=== PATIENT | female | born 1950 | race Caucasian/White ===

== ENCOUNTER 2022-08-12 08:39 | Outpatient (CLI) | payer MEDICARE, OTHER, SELFPAY ==
--- OUTSIDE RECORDS SUMMARY | 2022-08-12 08:49 | XMS_ITS | Encounter Summary ---
:1950 Author Organization [facility] Address [address] [place] [address] Care Team Providers Name Role Phone No Contact, Pcp Primary Care Provider Unavailable Reason for Visit Physical Therapy (Routine) - Canceled Specialty Diagnoses / Procedures Referred By Contact Refer red To Contact Diagnoses Follow Up Surgery Exam Edi Benito M.D. [facility] Procedures PT Ongoing treatment 701 [facility] [place] [phone] Referral ID Status Reason Start Date Expiration Date Visits V isits Requested Authorized [id number] Canceled 09/16/2020 09/16/2021 1 1 Encounter Details Date Type Department Care Team Description 10/20/2020 Clinical Support Department of Edi Benito M.D. 701 [facility] [place] [phone] Follow Up Surgery Rehabilitation Services Dave Servin, P.T. [address] [place] [phone] Exam in [address] [phone] Social History Tobacco Use Types Packs/Day Years Used Date Smoking Tobacco: Never Smokeless Tobacco: Never Alcohol Use Standard Drinks/Week Comments Not Currently 0 (1 standard drink = 0.6 oz pure alcoho l) Sex Assigned at Date Recorded Not on file documented as of this encounter Progress Notes Dave Servin, P.T. - 10/20/2020 6:00 AM CST Physical Therapy Outpatient Treatment Note SUBJECTIVE Patient's Name: Heidi Huerta Referring Provider: Edi Benito M.D. Visit Diagnosis: 1. 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 She feels the prednisonehas been helpful. She has been doing her exercises at home aggressively. OBJECTIVE Pain: Pain Assessment Pain Score: 3 With aggressive therapy today, we are able to obtain knee flexion to approximately 112-113 degrees. This is with considerable over pressure by the therapist. She was able to actively bring her knee to 105??. This is in supine. Overall strength for knee extension is 4+/5. There is a minimal extension lag of no more than 2-3 degrees. TREATMENT Treatment today consisted of: Patient continued with the sci fit today warming up her knee for mobility. We brought her over the treatment table in we worked on passive range of motion for knee flexion/extension. We also had her work on some short arc quads. After this, she worked on the leg press machine allowing her to come downinto flexion as tolerated. She also worked on leg press exercises. Home Exercise Program/Education: Contact monitoring: Appropriate PPE was utilized including face mask/protective eyewear. Assessment Clinical Impression: Patient has gained mobility over the past week. Her pain is much more manageable overall. She is nowable to ascending/descend stairs alternating each leg as she goes. She has not been able to do this for over a year. She has made some good progress. Functional Goals and Timeframes: PT Goal #1: To increase knee flexion to 120?? PT Goal #1 Date: 10/28/20 PT Goal #2: To increase knee extension strength to 4+/5 PT Goal #2 Date: 10/28/20 PT Goal #3: Patient is independent with home exercise program which will address strengthening and mobility. Some of this was addressed today. PT Goal #3 Date: 09/16/20 PT Goal #4: Patient is able to ambulate with a standard cane within 4 weeks PT Goal #4 Date: 10/14/20 Plan I we will continue. She will follow up with Orthopedics tomorrow as well. Plan for next session: Time Spent with Patient Manual Therapy (min): 15 min Therapeutic Exercise (min): 15 min Time Calculation Total Timed Units (min): 30 min Total Treatment Time (min): 30 min Dave Servin P.T. Department of Rehabilitation Services in [address] [address] Dept: [phone] ICAL INSTRUMENT TECHNICIAN documented in this encounter Plan of Treatment Not on filedocumented as of this encounter Visit Diagnoses Diagnosis Follow Up Surgery Exam documented in this encounter Care Teams Will Call Clerk Relationship Specialty Start Date End Date No Contact, Pcp PCP - General Family Medicine 09/05/20 documented as of this encounter
--- OUTSIDE RECORDS SUMMARY | 2022-08-12 08:49 | XMS_ITS | Encounter Summary ---
:1950 Author Organization [facility] Address [address] [place] [address] Care Team Providers Name Role Phone No Contact, Pcp Primary Care Provider Unavailable Reason for Visit Physical Therapy (Routine) - Canceled Specialty Diagnoses / Procedures Referred By Contact Refer red To Contact Diagnoses Follow Up Surgery Exam Edi Benito M.D. [facility] Procedures PT Ongoing treatment 701 [facility] [place] [phone] Referral ID Status Reason Start Date Expiration Date Visits V isits Requested Authorized [id number] Canceled 09/16/2020 09/16/2021 1 1 Encounter Details Date Type Department Care Team Description 10/30/2020 Clinical Support Department of Edi Benito M.D. 701 [facility] [place] [phone] Follow Up Surgery Rehabilitation Services Dave Servin, P.T. [address] [place] [phone] Exam in [address] [phone] Social History Tobacco Use Types Packs/Day Years Used Date Smoking Tobacco: Never Smokeless Tobacco: Never Alcohol Use Standard Drinks/Week Comments Not Currently 0 (1 standard drink = 0.6 oz pure alcoho l) Sex Assigned at Date Recorded Not on file documented as of this encounter Progress Notes Dave Servin, P.T. - 10/30/2020 6:00 AM CST Physical Therapy Outpatient Treatment Note SUBJECTIVE Patient's Name: Heidi Huerta Referring Provider: Edi Benito M.D. Visit Diagnosis: 1. Follow Up Surgery Exam Reason for Referral: Patient is 1 week status post right Total Knee Arthroplasty Onset Date: 09/08/20 Payor: MEDICARE / Plan: MEDICARE A AND B / Product Type: Medicare / No data recorded Epic Visit Count: 17 Patient comments: Sandee comes in today with no significant changes. She has been doing her exercises at home. She hasbeen working on extension as well. OBJECTIVE Pain: Pain Assessment Pain Score: 2 After with aggressive stretching, we are able to obtain knee flexion to approximately 114-115 degrees. TREATMENT Treatment today consisted of: She continued with the sci fit for approximately 5 minutes. She was on the leg press machine for multiple repetitions working on knee flexion as well as strength. She is on the stationary bike very momentarily. This was difficult for her to manage. Brought her over the treatment table in we worked aggressively on knee flexion and extension. We worked on muscle stripping of the hamstrings. Contact monitoring: Appropriate PPE was utilized including face mask/protective eye wear. Assessment Clinical Impression: Patient tolerated well overall. Her overall strength is doing well this being 4+/5. She is been at approximately 114?? of knee flexion over the past week now. Functional Goals and Timeframes: PT Goal #1: [...] weeks PT Goal #4 Date: 10/14/20 Plan We will follow up with her once again next week. She follows up with her living specialist in approximately 10 days. Plan for next session: Time Spent with Patient Dave Servin P.T. Department of Rehabilitation Services in [address] [address] Dept: [phone] OR GRADUATE ADVISOR documented in this encounter Plan of Treatment Not on filedocumented as of this encounter Visit Diagnoses Diagnosis Follow Up Surgery Exam documented in this encounter Care Teams Physical Testing Supervisor Relationship Specialty Start Date End Date No Contact, Pcp PCP - General Family Medicine 09/05/20 documented as of this encounter
--- OUTSIDE RECORDS SUMMARY | 2022-08-12 08:49 | XMS_ITS | Encounter Summary ---
:1950 Author Organization [facility] Address [address] [place] [address] Care Team Providers Name Role Phone No Contact, Pcp Primary Care Provider Unavailable Reason for Visit Physical Therapy (Routine) - Canceled Specialty Diagnoses / Procedures Referred By Contact Refer red To Contact Diagnoses Follow Up Surgery Exam Edi Benito M.D. [facility] Procedures PT Ongoing treatment 701 [facility] [place] [phone] Referral ID Status Reason Start Date Expiration Date Visits V isits Requested Authorized [id number] Canceled 09/16/2020 09/16/2021 1 1 Encounter Details Date Type Department Care Team Description 10/28/2020 Clinical Support Department of Edi Benito M.D. 701 [facility] [place] [phone] Follow Up Surgery Rehabilitation Services Dave Servin, P.T. [address] [place] [phone] Exam in [address] [phone] Social History Tobacco Use Types Packs/Day Years Used Date Smoking Tobacco: Never Smokeless Tobacco: Never Alcohol Use Standard Drinks/Week Comments Not Currently 0 (1 standard drink = 0.6 oz pure alcoho l) Sex Assigned at Date Recorded Not on file documented as of this encounter Progress Notes Dave Servin, P.T. - 10/28/2020 6:00 AM CST Physical Therapy Outpatient Treatment Note SUBJECTIVE Patient's Name: eHidi Huerta Referring Provider: Edi Benito M.D. Visit Diagnosis: 1. Follow Up Surgery Exam Reason for Referral: Patient is 1 week status post right Total Knee Arthroplasty Onset Date: 09/08/20 Payor: MEDICARE / Plan: MEDICARE A AND B / Product Type: Medicare / No data recorded Epic Visit Count: 15 Patient comments: Sandee comes in today stating that she continues to feel that there is improvement in her knee. OBJECTIVE Pain: 2-01/07 TREATMENT Treatment today consisted of: I we continued with patient starting out on the sci fit for mobility. She worked on leg press exercises on machine. We then brought her over the table we worked aggressively on knee flexion/extension. Home Exercise Program/Education: She is to continue with her home exercises as well. Contact monitoring: Appropriate PPE was utilized including face mask/protective eyewear. Assessment Clinical Impression: Patient appears to be doing well overall. She is slowly gaining mobility with her knee flexion. She is now to 115?? with aggressive stretching. She has a slight extension lag of no more than 2-3 degrees. Functional Goals and Timeframes: PT Goal #1: [...] Date: 10/14/20 Plan I we will continue. Plan for next session: Time Spent with Patient Dave Servin P.T. Department of Rehabilitation Services in [address] [address] Dept: [phone] TH AND WELLNESS INSTRUCTOR documented in this encounter Plan of Treatment Not on filedocumented as of this encounter Visit Diagnoses Diagnosis Follow Up Surgery Exam documented in this encounter Care Teams Product Safety Technician Relationship Specialty Start Date End Date No Contact, Pcp PCP - General Family Medicine 09/05/20 documented as of this encounter
--- OUTSIDE RECORDS SUMMARY | 2022-08-12 08:49 | XMS_ITS | Encounter Summary ---
:1950 Author Organization [facility] Address [address] [place] [address] Care Team Providers Name Role Phone No Contact, Pcp Primary Care Provider Unavailable Reason for Visit Physical Therapy (Routine) - Canceled Specialty Diagnoses / Procedures Referred By Contact Refer red To Contact Diagnoses Follow Up Surgery Exam Edi Benito M.D. [facility] Procedures PT Ongoing treatment [address] [place] [phone] Referral ID Status Reason Start Date Expiration Date Visits V isits Requested Authorized [id number] Canceled 09/16/2020 09/16/2021 1 1 Encounter Details Date Type Department Care Team Description 11/12/2020 Clinical Support Department of Edi Benito M.D. 701 [place] [phone] Follow Up Surgery Rehabilitation Services Dave Servin, P.T. [address] [place] [phone] Exam in [address] [phone] Social History Tobacco Use Types Packs/Day Years Used Date Smoking Tobacco: Never Smokeless Tobacco: Never Alcohol Use Standard Drinks/Week Comments Not Currently 0 (1 standard drink = 0.6 oz pure alcoho l) Sex Assigned at Date Recorded Not on file documented as of this encounter Progress Notes Dave Servin, P.T. - 11/12/2020 6:00 AM CST Physical Therapy Outpatient Treatment Note SUBJECTIVE Patient's Name: Heidi Huerta Referring Provider: Edi Benito M.D. Visit Diagnosis: 1. Follow Up Surgery Exam Reason for Referral: Patient is 1 week status post right Total Knee Arthroplasty Onset Date: 09/08/20 Payor: MEDICARE / Plan: MEDICARE A AND B / Product Type: Medicare / No data recorded Epic Visit Count: 22 Patient comments: Sandee comes into therapy today after having been to Orthopedics yesterday. They feel that she should continue physical therapy to hopefully increase her knee flexion to 120??. However, overall, they feel she is doing quite well. Contact monitoring: Appropriate PPE was utilized including face mask/protective eyewear. OBJECTIVE Pain: Pain Assessment Pain Score: 1 After therapy today, we are able to obtain knee flexion to nearly 118?? passively. This was with very aggressive stretching. TREATMENT Treatment today consisted of: We continued today with patient warming up on the sci fit times 10 minutes followed by leg press exercises allowing her to come down into flexion as tolerated. She also worked this for strengthening. We then worked on passive range of motion on the treatment table. This was for both knee flexion/extens ion. We had her work on hamstring curls. We then worked on some deep friction massage to the knee. Assessment Clinical Impression: Patient continues to show improvement with her overall mobility. Strength is doing well. Functional Goals and Timeframes: Plan I we will continue with therapy. Overall goals have been nearly met. We hope to see 120?? within thenext week. Plan for next session: Time Spent with Patient Manual Therapy (min): 15 min Therapeutic Exercise (min): 15 min Time Calculation Total Timed Units (min): 30 min Total Treatment Time (min): 30 min Dave Servin P.T. Department of Rehabilitation Services in [address] [phone] Dept: [phone] Y DRIVER documented in this encounter Plan of Treatment Not on filedocumented as of this encounter Visit Diagnoses Diagnosis Follow Up Surgery Exam documented in this encounter Care Teams Nanotechnician Relationship Specialty Start Date End Date No Contact, Pcp PCP - General Family Medicine 09/05/20 documented as of this encounter
--- OUTSIDE RECORDS SUMMARY | 2022-08-12 08:49 | XMS_ITS | Encounter Summary ---
:1950 Author Organization [facility] Address [address] [place] [address] Care Team Providers Name Role Phone No Contact, Pcp Primary Care Provider Unavailable Reason for Visit Physical Therapy (Routine) - Canceled Specialty Diagnoses / Procedures Referred By Contact Refer red To Contact Diagnoses Follow Up Surgery Exam Edi Benito M.D. [facility] Procedures PT Ongoing treatment 701 [facility] [place] [phone] Referral ID Status Reason Start Date Expiration Date Visits V isits Requested Authorized [id number] Canceled 09/16/2020 09/16/2021 1 1 Encounter Details Date Type Department Care Team Description 10/29/2020 Clinical Support Department of Edi Benito M.D. 701 [facility] [place] [phone] Follow Up Surgery Rehabilitation Services Dave Servin, P.T. [address] [place] [phone] Exam in [address] [phone] Social History Tobacco Use Types Packs/Day Years Used Date Smoking Tobacco: Never Smokeless Tobacco: Never Alcohol Use Standard Drinks/Week Comments Not Currently 0 (1 standard drink = 0.6 oz pure alcoho l) Sex Assigned at Date Recorded Not on file documented as of this encounter Progress Notes Dave Servin, P.T. - 10/29/2020 6:00 AM CST Physical Therapy Outpatient Treatment Note SUBJECTIVE Patient's Name: Heidi Huerta Referring Provider: Edi Benito M.D. Visit Diagnosis: 1. Follow Up Surgery Exam Reason for Referral: Patient is 1 week status post right Total Knee Arthroplasty Onset Date: 09/08/20 Payor: MEDICARE / Plan: MEDICARE A AND B / Product Type: Medicare / No data recorded Epic Visit Count: 16 Patient comments: Sandee comes into therapy today with no new complaints. OBJECTIVE Pain: Pain Assessment Pain Score: 2 After therapy today, with aggressive stretching, we are able to obtain knee flexion to -112 degrees. She was able to bring this to 110?? by herself while lying supine. TREATMENT Treatment today consisted of: We had patient warm up on the sci fit once again. This was for approximately 10 minutes. She then worked on the leg press exercise machine allowing her to come down into flexion as tolerated. We then brought her over the treatment table in we worked aggressively on knee flexion/extension. We did review her extension exercises for at home. We recommend that she work on this more aggressively. Home Exercise Program/Education: Contact monitoring: Appropriate PPE was utilized including face mask/protective eyewear. Assessment Clinical Impression: Patient tolerated well overall. Mobility for flexion is about the same today as it was on Tuesday. Functional Goals and Timeframes: PT Goal #1: [...] Servin P.T. Department of Rehabilitation Services in [address] [address] Dept: [phone] GORY ANALYST documented in this encounter Plan of Treatment Not on filedocumented as of this encounter Visit Diagnoses Diagnosis Follow Up Surgery Exam documented in this encounter Care Teams Phlebotomy Program Coordinator Relationship Specialty Start Date End Date No Contact, Pcp PCP - General Family Medicine 09/05/20 documented as of this encounter
--- OUTSIDE RECORDS SUMMARY | 2022-08-12 08:49 | XMS_ITS | Encounter Summary ---
:1950 Author Organization [facility] Address [address] [place] [address] Care Team Providers Name Role Phone No Contact, Pcp Primary Care Provider Unavailable Reason for Visit Physical Therapy (Routine) - Canceled Specialty Diagnoses / Procedures Referred By Contact Refer red To Contact Diagnoses Follow Up Surgery Exam Edi Benito M.D. [facility] Procedures PT Ongoing treatment 701 [facility] [place] [phone] Referral ID Status Reason Start Date Expiration Date Visits V isits Requested Authorized [id number] Canceled 09/16/2020 09/16/2021 1 1 Encounter Details Date Type Department Care Team Description 10/10/2020 Clinical Support Department of Edi Benito M.D. 701 [facility] [place] [phone] Follow Up Surgery Rehabilitation Services Dave Servin, P.T. [address] [place] [phone] Exam in [address] [phone] Social History Tobacco Use Types Packs/Day Years Used Date Smoking Tobacco: Never Smokeless Tobacco: Never Alcohol Use Standard Drinks/Week Comments Not Currently 0 (1 standard drink = 0.6 oz pure alcoho l) Sex Assigned at Date Recorded Not on file documented as of this encounter Progress Notes Dave Servin, P.T. - 10/10/2020 6:00 AM CST Physical Therapy Outpatient Treatment Note SUBJECTIVE Patient's Name: Heidi Huerta Referring Provider: Edi Benito M.D. Visit Diagnosis: 1. Follow Up Surgery Exam Reason for Referral: Patient is 1 week status post right Total Knee Arthroplasty Onset Date: 09/08/20 Payor: MEDICARE / Plan: MEDICARE A AND B / Product Type: Medicare / No data recorded Epic Visit Count: 9 Patient comments: Sandee comes into therapy today stating that she feels better overall. Her pain is much more manageable. However, she is still struggling to increase her mobility. OBJECTIVE Pain: Pain Assessment Pain Score: 3 After therapy today, we are able to obtain knee flexion to approximately 100??. Knee extension lag of approximately 2-3 degrees. TREATMENT Treatment today consisted of: Patient was on the sci fit for approximately 15 minutes allowing her to bring her knee into flexion as tolerated. We then worked on passive range of motion on the treatment table. We address both passive flexion/extension. We had her work on some short arc quads. Home Exercise Program/Education: Contact monitoring: Appropriate PPE was utilized including face mask/protective eyewear. Assessment Clinical Impression: Patient has been diligent in coming into therapy. She is actually coming into therapy on her off days as well getting on the sci fit. However, we have been unable to gain flexion beyond 100??. This is been for approximately the last 1-2 weeks without seeing a lot of progress for flexion. Functional Goals and Timeframes: PT Goal #1: [...] Goal #4 Date: 10/14/20 Plan We will continue next week. She will be following up with her business account specialist on Tuesday. Plan for next session: Time Spent with Patient Manual Therapy (min): 15 min Therapeutic Exercise (min): 15 min Time Calculation Total Timed Units (min): 30 min Total Treatment Time (min): 30 min Dave Servin P.T. Department of Rehabilitation Services in [address] [address] Dept: [phone] HER PLANT OPERATOR documented in this encounter Plan of Treatment Not on filedocumented as of this encounter Visit Diagnoses Diagnosis Follow Up Surgery Exam documented in this encounter Care Teams Stock Order Lister Relationship Specialty Start Date End Date No Contact, Pcp PCP - General Family Medicine 09/05/20 documented as of this encounter
--- OUTSIDE RECORDS SUMMARY | 2022-08-12 08:49 | XMS_ITS | Encounter Summary ---
:1950 Author Organization [facility] Address [address] [place] [address] Care Team Providers Name Role Phone No Contact, Pcp Primary Care Provider Unavailable Reason for Visit Physical Therapy (Routine) - Canceled Specialty Diagnoses / Procedures Referred By Contact Refer red To Contact Diagnoses Follow Up Surgery Exam Edi Benito M.D. [facility] Procedures PT Ongoing treatment [address] [place] [phone] Referral ID Status Reason Start Date Expiration Date Visits V isits Requested Authorized [id number] Canceled 09/16/2020 09/16/2021 1 1 Encounter Details Date Type Department Care Team Description 11/18/2020 Clinical Support Department of Edi Benito M.D. 701 [facility] [place] [phone] Follow Up Surgery Rehabilitation Services Dave Servin, P.T. [address] [place] [phone] Exam in [address] [phone] Social History Tobacco Use Types Packs/Day Years Used Date Smoking Tobacco: Never Smokeless Tobacco: Never Alcohol Use Standard Drinks/Week Comments Not Currently 0 (1 standard drink = 0.6 oz pure alcoho l) Sex Assigned at Date Recorded Not on file documented as of this encounter Progress Notes Dave Servin, P.T. - 11/18/2020 6:00 AM CST Physical Therapy Outpatient Treatment Note SUBJECTIVE Patient's Name: Heidi Huerta Referring Provider: Edi Benito M.D. Visit Diagnosis: 1. Follow Up Surgery Exam Reason for Referral: Patient is 1 week status post right Total Knee Arthroplasty Onset Date: 09/08/20 Payor: MEDICARE / Plan: MEDICARE A AND B / Product Type: Medicare / No data recorded Epic Visit Count: 24 Patient comments: Sandee comes into therapy today with no new complaints. Contact monitoring: Appropriate PPE was utilized including face mask/protective eyewear. OBJECTIVE Pain: Pain Assessment Pain Score: 2 After therapy today, we are able to obtain 119?? of knee flexion. This was with aggressive stretching. TREATMENT Treatment today consisted of: She continued with sci fit today for 15 minutes followed by leg press exercises allowing her to comedown into flexion. We then worked on aggressive stretching for flexion and also muscle stripping forhamstring stretch. We had her work on hamstring curls with manual resistance. Home Exercise Program/Education: She is to continue with her home exercises. Assessment: Patient is doing well overall. She is nearly to 120?? now. Functional Goals and Timeframes: PT Goal [...] #4 Date: 10/14/20 Plan We will continue through this week. Plan for next session: Time Spent with Patient Manual Therapy (min): 15 min Therapeutic Exercise (min): 15 min Time Calculation Total Timed Units (min): 30 min Total Treatment Time (min): 30 min Dave Servin P.T. Department of Rehabilitation Services in [address] [address] Dept: [phone] ZER OPERATOR documented in this encounter Plan of Treatment Not on filedocumented as of this encounter Visit Diagnoses Diagnosis Follow Up Surgery Exam documented in this encounter Care Teams Fill Plant Operator Relationship Specialty Start Date End Date No Contact, Pcp PCP - General Family Medicine 09/05/20 documented as of this encounter
--- OUTSIDE RECORDS SUMMARY | 2022-08-12 08:49 | XMS_ITS | Encounter Summary ---
:1950 Author Organization [facility] Address [address] [place] [address] Care Team Providers Name Role Phone No Contact, Pcp Primary Care Provider Unavailable Reason for Visit Physical Therapy (Routine) - Canceled Specialty Diagnoses / Procedures Referred By Contact Refer red To Contact Diagnoses Follow Up Surgery Exam Edi Benito M.D. [facility] Procedures PT Ongoing treatment [address] [place] [phone] Referral ID Status Reason Start Date Expiration Date Visits V isits Requested Authorized [id number] Canceled 09/16/2020 09/16/2021 1 1 Encounter Details Date Type Department Care Team Description 11/05/2020 Clinical Support Department of Edi Benito M.D. [address] [facility] [place] [phone] Follow Up Surgery Rehabilitation Services Dave Servin, P.T. [address] [place] [phone] Exam in [address] [phone] Social History Tobacco Use Types Packs/Day Years Used Date Smoking Tobacco: Never Smokeless Tobacco: Never Alcohol Use Standard Drinks/Week Comments Not Currently 0 (1 standard drink = 0.6 oz pure alcoho l) Sex Assigned at Date Recorded Not on file documented as of this encounter Progress Notes Dave Servin, P.T. - 11/05/2020 6:00 AM CST Physical Therapy Outpatient Treatment Note SUBJECTIVE Patient's Name: Heidi Huerta Referring Provider: Edi Benito M.D. Visit Diagnosis: 1. 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 She continues to do her exercises athome. OBJECTIVE Pain: Pain Assessment Pain Score: 2 Patient was able to lie supine today and then her knee to approximately 115??. This was with aggressive stretching. This is also would we were able to obtain passively by the therapist. TREATMENT Treatment today consisted of: We worked on the siphon for warmup. She worked on the leg press machine along her to come down into flexion as tolerated and also worked on strengthening for the quads. We then brought her to the treatment table and worked aggressively with passive range of motion for knee flexion/extension. We had her work on hamstring curls. Contact monitoring: Appropriate PPE was utilized including face mask/protective eyewear. Assessment Clinical Impression: The patient is doing relatively well overall. Pain is very manageable. She continues to show some improvement with mobility. She is to approximately 115??. She ambulates with a slight deviation in her gait. However, she is able to ascending/descending stairs reciprocating with each leg. Strength is progressing well. Functional Goals and Timeframes: PT Goal #1: [...] Goal #4 Date: 10/14/20 Plan We will continue. She will be seeing Orthopedics on Tuesday. She is hoping that a manipulation will not be necessary. Plan for next session: Time Spent with Patient Manual Therapy (min): 15 min Therapeutic Exercise (min): 15 min Time Calculation Total Timed Units (min): 30 min Total Treatment Time (min): 30 min Dave Servin P.T. Department of Rehabilitation Services in [address] [address] Dept: [phone] L BUILDING ASSEMBLER documented in this encounter Plan of Treatment Not on filedocumented as of this encounter Visit Diagnoses Diagnosis Follow Up Surgery Exam documented in this encounter Care Teams Gravel Inspector Relationship Specialty Start Date End Date No Contact, Pcp PCP - General Family Medicine 09/05/20 documented as of this encounter
--- OUTSIDE RECORDS SUMMARY | 2022-08-12 08:49 | XMS_ITS | Encounter Summary ---
:1950 Author Organization [facility] Address [address] [place] [address] Care Team Providers Name Role Phone No Contact, Pcp Primary Care Provider Unavailable Encounter Details Date Type Department Care Team Description 06/02/2022 Clinical Communication Department of Edi Benito , Orthopedic Surgery in [place], [place] 701 [facility] [address] [place] [phone] Social History Tobacco Use Types Packs/Day Years Used Date Smoking Tobacco: Never Smokeless Tobacco: Never Alcohol Use Standard Drinks/Week Comments Not Currently 0 (1 standard drink = 0.6 oz pure alcoho l) Sex Assigned at Date Recorded Not on file documented as of this encounter Plan of Treatment Not on filedocumented as of this encounter Visit Diagnoses Not on filedocumented in this encounter Care Teams Field Professional Relationship Specialty Start Date End Date No Contact, Pcp PCP - General Family Medicine 09/05/20 documented as of this encounter
--- OUTSIDE RECORDS SUMMARY | 2022-08-12 08:49 | XMS_ITS | Encounter Summary ---
:1950 Author Organization [facility] Address [address] [place] [address] Care Team Providers Name Role Phone No Contact, Pcp Primary Care Provider Unavailable Reason for Visit Physical Therapy (Routine) - Canceled Specialty Diagnoses / Procedures Referred By Contact Refer red To Contact Diagnoses Follow Up Surgery Exam Edi Benito M.D. [facility] Procedures PT Ongoing treatment [address] [place] [phone] Referral ID Status Reason Start Date Expiration Date Visits V isits Requested Authorized [id number] Canceled 09/16/2020 09/16/2021 1 1 Encounter Details Date Type Department Care Team Description 11/03/2020 Clinical Support Department of Edi Benito M.D. 701 [facility] [place] [phone] Follow Up Surgery Rehabilitation Services Dave Servin, P.T. [address] [place] [phone] Exam in [address] [phone] Social History Tobacco Use Types Packs/Day Years Used Date Smoking Tobacco: Never Smokeless Tobacco: Never Alcohol Use Standard Drinks/Week Comments Not Currently 0 (1 standard drink = 0.6 oz pure alcoho l) Sex Assigned at Date Recorded Not on file documented as of this encounter Progress Notes Dave Servin, P.T. - 11/03/2020 6:00 AM CST Physical Therapy Outpatient Treatment Note SUBJECTIVE Patient's Name: Heidi Huerta Referring Provider: Edi Benito M.D. Visit Diagnosis: 1. Follow Up Surgery Exam Reason for Referral: Patient is 1 week status post right Total Knee Arthroplasty Onset Date: 09/08/20 Payor: MEDICARE / Plan: MEDICARE A AND B / Product Type: Medicare / No data recorded Epic Visit Count: 18 Patient comments: Sandee states she worked her knee aggressively on Tuesday. It was more sore Tuesday. Today, she feels it is just more stiff overall. OBJECTIVE Pain: Pain Assessment Pain Score: 4 Starting out today before exercises, knee flexion was at approximately 108?? with aggressive over pressure. After therapy today, we are able to obtain approximately 117?? of flexion passively. This wasa very aggressive stretch. She still has an extension lag of approximately 2-3 degrees. TREATMENT Treatment today consisted of: I we had patient continue on the sci fit for approximately 10 minutes. We had her work on the leg press machine working on both strength and mobility. After this we worked aggressively on knee flexion/extension. She worked on knee extension exercises in short sitting with manual resistance. She workedon hamstring curls with manual resistance. Home Exercise Program/Education: Contact monitoring: Appropriate PPE was utilized including face mask/protective eyewear. Assessment Clinical Impression: Patient tolerated well overall. She did increase her flexion by approximately 2- 3 degrees since lastweek. However, this was with a very aggressive stretching. Functional Goals and Timeframes: PT Goal #1: [...] Plan We will continue through this week. She will follow up with Orthopedics next week. Plan for next session: Time Spent with Patient Manual Therapy (min): 15 min Therapeutic Exercise (min): 15 min Time Calculation Total Timed Units (min): 30 min Total Treatment Time (min): 30 min Dave Servin P.T. Department of Rehabilitation Services in [address] [address] Dept: [phone] TAKER GROUNDS documented in this encounter Plan of Treatment Not on filedocumented as of this encounter Visit Diagnoses Diagnosis Follow Up Surgery Exam documented in this encounter Care Teams Nitro Worker Relationship Specialty Start Date End Date No Contact, Pcp PCP - General Family Medicine 09/05/20 documented as of this encounter
--- OUTSIDE RECORDS SUMMARY | 2022-08-12 08:49 | XMS_ITS | Encounter Summary ---
:1950 Author Organization [facility] Address [address] [place] [address] Care Team Providers Name Role Phone No Contact, Pcp Primary Care Provider Unavailable Encounter Details Date Type Department Care Team Description 12/31/2020 Orders Only [facility] PCP TH Sa karissa Thomas M.D. [address] [place], [place] [phone] (Wo rk) Social History Tobacco Use Types Packs/Day Years [...] on filedocumented in this encounter Care Teams Masticator Relationship Specialty Start Date End Date No Contact, Pcp PCP - General Family Medicine 09/05/20 documented as of this encounter
--- OUTSIDE RECORDS SUMMARY | 2022-08-12 08:49 | XMS_ITS | Encounter Summary ---
:1950 Author Organization [facility] Address [address] [place] [address] Care Team Providers Name Role Phone No Contact, Pcp Primary Care Provider Unavailable Reason for Visit Physical Therapy (Routine) - Canceled Specialty Diagnoses / Procedures Referred By Contact Refer red To Contact Diagnoses Follow Up Surgery Exam Edi Benito M.D. [facility] Procedures PT Ongoing treatment 701 [facility] [place] [phone] Referral ID Status Reason Start Date Expiration Date Visits V isits Requested Authorized [id number] Canceled 09/16/2020 09/16/2021 1 1 Encounter Details Date Type Department Care Team Description 10/22/2020 Clinical Support Department of Edi Benito M.D. 701 [facility] [place] [phone] Follow Up Surgery Rehabilitation Services Dave Servin, P.T. [address] [place] [phone] Exam in [address] [phone] Social History Tobacco Use Types Packs/Day Years Used Date Smoking Tobacco: Never Smokeless Tobacco: Never Alcohol Use Standard Drinks/Week Comments Not Currently 0 (1 standard drink = 0.6 oz pure alcoho l) Sex Assigned at Date Recorded Not on file documented as of this encounter Progress Notes Dave Servin, P.T. - 10/22/2020 6:00 PM CST Physical Therapy Outpatient Treatment Note SUBJECTIVE Patient's Name: Heidi Huerta Referring Provider: Edi Benito M.D. Visit Diagnosis: 1. Follow Up Surgery Exam Reason for Referral: Patient is 1 week status post right Total Knee Arthroplasty Onset Date: 09/08/20 Payor: MEDICARE / Plan: MEDICARE A AND B / Product Type: Medicare / No data recorded Epic Visit Count: 13 Patient comments: Sandee comes into therapy today stating that her knee feels a little more stiff. She continues to beon the prednisone but this is her last day. She did see Orthopedics yesterday and they feel that they want to give this another 2-3 weeks to see if she gains any further mobility. OBJECTIVE Pain: Pain Assessment Pain Score: 2 After aggressive therapy today, we are able to obtain knee flexion passively to approximately 112??.She has a significant amount of discomfort at end range while doing this. TREATMENT Treatment today consisted of: Patient started out on the sci fit for mobility. We then brought her to the treatment table in worked aggressively on knee flexion. She worked on leg press exercises on machine. This allowed her to come down into flexion as tolerated. We then had her on the stationary bike trying to make full revolutions. She has a significant amount of pain when coming around with the pedal. However, she is able to make a full revolution. Home Exercise Program/Education: Patient is to work very aggressively with her home exercises. Contact monitoring: Appropriate PPE was utilized including face mask/protective eyewear. Assessment Clinical Impression: Patient tolerated well overall. Functional Goals and Timeframes: PT Goal #1: [...] #4 Date: 10/14/20 Plan I we will continue to work on her mobility over the next couple of weeks. She is going to be following up with her clarity specialists at that time. They will decide whether not she will require a manipulation at that point. Plan for next session: Time Spent with Patient Manual Therapy (min): 15 min Therapeutic Exercise (min): 15 min Time Calculation Total Timed Units (min): 30 min Total Treatment Time (min): 30 min Dave Servin P.T. Department of Rehabilitation Services in [address] [phone] Dept: [phone] OLOGICAL TECHNICIAN documented in this encounter Plan of Treatment Not on filedocumented as of this encounter Visit Diagnoses Diagnosis Follow Up Surgery Exam documented in this encounter Care Teams Scene Painter Relationship Specialty Start Date End Date No Contact, Pcp PCP - General Family Medicine 09/05/20 documented as of this encounter
--- OUTSIDE RECORDS SUMMARY | 2022-08-12 08:49 | XMS_ITS | Encounter Summary ---
:1950 Author Organization [facility] Address [address] [place] [address] Care Team Providers Name Role Phone No Contact, Pcp Primary Care Provider Unavailable Reason for Visit Physical Therapy (Routine) - Canceled Specialty Diagnoses / Procedures Referred By Contact Refer red To Contact Diagnoses Follow Up Surgery Exam Edi Benito M.D. [facility] Procedures PT Ongoing treatment 701 [facility] [place] [phone] Referral ID Status Reason Start Date Expiration Date Visits V isits Requested Authorized [id number] Canceled 09/16/2020 09/16/2021 1 1 Encounter Details Date Type Department Care Team Description 09/26/2020 Clinical Support Department of Edi Benito M.D. 701 [facility] [place] [phone] Follow Up Surgery Rehabilitation Services Dave Servin, P.T. [address] [place] [phone] Exam in [address] [phone] Social History Tobacco Use Types Packs/Day Years Used Date Smoking Tobacco: Never Smokeless Tobacco: Never Alcohol Use Standard Drinks/Week Comments Not Currently 0 (1 standard drink = 0.6 oz pure alcoho l) Sex Assigned at Date Recorded Not on file documented as of this encounter Progress Notes Dave Servin, P.T. - 09/26/2020 6:00 AM CST Physical Therapy Outpatient Treatment Note SUBJECTIVE Patient's Name: Heidi Huerta Referring Provider: Edi Benito M.D. Visit Diagnosis: 1. Follow Up Surgery Exam Reason for Referral: Patient is 1 week status post right Total Knee Arthroplasty Onset Date: 09/08/20 Payor: MEDICARE / Plan: MEDICARE A AND B / Product Type: Medicare / No data recorded Epic Visit Count: 5 Patient comments: Sandee comes into therapy today stating that her knee is stiff and with little more soreness today. She is up on her feet much of the day yesterday with Thanksgiving. OBJECTIVE Pain: Pain Assessment Pain Score: 5 - Moderate pain Initially today, patient's mobility was at approximately 50?? of flexion. However, after prolonged therapy and motion, we are able to obtain knee flexion to nearly 95?? visually. TREATMENT Treatment today consisted of: Patient was on the sci fit for approximately 15 minutes. We also provided passive range of motion for knee flexion/extension. We had her work on some short arc quads. Total time today was 15 minutes oftherapeutic exercise and 15 minutes of manual therapy. Home Exercise Program/Education: Contact monitoring: Appropriate PPE was utilized including face mask/protective eyewear. Assessment Clinical Impression: Patient had some increased swelling today. She is up on her feet much of the day. We encouraged her to moderate her activities little bit more. She should elevate her knee a little more. We recommendedthat she lay down 2-3 times a day just to elevate her leg. She should avoid a lot of prolonged shortsitting. She is to continue icing. Functional Goals and Timeframes: PT Goal #1: [...] weeks PT Goal #4 Date: 10/14/20 Plan we will continue. Plan for next session: Time Spent with Patient Manual Therapy (min): 15 min Therapeutic Exercise (min): 15 min Time Calculation Total Timed Units (min): 30 min Total Treatment Time (min): 30 min Dave Servin P.T. Department of Rehabilitation Services in [address] [phone] Dept: [phone] LE MAKER ORIGINAL documented in this encounter Plan of Treatment Not on filedocumented as of this encounter Visit Diagnoses Diagnosis Follow Up Surgery Exam documented in this encounter Care Teams Laboratory Clerk Relationship Specialty Start Date End Date No Contact, Pcp PCP - General Family Medicine 09/05/20 documented as of this encounter
--- OUTSIDE RECORDS SUMMARY | 2022-08-12 08:49 | XMS_ITS | Encounter Summary ---
:1950 Author Organization [facility] Address [address] [place] [address] Care Team Providers Name Role Phone No Contact, Pcp Primary Care Provider Unavailable Reason for Visit Physical Therapy (Routine) - Canceled Specialty Diagnoses / Procedures Referred By Contact Refer red To Contact Diagnoses Follow Up Surgery Exam Edi Benito M.D. [facility] Procedures PT Ongoing treatment [address] [place] [phone] Referral ID Status Reason Start Date Expiration Date Visits V isits Requested Authorized [id number] Canceled 09/16/2020 09/16/2021 1 1 Encounter Details Date Type Department Care Team Description 11/10/2020 Clinical Support Department of Edi Benito M.D. [address] [facility] [phone] Follow Up Surgery Rehabilitation Services Dave Servin, P.T. [address] [place] [phone] Exam in [address] [phone] Social History Tobacco Use Types Packs/Day Years Used Date Smoking Tobacco: Never Smokeless Tobacco: Never Alcohol Use Standard Drinks/Week Comments Not Currently 0 (1 standard drink = 0.6 oz pure alcoho l) Sex Assigned at Date Recorded Not on file documented as of this encounter Progress Notes Dave Servin, P.T. - 11/10/2020 6:00 AM CST Physical Therapy Outpatient Treatment Note SUBJECTIVE Patient's Name: Heidi Huerta Referring Provider: Edi Benito M.D. Visit Diagnosis: 1. Follow Up Surgery Exam Reason for Referral: Patient is 1 week status post right Total Knee Arthroplasty Onset Date: 09/08/20 Payor: MEDICARE / Plan: MEDICARE A AND B / Product Type: Medicare / No data recorded Epic Visit Count: 21 Patient comments: Sandee comes into therapy with similar issues overall. She will be seeing Orthopedics tomorrow. OBJECTIVE Pain: Pain Assessment Pain Score: 2 After therapy today, patient was able to flex her knee to 115??/116??. This was on her own. This waswith aggressive stretching on her part while she was supine. 115-116 degrees was about all this therapist could obtain as well. TREATMENT Treatment today consisted of: She continued with the sci fit as well as the leg press machine to work on flexion and strengthening. I we worked on hamstring curls with her in the prone position. We worked on passive range of motionfor knee flexion and extension. Home Exercise Program/Education: Contact monitoring: Appropriate PPE was utilized including face mask/protective eyewear. Assessment Clinical Impression: Patient tolerated well overall. Mobility has been somewhat limited over the past week. However, she is to 115/116 degrees. This is very functional at this time. Functional Goals and Timeframes: PT Goal #1: [...] weeks PT Goal #4 Date: 10/14/20 Plan She will be following up with Orthopedics tomorrow. We will continue as needed. Plan for next session: Time Spent with Patient Manual Therapy (min): 15 min Therapeutic Exercise (min): 15 min Time Calculation Total Timed Units (min): 30 min Total Treatment Time (min): 30 min Dave Servin P.T. Department of Rehabilitation Services in [address] [address] Dept: [phone] SAMPLE MAKER documented in this encounter Plan of Treatment Not on filedocumented as of this encounter Visit Diagnoses Diagnosis Follow Up Surgery Exam documented in this encounter Care Teams Archeologist Relationship Specialty Start Date End Date No Contact, Pcp PCP - General Family Medicine 09/05/20 documented as of this encounter
--- OUTSIDE RECORDS SUMMARY | 2022-08-12 08:49 | XMS_ITS | Encounter Summary ---
:1950 Author Organization [facility] Address [address] [place] [address] Care Team Providers Name Role Phone No Contact, Pcp Primary Care Provider Unavailable Reason for Visit Reason Comments Post-op Outpatient (Routine) - Closed Specialty Diagnoses / Procedures Referred By Contact Refer red To Contact Orthopedic Surgery Bridgette Francisco, ISABELLA, [facility] C.N.P., D.N.P. [address] [place] [address] Referral ID Status Reason Start Date Expiration Date Visits Requ ested Visits Authorized [id number] Closed 08/21/2020 08/21/2021 1 1 Encounter Details Date Type Department Care Team Description 09/22/2020 Office Visit Department of Bridgette Francisco, Follow Up S urgery Exam Orthopedic Surgery in REVIT DRAFTER, C.N.P., (Prim manuel Dx) [place], [place] D.N.P. [address] [facility] [address] [place] [phone] Social History Tobacco Use Types Packs/Day Years Used Date Smoking Tobacco: Never Smokeless Tobacco: Never Alcohol Use Standard Drinks/Week Comments Not Currently 0 (1 standard drink = 0.6 oz pure alcoho l) Sex Assigned at Date Recorded Not on file documented as of this encounter Progress Notes Bridgette Francisco, ISABELLA, C.N.P., D.N.P. - 09/22/2020 2:30 PM CST Heidi is a pleasant 69-year-old female who is status post right total knee arthroplasty on 09/08/2020. She has very low tolerance for narcotics but having significant pain postoperatively. She currently on is on a Duragesic patch of 12.5 mg and tolerating that well. Pain has been inhibiting her motion. She continues to ice and work with PT and her exercises. She states it was more pain and she imagined. She denies any signs or symptoms of infection. Physical exam-right knee with moderate effusion noted. Surgical incision is well approximated. Thereis no signs of infection. Knee is stable to valgus and varus. She lacks full extension by 4-5 degrees and flexes to 80??. She has negative calf pain or excessive swelling and negative Homans sign. She has excellent sensation and motion with her foot. Diagnostic [id number] of her right knee shows total knee arthroplasty hardware without failure. Impression and plan- Heidi is a very pleasant 69-year-old who is 2 weeks status post right totalknee arthroplasty and struggling with pain control. She states she has taken a few tramadol which does make her nauseous but uses it for therapy. She has been tolerating the duragesic patch and today we will increase the patch to 25 mcg. She may still use the tramadol as needed if she can tolerate. Lisethid discuss continuing with stool softeners and watching in treating constipation. She will continuewith aspirin 81 mg twice daily. We reviewed incisional care and will plan to see her back in 3 weeksfor follow-up. She will continue to work with physical therapy. Her questions were answered. Visitedalso with her on speaker phone to help clarify medications. ET HAND WEAVER documented in this encounter Plan of Treatment Not on filedocumented as of this encounter Results DX Knee Right 3 Views (09/22/2020 3:04 PM BASKET HAND WEAVER) Anatomical Region Laterality Modality Lower Extremity, Knee, Musculoskeletal RST LOS, Right Digital Radiography Musculoskeletal ARZ LOS, Muskuloskeletal FLA LOS Specimen (Source) Anatomical Collection Method Collection Time Re ceived Time Location / / Volume Laterality 09/22/2020 3:19 PM BASKET HAND WEAVER Impressions 09/22/2020 3:20 PM BASKET HAND WEAVER Interval right TKA with patellar resurfacing. Components appear well seated without evidence of loosening. Ne w soft tissue swelling about the right knee relative to the left. Tricompartmen shravan degenerative change left knee. Comparison with 08/21/2020. Narrative 09/22/2020 3:20 PM BASKET HAND WEAVER EXAM: DX KNEE RIGHT 3 VIEWS Procedure Note Corie Polk M.D. - 09/22/2020Form atting of this note might be different from the original. EXAM: DX KNEE RIGHT 3 VIEWS IMPRESSION: Interval right TKA with patellar resurfa cing. Components appear well seated without evidence of loosening. Ne w soft tissue swelling about the right knee relative to the left. Tricompartmen shravan degenerative change left knee. Comparison with 08/21/2020. Bridgette Francisco APRN, C.N.P., D.N.P. IMG DIAGNOSTIC IMAG ING PROCEDURES documented in this encounter Visit Diagnoses Diagnosis Follow Up Surgery Exam - Primary Follow Up Surgery Exam documented in this encounter Care Teams Raw Stock Dyeing Machine Tender Relationship Specialty Start Date End Date No Contact, Pcp PCP - General Family Medicine 09/05/20 documented as of this encounter
--- OUTSIDE RECORDS SUMMARY | 2022-08-12 08:49 | XMS_ITS | Encounter Summary ---
:1950 Author Organization [facility] Address [address] [place] [address] Care Team Providers Name Role Phone No Contact, Pcp Primary Care Provider Unavailable Reason for Visit Physical Therapy (Routine) - Canceled Specialty Diagnoses / Procedures Referred By Contact Refer red To Contact Diagnoses Follow Up Surgery Exam Edi Benito M.D. [facility] Procedures PT Ongoing treatment [address] [place] [phone] Referral ID Status Reason Start Date Expiration Date Visits V isits Requested Authorized [id number] Canceled 09/16/2020 09/16/2021 1 1 Encounter Details Date Type Department Care Team Description 09/18/2020 Clinical Support Department of Edi Benito M.D. 701 [facility] [place] [phone] Follow Up Surgery Rehabilitation Services Dave Servin, P.T. [address] [place] [phone] Exam in [address] [phone] Social History Tobacco Use Types Packs/Day Years Used Date Smoking Tobacco: Never Smokeless Tobacco: Never Alcohol Use Standard Drinks/Week Comments Not Currently 0 (1 standard drink = 0.6 oz pure alcoho l) Sex Assigned at Date Recorded Not on file documented as of this encounter Progress Notes Dave Servin, P.T. - 09/18/2020 6:00 AM CST Physical Therapy Outpatient Treatment Note SUBJECTIVE Patient's Name: Heidi Huerta Referring Provider: Edi Benito M.D. Visit Diagnosis: 1. Follow Up Surgery Exam Reason for Referral: Patient is 1 week status post right Total Knee Arthroplasty Onset Date: 09/08/20 Payor: MEDICARE / Plan: MEDICARE A AND B / Product Type: Medicare / No data recorded Epic Visit Count: 2 Patient comments: Rosie comes in today stating that she feels her swelling may be a little worse today. She is not taking the prescribed pain medication but she is on Tylenol. She notes that the pain medication has made it difficult for her to have bowel movements. She wishes to stay with the Tylenol if possible. OBJECTIVE Pain: Pain Assessment Pain Score: 5 - Moderate pain After therapy today, knee flexion was to approximately 80-85 degrees of flexion. There is an extension lag of approximately 5?? due to inflammation/swelling. TREATMENT Treatment today consisted of: We worked on passive range of motion for knee flexion/extension with patient in supine. She also is on the sci fit for approximately 8 minutes along her to come down into flexion as tolerated. Home Exercise Program/Education: Contact monitoring: Appropriate BP was utilized including face mask/protective eyewear. Assessment Clinical Impression: Patient tolerated well overall. She does have a fairly significant amount of swelling. However, her tolerance to pain seemed to be better today. Her mobility was little better as well. Functional Goals and Timeframes: PT Goal [...] #4 Date: 10/14/20 Plan We will continue. Plan for next session: Time Spent with Patient Manual Therapy (min): 15 min Therapeutic Exercise (min): 15 min Time Calculation Total Timed Units (min): 30 min Total Treatment Time (min): 30 min Dave Servin P.T. Department of Rehabilitation Services in [address] [phone] Dept: [phone] K BURNER HEAD documented in this encounter Plan of Treatment Not on filedocumented as of this encounter Visit Diagnoses Diagnosis Follow Up Surgery Exam documented in this encounter Care Teams Dental Sales Representative Relationship Specialty Start Date End Date No Contact, Pcp PCP - General Family Medicine 09/05/20 documented as of this encounter
--- OUTSIDE RECORDS SUMMARY | 2022-08-12 08:49 | XMS_ITS | Encounter Summary ---
:1950 Author Organization [facility] Address [address] [place] [address] Care Team Providers Name Role Phone No Contact, Pcp Primary Care Provider Unavailable Reason for Referral Outpatient (Routine) - Closed Specialty Diagnoses / Procedures Referred By Contact Refer red To Contact Orthopedic Surgery Bridgette Francisco, HAFSA MASON [facility] C.N.P., D.N.P. [address] [place] [phone] Referral ID Status Reason Start Date Expiration Date Visits Requ ested Visits Authorized [id number] Closed 10/14/2020 10/14/2021 1 [address] PATENT Reason for Visit Reason Comments Arthroplasty Doing well. Follow-up Doing well. Appointment Request (Routine) - Closed Specialty Diagnoses / Procedures Referred By Contact Refer red To Contact Orthopedic Surgery Referral ID Status Reason Start Date Expiration Date Visits Requ ested Visits Authorized [id number] Closed 09/22/2020 09/22/2021 1 1 Encounter Details Date Type Department Care Team Description 10/14/2020 Office Visit Department of Bridgette Francisco, Aftercare T otaalexandra Knee Orthopedic Surgery in ISABELLA, C.N.PThomas, Arthr oplasty (Primary Mag Lopez.N.P. Dx) [address] [place] [phone] Social History Tobacco Use Types Packs/Day Years Used Date Smoking Tobacco: Never Smokeless Tobacco: Never Alcohol Use Standard Drinks/Week Comments Not Currently 0 (1 standard drink = 0.6 oz pure alcoho l) Sex Assigned at Date Recorded Not on file documented as of this encounter Progress Notes Bridgette Francisco APRN, C.N.P., D.N.P. - 10/14/2020 8:00 AM CST Heidi is a pleasant 69-year-old who is status post right total knee arthroplasty on 09/08/2020. She has been working with therapy and his having some difficulty with her motion. She feels her pain is well controlled and she has been tolerating her Duragesic patches but is having significant issueswith constipation despite agressive treatments. She doesn't think pain is stopping her motion but ismore inflammation. She continues to ice it and slowly notes some improvement. She very much would like to avoid manipulation if possible. Physical exam-right knee with moderate effusion noted. Surgical incision is well healed. Knee is stable to valgus and varus. She lacks full extension by 3?? and flexes to 90??. No calf swelling or tenderness and negative Homans sign. Impression and plan- Heidi is a pleasant 69-year-old who is 5 weeks status post right total kneearthroplasty. She does not tolerate oral narcotics but is tolerating the Duragesic patch but having significant side effects. I discussed with her I feel she needs to continue with this but we would lower the dose to 12.5 mg, which I did refill. We talked about treating the constipation. Will have hercontinue with Tylenol on a regular basis. Also will add prednisone to her regiment in hopes to calm the inflammation and improve her motion. We will plan to see her back in 2 weeks if she does not havesignificant improvement in her motion we will need to consider setting her up for manipulation. She will continue to work with physical therapy aggressively. We also discussed returning to her pre surgery aspirin dose next week. She agrees with this plan and her questions were answered. TER PATENT documented in this encounter Plan of Treatment Scheduled Referrals Name Type Priority Associated Order Schedule Diagnoses Orthopedic Surgery Outpatient Referral Routine Ex pected: Post Op (clinic) 10/21/2020 (Approximate), Expires: 10/14/2023 documented as of this encounter Visit Diagnoses Diagnosis Aftercare Total Knee Arthroplasty - Prim manuel documented in this encounter Care Teams Contract Technician Relationship Specialty Start Date End Date No Contact, Pcp PCP - General Family Medicine 09/05/20 documented as of this encounter
--- OUTSIDE RECORDS SUMMARY | 2022-08-12 08:49 | XMS_ITS | Encounter Summary ---
:1950 Author Organization [facility] Address [address] [place] [address] Care Team Providers Name Role Phone No Contact, Pcp Primary Care Provider Unavailable Reason for Visit Physical Therapy (Routine) - Canceled Specialty Diagnoses / Procedures Referred By Contact Refer red To Contact Diagnoses Follow Up Surgery Exam Edi Benito M.D. [facility] Procedures PT Ongoing treatment [address] [place] [phone] Referral ID Status Reason Start Date Expiration Date Visits V isits Requested Authorized [id number] Canceled 09/16/2020 09/16/2021 1 1 Encounter Details Date Type Department Care Team Description 11/28/2020 Clinical Support Department of Edi Benito M.D. 701 [facility] [place] [phone] Follow Up Surgery Rehabilitation Services Dave Servin, P.T. [address] [place] [phone] Exam in [address] [phone] Social History Tobacco Use Types Packs/Day Years Used Date Smoking Tobacco: Never Smokeless Tobacco: Never Alcohol Use Standard Drinks/Week Comments Not Currently 0 (1 standard drink = 0.6 oz pure alcoho l) Sex Assigned at Date Recorded Not on file documented as of this encounter Progress Notes Dave Servin, P.T. - 11/28/2020 6:00 AM CST Sandee comes in today just for a checkup on her knee. We reviewed her home exercise program. We checked her overall mobility. She is doing well with knee flexion to 120??. Passively, we are able to obtain 122??. This was a non billable visit. N CONTROLLER documented in this encounter Plan of Treatment Not on filedocumented as of this encounter Visit Diagnoses Diagnosis Follow Up Surgery Exam documented in this encounter Care Teams Equal Employment Opportunity Officer Relationship Specialty Start Date End Date No Contact, Pcp PCP - General Family Medicine 09/05/20 documented as of this encounter
--- OUTSIDE RECORDS SUMMARY | 2022-08-12 08:49 | XMS_ITS | Encounter Summary ---
:1950 Author Organization [facility] Address [address] [place] [address] Care Team Providers Name Role Phone No Contact, Pcp Primary Care Provider Unavailable Reason for Visit Physical Therapy (Routine) - Canceled Specialty Diagnoses / Procedures Referred By Contact Refer red To Contact Diagnoses Follow Up Surgery Exam Edi Benito M.D. [facility] Procedures PT Ongoing treatment [address] [place] [phone] Referral ID Status Reason Start Date Expiration Date Visits V isits Requested Authorized [id number] Canceled 09/16/2020 09/16/2021 1 1 Encounter Details Date Type Department Care Team Description 11/07/2020 Clinical Support Department of Edi Benito M.D. [address] [facility] [place] [phone] Follow Up Surgery Rehabilitation Services Dave Servin, P.T. [address] [place] [phone] Exam in [address] [phone] Social History Tobacco Use Types Packs/Day Years Used Date Smoking Tobacco: Never Smokeless Tobacco: Never Alcohol Use Standard Drinks/Week Comments Not Currently 0 (1 standard drink = 0.6 oz pure alcoho l) Sex Assigned at Date Recorded Not on file documented as of this encounter Progress Notes Dave Servin, P.T. - 11/07/2020 6:00 AM CST Physical Therapy Outpatient Treatment Note SUBJECTIVE Patient's Name: Heidi Huerta Referring Provider: Edi Benito M.D. Visit Diagnosis: 1. Follow Up Surgery Exam Reason for Referral: Patient is 1 week status post right Total Knee Arthroplasty Onset Date: 09/08/20 Payor: MEDICARE / Plan: MEDICARE A AND B / Product Type: Medicare / No data recorded Epic Visit Count: 20 Patient comments: Sandee comes into therapy today without any new complaints. She feels that her knee is little more stiff today. OBJECTIVE Pain: After aggressive therapy today, we are able to obtain knee flexion to 117??. This was with aggressive over pressure. She has an extension lag of no more than 2??. TREATMENT Treatment today consisted of: Patient continued with the sci fit for approximately 10 minutes today. She then worked on leg press exercises allowing her to come down into flexion. She worked this for strengthening as well. We then brought her over to the treatment table in we worked aggressively with knee flexion. She was able to bring her knee to 115?? without assist by the therapist. Aggressive over pressure increased to 117??.We then had patient work on hamstring curls along with muscle stripping of the hamstrings. We then provided soft tissue massage to the knee. Home Exercise Program/Education: Contact monitoring: Appropriate PPE was utilized including face mask/protective eyewear. Assessment Clinical Impression: Patient tolerated well overall. She has shown some good improvement over the past 2 weeks. Functional Goals and Timeframes: PT Goal #1: [...] will continue next week. She will be seeing orthopedics on Tuesday. Plan for next session: Time Spent with Patient Manual Therapy (min): 15 min Therapeutic Exercise (min): 15 min Time Calculation Total Timed Units (min): 30 min Total Treatment Time (min): 30 min Dave Servin P.T. Department of Rehabilitation Services in [address] [phone] Dept: [phone] [employer] documented in this encounter Plan of Treatment Not on filedocumented as of this encounter Visit Diagnoses Diagnosis Follow Up Surgery Exam documented in this encounter Care Teams Program Development Specialist Relationship Specialty Start Date End Date No Contact, Pcp PCP - General Family Medicine 09/05/20 documented as of this encounter
--- OUTSIDE RECORDS SUMMARY | 2022-08-12 08:49 | XMS_ITS | Encounter Summary ---
:1950 Author Organization [facility] Address [address] [place] [address] Care Team Providers Name Role Phone No Contact, Pcp Primary Care Provider Unavailable Encounter Details Date Type Department Care Team Description 11/07/2020 Clinical Communication Department of Dave Servin [facility] Jeremy PBianca in [address] [phone] Social History Tobacco Use Types Packs/Day Years Used Date Smoking Tobacco: Never Smokeless Tobacco: Never Alcohol Use Standard Drinks/Week Comments Not Currently 0 (1 standard drink = 0.6 oz pure alcoho l) Sex Assigned at Date Recorded Not on file documented as of this encounter Miscellaneous Notes Telephone Encounter - Ziola Khan - 11/07/2020 9:12 AM CST Reason for Communication: PT appointments Current Phone Number: N/A Can Nursing/Provider leave a detailed message?: N/A Did the patient refuse triage through Nurse line? (for symptom based concerns): N/A Action Needed: Patient called this morning to schedule appointments with Preet next week-- Tuesday, Tuesday and Tuesday. She states Preet told her she could come in early at 6 AM. I scheduled them for now but wanted to confirm that he is alright with the time. Please let me know if I need to change anything and I can contact patient. Thanks Name of Medication (if relevant): N/A PMENT PROCESSER STORAGE documented in this encounter Plan of Treatment Not on filedocumented as of this encounter Visit Diagnoses Not on filedocumented in this encounter Care Teams Machine Shop Helper Relationship Specialty Start Date End Date No Contact, Pcp PCP - General Family Medicine 09/05/20 documented as of this encounter
--- OUTSIDE RECORDS SUMMARY | 2022-08-12 08:49 | XMS_ITS | Encounter Summary ---
:1950 Author Organization [facility] Address [address] [place] [address] Care Team Providers Name Role Phone No Contact, Pcp Primary Care Provider Unavailable Reason for Referral Outpatient (Routine) - Closed Specialty Diagnoses / Procedures Referred By Contact Refer red To Contact Orthopedic Surgery Edi [facility]ito M .D. [facility] [address] [phone] Referral ID Status Reason Start Date Expiration Date Visits Requ ested Visits Authorized [id number] Closed 10/21/2020 10/21/2021 1 1 ISTICAL METHODS PROFESSOR Reason for Visit Reason Comments Post-op Recheck motion, s/p R TKA , patient reports 105 Outpatient (Routine) - Closed Specialty Diagnoses / Procedures Referred By Contact Refer red To Contact Orthopedic Surgery Bridgette Francisco, ISABELLA, [facility] C.N.P., D.N.P. [address] [place] [phone] Referral ID Status Reason Start Date Expiration Date Visits Requ ested Visits Authorized [id number] Closed 10/14/2020 10/14/2021 1 1 Encounter Details Date Type Department Care Team Description 10/21/2020 Office Visit Department of Edi Benito Follow Up E xamination Orthopedic Surgery heena Seay M.D. Postoperative Visit [place], [address] [place] [address] (Primary Dx) [address] [address] [place] [phone] (Work) [phone] Social History Tobacco Use Types Packs/Day Years Used Date Smoking Tobacco: Never Smokeless Tobacco: Never Alcohol Use Standard Drinks/Week Comments Not Currently 0 (1 standard drink = 0.6 oz pure alcoho l) Sex Assigned at Date Recorded Not on file documented as of this encounter Consult Notes Edi Benito M.D. - 10/21/2020 8:00 AM CST HISTORY OF PRESENT ILLNESS Heidi is a 69-year-old woman who is here in regard to her knee. She is status post a right totalknee arthroplasty. She had some difficulties with stiffness. She has been working with physical therapy quite diligently recently and started on corticosteroid. She has made steady improvements in regard to her function and increased range of motion. OBJECTIVE PHYSICAL EXAMINATION Knee: Incision appears quite benign. Her knee range of motion is from 2 degrees short of full extension with a relatively soft endpoint and flexion to approximately 100-105 degrees today, also with a soft endpoint. ASSESSMENT / PLAN #1 Heidi is a 69-year-old woman who is recovering from a total knee arthroplasty, doing quite well with a bit of stiffness in her knee At this point in time, my suggestion is we will hold off on the manipulation under anesthesia possibility as she has made up to approximately 110 with physical therapy's help, but that she needs to continue to work aggressively on her therapy program to make steady improvement in regard to her range of motion. We will plan to see her back in another 3 weeks to make sure that she has maintained this motion trend. ISTICAL METHODS PROFESSOR documented in this encounter Plan of Treatment Scheduled Referrals Name Type Priority Associated Order Schedule Diagnoses Orthopedic Surgery Outpatient Referral Routine Ex pected: office visit 11/11/2020 (clinic) (Approximate), Expires: 10/21/2023 documented as of this encounter Visit Diagnoses Diagnosis Follow Up Examination Postoperative Visi t - Primary documented in this encounter Care Teams Metal Sponge Making Machine Operator Relationship Specialty Start Date End Date No Contact, Pcp PCP - General Family Medicine 09/05/20 documented as of this encounter
--- OUTSIDE RECORDS SUMMARY | 2022-08-12 08:49 | XMS_ITS | Encounter Summary ---
:1950 Author Organization [facility] Address [address] [place] [address] Care Team Providers Name Role Phone No Contact, Pcp Primary Care Provider Unavailable Reason for Visit Physical Therapy (Routine) - Canceled Specialty Diagnoses / Procedures Referred By Contact Refer red To Contact Diagnoses Follow Up Surgery Exam Edi Benito M.D. [facility] Procedures PT Ongoing treatment [address] [place] [phone] Referral ID Status Reason Start Date Expiration Date Visits V isits Requested Authorized [id number] Canceled 09/16/2020 09/16/2021 1 1 Encounter Details Date Type Department Care Team Description 09/29/2020 Clinical Support Department of Edi Benito M.D. 701 [facility] [place] [phone] Follow Up Surgery Rehabilitation Services Dave Servin, P.T. [address] [place] [phone] Exam in [address] [phone] Social History Tobacco Use Types Packs/Day Years Used Date Smoking Tobacco: Never Smokeless Tobacco: Never Alcohol Use Standard Drinks/Week Comments Not Currently 0 (1 standard drink = 0.6 oz pure alcoho l) Sex Assigned at Date Recorded Not on file documented as of this encounter Progress Notes Dave Servin, P.T. - 09/29/2020 6:00 AM CST Physical Therapy Outpatient Treatment Note SUBJECTIVE Patient's Name: Heidi Huerta Referring Provider: Edi Benito M.D. Visit Diagnosis: 1. Follow Up Surgery Exam Reason for Referral: Patient is 1 week status post right Total Knee Arthroplasty Onset Date: 09/08/20 Payor: MEDICARE / Plan: MEDICARE A AND B / Product Type: Medicare / No data recorded Epic Visit Count: 6 Patient comments: Sandee comes in today with continued issues of pain/swelling. She notes that she did not take her pain medication routinely yesterday. We strongly encouraged her to stick to the regiment if possible. OBJECTIVE Pain: Pain Assessment Pain Score: 6 After therapy today, we are able to obtain knee flexion to approximately 95??. Extension is doing well this being to approximately 0??. TREATMENT Treatment today consisted of: Patient started out on the sci fit for approximately 12 minutes. We then had her up walking around working on her stride/swing phase. We then had her at the treatment table in we worked on passive range of motion for knee flexion/extension. Total time was 12 minutes of therapeutic exercise and 15 minutes of manual therapy. Home Exercise Program/Education: Contact monitoring: Appropriate PPE was utilized including face mask/protective eyewear. Assessment Clinical Impression: Patient has some difficulty tolerating therapy. We encouraged her to continue to be aggressive at home with her exercises. Functional Goals and Timeframes: PT Goal #1: [...] Plan We will continue. She will be coming in on a daily basis to get on the sci fit. Plan for next session: Time Spent with Patient Manual Therapy (min): 15 min Therapeutic Exercise (min): 15 min Time Calculation Total Timed Units (min): 30 min Total Treatment Time (min): 30 min Dave Servin P.T. Department of Rehabilitation Services in [address] [phone] Dept: [phone] D ARTILLERY CANNONEER documented in this encounter Plan of Treatment Not on filedocumented as of this encounter Visit Diagnoses Diagnosis Follow Up Surgery Exam documented in this encounter Care Teams Surgical Product Sales Consultant Relationship Specialty Start Date End Date No Contact, Pcp PCP - General Family Medicine 09/05/20 documented as of this encounter
--- OUTSIDE RECORDS SUMMARY | 2022-08-12 08:49 | XMS_ITS | Encounter Summary ---
:1950 Author Organization [facility] Address [address] [place] [address] Care Team Providers Name Role Phone No Contact, Pcp Primary Care Provider Unavailable Reason for Visit Physical Therapy (Routine) - Canceled Specialty Diagnoses / Procedures Referred By Contact Refer red To Contact Diagnoses Follow Up Surgery Exam Edi Benito M.D. [facility] Procedures PT Ongoing treatment [address] [place] [phone] Referral ID Status Reason Start Date Expiration Date Visits V isits Requested Authorized [id number] Canceled 09/16/2020 09/16/2021 1 1 Encounter Details Date Type Department Care Team Description 11/13/2020 Clinical Support Department of Edi Benito M.D. 701 [facility] [phone] Follow Up Surgery Rehabilitation Services Dave Servin, P.T. [address] [place] [phone] Exam in [address] [phone] Social History Tobacco Use Types Packs/Day Years Used Date Smoking Tobacco: Never Smokeless Tobacco: Never Alcohol Use Standard Drinks/Week Comments Not Currently 0 (1 standard drink = 0.6 oz pure alcoho l) Sex Assigned at Date Recorded Not on file documented as of this encounter Progress Notes Dave Servin, P.T. - 11/13/2020 6:30 AM CST Subjective: Sandee comes into therapy today without any new complaints. Objective: Knee flexion was to approximately 117?? today after aggressive stretching. Patient worked on her exercises independently on our equipment in the facility. Assessment: Patient tolerated well overall. Mobility is about the same as yesterday. Plan: I will see patient once again tomorrow as a scheduled appointment. This was a no charge visit today. NARY CARE UNIT NURSE documented in this encounter Plan of Treatment Not on filedocumented as of this encounter Visit Diagnoses Diagnosis Follow Up Surgery Exam documented in this encounter Care Teams Contracting Engineer Relationship Specialty Start Date End Date No Contact, Pcp PCP - General Family Medicine 09/05/20 documented as of this encounter
--- OUTSIDE RECORDS SUMMARY | 2022-08-12 08:49 | XMS_ITS | Encounter Summary ---
:1950 Author Organization [facility] Address [address] [place] [address] Care Team Providers Name Role Phone No Contact, Pcp Primary Care Provider Unavailable Reason for Visit Physical Therapy (Routine) - Canceled Specialty Diagnoses / Procedures Referred By Contact Refer red To Contact Diagnoses Follow Up Surgery Exam Edi Benito M.D. [facility] Procedures PT Ongoing treatment 701 [facility] [place] [phone] Referral ID Status Reason Start Date Expiration Date Visits V isits Requested Authorized [id number] Canceled 09/16/2020 09/16/2021 1 1 Encounter Details Date Type Department Care Team Description 10/16/2020 Clinical Support Department of Edi Benito M.D. 701 [facility] [place] [phone] Follow Up Surgery Rehabilitation Services Dave Servin, P.T. [address] [place] [phone] Exam in [address] [phone] Social History Tobacco Use Types Packs/Day Years Used Date Smoking Tobacco: Never Smokeless Tobacco: Never Alcohol Use Standard Drinks/Week Comments Not Currently 0 (1 standard drink = 0.6 oz pure alcoho l) Sex Assigned at Date Recorded Not on file documented as of this encounter Progress Notes Dave Servin, P.T. - 10/16/2020 6:00 AM CST Physical Therapy Outpatient Treatment Note SUBJECTIVE Patient's Name: Heidi Huerta Referring Provider: Edi Benito M.D. Visit Diagnosis: 1. Follow Up Surgery Exam Reason for Referral: Patient is 1 week status post right Total Knee Arthroplasty Onset Date: 09/08/20 Payor: MEDICARE / Plan: MEDICARE A AND B / Product Type: Medicare / No data recorded Epic Visit Count: 11 Patient comments: Sandee comes into therapy now being approximately 2 days on the prednisone. She feels her pain is manageable overall. She does not have a great deal of pain on until we are trying to stretch. OBJECTIVE Pain: Pain Assessment Pain Score: 2 After therapy After therapy today, we are able to obtain knee flexion to 108??. This is significant in comparison to earlier this week. TREATMENT Treatment today consisted of: Patient was on the sci fit for warmup. We worked on passive range of motion for knee flexion. We worked on short arc quads and knee extensions while in short sitting with manual resistance by the therapist. We provided massage to the knee after this period Contact monitoring: Appropriate PPE was utilized including face mask/protective eyewear. Assessment Clinical Impression: Patient tolerated well overall. She is doing better now that she is on the prednisone. She has gained at least 10?? overall. There is tightness noted. However, there is does not appear to be a hard endfeel at this time. Functional Goals and Timeframes: [...] Servin P.T. Department of Rehabilitation Services in [address] [phone] Dept: [phone] CULTURAL COMMODITIES INSPECTOR documented in this encounter Plan of Treatment Not on filedocumented as of this encounter Visit Diagnoses Diagnosis Follow Up Surgery Exam documented in this encounter Care Teams Telemarketer Relationship Specialty Start Date End Date No Contact, Pcp PCP - General Family Medicine 09/05/20 documented as of this encounter
--- OUTSIDE RECORDS SUMMARY | 2022-08-12 08:49 | XMS_ITS | Encounter Summary ---
:1950 Author Organization [facility] Address [address] [place] [address] Care Team Providers Name Role Phone No Contact, Pcp Primary Care Provider Unavailable Encounter Details Date Type Department Care Team Description 09/22/2020 Hospital Encounter Department of Bridgette Francisco Follo w Surgery Radiology in [facility] C.N.PMerna, [place] D.N.P. [address] [phone] Social History Tobacco Use Types Packs/Day Years Used Date Smoking Tobacco: Never Smokeless Tobacco: Never Alcohol Use Standard Drinks/Week Comments Not Currently 0 (1 standard drink = 0.6 oz pure alcoho l) Sex Assigned at Date Recorded Not on file documented as of this encounter Medications at Time of Discharge Medication Sig Dispensed Refills Start Date End Date acetaminophen (TYLENOL) Take 2 tablets (1,000 0 1 11/09/2019 500 mg tablet mg total) by mouth every 6 (six) hours. calcium carbonate (TUMS) Chew 1 tablet 2 (two) 0 500 mg (200 mg calcium) times a day as needed chewable tablet for indigestion or heartburn. docusate sodium (COLACE) Take 100 mg by mouth 0 100 mg capsule as needed for constipation. Takes once a month as needed ondansetron ODT Take 1 tablet (4 mg 20 tablet 0 09/09/2020 (ZOFRAN-ODT) 4 mg total) by mouth every disintegrating tablet 8 (eight) hours as needed for nausea or vomiting. sennosides-docusate Take 1 tablet by 30 tablet 2 09/09/2020 sodium (SENOKOT-S) mouth 2 (two) times a 8.6-50 mg per tablet day as needed for constipation. aspirin 81 mg chewable Chew 1 tablet (81 mg 84 tablet 0 07/202010/21/2020 tablet total) 2 (two) times a day with meals. Recommended to minimize risk of blood clot. fentaNYL (DURAGESIC) 25 Place 1 patch on the 5 patch 0 10/14/2020 mcg/hr patchIndications: skin every third day Prolonged Acute Indication: Prolonged Pain/Traumatic Injury Acute Pain/Traumatic Injury. traMADoL (ULTRAM) 50 mg Take 1-2 tablets 40 tablet 0 201910/21/2020 tabletIndications: (50-100 mg total) by Prolonged Acute mouth every 6 (six) Pain/Traumatic Injury hours as needed for pain Indications: Prolonged Acute Pain/Traumatic Injury. documented as of this encounter Plan of Treatment Not on filedocumented as of this encounter Procedures Procedure Name Priority Date/Time Associated Comments Diagnosis DX KNEE RIGHT 3 RAD - Routine 09/22/2020 3:04 Follow Up Surgery Res ults for this VIEWS (most inpatients PM FLAG CAR DRIVER Exam procedure a re in and all the results outpatients) section. documented in this encounter Results DX Knee Right 3 Views (09/22/2020 3:04 PM FLAG CAR DRIVER) Anatomical Region Laterality Modality Lower Extremity, Knee, Musculoskeletal RST LOS, Right Digital Radiography Musculoskeletal ARZ LOS, Muskuloskeletal FLA LOS Specimen (Source) Anatomical Collection Method Collection Time Re ceived Time Location / / Volume Laterality 09/22/2020 3:19 PM FLAG CAR DRIVER Impressions 09/22/2020 3:20 PM FLAG CAR DRIVER Interval right TKA with patellar resurfacing. Components appear well seated without evidence of loosening. Ne w soft tissue swelling about the right knee relative to the left. Tricompartmen shravan degenerative change left knee. Comparison with 08/21/2020. Narrative 09/22/2020 3:20 PM FLAG CAR DRIVER EXAM: DX KNEE RIGHT 3 VIEWS Procedure [...] Exam documented in this encounter Care Teams Vehicle Body Sander Relationship Specialty Start Date End Date No Contact, Pcp PCP - General Family Medicine 09/05/20 documented as of this encounter
--- OUTSIDE RECORDS SUMMARY | 2022-08-12 08:49 | XMS_ITS | Encounter Summary ---
:1950 Author Organization [facility] Address [address] [place] [address] Care Team Providers Name Role Phone No Contact, Pcp Primary Care Provider Unavailable Reason for Visit Physical Therapy (Routine) - Canceled Specialty Diagnoses / Procedures Referred By Contact Refer red To Contact Diagnoses Follow Up Surgery Exam Edi Benito M.D. [facility] Procedures PT Ongoing treatment 701 [facility] [place] [phone] Referral ID Status Reason Start Date Expiration Date Visits V isits Requested Authorized [id number] Canceled 09/16/2020 09/16/2021 1 1 Encounter Details Date Type Department Care Team Description 09/22/2020 Clinical Support Department of Edi Benito M.D. 701 [facility] [place] [phone] Follow Up Surgery Rehabilitation Services Dave Servin, P.T. [address] [place] [phone] Exam in [address] [phone] Social History Tobacco Use Types Packs/Day Years Used Date Smoking Tobacco: Never Smokeless Tobacco: Never Alcohol Use Standard Drinks/Week Comments Not Currently 0 (1 standard drink = 0.6 oz pure alcoho l) Sex Assigned at Date Recorded Not on file documented as of this encounter Progress Notes Dave Servin, P.T. - 09/22/2020 6:00 AM CST Physical Therapy Outpatient Treatment Note SUBJECTIVE Patient's Name: Heidi Huerta Referring Provider: Edi Benito M.D. Visit Diagnosis: 1. Follow Up Surgery Exam Reason for Referral: Patient is 1 week status post right Total Knee Arthroplasty Onset Date: 09/08/20 Payor: MEDICARE / Plan: MEDICARE A AND B / Product Type: Medicare / No data recorded Epic Visit Count: 3 Patient comments: Sandee comes into therapy today with continued pain in her knee. She is trying to do her exercises at home. She Did take something for pain prior to coming into therapy this morning. OBJECTIVE Pain: Pain Assessment Pain Score: 5 - Moderate pain After therapy today, we are able to obtain knee flexion to nearly 90??. She is probably 2-3 degreesshort of this. TREATMENT Treatment today consisted of: We had patient on the treatment table in we worked on passive range of motion for knee flexion. We moved over to the [facility] where she worked on this as tolerated as well. After this, we brought her back over to the treatment table in we worked on continued passive range of motion along with some short arc quads. We reviewed her home exercises and stressed how important it was for her to continue with this aggressively at home. Home Exercise Program/Education: Contact monitoring: Appropriate PPE was utilized including face mask/protective eyewear. Assessment Clinical Impression: On knee flexion is to approximately 90?? at this time. Would like to see improvement over the next week. Hopefully we can work with the pain. She is to try to take her pain medication prior to coming to therapy. This has made her nauseous in the past. Functional Goals and Timeframes: PT Goal #1: [...] #4 Date: 10/14/20 Plan We will continue on Tuesday. We did also mention that she is welcome to come in during the day she is not coming into therapy just to get on the sci fit to work her mobility. Plan for next session: Time Spent with Patient Manual Therapy (min): 15 min Therapeutic Exercise (min): 15 min Time Calculation Total Timed Units (min): 30 min Total Treatment Time (min): 30 min Dave Servin P.T. Department of Rehabilitation Services in [address] [phone] Dept: [phone] HOUSE HANDLER documented in this encounter Plan of Treatment Not on filedocumented as of this encounter Visit Diagnoses Diagnosis Follow Up Surgery Exam documented in this encounter Care Teams Test Consultant Relationship Specialty Start Date End Date No Contact, Pcp PCP - General Family Medicine 09/05/20 documented as of this encounter
--- OUTSIDE RECORDS SUMMARY | 2022-08-12 08:49 | XMS_ITS | Clinical Summary ---
:1950 Author Organization [facility] Address [address] [place] [address] Care Team Providers Name Role Phone No Contact, Pcp Primary Care Provider Unavailable Source Comments Patient records contain information from all sites at [facility]. For routine questions regarding patient records, call [phone] during business hours, M-F 8:00 AM - 5:00 PM Central Time. Record requests for emergency care only can be directed to [phone] at any time.[facility] Allergies Active Allergy Reactions Severity Noted Date Comments Oxycodone-Acetaminophen GI intolerance 02/26/2019 Medications Medication Sig Dispensed Refills Start Date End Date Status calcium carbonate Chew 1 tablet 2 0 Active (TUMS) 500 mg (200 mg (two) times a day calcium) chewable as needed for tablet indigestion or heartburn. docusate sodium Take 100 mg by 0 Active (COLACE) 100 mg mouth as needed capsule for constipation. Takes once a month as needed acetaminophen Take 2 tablets 0 09/09/2020 Active (TYLENOL) 500 mg (1,000 mg total) tablet by mouth every 6 (six) hours. ondansetron ODT Take 1 tablet (4 20 tablet 0 09/09/2020 Active (ZOFRAN-ODT) 4 mg mg total) by mouth disintegrating tablet every 8 (eight) hours as needed for nausea or vomiting. sennosides-docusate Take 1 tablet by 30 tablet 2 09/09/2020 Active sodium (SENOKOT-S) mouth 2 (two) 8.6-50 mg per tablet times a day as needed for constipation. Active Problems Problem Noted Date Osteoarthritis 09/08/2020 Gastroesophageal Reflux Disease 09/01/2020 Morbid Obesity Body Mass Index 40.0-44.9 Adult 020 Primary Osteoarthritis Knee Right 08/25/2020 Overview: Added automatically from request for ted briceno [id number] Pain Shoulder Left Rotator Cuff Repair Shoulder Status Post Follow Up Surgery Exam Encounters Date Type Specialty Care Team Description 06/02/2022 Clinical Communication Orthopedic Surgery Samy Benito M.D. from Last 3 Months Family History Medical History Relation Name Comments Anesthesia problems Neg Hx Social History Tobacco Use Types Packs/Day Years Used Date Smoking Tobacco: Never Smokeless Tobacco: Never Alcohol Use Standard Drinks/Week Comments Not Currently 0 (1 standard drink = 0.6 oz pure alcoho l) Sex Assigned at Date Recorded Not on file Last Filed Vital Signs Vital Sign Reading Time Taken Comments Blood Pressure 110/55 09/09/2020 2:10 PM PAYROLL MASTER Pulse 64 09/09/2020 2:10 PM PAYROLL MASTER Temperature 36.9 ??C (98.4 ??F) 09/09/2020 2:10 PM PAYROLL MASTER Respiratory Rate 18 09/09/2020 2:10 PM PAYROLL MASTER Oxygen Saturation 98% 09/09/2020 2:10 PM PAYROLL MASTER ra Inhaled Oxygen Concentration - - Weight 111 kg (244 lb 7.8 oz) 09/09/2020 6:16 AM PAYROLL MASTER Height 162.6 cm (5' 4) 09/08/2020 11:28 AM PAYROLL MASTER Body Mass Index 41.97 09/08/2020 11:28 AM PAYROLL MASTER Plan of Treatment Health Maintenance Due Date Last Done Comments Bone Density Scan (Osteoporosis 1950 Screen) CT Colonography 1950 Cologuard 1950 Colonoscopy 1950 Colorectal Cancer Screening 1950 FIT 1950 Fasting Glucose for Diabetes 1950 Screening Hepatitis C Screening 1950 Mammogram 1950 COVID-19 Vaccine (#1) 05/15/1951 Depression Screening (Annual 10/31/2021 PHQ-2) Fall Risk Screen (Annual) 10/31/2021 Influenza Vaccine (#1) 2022 09/01/2019, 09/01/2019, 08/18/2018, Additional history exists DTaP,Tdap,and Td Vaccines (2 - Td 11/28/2025 11/28/2015 or Tdap) Pneumococcal vaccine (65+ years) Completed 04/30/2016, Zoster Vaccines Completed 11/08/2019, 09/01/2019, 04/07/2012 Medical Devices Implanted Type Area Oral And Maxillofacial Pathologist Device Identifier Shelf Model / Expiration Serial / Date Lot Cmnt Bn Hi Visc Pmma 40 - [id number] Bone Cement Right: [place] [employer] [id number] 03/30/2022 [id number] / Implanted: Qty: 1 on 09/08/2020 by Edi Bean M.D. at [facility] Knee / [id number] Bsplt Tib Trt Rt Lt Sz4 - [id number] Knee Right: [place] 06/25/2025 [id number] / Implanted: Qty: 1 on 09/08/2020 by Edi Bean M.D. at [facility] Implant Knee / [id number] Insurance Payer Benefit Plan Subscriber ID Effective Phone Address Typ e / Group Dates MEDICARE MEDICARE A [id number] 2014-Prese [address] [place] [address] FOR FOR [id number] 2017-Pre [phone] [address] [place] [address] Advance Directives For more information, please contact: [phone] Latest Code Status on File Code Status Date Activated Date Inactivated Comments Full Code 09/08/2020 11:28 AM 09/09/2020 6:22 PM Full Code: Not Discussed Due to: Patient not available Care Teams Motion Picture Narrator Relationship Specialty Start Date End Date No Contact, Pcp PCP - General Family Medicine 09/05/20
--- OUTSIDE RECORDS SUMMARY | 2022-08-12 08:49 | XMS_ITS | Encounter Summary ---
:1950 Author Organization [facility] Address [address] [place] [address] Care Team Providers Name Role Phone No Contact, Pcp Primary Care Provider Unavailable Encounter Details Date Type Department Care Team Description 09/22/2020 Clinical Communication Department of Bridgette Francisco, Orthopedic Surgery in LIGHT OIL OPERATOR, [place], [place] D.N.P. [address] [place] [phone] Social History Tobacco Use Types Packs/Day Years Used Date Smoking Tobacco: Never Smokeless Tobacco: Never Alcohol Use Standard Drinks/Week Comments Not Currently 0 (1 standard drink = 0.6 oz pure alcoho l) Sex Assigned at Date Recorded Not on file documented as of this encounter Miscellaneous Notes Telephone Encounter - Stefanie Taylor R.N. - 09/22/2020 3:33 PM DISH MACHINE OPERATOR ----- Message from Bridgette Francisco APRN C.N.PThomas, D.N.P. sent at 09/22/2020 3:28 PM DISH MACHINE OPERATOR ----- Please put follow-up appointment TKA for this patient on October 14 in [place] at 8:00 a.m..Thank you MACHINE OPERATOR documented in this encounter Plan of Treatment Not on filedocumented as of this encounter Visit Diagnoses Not on filedocumented in this encounter Care Teams Liaison Planner Relationship Specialty Start Date End Date No Contact, Pcp PCP - General Family Medicine 09/05/20 documented as of this encounter
--- OUTSIDE RECORDS SUMMARY | 2022-08-12 08:49 | XMS_ITS | Encounter Summary ---
:1950 Author Organization [facility] Address [address] [place] [address] Care Team Providers Name Role Phone No Contact, Pcp Primary Care Provider Unavailable Reason for Visit Physical Therapy (Routine) - Canceled Specialty Diagnoses / Procedures Referred By Contact Refer red To Contact Diagnoses Follow Up Surgery Exam Edi Benito M.D. [facility] Procedures PT Ongoing treatment [address] [place] [phone] Referral ID Status Reason Start Date Expiration Date Visits V isits Requested Authorized [id number] Canceled 09/16/2020 09/16/2021 1 1 Encounter Details Date Type Department Care Team Description 11/24/2020 Clinical Support Department of Edi Benito M.D. 701 [facility] [place] [phone] Follow Up Surgery Rehabilitation Services Dave Servin, P.T. [address] [place] [phone] Exam in [address] [phone] Social History Tobacco Use Types Packs/Day Years Used Date Smoking Tobacco: Never Smokeless Tobacco: Never Alcohol Use Standard Drinks/Week Comments Not Currently 0 (1 standard drink = 0.6 oz pure alcoho l) Sex Assigned at Date Recorded Not on file documented as of this encounter Progress Notes Dave Servin, P.T. - 11/24/2020 6:00 AM CST Physical Therapy Outpatient Treatment Note SUBJECTIVE Sandee comes into therapy today stating that she really into her exercises over the weekend. She is curious as to what her mobility might be today. Visit Count since Last G-Code: 25 Episode Visit Count: 25 Visit Diagnosis: #1 Follow Up Surgery Exam Referring Provider: Edi Benito M.D. Subjective: OBJECTIVE After therapy today, we are able to obtain 120?? passively. This was with patient in supine sliding into flexion. We are able to obtain approximately 122?? with over pressure by the therapist. Pain Assessment Pain Score: 2 Measures - Tools Measures - Tools Treatment today consisted of: Therapeutic Exercise: Patient worked on the sci fit for approximately 5 minutes. She then worked on the leg press machine for both mobility and strengthening. Neuromuscular Re-education: Home Exercise Program/Education: Assessment Clinical Impression Patient is doing very well overall. She has met her established goals of 120??. Strength is doing very well with this being 5/5. Plan We will discontinue therapy at this point with patient having met her goals. She is to call should she have any questions or concerns. Additional Recommendations: Time Spent with Patient Therapeutic Exercise (min): 15 min Time Calculation Total Timed Units (min): 15 min Total Treatment Time (min): 15 min IMEDIA AUTHOR documented in this encounter Plan of Treatment Not on filedocumented as of this encounter Visit Diagnoses Diagnosis Follow Up Surgery Exam documented in this encounter Care Teams Utility Aircrewman Relationship Specialty Start Date End Date No Contact, Pcp PCP - General Family Medicine 09/05/20 documented as of this encounter
--- OUTSIDE RECORDS SUMMARY | 2022-08-12 08:49 | XMS_ITS | Encounter Summary ---
:1950 Author Organization [facility] Address [address] [place] [address] Care Team Providers Name Role Phone No Contact, Pcp Primary Care Provider Unavailable Reason for Visit Physical Therapy (Routine) - Canceled Specialty Diagnoses / Procedures Referred By Contact Refer red To Contact Diagnoses Follow Up Surgery Exam Edi Benito M.D. [facility] Procedures PT Ongoing treatment 701 [facility] [place] [phone] Referral ID Status Reason Start Date Expiration Date Visits V isits Requested Authorized [id number] Canceled 09/16/2020 09/16/2021 1 1 Encounter Details Date Type Department Care Team Description 10/27/2020 Clinical Support Department of Edi Benito M.D. 701 [facility] [place] [phone] Follow Up Surgery Rehabilitation Services Dave Servin, P.T. [address] [place] [phone] Exam in [address] [phone] Social History Tobacco Use Types Packs/Day Years Used Date Smoking Tobacco: Never Smokeless Tobacco: Never Alcohol Use Standard Drinks/Week Comments Not Currently 0 (1 standard drink = 0.6 oz pure alcoho l) Sex Assigned at Date Recorded Not on file documented as of this encounter Progress Notes Dave Servin, P.T. - 10/27/2020 6:00 AM CST Physical Therapy Outpatient Treatment Note SUBJECTIVE Patient's Name: Heidi Huerta Referring Provider: Edi Benito M.D. Visit Diagnosis: 1. Follow Up Surgery Exam Reason for Referral: Patient is 1 week status post right Total Knee Arthroplasty Onset Date: 09/08/20 Payor: MEDICARE / Plan: MEDICARE A AND B / Product Type: Medicare / No data recorded Epic Visit Count: 14 Patient comments: Sandee comes into therapy today stating that her knee feels little more sore and stiff. She is now off the prednisone. It is been 4 days since we last saw her. OBJECTIVE Pain: Pain Assessment Pain Score: 3 Initially, her knee flexion was to approximately 105?? when she came in. After prolonged stretching and activity today, we are able to obtain knee flexion to nearly 114??. TREATMENT Treatment today consisted of: We worked aggressively with passive range of motion. She is on the sci fit to allow her to work on knee flexion. She is on the leg press machine working on both strengthening and mobility. Home Exercise Program/Education: Contact monitoring: Appropriate PPE was utilized including face mask/protective eyewear. Assessment Clinical Impression: Patient tolerated well overall. She has actually gained a little more mobility since last week. Functional Goals and Timeframes: PT Goal #1: [...] Date: 10/14/20 Plan I we will continue through this week. Plan for next session: Time Spent with Patient Manual Therapy (min): 15 min Therapeutic Exercise (min): 15 min Time Calculation Total Timed Units (min): 30 min Total Treatment Time (min): 30 min Dave Servin P.T. Department of Rehabilitation Services in [address] [phone] Dept: [phone] ON GRAPHICS DESIGNER documented in this encounter Plan of Treatment Not on filedocumented as of this encounter Visit Diagnoses Diagnosis Follow Up Surgery Exam documented in this encounter Care Teams Medical Massage Therapist Relationship Specialty Start Date End Date No Contact, Pcp PCP - General Family Medicine 09/05/20 documented as of this encounter
--- OUTSIDE RECORDS SUMMARY | 2022-08-12 08:49 | XMS_ITS | Encounter Summary ---
:1950 Author Organization [facility] Address [address] [place] [address] Care Team Providers Name Role Phone No Contact, Pcp Primary Care Provider Unavailable Reason for Visit Physical Therapy (Routine) - Canceled Specialty Diagnoses / Procedures Referred By Contact Refer red To Contact Diagnoses Follow Up Surgery Exam Edi Benito M.D. [facility] Procedures PT Ongoing treatment 701 [facility] [place] [phone] Referral ID Status Reason Start Date Expiration Date Visits V isits Requested Authorized [id number] Canceled 09/16/2020 09/16/2021 1 1 Encounter Details Date Type Department Care Team Description 10/03/2020 Clinical Support Department of Edi Benito M.D. 701 [facility] [place] [phone] Follow Up Surgery Rehabilitation Services Dave Servin, P.T. [address] [place] [phone] Exam in [address] [phone] Social History Tobacco Use Types Packs/Day Years Used Date Smoking Tobacco: Never Smokeless Tobacco: Never Alcohol Use Standard Drinks/Week Comments Not Currently 0 (1 standard drink = 0.6 oz pure alcoho l) Sex Assigned at Date Recorded Not on file documented as of this encounter Progress Notes Dave Servin, P.T. - 10/03/2020 6:00 AM CST Physical Therapy Outpatient Treatment Note SUBJECTIVE Patient's Name: Heidi Huerta Referring Provider: Edi Benito M.D. Visit Diagnosis: 1. Follow Up Surgery Exam Reason for Referral: Patient is 1 week status post right Total Knee Arthroplasty Onset Date: 09/08/20 Payor: MEDICARE / Plan: MEDICARE A AND B / Product Type: Medicare / No data recorded Epic Visit Count: 8 Patient comments: Sandee comes into therapy today with concerns as to knee being more stiff. She is concerned that this may be going the other direction. OBJECTIVE Pain: Pain Assessment Pain Score: 4 After therapy today, knee flexion was to approximately 98??. There is a slight extension lag of no more than 2-3 degrees. TREATMENT Treatment today consisted of: We had patient continued today with the sci fit for approximately 15 minutes. We also worked on the treatment table concentrating on knee flexion along with knee extension with some light manual resistance. Instructed patient with Thera-Band exercises to work on at home. She is to be more aggressive with knee flexion at home sitting in a chair in scooting forward. Home Exercise Program/Education: Contact monitoring: Appropriate PPE was utilized including face mask/protective eyewear. Assessment Clinical Impression: Patient tolerated well overall. Her knee did feel better when she left. She does have a difficult time gaining more flexion. However, there is swelling also still present. She is now little over 3 weeks postop. Functional Goals and Timeframes: PT Goal #1: [...] 10/14/20 Plan We will continue next week. Plan for next session: Time Spent with Patient Manual Therapy (min): 15 min Therapeutic Exercise (min): 15 min Time Calculation Total Timed Units (min): 30 min Total Treatment Time (min): 30 min Dave Servin P.T. Department of Rehabilitation Services in [address] [phone] Dept: [phone] ETL DEVELOPER documented in this encounter Plan of Treatment Not on filedocumented as of this encounter Visit Diagnoses Diagnosis Follow Up Surgery Exam documented in this encounter Care Teams Manager Msw Relationship Specialty Start Date End Date No Contact, Pcp PCP - General Family Medicine 09/05/20 documented as of this encounter
--- OUTSIDE RECORDS SUMMARY | 2022-08-12 08:49 | XMS_ITS | Encounter Summary ---
:1950 Author Organization [facility] Address [address] [place] [address] Care Team Providers Name Role Phone No Contact, Pcp Primary Care Provider Unavailable Reason for Visit Physical Therapy (Routine) - Canceled Specialty Diagnoses / Procedures Referred By Contact Refer red To Contact Diagnoses Follow Up Surgery Exam Edi Benito M.D. [facility] Procedures PT Ongoing treatment 701 [facility] [place] [phone] Referral ID Status Reason Start Date Expiration Date Visits V isits Requested Authorized [id number] Canceled 09/16/2020 09/16/2021 1 1 Encounter Details Date Type Department Care Team Description 10/13/2020 Clinical Support Department of Edi Benito M.D. 701 [facility] [place] [phone] Follow Up Surgery Rehabilitation Services Dave Servin, P.T. [address] [place] [phone] Exam in [address] [phone] Social History Tobacco Use Types Packs/Day Years Used Date Smoking Tobacco: Never Smokeless Tobacco: Never Alcohol Use Standard Drinks/Week Comments Not Currently 0 (1 standard drink = 0.6 oz pure alcoho l) Sex Assigned at Date Recorded Not on file documented as of this encounter Progress Notes Dave Servin, P.T. - 10/13/2020 6:00 AM CST Physical Therapy Outpatient Treatment Note SUBJECTIVE Patient's Name: Heidi Huerta Referring Provider: Edi Benito M.D. Visit Diagnosis: 1. Follow Up Surgery Exam Reason for Referral: Patient is 1 week status post right Total Knee Arthroplasty Onset Date: 09/08/20 Payor: MEDICARE / Plan: MEDICARE A AND B / Product Type: Medicare / No data recorded Epic Visit Count: 10 Patient comments: Sandee comes in today feeling that she is doing better overall. She is not having as much discomfort. OBJECTIVE Pain: Pain Assessment Pain Score: 3 Mobility is seems to be relatively the same overall. This is approximately 95-90 degrees. TREATMENT Treatment today consisted of: We had patient on the sci fit for approximately 15 minutes. We also worked on knee flexion in the supine position. We had her work on short arc quads. We performed some light massage to the area as well. Home Exercise Program/Education: Contact monitoring: Appropriate PPE was utilized including face mask/protective eyewear. Assessment Clinical Impression: Patient tolerated well overall. She was able tolerate more aggressive passive range of motion. She does not necessarily have a hard end feel with knee flexion. However, we have been unable to progress a lot with mobility over the past 2 weeks. Functional Goals [...] Date: 10/14/20 Plan We will continue. She has an appointment to see Orthopedics tomorrow. Plan for next session: Time Spent with Patient Therapeutic Exercise (min): 30 min Time Calculation Total Timed Units (min): 30 min Total Treatment Time (min): 30 min Dave Servin P.T. Department of Rehabilitation Services in [address] [address] Dept: [phone] NESS INSTRUCTOR documented in this encounter Plan of Treatment Not on filedocumented as of this encounter Visit Diagnoses Diagnosis Follow Up Surgery Exam documented in this encounter Care Teams Manager Completions Relationship Specialty Start Date End Date No Contact, Pcp PCP - General Family Medicine 09/05/20 documented as of this encounter
--- OUTSIDE RECORDS SUMMARY | 2022-08-12 08:49 | XMS_ITS | Encounter Summary ---
:1950 Author Organization [facility] Address [address] [place] [address] Care Team Providers Name Role Phone No Contact, Pcp Primary Care Provider Unavailable Reason for Visit Physical Therapy (Routine) - Canceled Specialty Diagnoses / Procedures Referred By Contact Refer red To Contact Diagnoses Follow Up Surgery Exam Edi Benito M.D. [facility] Procedures PT Ongoing treatment [address] [place] [phone] Referral ID Status Reason Start Date Expiration Date Visits V isits Requested Authorized [id number] Canceled 09/16/2020 09/16/2021 1 1 Encounter Details Date Type Department Care Team Description 11/21/2020 Clinical Support Department of Edi Benito M.D. 701 [facility] [place] [phone] Follow Up Surgery Rehabilitation Services Dave Servin, P.T. [address] [place] [phone] Exam in [address] [phone] Social History Tobacco Use Types Packs/Day Years Used Date Smoking Tobacco: Never Smokeless Tobacco: Never Alcohol Use Standard Drinks/Week Comments Not Currently 0 (1 standard drink = 0.6 oz pure alcoho l) Sex Assigned at Date Recorded Not on file documented as of this encounter Progress Notes Dave Servin, P.T. - 11/21/2020 6:00 AM CST Physical Therapy Outpatient Treatment [...] comes into therapy today stating that she hurt her left foot just stepping on it when she is doing laundry. She heard or felt a pop in her foot at the time. She is able walk on it but she has pain over the lateral aspect of the foot just posterior to the metatarsal head. She rates this pain as a 4/10. Otherwise, her knee is doing well overall. Her pain is manageable. Contact monitoring: Appropriate PPE was utilized including face mask/protective eye wear. OBJECTIVE After therapy today, patient was able to obtain knee flexion to approximately 117?? by herself. Withaggressive over pressure, we are able to obtain 120??. There remains a slight extension lag of no more than 2-3 degrees. Pain: Pain Assessment Pain Score: 4 TREATMENT Treatment today consisted of: Patient was on the sci fit for approximately 10 minutes followed by the leg press machine. We then provided passive range of motion for knee flexion and extension. Home Exercise Program/Education: Assessment Clinical Impression: Patient tolerated well overall. She does have some pain in her left foot which she is going to monitor over the next several days. We will see her once again on Tuesday. Functional Goals and Timeframes: PT [...] PT Goal #4 Date: 10/14/20 Plan We are approaching patient's established goals. We will probably be able to DC next week. Plan for next session: Time Spent with Patient Therapeutic Exercise (min): 15 min Time Calculation Total Timed Units (min): 15 min Total Treatment Time (min): 15 min Dave Servin P.T. Department of Rehabilitation Services in [address] [address] Dept: [phone] ORADIOLOGIST documented in this encounter Plan of Treatment Not on filedocumented as of this encounter Visit Diagnoses Diagnosis Follow Up Surgery Exam documented in this encounter Care Teams Rock Cutter Relationship Specialty Start Date End Date No Contact, Pcp PCP - General Family Medicine 09/05/20 documented as of this encounter
--- OUTSIDE RECORDS SUMMARY | 2022-08-12 08:49 | XMS_ITS | Encounter Summary ---
:1950 Author Organization [facility] Address [address] [place] [address] Care Team Providers Name Role Phone No Contact, Pcp Primary Care Provider Unavailable Reason for Visit Physical Therapy (Routine) - Canceled Specialty Diagnoses / Procedures Referred By Contact Refer red To Contact Diagnoses Follow Up Surgery Exam Edi Benito M.D. [facility] Procedures PT Ongoing treatment 701 [facility] [place] [phone] Referral ID Status Reason Start Date Expiration Date Visits V isits Requested Authorized [id number] Canceled 09/16/2020 09/16/2021 1 1 Encounter Details Date Type Department Care Team Description 09/24/2020 Clinical Support Department of Edi Benito M.D. 701 [facility] [place] [phone] Follow Up Surgery Rehabilitation Services Dave Servin, P.T. [address] [place] [phone] Exam in [address] [phone] Social History Tobacco Use Types Packs/Day Years Used Date Smoking Tobacco: Never Smokeless Tobacco: Never Alcohol Use Standard Drinks/Week Comments Not Currently 0 (1 standard drink = 0.6 oz pure alcoho l) Sex Assigned at Date Recorded Not on file documented as of this encounter Progress Notes Dave Servin, P.T. - 09/24/2020 6:00 AM CST Physical Therapy Outpatient Treatment Note SUBJECTIVE Patient's Name: Heidi Huerta Referring Provider: Edi Benito M.D. Visit Diagnosis: 1. Follow Up Surgery Exam Reason for Referral: Patient is 1 week status post right Total Knee Arthroplasty Onset Date: 09/08/20 Payor: MEDICARE / Plan: MEDICARE A AND B / Product Type: Medicare / No data recorded Epic Visit Count: 4 Patient comments: Sandee comes into therapy today stating that her pain is much more manageable. She is on her pain medication once again. This does make her somewhat lightheaded and she does have some issues with her bowels because of this. OBJECTIVE Pain: Pain Assessment Pain Score: 4 After therapy today, knee flexion was to approximately 95-90 degrees. There is pain at pathological end range. TREATMENT Treatment today consisted of: We started patient on the treatment table in we provided passive range of motion. This was for flexion. We then had her on the sci fit for approximately 15 minutes. We then brought her back over to thetreatment table in continue to work on passive range of motion for both knee flexion/extension. We had her work on some short arc quads/knee extension exercises. We reviewed her home exercises. We recommended that she be quite aggressive with this over the next 2 days. Home Exercise Program/Education: Contact monitoring: Appropriate PPE was utilized including face mask/protective eyewear. Assessment Clinical Impression: Patient tolerated therapy well overall. Her pain is more manageable now. We are over 90?? with her being just a little over 2 weeks postop. Functional Goals and Timeframes: PT [...] 10/14/20 Plan We will continue on Tuesday. Plan for next session: Time Spent with Patient Manual Therapy (min): 15 min Therapeutic Exercise (min): 15 min Time Calculation Total Timed Units (min): 30 min Total Treatment Time (min): 30 min Dave Servin P.T. Department of Rehabilitation Services in [address] [address] Dept: [phone] ESS SPECIALIST documented in this encounter Plan of Treatment Not on filedocumented as of this encounter Visit Diagnoses Diagnosis Follow Up Surgery Exam documented in this encounter Care Teams It Architecture Consultant Relationship Specialty Start Date End Date No Contact, Pcp PCP - General Family Medicine 09/05/20 documented as of this encounter
--- OUTSIDE RECORDS SUMMARY | 2022-08-12 08:50 | XMS_ITS | Encounter Summary ---
:1950 Author Organization [facility] Address [address] [place] [address] Care Team Providers Name Role Phone Unavailable Primary Care Provider Unavailable Encounter Details Date Type Department Care Team Description 08/21/2020 Hospital Encounter Department of Bridgette Francisco Arthr itis Knee Right Radiology in [facility] CN.[place], [place] DN.P. 701 [facility] [address] [place] [phone] Social History Tobacco Use Types Packs/Day Years Used Date Smoking Tobacco: Never Sex Assigned at Date Recorded Not on file documented as of this encounter Plan of Treatment Not on filedocumented as of this encounter Procedures Procedure Name Priority Date/Time Associated Comments Diagnosis DX KNEE RIGHT 3 RAD - Routine 08/21/2020 2:10 Arthritis Knee Result s for this VIEWS (most inpatients PM CDT Right procedure a re in and all the results outpatients) section. documented in this encounter Results DX Knee Right 3 Views (08/21/2020 2:10 PM CDT) Anatomical Region Laterality Modality Lower Extremity, Knee, Musculoskeletal RST LOS, Right Digital Radiography Musculoskeletal ARZ LOS, Muskuloskeletal FLA LOS Specimen (Source) Anatomical Collection Method Collection Time Re ceived Time Location / / Volume Laterality 08/21/2020 2:24 PM CDT Impressions 08/21/2020 2:27 PM CDT Tricompartmental osteoarthritis with marginal bony spurring. Mild loss of medial compartment, moderate los s of lateral compartment, and severe loss of patellofemoral compartment joint spaces. No acute appreciable fracture or traumatic malalignment. Demineralized appearance of the bones. Trace joint effusion/synovitis. Tricompartmental deg enerative changes noted at the left knee. Narrative 08/21/2020 2:27 PM CDT EXAM: DX KNEE RIGHT 3 VIEWS COMPARISON: None Procedure Note Kyle Boss M.D. - 08/21/2020Formattin g of this note might be different from the original. EXAM: DX KNEE RIGHT 3 VIEWS COMPARISON: None IMPRESSION: Tricompartmental osteoarthritis with mar ginal bony spurring. Mild loss of medial compartment, moderate los s of lateral compartment, and severe loss of patellofemoral compartment joint spaces. No acute appreciable fracture or traumatic malalignment. Demineralized appearance of the bones. Trace joint effusion/synovitis. Tricompartmental deg enerative changes noted at the left knee. Bridgette Francisco APRN C.N.P., D.N.P. IMG DIAGNOSTIC IMAG ING PROCEDURES documented in this encounter Visit Diagnoses Diagnosis Arthritis Knee Right documented in this encounter
--- OUTSIDE RECORDS SUMMARY | 2022-08-12 08:50 | XMS_ITS | Encounter Summary ---
:1950 Author Organization [facility] Address [address] [place] [address] Care Team Providers Name Role Phone Unavailable Primary Care Provider Unavailable Encounter Details Date Type Department Care Team Description 09/01/2016 - Hospital Encounter HX [facility] CarnesShirley guo tanesha 12/06/2016 ROGELIO Seay, C.N.P. [address] [place] [address] (Wo rk) Social History Tobacco Use Types Packs/Day Years Used Date Smoking Tobacco: Never Assessed Sex Assigned at Date Recorded Not on file documented as of this encounter Progress Notes Dave Burton, P.T. - 09/20/2016 12:00 AM CST [id number] PHYSICAL THERAPY PROGRESS NOTE IMPRESSION/REPORT/PLAN Sandee comes in today stating that she is doing relatively the same overall. She has been wearing her leg brace for the past 2 weeks now. She notes that she had a difficult time I believe this . She had a good amount of pain that evening. This is with patient having been in the brace thewh day. She is still with pain with palpation over the Achilles tendon region. She does have somevaricose veins in this area but this does not appear to be related to the varicose veins at this time. She still has a thickening of the Achilles tendon itself. With this in mind, we did recommend thatscar probably seek further consult. She is going to see what facility she can go to which will accept . She also wishes to give this a little bit more time if possible. We noted to her that wouldbe certainly an option for her. We recommend that we see her again in approximately 2 weeks if this is what she is going to do. That way we can follow up where she is at before she sees a specialist. Ginger Edmondson/arcenio Electronically Signed By: DAVE BURTON On: 10/14/2016 07:56 AM Source: [facility] JESÚS Document Id: [id number] Dave Bueno P.T. - 09/10/2016 12:00 AM CST [id number] PHYSICAL THERAPY PROGRESS NOTE IMPRESSION/REPORT/PLAN Sandee comes in today stating that she feels she is doing better overall. The pain may not be as intense. She feels that the strengthening that she is doing may be helpful. She is doing this isometrically. We did speak with Ortho and they feel that she should keep the boot on and maybe have a longer boot on to avoid any type of excessive motion of the Achilles. We went ahead and provided ultrasound at 1.3 jensen per cm squared to the Achilles tendon once again, followed by light transverse friction massage and stretching of the Achilles. She tolerated this all well. She is to continue wearing her brace at this point. We will see in approximately 1 week. ASSESSMENT Patient is doing a little better overall. PLAN We will see in 1 week's period of time. Ginger Edmondson/arcenio Electronically Signed By: DAVE BURTON On: 09/16/2016 09:30 AM Source: [facility] HERBERTYNNEMO Document Id: [id number] Dave Bueno P.T. - 09/07/2016 12:00 AM CST [id number] PHYSICAL THERAPY PROGRESS NOTE IMPRESSION/REPORT/PLAN Sandee comes in today stating that she feels her ankle is getting better overall. The pain that she is having over the Achilles tendon is not as severe. However, there is still a consistent amount of thickening in the Achilles tendon region itself. She continues to wear the ankle brace. We did continue with ultrasound at 1.3 jensen per cm squared to the Achilles tendon followed by stretching and manual tissue massage. She tolerated this all well. We did instruct her with some isometric exercises for strengthening of the Achilles tendon. We encouraged her to continue wearing the boot when she is out walking longer distances. She can try and ambulate in her home without the boot if this does not cause any issues. Total time today was 15 minutes of manual therapy and 8 minutes of ultrasound. ASSESSMENT Patient continues to have some issues with Achilles tendon pain. This does appear to be a tendinosis. PLAN We will continue. We will also discuss this with orthopedics. Ginger Edmondson/arcenio Electronically Signed By: DAVE BURTON On: 09/16/2016 09:30 AM Source: [facility] MHSDOLBEYNONRADSYS Document Id: [id number] Dave Bueno PGrace. - 09/01/2016 12:00 AM CDT [id number] PHYSICAL THERAPY DAILY PROGRESS NOTE IMPRESSION/REPORT/PLAN Sandee comes in today stating that she feels her Achilles tendon region is better today. We did observe this and there is less swelling noted. However, there is still a considerable amount of thickening around the Achilles tendon itself. We did ultrasound at 1.3 jensen per cm squared. Once again followed by some light muscle stripping and soft tissue massage. We encouraged her to continue wearing the Cam boot for now to help decrease her movement of the Achilles tendon. Total time today was 15 minutes of manual therapy and 8 minutes of ultrasound. ASSESSMENT Patient is with subjective improvement at this time. PLAN Will be to continue. Ginger Edmondson/arcenio Electronically Signed By: DAVE BURTON On: 09/10/2016 06:09 AM Source: [facility] MHSDOLBEYNONRADSYS Document Id: [id number] RITY MANAGEMENT SPECIALIST documented in this encounter Miscellaneous Notes Miscellaneous - Conversion, Historical Provider Ser - 09/08/2016 1:07 PM SECURITY MANAGEMENT SPECIALIST Coding Summary-Paper Based CODING DATE: 09/08/2016 FINAL [facility] STATUS: Still Patient/Expected to Rtn [facility] PAYOR: Medicare ADMIT DX: REASON FOR VISIT DX: FINAL DX: PRINCIPAL: M79.671 Pain in right foot SECONDARY: M79.661 Pain in right lower leg PROCEDURES DOCTOR NAME DATE NOTE: The code number assigned matches the documented diagnosis and / or procedure in the patient's chart. However, the narrative phrase printed from the coding software may appear abbreviated, or result in slightly different terminology. Coded By: ANISHA LIMON Date Saved: 09/08/2016 01:07 pm Source: [facility] POWERCHART Document Id: [id number] documented in this encounter Plan of Treatment Not on filedocumented as of this encounter Visit Diagnoses Not on filedocumented in this encounter
--- OUTSIDE RECORDS SUMMARY | 2022-08-12 08:50 | XMS_ITS | Encounter Summary ---
:1950 Author Organization [facility] Address [address] [place] [address] Care Team Providers Name Role Phone Unavailable Primary Care Provider Unavailable Encounter Details Date Type Department Care Team Description 04/17/2013 Hospital Encounter HX [facility] Jeremy Garcia M.D. [address] [place], [place] [phone] (Wo rk) Social History Tobacco Use Types Packs/Day Years Used Date Smoking Tobacco: Never Assessed Sex Assigned at Date Recorded Not on file documented as of this encounter Miscellaneous Notes Miscellaneous - Delmar Andrew M.D. - 04/17/2013 12:00 AM CDT [id number] Heidi Huerta [id number] [phone] April 17, 2013 Dear Heidi Huerta: Our records indicate that you are due for the following appointment: TWO YEAR EYE EXAM AROUND 05-20-13 Please call us to make an appointment at your convenience. Our telephone number for scheduling an appointment is [phone]. If you have already made an appointment for this or have had the proceduredone, please disregard this notice. We look forward to seeing you soon. Sincerely, Delmar Andrew M.D./[facility] Ophthalmology Department [facility] [place] Source: [facility] Document Id: [id number] Electronically signed by Zia [facility] Social Media Campaign Manager [id number] at 03/28/2017 10:32 PM CDT documented in this encounter Plan of Treatment Not on filedocumented as of this encounter Visit Diagnoses Not on filedocumented in this encounter
--- OUTSIDE RECORDS SUMMARY | 2022-08-12 08:50 | XMS_ITS | Encounter Summary ---
:1950 Author Organization [facility] Address [address] [place] [address] Care Team Providers Name Role Phone Unavailable Primary Care Provider Unavailable Encounter Details Date Type Department Care Team Description 11/25/2017 Clinical Support Department of Lynn Jasso M. D. Rotator Cuff Rehabilitation Dave Servin P.T. [address] [place] [phone] Repair Shoulder Services in [address] [phone] Social History Tobacco Use Types Packs/Day Years Used Date Smoking Tobacco: Never Sex Assigned at Date Recorded Not on file documented as of this encounter Progress Notes Dave Servin, P.T. - 11/25/2017 6:00 AM CST Physical Therapy Outpatient Treatment Note Referring Provider: Lynn Jasso M.D. Medical Diagnosis: 1. Rotator Cuff Repair Shoulder Status Post - PT Ongoing treatment Payor: Payor: MEDICARE / Plan: MEDICARE A AND B / Product Type: Medicare / Visit Counts: 11 Principal Problem: Patient Active Problem List Diagnosis ??? Pain Shoulder Left ??? Rotator Cuff Repair Shoulder Status Post SUBJECTIVE Rosie comes into therapy today stating thatLisa is doing better overall. She can feel that she is becoming more functional with her left shoulder. Pain Assessment Pain Score: 2 OBJECTIVE Today we continued with aggressive stretching for both flexion/abduction and external rotation. We also checked internal rotation which continues to slowly improve. She can now on bring her hand to approximately L5 behind her back with some assist by the therapist. The pain is not as intense. As for shoulder flexion, we are able to obtain approximately 165?? with patient in supine. With patient shortsitting she is able to actively bring this to approximately 130??. Strength is steadily improving. We did review her exercises for at home. This is all going well with Thera-Band. She is doing a lot ofthe wall walking and ball exercises up against a wall. She has a continue to do this. We encouraged her to start using her arm on a regular basis still staying within 3 lb weight restriction. Measures - Tools Measures - Tools Treatment Provided Today: 15 minutes of manual therapy and 15 minutes of therapeutic exercise. Home Exercise Program: ASSESSMENT Patient's mobility is slowly improving. Her strength is doing well overall. She will be seeing her material control specialist in 2 weeks. We would like to see her on approximately he-10 days. Therapy Goals PLAN Will see approximately 8-10 days. Dave Servin P.T. Time Spent with Patient Functional G-code Worksheet ND HAND documented in this encounter Plan of Treatment Not on filedocumented as of this encounter Visit Diagnoses Diagnosis Rotator Cuff Repair Shoulder Status Post documented in this encounter
--- OUTSIDE RECORDS SUMMARY | 2022-08-12 08:50 | XMS_ITS | Encounter Summary ---
:[address] [facility] Address [address] [place] [address] Care Team Providers Name Role Phone Unavailable Primary Care Provider Unavailable Encounter Details Date Type Department Care Team Description 11/01/2017 Clinical Support Department of Edi Benito M.D. [address] [place] [phone] Pain Shoulder Left Rehabilitation Services Dave Servin PThomasT. [address] [place] [phone] [address] [phone] Social History Tobacco Use Types Packs/Day Years Used Date Smoking Tobacco: Never Sex Assigned at Date Recorded Not on file documented as of this encounter Progress Notes Dave Servin PThomasT. - 11/01/2017 6:00 AM CST Physical Therapy Outpatient Treatment Note Referring Provider: Edi Benito M.D. Medical Diagnosis: 1. Pain Shoulder Left - PT Ongoing treatment Payor: Payor: MEDICARE / Plan: MEDICARE A AND B / Product Type: Medicare / Payor considerations: Visit Counts: 6 Principal Problem: Patient Active Problem List Diagnosis ??? Pain Shoulder Left ??? Rotator Cuff Repair Shoulder Status Post SUBJECTIVE Rosie comes in today still with some stiffness in her shoulder as well as some pain into her left wrist and hand. She still feels weak in the hand itself. She does have some swelling noted in the fingers. She has been doing her exercises at home fairly aggressively. Her has been helping with this. Pain Assessment Pain Score: 3 OBJECTIVE patient is now 7 weeks postop. We more aggressive with the stretching today. With patient supine where able to bring the shoulder to approximately 145??. External rotation is to approximately 25??. Abduction is to approximately 90??. At this point, there is scapular movement. We had patient work on shoulder flexion in supine. She is able to do this actively with no assist by the therapist. We also had her work on isometrics for internal/external rotation with manual resistance by the therapist. We then had her work on some wall walking exercises. We tried to position her so that she was addressingflexion more aggressively. Her was available so he could see where he could help. We then worked on internal rotation. This is quite tight but we are able to bring the hand to the top of her PSIS. This is slowly progressing. Measures - Tools Measures - Tools Treatment Provided Today: 25 minutes of manual therapy. Home Exercise Program: ASSESSMENT Patient is slowly improving with her mobility. We are now going to start some very light strengthening at this point. Therapy Goals PLAN Chair is not wearing the sling at home any longer. We encouraged her to swing her arms when there ather side. She is still to avoid any type of lifting. We will continue to progress with strengthening. Patient agrees with the plan of care and goals. Dave Servin P.T. Time Spent with Patient Functional G-code Worksheet CONTROL CONSULTANT documented in this encounter Plan of Treatment Not on filedocumented as of this encounter Visit Diagnoses Diagnosis Pain Shoulder Left documented in this encounter
--- OUTSIDE RECORDS SUMMARY | 2022-08-12 08:50 | XMS_ITS | Encounter Summary ---
:1950 Author Organization [facility] Address [address] [place] [address] Care Team Providers Name Role Phone Unavailable Primary Care Provider Unavailable Encounter Details Date Type Department Care Team Description 11/18/2017 Clinical Support Department of Lynn Jasso M. D. Rotator Cuff Rehabilitation Dave Servin P.T. [address] [place] [phone] Repair Shoulder Services in [address] [phone] Social History Tobacco Use Types Packs/Day Years Used Date Smoking Tobacco: Never Sex Assigned at Date Recorded Not on file documented as of this encounter Progress Notes Dave Servin, P.T. - 11/18/2017 6:30 AM CST Physical Therapy Outpatient Treatment Note Referring Provider: Lynn Jasso M.D. Medical Diagnosis: 1. Rotator Cuff Repair Shoulder Status Post - PT Ongoing treatment Payor: Payor: MEDICARE / Plan: MEDICARE A AND B / Product Type: Medicare / Payor considerations: Visit Counts: 10 Principal Problem: Patient Active Problem List Diagnosis ??? Pain Shoulder Left ??? Rotator Cuff Repair Shoulder Status Post SUBJECTIVE Rosie comes in today stating that she is doing fairly well overall. She feels that her shoulder is improving steadily now. She is trying to use it as much as she can with a weight restriction of no more than 5 lb. Pain Assessment Pain Score: 2 OBJECTIVE today we continued with passive range of motion working aggressively on both flexion/abduction and internal rotation. We instructed patient with exercises for home where she can address internal rotation more aggressively. We had her work on shoulder flexion in supine with 3 lb weights. We then worked on internal/external rotation with manual resistance. From there we had patient standing we had herwork on shoulder flexion against gravity with 2 lb weights. She then worked on rows as well as shoulder extension exercises with the wall unit. She tolerated this well. She then worked on press exercises with 5 lb in each hand. Once again, she tolerated this well. Measures - Tools Measures - Tools Treatment Provided Today: 15 minutes of manual therapy and 15 minutes of therapeutic exercise. Home Exercise Program: ASSESSMENT Patient is slowly progressing overall with her mobility. Strength is coming along nicely with shoulder flexion strength now being approximately 4/5. External rotation is 4/5. Therapy Goals PLAN At this point, patient will continue with her home exercises. She has strengthening exercises do at home. We would like to see her in approximately 1 week for follow-up. Patient agrees with the plan of care and goals. Dave Servin P.T. Time Spent with Patient Functional G-code Worksheet [facility] documented in this encounter Plan of Treatment Not on filedocumented as of this encounter Visit Diagnoses Diagnosis Rotator Cuff Repair Shoulder Status Post documented in this encounter
--- OUTSIDE RECORDS SUMMARY | 2022-08-12 08:50 | XMS_ITS | Encounter Summary ---
:1950 Author Organization [facility] Address [address] [place] [address] Care Team Providers Name Role Phone Unavailable Primary Care Provider Unavailable Reason for Visit Reason Comments Other [facility] Preparation Encounter Details Date Type Department Care Team Description 09/01/2020 Clinical Communication Department of Hardik Kemp ([facility] Orthopedic Surgery Zhanna Patiño R.N. Preparation) in [facility] [phone] [place] (Work) [address] [place] [phone] Social History Tobacco Use Types Packs/Day Years Used Date Smoking Tobacco: Never Sex Assigned at Date Recorded Not on file documented as of this encounter Miscellaneous Notes Telephone Encounter - Zhanna Boston R.N. - 09/01/2020 9:54 AM CST Called patient to discuss any questions they may have on preparing for the [facility]. Patient did not answer and was unable to leave a message due to a full mailbox. CTURAL BIOLOGIST documented in this encounter Plan of Treatment Not on filedocumented as of this encounter Visit Diagnoses Not on filedocumented in this encounter
--- OUTSIDE RECORDS SUMMARY | 2022-08-12 08:50 | XMS_ITS | Encounter Summary ---
:1950 Author Organization [facility] Address [address] [place] [address] Care Team Providers Name Role Phone No Contact, Pcp Primary Care Provider Unavailable Reason for Visit Physical Therapy (Routine) - Closed Specialty Diagnoses / Procedures Referred By Contact Refer red To Contact Diagnoses Follow Up Surgery Exam Bridgette Francisco APRN, [facility] Procedures PT Evaluate and treat C.N.P., D.N.P. [address] [place] [phone] Referral ID Status Reason Start Date Expiration Date Visits Requ ested Visits Authorized [id number] Closed 08/21/2020 08/21/2021 1 1 Encounter Details Date Type Department Care Team Description 09/16/2020 Comprehensive Visit Department of Bridgette Francisco APRN, C.N.P., D.N.P. [address] [place] [phone] Follow Up Surgery Rehabilitation Dave Servin, P.TThomas [address] [place] [phone] Exam (Primary Dx) Services in [address] [phone] Social History Tobacco Use Types Packs/Day Years Used Date Smoking Tobacco: Never Smokeless Tobacco: Never Alcohol Use Standard Drinks/Week Comments Not Currently 0 (1 standard drink = 0.6 oz pure alcoho l) Sex Assigned at Date Recorded Not on file documented as of this encounter Consult Notes Dave Servin P.T. - 09/16/2020 7:30 AM CST Physical Therapy Outpatient Evaluation/Treatment SUBJECTIVE Patient's Name: Heidi Huerta Referring Provider: Bridgette Francisco APRN, C.* Visit Diagnosis: 1. Follow Up Surgery Exam Reason for Referral: Patient is 1 week status post right Total Knee Arthroplasty Onset Date: 09/08/20 Payor: MEDICARE / Plan: MEDICARE A AND B / Product Type: Medicare / PhotoRocket Visit Count: 1 PERTINENT MEDICAL / SURGICAL HISTORY: Patient Active Problem List Diagnosis ??? Pain Shoulder Left ??? Rotator Cuff Repair Shoulder Status Post ??? Primary Osteoarthritis Knee Right ??? Gastroesophageal Reflux Disease ??? Morbid Obesity Body Mass Index 40.0-44.9 Adult (HCC) ??? Osteoarthritis ??? Follow Up Surgery Exam Past Surgical History: Procedure Laterality Date ??? ARTHROPLASTY REPLACEMENT TOTAL KNEE Right 09/08/2020 Procedure: ARTHROPLASTY REPLACEMENT TOTAL KNEE; Surgeon: Edi Benito M.D.; Location: [facility] OR Heidi Huerta is a 69 y.o. female who presents to outpatient physical therapy for evaluation. Her symptoms consist of: Right knee pain status post Total Knee Arthroplasty. History of Present Illness: This is a 69-year-old female who comes into therapy now being 1 week status post right Total Knee Arthroplasty. She states that pain medication has been making her nauseated. She is feeling constipated. She has given herself enemas without success. Therefore, she is discontinue taking pain medicationsoutside of Tylenol. Pain is manageable but she does not sleep very well at this time. She ambulates with a 2 wheeled walker within her home. She does have her present to help her with her caresas needed. She has been doing simple exercises at home such as quad isometrics and some light short arc quads. Prior Level of Function: Patient was independent with activities prior to this. Occupational Profile She is retired. Patient goals: OBJECTIVE REVIEW OF SYSTEMS PHYSICAL EXAM Pain: Pain Assessment Pain Assessment: 0-10 Numeric Pain Intensity Scale Pain Score: 6 Ortho Exam Upon observation, patient comes into therapy with a wheelchair. She was able ambulate approximately 25 ft from the wheelchair to the treatment table without an assistive device. However, she was very cautious in doing this. We did check her overall incision which is healing well. She is with some drainage but this is very minimal. There is no significant redness around the incision. There is some redness this being very mild down by her ankle. We will keep monitoring this. We did remove the protective bandage and then we applied a ABD pad with a compress in sleeve to hold this in place. With patient in supine, we did have her try and do heel slides which is difficult at this time. Short arc quads are difficult. She is unable to perform a straight leg raise independently. Passively, knee flexion was to approximately 80??. There is an extension lag of no more than 3-4 degrees. Outcome Measures: She is presently scores She scores a 40/50 on the lower extremity index scale. TREATMENT Treatment today consisted of: We provided passive range of motion for knee flexion/extension. We had her work on some short arc quads as well as some straight leg raises with assistance by the therapist. She worked on heel slides as well. She is on the sci fit for approximately 10 minutes allowing her to come into flexion as tolerated. We then instructed patient with knee flexion exercises while sitting in a chair in scooting forward. Contact monitoring: Appropriate PPE was utilized including face mask/protective eyewear. Assessment Clinical Impression: Ms. Huerta presents to physical therapy with signs and symptoms consistent with being status post right Total Knee Arthroplasty. Rehab Potential: Ms. Huerta has Good potential to achieve established physical therapy goals within the time frame outlined below, provided she actively participates in her physical therapy treatment plan and home program. Comorbidities: Weight Clinical Presentation: Stable Examination elements: 1-2 Clinical Decision Making: Low: no complicating factors, 1-2 eval elements, stable clinical presentation Functional Goals and Timeframes: PT Goal #1: [...] weeks PT Goal #4 Date: 10/14/20 Plan Ms. Huerta was educated regarding evaluative findings, diagnosis, prognosis, potential risks and benefits of rehabilitation interventions. A collaborative effort was used to establish goals and plan of care. She was informed of her right to make decisions regarding her care, including refusal of examination or treatment or selection of services from another provider if desired. The treatment plan may be progressed or modified based upon her response to treatment. Treatment Plan: Start of Plan of Care: 09/16/2020 Number of Visits: 12 visits PT Duration: Six weeks PT Frequency: 2-3x/week Treatment interventions may include: Therapeutic exercise, Manual therapy Plan for next session: Time Spent with Patient PT Evaluation (min): 30 min Time Calculation Total Treatment Time (min): 30 min Dave Servin P.T. Department of Rehabilitation Services in [address] [phone] Dept: [phone] ER FISHERMAN documented in this encounter Plan of Treatment Not on filedocumented as of this encounter Visit Diagnoses Diagnosis Follow Up Surgery Exam - Primary documented in this encounter Care Teams Post Production Assistant Relationship Specialty Start Date End Date No Contact, Pcp PCP - General Family Medicine 09/05/20 documented as of this encounter
--- OUTSIDE RECORDS SUMMARY | 2022-08-12 08:50 | XMS_ITS | Encounter Summary ---
:1950 Author Organization [facility] Address [address] [place] [address] Care Team Providers Name Role Phone Unavailable Primary Care Provider Unavailable Reason for Visit Outpatient (Routine) - Closed Specialty Diagnoses / Procedures Referred By Contact Refer red To Contact General Surgery Diagnoses Preoperative Exam Bridgette Francisco APRN, [facility] C.N.P., D.N.P. [address] [place] [phone] Referral ID Status Reason Start Date Expiration Date Visits Requ ested Visits Authorized [id number] Closed 08/21/2020 08/21/2021 1 1 Encounter Details Date Type Department Care Team Description 09/02/2020 Telemedicine Department of General Nii Francisco APRN, C.N.P., D.N.P. [address] [place] [phone] Preanesthetic Medical Exam (Primary Dx); Surgery in [facility] Jennifer Vargas RIrasema [address] [place] [phone] Preoperative Exam [address] [phone] Social History Tobacco Use Types Packs/Day Years Used Date Smoking Tobacco: Never Smokeless Tobacco: Never Sex Assigned at Date Recorded Not on file documented as of this encounter Last Filed Vital Signs Vital Sign Reading Time Taken Comments Blood Pressure - - Pulse - - Temperature - - Respiratory Rate - - Oxygen Saturation - - Inhaled Oxygen - - Concentration Weight 108 kg (238 lb 1.6 09/02/2020 2:[address] Jose mack's oz) CREATIVE SERVICES MANAGER preop dated 08/01 04/19 Height 162 cm (5' 3.78) 09/02/2020 2:[address] Renee nesbitt's CREATIVE SERVICES MANAGER preop dated 08/01 04/19 Body Mass Index 41.15 09/02/2020 2:38 PM CREATIVE SERVICES MANAGER documented in this encounter Progress Notes Jennifer Vargas R.N. - 09/02/2020 2:15 PM CST This patient was called for a KENAN nurse visit on 09/02/2020 for surgery scheduled on 09/08/20 with . Surgery Nurse Mixing Engineer Skin Alert Assessment: Complete this section only if the patient is greater than or equal to 18 y/o BMI <19 or >50: No Documented risk factors that indicate higher risk for pressure ulcer? No Do you have impaired sensation? No Is patient chair-bound or unable to reposition themselves? No Anesthesia Risk Assessment: Do you have an implanted cardiac device? No Do you have difficulties lying flat? No Comment: Do you have any christian or other objection to having a blood transfusion? No Teaching: Preoperative education was done with (x) patient () parent . It was confirmed the patient/family member had received the following preoperative education sheets:Checklist For Surgical Patients ([id number]),???Surgical Site Infections: Reducing Your Risk ([id number]), Speak Up: Antibiotics ([id number]), Acute Pain and the Healing Process ([id number]) with the Integrative [facility] and Health ([id number]), and ???Appointments Required Before Your Surgery?? (no MC). These were reviewed in detail. (x) Preoperative medication education provided through Ask [place] Expert (x) Preoperative COVID-19 testing ordered and discussed with patient- scheduled 09/08/20 Total Joint Class scheduled: Date: 09/02/20 (x)Total Joint Surgery: Total Joint Class (good for one year). (x) Reviewed Hibiclens packet and reviewed Reducing Your Risk of Surgical Infection ([id number]). Patient is ready to learn, no apparent learning barriers were identified. Reviewed diagnosis and treatment plan; patient verbalized understanding through teach back. All questions were answered. Patient has contact information and understands the need to call with any questions or concerns. Post op appointments: 1st po with surgeon or physician data control assistant: (x) made TIVE SERVICES MANAGER documented in this encounter Plan of Treatment Not on filedocumented as of this encounter Visit Diagnoses Diagnosis Preanesthetic Medical Exam - Primary Preoperative Exam documented in this encounter
--- OUTSIDE RECORDS SUMMARY | 2022-08-12 08:50 | XMS_ITS | Encounter Summary ---
:1950 Author Organization [facility] Address [address] [place] [address] Care Team Providers Name Role Phone Unavailable Primary Care Provider Unavailable Encounter Details Date Type Department Care Team Description 06/27/2012 Hospital Encounter HX NO MAPPING Roman Olivares M.D. [address] [place], [place] [phone] (Wo rk) Social History Tobacco Use Types Packs/Day Years Used Date Smoking Tobacco: Never Assessed Sex Assigned at Date Recorded Not on file documented as of this encounter Plan of Treatment Not on filedocumented as of this encounter Visit Diagnoses Not on filedocumented in this encounter
--- OUTSIDE RECORDS SUMMARY | 2022-08-12 08:50 | XMS_ITS | Encounter Summary ---
:1950 Author Organization [facility] Address [address] [place] [address] Care Team Providers Name Role Phone Unavailable Primary Care Provider Unavailable Encounter Details Date Type Department Care Team Description 10/21/2017 Clinical Support Department of Edi Benito M.D. [address] [place] [phone] Pain Shoulder Left Rehabilitation Services Dave Servin, P.T. [address] [place] [phone] [address] [phone] Social History Tobacco Use Types Packs/Day Years Used Date Smoking Tobacco: Never Sex Assigned at Date Recorded Not on file documented as of this encounter Progress Notes Dave Servin P.T. - 10/21/2017 6:00 AM CST Physical Therapy Outpatient Treatment Note Referring Provider: Edi Benito M.D. Medical Diagnosis: 1. Pain Shoulder Left - PT Ongoing treatment Payor: Payor: MEDICARE / Plan: MEDICARE A AND B / Product Type: Medicare / Payor considerations: Visit Counts: 3 Principal Problem: Patient Active Problem List Diagnosis ??? Pain Shoulder Left SUBJECTIVE Rosie comes in today without complaints. She has been doing her exercises. Her has been helpful in doing these as well. She has been using some heat on this as well. We did have her take off the sling and we started work on passive range of motion once again today.We are able to obtain shoulder flexion to approximately 140??. There is a considerable amount of pain at pathological end range. We also worked on shoulder abduction which were able to obtain 100??. External rotation is to 25??. Internal rotation is most limited at this time. It is difficult for her to get this beyond her PSIS at this time. She has been doing his exercises at home as well. We are still unable to do anything with strengthening at this time. She is now 5 weeks postop. Pain Assessment Pain Score: 3 OBJECTIVE Measures - Tools Measures - Tools Treatment Provided Today: 25 minutes of manual therapy. Home Exercise Program: ASSESSMENT Patient is slowly progressing with her mobility. We are unable strengthen at this time. Therapy Goals PLAN We will continue next week. Patient agrees with the plan of care and goals. Dave Servin P.T. Time Spent with Patient Functional G-code Worksheet RANCE SPECIALIST documented in this encounter Plan of Treatment Not on filedocumented as of this encounter Visit Diagnoses Diagnosis Pain Shoulder Left documented in this encounter
--- OUTSIDE RECORDS SUMMARY | 2022-08-12 08:50 | XMS_ITS | Encounter Summary ---
:1950 Author Organization [facility] Address [address] [place] [address] Care Team Providers Name Role Phone No Contact, Pcp Primary Care Provider Unavailable Reason for Visit Auth/Cert Specialty Diagnoses / Procedures Referred By Contact Refer red To Contact Diagnoses Primary Osteoarthritis Knee Right Osteoarthritis Primary Osteoarthritis Knee Right [M17.11] Procedures ARTHROPLASTY REPLACEMENT TOTAL KNEE Referral ID Status Reason Start Date Expiration Date Visits Requ ested Visits Authorized [id number] 1 1 Encounter Details Date Type Department Care Team Description 09/08/2020 Anesthesia Event [facility] MAIN OR Fabienne Farooq M.D. [address] [facility] [address] [place] [address] [address] [place] [phone] (Wo rk) Anesthesia Record Procedure Summary Procedure Name Responsible Anesthesia Start Anesthesia Stop Anesthesiologist Time Time ARTHROPLASTY Fabienne Farooq M.D. 09/08/20 0810 09/08/20 10 26 REPLACEMENT TOTAL KNEE (Right: Knee) Events Date Time Event Comment 09/08/2020 0755 An Start Data 0805 an stop data 0810 An Start Machine/Equipmen t Checked Infection Precautions Foll owed Procedure/Site Verified NPO Sta tus Verified Supine Standard ASA Mon itors Applied 0811 An Pause 0812 An Resume 0825 Turnover to Proceduralist 0848 Proc Start 1015 Proc Fin 1016 Turnover to ANE Staff 1017 an stop data 1026 An End I completed my h andoff to the receiving staff during i ch we 1. Identified the patient 2. Ident ified the responsible provider 3. Revi ewed the pertinent medical history 4. Discu ssed the surgical course 5. Reviewed intra-o p anesthesia management and issues during an esthesia 6. Set expectations for post-procedure period 7. Allowed opportun ity for questions and acknowledgement of understanding. Name Total midazolam 1 mg/mL injection 4 mg fentaNYL 50 mcg/mL injection 50 mcg bupivacaine-EPINEPHrine PF 0.5%-1:200,000 injection 15 mL dexmedeTOMIDine (PRECEDEX) injection 200 mcg/2 mL anes only 50 mcg propofol 10 mg/mL infusion 491.43 mg propofol 10 mg/mL injection 20 mg ceFAZolin in dextrose (iso-osm) IVPB 2 g (ANCEF) 2 g dexAMETHasone injection 4 mg (DECADRON) 0 mg dexamethasone 4 mg/mL injection 8 mg ondansetron PF 4 mg/2 mL injection 4 mg mepivacaine PF 2% injection 2 mL phenylephrine 100 mcg/mL injection 900 mcg tranexamic acid 1 g in NaCl 0.9% IVPB 1 g tranexamic acid 1 g in NaCl 0.9% IVPB 1 g ePHEDrine PF 5 mg/mL injection 20 mg lactated ringers 1,200 mL Agents No agents on file. Blood No blood administrations on file. Lines, Drains, and Airways Type Details Placement Removal Peripheral IV Placement Date: 09/08/20727 by 09/09/20 1449 b y 09/08/20; Placement Becki Espinoza R.N. Keller, S amantha D, Time: 727; Catheter R.N. Size: 20 G; Orientation: Left; Location: Hand; Site Prep: Chlorhexidine (Preferred); Technique: Anatomical landmarks; Insertion Attempts: 2; Removal Date: 09/09/20; Removal Time: 1448; Removal Reason: Patient discharged (RETIRED) Incision 09/08/20; 0734; Knee; 09/08/20 0734 by [id number] by Right; Zip-line; Aileen Couch, [facility] [email or web address] 07/21/21 (Removed by Preet Garcia nd background completion Automated Batch Job utility); 141 (Removed by background completion utility) Indwelling Urinary Placement Date: 09/08/20 0830 by 09/09/20 062 1 by Catheter 09/08/20; Placement Aileen Couch, Salty Mon, Time: 829; Inserted by: Annabelle Garcia APRN, .N.P., RN; Type: Non-latex; Size: 16 Fr.; Balloon Size: 10 mL; Urine Returned: Yes; Removal Date: 09/09/20; Removal Time: 620; Removal Reason: Criteria for drain removal met documented in this encounter Social History Tobacco Use Types Packs/Day Years Used Date Smoking Tobacco: Never Smokeless Tobacco: Never Alcohol Use Standard Drinks/Week Comments Not Currently 0 (1 standard drink = 0.6 oz pure alcoho l) Sex Assigned at Date Recorded Not on file documented as of this encounter OR Notes Anesthesia Postprocedure Evaluation - Fabienne Farooq M.D. - 09/08/2020 1:59 PM CST Patient: Heidi Huerta Procedure Summary Date: 09/08/20 Room / Location: [place] [address] / [facility] Anesthesia Start: 809 Anesthesia Stop: 1025 Procedure: ARTHROPLASTY REPLACEMENT TOTAL KNEE (Right Knee) Diagnosis: Primary Osteoarthritis Knee Right (Primary Osteoarthritis Knee Right [M17.11]) Surgeons: Edi Benito M.D. Responsible Provider: Fabienne Farooq M.D. Anesthesia Type: regional ASA Status: 2 Anesthesia Type: regional Last vitals Vitals Value Taken Time BP 94/59 09/08/20 1105 Temp 36.3 ??C 09/08/20 1105 Pulse 67 09/08/20 1110 Resp 16 09/08/20 1027 SpO2 94 % 09/08/20 1110 Please reference Vitals flowsheet for most recent vital signs. Anesthesia Post Evaluation Patient Disposition: general care unit Cardiovascular status: hemodynamics (HR & BP) acceptable Respiratory status: patent airway with spontaneous effort Temperature: normothermic Oxygen requirements: room air Level of consciousness: awake Pain score: pain adequately controlled and/or at baseline Post Op nausea/vomiting: none Hydration status: euvolemic SPRINKLER INSPECTOR Anesthesia Procedure Notes - Ingrid Bañuelos R.N. - 09/08/2020 8:25 AM FIRE SPRINKLER INSPECTOR Associated Order(s): Regional Block Regional Block Date/Time: 09/08/2020 8:22 AM Performed by: Ingrid Bañuelos R.N. Authorized by: Fabienne Farooq M.D. Location: OR PROCEDURE DETAILS: Block type: primary anesthetic Neuraxial: spinal Positioning: sitting Approach: midline Level inserted: L3-4 Block technique: landmark technique Injection technique: single injection Needle type: sprotte Gauge: 24G Length: 10 CSF: yes Pain with needle advancement or injection of local anesthetic: no Injected Medications: Injection(s), anesthetic agent(s) and/or steroid; See [facility] UNIVERSAL PROTOCOL All relevant documentation and testing were reviewed and available. All required blood products, implants, devices and or special equipment were made available as applicable. Pre-procedure verificationwas conducted and the correct site was marked if required. A fire risk assessment was done as applicable. The procedural time-out was conducted prior to performing the procedure and confirmed in a procedural pause. PRE-PROCEDURE DETAILS: Appropriate hand hygiene, gown, cap, mask, protective eyewear, sterile gloves, skin preparation, sterile drape, and strict aseptic technique were utilized as applicable for the procedure.: yes Skin prep: chlorhexidine SEDATION / ANESTHESIA Anesthesia method: local infiltration Local infiltrate type: see [facility] for dose POST-PROCEDURE DETAILS: Procedure completed successfully: successful procedure Other complications: none SPRINKLER INSPECTOR Anesthesia Preprocedure Evaluation - Fabienne Farooq M.D. - 09/08/2020 7:36 AM CST Preprocedure Anesthesia & H&P Assessment Procedure Summary Date/Time: 09/08/2015 Procedure: ARTHROPLASTY REPLACEMENT TOTAL KNEE (Right ) Diagnosis: Primary Osteoarthritis Knee Right [M17.11] Pre-op diagnosis: Primary Osteoarthritis Knee Right [M17.11] Location: [address] / [facility] - GI Surgeons: Edi Benito M.D. Pertinent components of the patient's history including current problem list, medical history, surgical history, family history, social history, medications and allergies were reviewed. Present illnessand pre-op diagnosis were confirmed. The planned surgery / procedure was verified with the patient /legal guardian. The patient's general health condition remains unchanged RELEVANT COMORBID CONDITIONS GI (+) Gastroesophageal Reflux Disease Other (+) Morbid Obesity Body Mass Index 40.0-44.9 Adult (HCC) (+) Primary Osteoarthritis Knee Right EKG- NSR Labs reviewed OBJECTIVE PHYSICAL EXAMINATION Airway (HEENT) Mallampati: II TM Distance: <3 FB Neck ROM: Limited Mouth Opening: <3 cm Upper Lip Bite Test Class: II Cardiovascular Rhythm: Regular Rate: Normal Cardiovascular Assessment: cardiovascular normal Functional Capacity: >4 METS Pulmonary Pulmonary Assessment: Clear General / Constitutional Constitutional Assessment: Normal General State of Health:: healthy appearing and calm Neurological Neurologic Assessment:??alert Dental Dental Assessment: dentition intact ASSESSMENT / PLAN ANESTHESIA PLAN ASA: 2 Anesthesia Plan: regional Patient seen and allergies reviewed, anesthesia plan and risks discussed directly with patient /legal guardian or through an cutter operator tile. Risks/Benefits/Alternatives of Blood transfusion discussed with patient / legal guardian, including an opportunity to ask questions and/or decline some or all transfusion therapies. The patient / legalguardian consented to the use of all blood products, as deemed medically necessary Approval to Proceed: approved for anesthesia SPRINKLER INSPECTOR documented in this encounter Plan of Treatment Not on filedocumented as of this encounter Procedures Procedure Name Priority Date/Time Associated Comments Diagnosis ANESTHESIA REGIONAL Routine 09/08/2020 8:25 AM Re sults for this BLOCK FIRE SPRINKLER INSPECTOR procedure are i n the results section. documented in this encounter Results Regional Block (09/08/2020 8:25 AM FIRE SPRINKLER INSPECTOR) Narrative Earnestine Paulino, [employer] CONSULTANT, SUPERVISOR SHIPPING - 09/08/2020 8 :25 AM FIRE SPRINKLER INSPECTOR Ingrid Bañuelos R.N. ? 09/08/2020 ??8:26 AM Regional Block Date/Time: 09/08/2020 8:22 AM Performed by: Ingrid Bañuelos R.N. Authorized by: Fabienne Farooq M.D. Location: OR PROCEDURE DETAILS: Block type: primary anesthetic ?? Neuraxial: spinal ?? Positioning: sitting ?? Approach: midline Level inserted: L3-4 Block technique: landmark technique ?? Injection technique: single injection Needle type: sprotte Gauge: 24G Length: 10 CSF: yes ??Pain with needle advancement or injection of local anesthetic: no ?? Injected Medications: Injection(s), anes thetic agent(s) and/or steroid; See [facility]ERSAL PROTOCOL All relevant documentation and testing w ere reviewed and available. All required blood products, implants, devic es and or special equipment were made available as applicable. Pre-proced ure verification was conducted and the correct site was marked if required. A fire risk assessment was done as applicable. The procedural time-out w as conducted prior to performing the procedure and confirmed in a procedu ral pause. PRE-PROCEDURE DETAILS: ?? Appropriate hand hygiene, gown, cap, mas k, protective eyewear, sterile gloves, skin preparation, sterile drape, and strict aseptic technique were utilized as applicable for the procedure .: yes ?? Skin prep: chlorhexidine SEDATION / ANESTHESIA Anesthesia method: local infiltration Local infiltrate type: see [facility] for dose POST-PROCEDURE DETAILS: Procedure completed successfully: succes sful procedure Other complications: none Fabienne Farooq M.D. PROCEDURE/MINOR SURGICAL ORD ERABLES documented in this encounter Visit Diagnoses Not on filedocumented in this encounter Administered Medications Inactive Administered Medications - up to 3 most recent administrations Medication Order MAR Action Action Date Dose Rate Site bupivacaine-EPINEPHrine (PF) 0.5 Given 09/08/2020 8:02 AM FIRE SPRINKLER INSPECTOR 15 mL %-1:200,000 injection (MARCAINE w/EPI) As needed, Starting on Tue09/08/20 at 0802, Anesthesia Intra-op ceFAZolin in dextrose (iso-osm) IVPB 2 g (ANCEF) Given 09/08/2020 8:24 AM FIRE SPRINKLER INSPECTOR 2 g 2 g (rounded from 2.7 g = 25 mg/kg ? 108 kg), intravenous, at 100 mL/hr, Administer over 30 Minutes, Once, On Tue09/08/20 at 0645, For 1 dose, Intra-Op, Preoperatively within 1 hour prior to surgical incision premix bag, Drug Monitoring Program: Pharmacist to adjust medication dosing based on indication and drug clearance factors., Indications: Prophylaxis, surgical dexAMETHasone injection (DECADRON) Given 09/08/2020 9:12 AM FIRE SPRINKLER INSPECTOR 4 mg As needed, Starting on Tue09/08/20 at 0825, Anesthesia Intra-op Given 09/08/2020 8:25 AM FIRE SPRINKLER INSPECTOR 4 mg dexmedeTOMIDine injection (PRECEDEX) Given 09/08/2020 8:02 AM FIRE SPRINKLER INSPECTOR 50 mcg As needed, Starting on Tue09/08/20 at 0802, Anesthesia Intra-op ePHEDrine (PF) injection Given 09/08/2020 9:26 AM FIRE SPRINKLER INSPECTOR 5 mg As needed, Starting on Tue09/08/20 at 0857, Anesthesia Intra-op Given 09/08/2020 9:10 AM FIRE SPRINKLER INSPECTOR 5 mg Given 09/08/2020 8:57 AM FIRE SPRINKLER INSPECTOR 10 mg fentaNYL injection (SUBLIMAZE) Given 09/08/2020 7:56 AM FIRE SPRINKLER INSPECTOR 50 mcg intravenous, As needed, Starting on Tue09/08/20 at 0756, Anesthesia Intra-op lactated ringers New Bag 09/08/2020 9:25 AM FIRE SPRINKLER INSPECTOR 20 mL/hr, intravenous, Continuous, Starting on Tue09/08/20 at 0645, Pre-Op Rate/Dose Verify 09/08/2020 7:55 AM FIRE SPRINKLER INSPECTOR New Bag 09/08/2020 7:30 AM FIRE SPRINKLER INSPECTOR 20 mL/hr 20 mL/hr mepivacaine (PF) 20 mg/mL (2 %) injection Given 09/08/2020 8:22 AM FIRE SPRINKLER INSPECTOR 2 mL (CARBOCAINE) As needed, Starting on Tue09/08/20 at 0822, Anesthesia Intra-op midazolam (PF) injection (VERSED) Given 09/08/2020 9:20 AM FIRE SPRINKLER INSPECTOR 2 mg intravenous, As needed, Starting on Tue09/08/20 at 0756, Anesthesia Intra-op Given 09/08/2020 7:56 AM FIRE SPRINKLER INSPECTOR 2 mg ondansetron (PF) injection (ZOFRAN) Given 09/08/2020 8:25 AM FIRE SPRINKLER INSPECTOR 4 mg As needed, Starting on Tue09/08/20 at 0825, Anesthesia Intra-op phenylephrine injection Given 09/08/2020 10:14 AM FIRE SPRINKLER INSPECTOR 100 mcg As needed, Starting on Tue09/08/20 at 0830, Anesthesia Intra-op Given 09/08/2020 9:55 AM FIRE SPRINKLER INSPECTOR 100 mcg Given 09/08/2020 9:42 AM FIRE SPRINKLER INSPECTOR 100 mcg propofol 10 mg/mL infusion Rate/Dose 09/08/2020 8:45 40 mcg/kg/min 2 5.6 mL/hr (DIPRIVAN) Change AM FIRE SPRINKLER INSPECTOR intravenous, Continuous Infusion: Per Instructions PRN, Starting on Tue09/08/20 at 0824, Anesthesia Intra-op New Bag 09/08/2020 8:24 AM FIRE SPRINKLER INSPECTOR 50 mcg/kg/min 32 mL/hr propofoL injection (DIPRIVAN) Given 09/08/2020 8:29 AM FIRE SPRINKLER INSPECTOR 20 mg intravenous, As needed, Starting on Tue09/08/20 at 0829, Anesthesia Intra-op tranexamic acid 1 g in NaCl 0.9% IVPB New Bag 09/08/2020 8:39 AM FIRE SPRINKLER INSPECTOR 1 g 1 g, intravenous, at 150 mL/hr, Administer over 20 Minutes, Once, On Tue09/08/20 at 0645, For 1 dose, Pre-Op, Administer in OR upon induction Mini-Bag Plus bag, Drug Monitoring Program: Pharmacist to adjust medication dosing based on indication and drug clearance factors. tranexamic acid 1 g in NaCl 0.9% IVPB New Bag 09/08/2020 9:40 AM FIRE SPRINKLER INSPECTOR 1 g 1 g, intravenous, at 150 mL/hr, Administer over 20 Minutes, Once, On Tue09/08/20 at 0645, For 1 dose, Pre-Op, Administer in OR during closure Mini-Bag Plus bag, Drug Monitoring Program: Pharmacist to adjust medication dosing based on indication and drug clearance factors. documented in this encounter Care Teams Vice Chancellor Relationship Specialty Start Date End Date No Contact, Pcp PCP - General Family Medicine 09/05/20 documented as of this encounter
--- OUTSIDE RECORDS SUMMARY | 2022-08-12 08:50 | XMS_ITS | Encounter Summary ---
:1950 Author Organization [facility] Address [address] [place] [address] Care Team Providers Name Role Phone Unavailable Primary Care Provider Unavailable Encounter Details Date Type Department Care Team Description 10/18/2017 Clinical Support Department of Edi Benito M.D. [address] [place] [phone] Pain Shoulder Left Rehabilitation Services Dave Servin, P.T. [address] [place] [phone] [phone] Social History Tobacco Use Types Packs/Day Years Used Date Smoking Tobacco: Never Sex Assigned at Date Recorded Not on file documented as of this encounter Progress Notes Dave Servin, P.T. - 10/18/2017 6:00 AM CST Physical Therapy Outpatient Treatment Note Referring Provider: Edi Benito M.D. Medical Diagnosis: 1. Pain Shoulder Left - PT Ongoing treatment Payor: Payor: MEDICARE / Plan: MEDICARE A AND B / Product Type: Medicare / Payor considerations: Visit Counts: 2 Principal Problem: Patient Active Problem List Diagnosis ??? Pain Shoulder Left Precautions/Restrictions: SUBJECTIVE Rosie comes into therapy today with some increase in pain in her left shoulder. Her pain is manageable but this is increased secondary to possibly being high the brace a little more often. Otherwise, she feels she is doing fine. Pain Assessment Pain Score: 5 - Moderate pain OBJECTIVE We continued today with hot packs to the shoulder for 15 minutes followed by manual techniques consisting of passive range of motion for shoulder flexion/abduction and external rotation. We then instructed patient with further home exercises. We instructed with cane exercises for external rotation. We instructed with wall walks and shoulder flexion range of motion while sliding out on the table. We instructed with towel exercises for internal rotation behind her back. We also instructed that she could have her sling off when she is resting while sitting. She has a slowly start weaning herself from the sling over the next week. Measures - Tools Measures - Tools Treatment Provided Today: 25 minutes of manual therapy. Home Exercise Program: ASSESSMENT Patient is doing well overall. We are able to obtain shoulder flexion to approximately 120?? today. Therapy Goals PLAN We will continue on Tuesday. Patient agrees with the plan of care and goals. Dave Servin P.T. Time Spent with Patient Functional G-code Worksheet TRY CUTTER documented in this encounter Plan of Treatment Not on filedocumented as of this encounter Visit Diagnoses Diagnosis Pain Shoulder Left documented in this encounter
--- OUTSIDE RECORDS SUMMARY | 2022-08-12 08:50 | XMS_ITS | Encounter Summary ---
:1950 Author Organization [facility] Address [address] [place] [address] Care Team Providers Name Role Phone Unavailable Primary Care Provider Unavailable Encounter Details Date Type Department Care Team Description 08/04/2017 Hospital Encounter HX [facility] MRI Jyoti Carnes C.NMaurizio [address] [place] [address] (Wo rk) Social History Tobacco Use Types Packs/Day Years Used Date Smoking Tobacco: Never Sex Assigned at Date Recorded Not on file documented as of this encounter Miscellaneous Notes Miscellaneous - Conversion, Historical Provider Ser - 08/04/2017 11:59 PM CDT Coding Summary-Paper Based CODING DATE: 08/10/2017 FINAL [facility] STATUS: * Discharged to Home or Self Care PAYOR: Medicare ADMIT DX: REASON FOR VISIT DX: FINAL DX: PRINCIPAL: S46.012A Strain of muscle(s) and tendon(s) of the rotator cuff of left shoulder, initial encounter SECONDARY: M19.012 Primary osteoarthritis, left shoulder PROCEDURES DOCTOR NAME DATE NOTE: The code number assigned matches the documented diagnosis and / or procedure in the patient's chart. However, the narrative phrase printed from the coding software may appear abbreviated, or result in slightly different terminology. Coded By: HA MOSLEY Date Saved: 08/10/2017 01:13 pm Source: [facility] [employer] Document Id: [id number] documented in this encounter Plan of Treatment Not on filedocumented as of this encounter Visit Diagnoses Not on filedocumented in this encounter
--- OUTSIDE RECORDS SUMMARY | 2022-08-12 08:50 | XMS_ITS | Encounter Summary ---
:1950 Author Organization [facility] Address [address] [place] [address] Care Team Providers Name Role Phone Unavailable Primary Care Provider Unavailable Reason for Referral Outpatient (Routine) - Closed Specialty Diagnoses / Procedures Referred By Contact Debo arce To Contact General Surgery Diagnoses Preoperative Exam Bridgette Francisco APRN, [facility] C.N.P., D.N.P. [address] [place] [phone] Referral ID Status Reason Start Date Expiration Date Visits Requ ested Visits Authorized [id number] Closed 08/21/2020 08/21/2021 1 1 utpatient (Routine) - Closed Specialty Diagnoses / Procedures Referred By Contact Debo arce To Contact Family Medicine Diagnoses Preoperative Exam Bridgette Francisco APRN, [facility] Region C.N.P., D.N.P. [address] [place] [phone] Referral ID Status Reason Start Date Expiration Date Visits Requ ested Visits Authorized [id number] Closed 08/21/2020 08/21/2021 1 1 utpatient (Routine) - Closed Specialty Diagnoses / Procedures Referred By Contact Refer red To Contact Orthopedic Surgery Bridgette Francisco APRN, [facility] C.N.P., D.N.P. [address] [place] [phone] Referral ID Status Reason Start Date Expiration Date Visits Requ ested Visits Authorized [id number] Closed 08/21/2020 08/21/2021 1 1 hysical Therapy (Routine) - Closed Specialty Diagnoses / Procedures Referred By Contact Refer red To Contact Diagnoses Follow Up Surgery Exam Bridgette Francisco APRN, [facility] Procedures PT Evaluate and treat Annabelle.N.Amna, D.N.P. [address] [place] [phone] Referral ID Status Reason Start Date Expiration Date Visits Requ ested Visits Authorized [id number] Closed 08/21/2020 08/21/2021 1 1 Specialty Diagnoses / Procedures Referred By Contact Refer red To Contact Bridgette Francisco APRN, C.N.Amna, [facility] D.N.P. [address] [place] [address] Referral ID Status Reason Start Date Expiration Date Visits Requ ested Visits Authorized Reason for Visit Reason Comments Pain Encounter Details Date Type Department Care Team Description 08/21/2020 Comprehensive Visit Department of Samy Benito M.D. [address] [place] [phone] Arthritis Knee Right (Primary Dx); Orthopedic Surgery Bridgette Francisco APRN, C.N.P., D.N.P. [place] [phone] Preoperative Exam; in Charly Narayanan, Follow Up Surge ry Exam [place] [phone] Social History Tobacco Use Types Packs/Day Years Used Date Smoking Tobacco: Never Sex Assigned at Date Recorded Not on file documented as of this encounter Progress Notes Bridgette Francisco APRN, C.N.P., D.N.P. - 08/21/2020 2:00 PM CDT Heidi is a pleasant 69-year-old female comes in today for evaluation of right knee pain. She states her knee has become stiff and painful with most activities. She denies any particular injury. Shehas had a corticosteroid as well as hyaluronic injection by her primary care provider as patient reports. She has tried conservative therapy as well as non conservative therapy including activity modification, or eajx-vbv-cepxzow analgesics, ice and heat without any improvement in her symptoms. This is affecting her quality of life. Physical exam-right knee with effusion noted. She has no particular joint line tenderness. Her knee is stable to valgus and varus. She lacks full extension by 3?? and flexes to 105 ??. Negative drawer sign. Diagnostic studies-MRI of her right knee shows 1. Diffuse complex tearing of the lateral meniscus. 2. Advanced patellofemoral and moderate to advanced medial and lateral compartment degenerative joint disease. X-ray of her right knee performed today reveals Tricompartmental osteoarthritis with marginal bony spurring. Mild loss of medial compartment, moderate loss of lateral compartment, and severe loss of patellofemoral compartment joint spaces. No acute appreciable fracture or traumatic malalignment. Demineralized appearance of the bones. Trace joint effusion/synovitis. Tricompartmental degenerative changes noted at the left Knee. Impression and plan- Heidi is a pleasant 69-year-old female comes in today for evaluation of hersignificant osteoarthritis painful right knee. After discussion with patient on treatment options wewill proceed with a right total knee arthroplasty. We discussed the benefits as well as the risks ofsurgery and discussed preoperative and postoperative expectations. Patient denies any history of diabetes, no history of blood clots, is not on chronic anticoagulation, and no history of anesthesia complications. She is a nontobacco user. She does have a elevated BMI. She does have a history of a leftrotator cuff repair. So at this time we will get her set up for a right total knee arthroplasty. Patient agrees with this plan. 27 minutes was spent with patient of which 22 minutes was counseling and treatment options regardingher right knee osteoarthritis documented in this encounter Plan of Treatment Scheduled Referrals Name Type Priority Associated Diagnoses Order [facility] Orthopedic Surgery Outpatient Referral Routine Preoperative Ex am Expected: - Group education 08/21/2020 visit (clinic) (Approximate) , Expires: 08/21/2023 Orthopedic Surgery Outpatient Referral Routine Ex pected: Post Op (clinic) 08/21/2020 (Approximate), Expires: 08/21/2023 Primary Care - [facility] Outpatient Referral Routine Preoperative Ex am Expected: consult (clinic) 08/21/2020 (Approximate), Expires: 08/21/2023 Pre Operative Outpatient Referral Routine Preoperative Exam Ex pected: Evaluation [facility] 08/21/2020 nurse consult (Approximate), (clinic) Expires: 08/21/2023 documented as of this encounter Results SARS Coronavirus-2 RNA, V Asymptomatic (09/05/2020 8:07 AM FELT HOOKER) [facility] Method Time Signature SARS-CoV-2 Swab, 09/06/2020 ECLR Specimen Nasopharynx 5:07 PM FELT HOOKER Source SARS CoV-2 Undetected Undetected 09/06/2020 ECLR RNA, TMA 5:07 PM FELT HOOKER Comment: SARS-CoV-2 RNA absent. This result does not rule out COVID-19 in the patient, as the sensitivity of the test depends o n the timing of the specimen collection and the quality of the specim en. Result should be correlated with patient's history and clinical presentat ion. ----ADDITIONAL INFORMATION---- This test is performed using the Aptima SARS-CoV-2 assay ([employer] which has received Emergency Use Authori zation (EUA) by the U.S. Food and Drug Administration. Fact sheets for this Emergency Use Autho rization (EUA) assay can be found at the following links: For Healthcare Providers: https://www.MyMiniLife a.gov/media/566158/download For Patients: https://www.fda.gov/media/ 556547/download Specimen Anatomical Collection Method Collection Time Receive d Time (Source) Location / / Volume Laterality Varies 09/05/2020 8:07 AM 0 3:19 (Nasopharynx) FELT HOOKER PM FELT HOOKER Bridgette Francisco APRN, Annabelle.N.P., D.N.P. LAB MICROBIOLOGY - GENERAL ORDERABLES Performing Organization Address City/State/ZIP Code Phon e Number [facility]- [address] [place] [phone] [facility] [place] [address] [address] DX Knee Right 3 Views (08/21/2020 2:10 [...] encounter Visit Diagnoses Diagnosis Arthritis Knee Right - Primary Preoperative Exam Follow Up Surgery Exam Arthritis Knee Right documented in this encounter
--- OUTSIDE RECORDS SUMMARY | 2022-08-12 08:50 | XMS_ITS | Encounter Summary ---
:1950 Author Organization [facility] Address [address] [place] [address] Care Team Providers Name Role Phone Unavailable Primary Care Provider Unavailable Encounter Details Date Type Department Care Team Description 09/02/2020 Clinical Communication Department of Zhanna Kemp Orthopedic Surgery in [facility] [place], [place] [phone] Juice HARESH ALVARENGA (Work) [place] [phone] Social History Tobacco Use Types Packs/Day Years Used Date Smoking Tobacco: Never Smokeless Tobacco: Never Sex Assigned at Date Recorded Not on file documented as of this encounter Plan of Treatment Not on filedocumented as of this encounter Visit Diagnoses Not on filedocumented in this encounter
--- OUTSIDE RECORDS SUMMARY | 2022-08-12 08:50 | XMS_ITS | Encounter Summary ---
:1950 Author Organization [facility] Address [address] [place] [address] Care Team Providers Name Role Phone Unavailable Primary Care Provider Unavailable Encounter Details Date Type Department Care Team Description 08/26/2016 - Hospital Encounter HX [facility] CarnesPrimo ugoheena almendarez 08/30/2016 ROGELIO Seay, C.N.P. [address] [place] [address] (Wo rk) Social History Tobacco Use Types Packs/Day Years Used Date Smoking Tobacco: Never Assessed Sex Assigned at Date Recorded Not on file documented as of this encounter Progress Notes Dave Burton, P.T. - 08/30/2016 12:00 AM CDT [id number] PHYSICAL THERAPY PROGRESS NOTE IMPRESSION/REPORT/PLAN Sandee comes in today stating that she did quite a bit of walking over the weekend. She is with someincreased symptoms today. We did check patient's Achilles region. This seems to be a little more swollen today. We did encourage her to be more cautious in her activities at home. We did treat with ultrasound at 1.3 jensen per cm squared x8 minutes followed by some light stretching of this region. We then put patient in a walking boot, hoping to control some of the movement of the Achilles tendon. Sheis to try this for the next 2-3 days to see if she is getting any relief this way. Total time today was 8 minutes of ultrasound and 15 minutes of manual therapy. ASSESSMENT Patient is with continued pain in the Achilles tendon region today. There is no change at this time. PLAN Will be to continue. Ginger Edmondson/arcenio Electronically Signed By: DAVE BURTON On: 09/10/2016 06:10 AM Source: [facility] MHSDOLBEYNONRADSYS Document Id: [id number] LRY MODEL MAKER documented in this encounter Consult Notes Dave Burton P.T. - 08/26/2016 12:00 AM CDT [id number] INITIAL THERAPY EVALUATION REFERRING PHYSICIAN Jyoti Carnes, nurse-practitioner. CHIEF COMPLAINT This patient comes in with some complaints of pain that she has been having in her Achilles tendon and this is in the posterior aspect of the right lower leg. She notes that this has been going on for several months or longer. She has had a considerable amount of pain mostly in the evening. She can tolerate through the day when she is moving around. She rates her pain as severe as 6-7 out of 10. She notes that this does wake her up at night. She notes that she sometimes is fearful of going to sleep knowing that this is going to cause a considerable amount of pain. She notes that she is not taking anything for medication. She does not even take ibuprofen or Tylenol at this time. She does not believe in taking medication. IMPRESSION/REPORT/PLAN Upon observation, patient is able get up on the treatment table without difficulty. She does not have any deviation in gait at this time. With patient in prone, we did check her right Achilles. There is some noted thickening of the Achilles tendon. There is swelling noted as well. There is some tenderness with pressure and palpation to the 2/3 of the Achilles tendon. As noted, there is a considerableamount of thickening. We did treat this initially with ultrasound at 1.3 jensen per cm squared x8 minutes. We then worked on some muscle stripping of this area. We did have patient fitted with some orthotics to try to see if this does help with pronation. This may be causing undue stress on the Achilles region. We also instructed patient to avoid any type of repetitive activities such as going up and down stairs. jReady to learn. No apparent learning barriers were identified. Learning preferences include listening. Explained diagnosis and treatment plan. Patient/Child/Caregiver expressed understanding of the content. GOALS 1. To decrease overall pain from a 6 to 7 out of 10, to 2 to 3 out of 10 or better. 2. Patient eventually independent with home exercises addressing stretching and strengthening. 3. Patient able to resume normal activities such as walking. She notes that she has not been able towalk longer distances now whereby she used to walk up to 4 miles per day. Plan of care will be modalities if necessary along with manual techniques and strengthening. Prognosis is good at this time. ASSESSMENT Patient is with what appears to be tendinopathy of the right Achilles tendon. Current functional status is G8978 with a severity modifier being CJ. Her goal status is G8979 with severity modifier of being CI. This is based on patient's inability with walking longer distances at this time. PLAN We will see patient 2 to 3 times a week for the next 3 to 4 weeks if necessary. Ginger Edmondson/arcenio Electronically Signed By: DAVE BURTON On: 08/31/2016 10:22 AM Source: [facility] MHSDOLBEYNONRADSYS Document Id: [id number] documented in this encounter Miscellaneous Notes Miscellaneous - Conversion, Historical Provider Ser - 08/27/2016 11:59 PM CDT Coding Summary-Paper Based CODING DATE: 08/31/2016 FINAL [place] [facility] STATUS: * Discharged to Home or [...] terminology. Coded By: ANISHA LIMON Date Saved: 08/31/2016 11:02 am Source: [facility] POWERCHART Document Id: [id number] documented in this encounter Plan of Treatment Not on filedocumented as of this encounter Visit Diagnoses Not on filedocumented in this encounter
--- OUTSIDE RECORDS SUMMARY | 2022-08-12 08:50 | XMS_ITS | Encounter Summary ---
:1950 Author Organization [facility] Address [address] [place] [address] Care Team Providers Name Role Phone No Contact, Pcp Primary Care Provider Unavailable Encounter Details Date Type Department Care Team Description 09/08/2020 Ancillary Procedure Department of General Surgery Social History Tobacco Use Types Packs/Day Years Used Date Smoking Tobacco: Never Smokeless Tobacco: Never Alcohol Use Standard Drinks/Week Comments Not Currently 0 (1 standard drink = 0.6 oz pure alcoho l) Sex Assigned at Date Recorded Not on file documented as of this encounter Plan of Treatment Not on filedocumented as of this encounter Procedures Procedure Name Priority Date/Time Associated Diagnosis Comme nts SURGERY IMAGE EXAM Routine 09/08/2020 7:50 AM Res ults for this CORD CUTTER procedure are i n the results section. documented in this encounter Results Non-Radiology Image-Surgery Image Exam (09/08/2020 7:50 AM CORD CUTTER) Specimen (Source) Anatomical Collection Method Collection Time Re ceived Time Location / / Volume Laterality 09/08/2020 7:49 AM CORD CUTTER Narrative [facility] - 09/08/2020 9:20 AM CORD CUTTER This order has been created and auto-finalized to support the import of images acquired without order. The clini bree documentation to support these images can be found on the encounter keenan t produced images. Provider Not In System IMG NON RAD IMAGING PROCEDUR ES Performing Organization Address City/State/ZIP Code Phon e Number [facility] NA documented in this encounter Visit Diagnoses Not on filedocumented in this encounter Care Teams Electronic Assembly Relationship Specialty Start Date End Date No Contact, Pcp PCP - General Family Medicine 09/05/20 documented as of this encounter
--- OUTSIDE RECORDS SUMMARY | 2022-08-12 08:50 | XMS_ITS | Encounter Summary ---
:1950 Author Organization [facility] Address [address] [place] [address] Care Team Providers Name Role Phone Unavailable Primary Care Provider Unavailable Reason for Referral MRI/CAT/PET Scan (Routine) - Closed Specialty Diagnoses / Procedures Referred By Contact Refer red To Contact Radiology Diagnoses Pain Knee Right Jakob Baez M.D. [facility] [place] [facility] Procedures MR Knee Right without IV Contrast [address] [place], [place] [address] Referral ID Status Reason Start Date Expiration Date Visits Requ ested Visits Authorized [id number] Closed 08/07/2020 08/07/2021 1 1 Reason for Visit MRI/CAT/PET Scan (Routine) - Closed Specialty Diagnoses / Procedures Referred By Contact Refer red To Contact Radiology Diagnoses Pain Knee Right [facility] [place] [facility] Procedures MR Knee Right without IV Contrast [address] [place], [place] [address] Referral ID Status Reason Start Date Expiration Date Visits Requ ested Visits Authorized [id number] Closed 08/07/2020 08/07/2021 1 1 Encounter Details Date Type Department Care Team Description 08/07/2020 Hospital Encounter Department of Radiology Haroon Baez Pain Knee Right in Mag Lopez M.D. [place] [address] [place] [phone] Social History Tobacco Use Types Packs/Day Years Used Date Smoking Tobacco: Never Sex Assigned at Date Recorded Not on file documented as of this encounter Plan of Treatment Not on filedocumented as of this encounter Procedures Procedure Name Priority Date/Time Associated Comments Diagnosis MR KNEE RIGHT RAD - Routine 08/07/2020 4:35 Pain Knee Right Results for this WITHOUT IV (most inpatients PM CDT procedure a re in CONTRAST and all the results outpatients) section. documented in this encounter Results MR Knee Right without IV Contrast (08/07/2020 4:35 PM CDT) Anatomical Region Laterality Modality Lower Extremity, Knee, Musculoskeletal RST LOS, Right Magnetic Resonance Musculoskeletal ARZ LOS, Muskuloskeletal FLA LOS Specimen (Source) Anatomical Collection Method Collection Time Re ceived Time Location / / Volume Laterality 08/07/2020 4:43 PM CDT Impressions 08/07/2020 4:49 PM CDT 1. ??Diffuse complex tearing of the lateral meniscus. 2. ??Advanced patellofemoral and moderat e to advanced medial and lateral compartment degenerative joint disease. Narrative 08/07/2020 4:49 PM CDT EXAM: MR KNEE RIGHT WITHOUT IV CONTRAST COMPARISON:None FINDINGS: The anterior cruciate ligaments, posteri or cruciate ligament, medial collateral ligament, and lateral collateral ligamen t appear normal. The quadriceps and patellar tendons appear normal. The medial meniscus is intact. Predomina ntly grade III chondromalacia in the medial compartment with small area of fu ll-thickness cartilage thinning over the central weightbearing aspect of the medi al femoral condyle. Complex tearing involving the entirety o f the lateral meniscus with little remaining normal meniscal tissue. Predom inantly grade 3 lateral compartment chondromalacia with scattered areas of f ull-thickness fissuring. Marginal osteophytosis. Advanced patellofemoral degenerative rajesh nt disease full-thickness cartilage loss and subchondral cystic change. No knee j oint effusion. Procedure Note Coleman Lopez M.D. - 08/07/2020Forma tting of this note might be different from the original. EXAM: MR KNEE RIGHT WITHOUT IV CONTRAST COMPARISON:None FINDINGS: The anterior cruciate ligaments, posteri or cruciate ligament, medial collateral ligament, and lateral collateral ligamen t appear normal. The quadriceps and patellar tendons appear normal. The medial meniscus is intact. Predomina ntly grade III chondromalacia in the medial compartment with small area of fu ll-thickness cartilage thinning over the central weightbearing aspect of the medi al femoral condyle. Complex tearing involving the entirety o f the lateral meniscus with little remaining normal meniscal tissue. Predom inantly grade 3 lateral compartment chondromalacia with scattered areas of f ull-thickness fissuring. Marginal osteophytosis. Advanced patellofemoral degenerative rajesh nt disease full-thickness cartilage loss and subchondral cystic change. No knee j oint effusion. IMPRESSION: 1. Diffuse complex tearing of the latera l meniscus. 2. Advanced patellofemoral and moderate to advanced medial and lateral compartment degenerative joint disease. Jakob THOMAS MRI PROCEDURES documented in this encounter Visit Diagnoses Diagnosis Pain Knee Right documented in this encounter
--- OUTSIDE RECORDS SUMMARY | 2022-08-12 08:50 | XMS_ITS | Encounter Summary ---
:1950 Author Organization [facility] Address [address] [place] [address] Care Team Providers Name Role Phone Unavailable Primary Care Provider Unavailable Encounter Details Date Type Department Care Team Description 11/08/2017 Clinical Support Department of Lynn Jasso M. D. Rotator Cuff Rehabilitation Dave Servin P.T. [address] [place] [phone] Repair Shoulder Services in [address] [phone] Social History Tobacco Use Types Packs/Day Years Used Date Smoking Tobacco: Never Sex Assigned at Date Recorded Not on file documented as of this encounter Progress Notes Dave Servin, P.T. - 11/08/2017 6:00 AM CST Physical Therapy Outpatient Treatment Note Referring Provider: Lynn Jasso M.D. Medical Diagnosis: 1. Rotator Cuff Repair Shoulder Status Post - PT Ongoing treatment Payor: Payor: MEDICARE / Plan: MEDICARE A AND B / Product Type: Medicare / Payor considerations: Visit Counts: 8 Principal Problem: Patient Active Problem List Diagnosis ??? Pain Shoulder Left ??? Rotator Cuff Repair Shoulder Status Post SUBJECTIVE Bettina comes in today stating that she feels she is doing better overall. She feels her strength isslowly improving. She feels her mobility into flexion is better as well. Pain Assessment Pain Score: 2 OBJECTIVE We did continue the work on passive range of motion for the left shoulder. We are able to bring the shoulder to approximately 155?? of flexion. This is in supine. With patient in standing, this is closer to 140??. However, her shoulder does feel bit more loose. There is not as much of a restriction through this range. However, still quite tight at pathological end range. External rotation requires a significant amount of stretching. We are able to obtain approximately 30 degrees. Internal rotation is behind the back to approximately the PSIS region. This is the most difficult for her. We did have her work on some light strengthening in supine with 1 lb weights for flexion. She then was in side-lyin g working on external rotation with 2 lb. At the issues in the prone position she worked on shoulderextension horizontal shoulder abduction with 2 lb. We then had her work on rows on the wall unit. This did not cause any issues. She does have Thera-Band at home to continue working on as well. Measures - Tools Measures - Tools Treatment Provided Today: 15 minutes of therapeutic exercise and 15 minutes of manual therapy. Home Exercise Program: Patient has elastic Thera-Band at home for some light resistance. She is only to do this very lightly to engage the muscle. ASSESSMENT Patient is doing well overall. She does have some restricted mobility in her shoulder. We will continue to address this. Therapy Goals PLAN Patient will work on these exercises for the next week. We will follow up in 1 week. Patient agrees with the plan of care and goals. Dave Servin P.T. 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
--- OUTSIDE RECORDS SUMMARY | 2022-08-12 08:50 | XMS_ITS | Encounter Summary ---
:1950 Author Organization [facility] Address [address] [place] [address] Care Team Providers Name Role Phone Unavailable Primary Care Provider Unavailable Reason for Visit Reason Comments Patient Education Virtual Total Joint Class Encounter Details Date Type Department Care Team Description 09/02/2020 Education Department of Orthopedic Bridgette Francisco APRN, C.N.P., D.N.P. [address] [place] [phone] Preoperative Exam Surgery in [facility] Zhanna Kemp RThomasNThomas [address] [phone] Social History Tobacco Use Types Packs/Day Years Used Date Smoking Tobacco: Never Smokeless Tobacco: Never Sex Assigned at Date Recorded Not on file documented as of this encounter Progress Notes Zhanna Boston, R.N. - 09/02/2020 10:00 AM CST Patient is scheduled for a Right Total Knee Arthroplasty on 09/08/[address] Benito. Patient attended the Total Joint Class and all material gone over and questions addressed after viewing the [facility] Total Joint video. Therapy portion was discussed. Instructions as to where to go and map provided. Phone number to call the night prior given and instructions discussed. Components discussed and demonstrated. Risks for side effects and complications discussed. Getting ready for surgery discussed as well as what to bring with to surgery, Hibiclens, showering, the use of clean sheets, towels and wash cloths discussed. Medications prior to surgery and what not to take discussed. Plan to change daily activities discussed. Integrative and healing therapy discussed. Plans for recovery discussed. No dental work for 4 weeks prior to surgery discussed. No elective dental work for six months after surgery discussed. Necessity of prophylaxis prior to dental procedures for up to one year after surgery unless immunocompromised in some way, then it is two years discussed. Necessity of a Caregiver after surgery discussed. Changes with work after surgery discussed. Getting home ready in preparation for surgery discussed. What to bring with to your surgery discussed. The day of surgery and what to expect discussed. Analgesia and medications pt will be sent home with discussed. Coughing, deep b reathing and circulation aids discussed. Polar ice machine discussed. Traveling after surgery and prevention of blood clots discussed. Diet and foods high in fiber discussed. Managing your pain discussed. Incision care and prevention of infection discussed. Bathing status post surgery discussed. Woundvac vs bandage discussed and time length discussed. When to get emergency medical care discussed. Signs and symptoms of a possible infection discussed. Pharmacy portion viewed. Follow up appt discussed. Patient was voiced understanding, and will call with any other questions or concerns. 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
--- OUTSIDE RECORDS SUMMARY | 2022-08-12 08:50 | XMS_ITS | Encounter Summary ---
:1950 Author Organization [facility] Address [address] [place] [address] Care Team Providers Name Role Phone Unavailable Primary Care Provider Unavailable Reason for Visit Physical Therapy (Routine) - Closed Specialty Diagnoses / Procedures Referred By Contact Refer red To Contact Diagnoses Pain Shoulder Left Provider, Unknown [facility] Region Procedures PT Evaluate and treat [facility] [address] [place] [address] Referral ID Status Reason Start Date Expiration Date Visits Requ ested Visits Authorized [id number] Closed 10/13/2017 04/11/2018 12 12 Encounter Details Date Type Department Care Team Description 10/14/2017 Comprehensive Visit Department of [facility] Patricia shaw M.D. [id number] [phone] Pain Shoulder Rehabilitation Jyoti Carnes C.NThomasPThomas [address] [place] [address] Left (Primary Dx) Services in [employer] Dave Servin, P.TThomas [address] [phone] [phone] Social History Tobacco Use Types Packs/Day Years Used Date Smoking Tobacco: Never Sex Assigned at Date Recorded Not on file documented as of this encounter Consult Notes Dave Servin, P.T. - 10/14/2017 10:30 AM CST Consults Subjective: This is a 66-year-old female who comes into therapy secondary to rotator cuff repair approximately 4 weeks ago now. She injured this when she fell down. She was feeling some pain prior to the injury but she feels that this may have caused the main problem for shoulder. Presently, she remains in a sling. They did remove the wedge from underneath her arm so now she is in a standard sling. She is to remain in this for approximately 2 more weeks. She has been very uatsdin and not using this time. Pain has been manageable but she has stiffness noted. Objective: Upon observation, patient ambulates in the therapy without an assisted device. She is nota fall risk being able to perform the tug test in the allotted monitor time. She is able to get up on the treatment table without difficulty. We did take the arm out of her sling. We started to providepassive range of motion for both flexion/abduction. We took external rotation to its endpoint but wedid not push aggressively be on this. We are able to obtain shoulder flexion to 130??. Abduction is to 90??. External rotation is to approximately 20-25 degrees. We instructed patient with some hever exercises which she can start doing very lightly. She is to only allow the right hand do all the workand she is to allow the left upper extremity to go long freely with this. We are holding on any exercises/strengthening at this time. Assessment: Patient is doing well status post 4 weeks postop rotator cuff repair. She does have somepain but this is manageable. Goals: 1. To increase shoulder flexion to 160?? within 3 weeks. 2. Patient is in pain with a home exercise program addressing mobility and eventually strengthening within 3-4 weeks. 3. Will progress with strengthening when appropriate. This is still approximately 4-6 weeks out. Long-term goal 1. To increase overall strength in her shoulder 4/5 within 8 weeks. 2. To increase shoulder flexion to 175?? within 8 weeks. 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 Her goal status is [id number] with severity modifier being Cj. Plan: We will see patient 2-3 times per week for the next 3-4 weeks. We will then progress with strengthening as tolerated and per protocol per physician. PRESSER documented in this encounter Plan of Treatment Not on filedocumented as of this encounter Visit Diagnoses Diagnosis Pain Shoulder Left - Primary documented in this encounter
--- OUTSIDE RECORDS SUMMARY | 2022-08-12 08:50 | XMS_ITS | Encounter Summary ---
:1950 Author Organization [facility] Address [address] [place] [id number] Care Team Providers Name Role Phone Unavailable Primary Care Provider Unavailable Encounter Details Date Type Department Care Team Description 07/03/2017 Hospital Encounter HX [facility] ED Alec Arrieta III, M.D. [address] [place] [phone] (Wo rk) Social History Tobacco Use Types Packs/Day Years Used Date Smoking Tobacco: Never Assessed Sex Assigned at Date Recorded Not on file documented as of this encounter Last Filed Vital Signs Vital Sign Reading Time Taken Comments Blood Pressure 97/68 07/03/2017 12:30 PM CDT Pulse 66 07/03/2017 12:30 PM CDT Temperature - - Respiratory Rate 18 07/03/2017 12:30 PM CDT Oxygen Saturation - - Inhaled Oxygen Concentration - - Weight 95.7 kg (210 lb 15.7 oz) 07/03/2017 11:34 AM CDT Height - - Body Mass Index - - documented in this encounter Discharge Summaries Piedad Flynn R.N. - 07/03/2017 1:24 PM CDT ED Discharge Instructions [address] [address] Name: HEIDI SHEEHAN Date of : 1950 12:00 AM Visit Date: 07/03/2017 11:26 AM [facility] Number: [id number] Address: [address] [place] [address] [facility] [phone] Primary Care Provider: PCP, ELSEWHERE IMPORTANT: [facility] in [place] would like to thank you for allowing us to assist you with your healthcare needs. The following includes patient education materials and informationregarding your injury/illness. Diagnosis: 1:Rotator Cuff Disorder L; 2:Pain Shoulder L Follow-Up Instructions: With: Address: When: ELSEWHERE PCP Within 1 - 2 weeks Comments: Call for follow up appointment. Your Upcoming Appointments: Date Time Location Provider No Appointments found Patient Education Materials: Rotator Cuff Tear The rotator cuff is a group of muscles and tendons that surround the shoulder joint. These muscles and tendons hold the arm in its joint and help the shoulder to rotate. The rotator cuff can be torn from overuse or injury. Gradual wear and tear can lead to inflammation of these tendons, which can progress to gradual or sudden tears. Symptoms of a torn rotator cuff: ?? Shoulder pain that gets worse when you raise your arm overhead ?? Weakness of the shoulder muscles with overhead activity ?? Popping and clicking with shoulder movement ?? Shoulder pain wakes you up at night when sleeping on the affected shoulder Diagnosis is made by an MRI scan or arthroscopy (a surgical procedure to look inside the joint through a small tube). Partial rotator cuff tears can be treated by first resting, then strengthening the rotator cuff muscles. Anti-inflammatory medicines are useful. A limited number of steroid injections can be given. Surgerymay be recommended for complete tears and partial tears that do not respond to medical treatment. Home Care: Avoid activities that make your pain worse - like overhead activities, doing the same motion over and over, and heavy lifting. Make an ice pack (ice in a plastic bag, wrapped in a towel) and apply over the injured area for 20 minutes every 1-2 hours for the first day. Continue with ice packs 3-4 times a day for the next two days. Continue using ice packs for pain relief if needed. You may use acetaminophen (Tylenol) or ibuprofen (Motrin, Advil) to control pain, unless another medicine was prescribed. [NOTE: If you have chronic liver or kidney disease or ever had a stomach ulcer or GI bleeding, talk with your doctor before using these medicines.] If a sling was provided, use it for comfort. After acute pain decreases, do not keep your arm in thesling all the time. Take it out several times a day and move the shoulder joint, as tolerated. You may benefit from physical therapy or a home exercise program to strengthen your shoulder muscles and increase your pain-free range of motion. Talk to your doctor about what is best for your condition. Follow Up with your doctor or as advised by our staff. Get Prompt Medical Attention if any of the following occur: ?? Increasing shoulder pain ?? Rapid swelling in the involved shoulder or arm ?? Numbness, tingling, or pain radiating down the arm to the hand ?? Loss of strength in the affected arm ?? [place] [address]. All rights reserved. This information is not intended as a substitute for professional medical care. Always follow your healthcare professional's instructions. Parts of the Shoulder The shoulder is the most flexible part of the body. The main joint in the shoulder is called the glenohumeral joint. This is where the arm bone (humerus) rests in a shallow socket called the glenoid. The bones in the shoulder are connected by ligaments, muscles, and other strong tissues. When the shoulder is healthy, you can move your arm in almost any direction (a full range of motion). ?? [address] [address]. All rights reserved. This information is not intended as a substitute for professional medical care. Always follow your healthcare professional's instructions. Consider Using Patient Online Services Patient Online Services is a secure online and Mobile application that lets you: ?? View lab and test results ?? View portions of your medical record including clinical notes, immunizations and discharge summaries ?? Request an appointment or medication refill ?? Review your appointment schedule ?? Send secure messages to your care team Its easy to create an account if you dont have one. Go to [email or web address] and click on Create Your Account. Then, follow the directions to complete the online form. Youll be asked for your [facility] number which you can find at the top of this document. ED Tests and Procedures: Order Status XR Shoulder Left 2 or more views Completed Discharge Prescriptions & Home Medications: Medication/Strength Dose Route Frequency Indications/Special Instructions/Comments/Notes Comment: Attention: If you have any medications at home not on this list, DO NOT take them until you contact your provider for clarification. Give a copy of your medication list to your primary care provider. Update your medication list any time medications or doses are changed and carry your medication list at all times in case of emergency. IMPORTANT: We examined and treated you today on an emergency basis only. This was not a substitute for, or an effort to provide, complete medical care. In most cases, you must let your doctor check youagain. Tell your doctor about any new or lasting problems. We cannot recognize and treat all injuries or illnesses in one Emergency Department visit. If you had special tests, such as EKG's or X- rays, we will review them again within 24 hours. We will call you if there are any new suggestions. Please follow the instructions above carefully. If you are being transferred to another facility your followup plan of care will be determined by the receiving facility. If you are a patient that is being discharged from the Emergency Department after receiving narcotics or other medications that may impair your judgment you may be a risk to yourself or others if you operate a motor vehicle. We recommend that you arrange a ride home with a responsible green party. AGUILA Mckay SHERRILYN JOY , or responsible green party have received this information and my questions havebeen answered. I have discussed any challenges I see with this plan with the nurse or physician. Patient Signature or Responsible Constitution Party/Relationship Date Time Provider Signature Date Time IMPORTANT: We examined and treated you today on an emergency basis only. This was not a substitute for, or an effort to provide, complete medical care. In most cases, you must let your doctor check youagain. Tell your doctor about any new or lasting problems. We cannot recognize and treat all injuries or illnesses in one Emergency Department visit. If you had special tests, such as EKG's or X- rays, we will review them again within 24 hours. We will call you if there are any new suggestions. Please follow the instructions above carefully. If you are being transferred to another facility your followup plan of care will be determined by the receiving facility. If you are a patient that is being discharged from the Emergency Department after receiving narcotics or other medications that may impair your judgment you may be a risk to yourself or others if you operate a motor vehicle. We recommend that you arrange a ride home with a responsible green party. I, DANIELA SHEEHANDiamond ARTEMIO , or responsible green party have received this information and my questions havebeen answered. I have discussed any challenges I see with this plan with the nurse or physician. Patient Signature or Responsible Constitution Party/Relationship Date Time Provider Signature Date Time This document has images extracted. Please consider using [employer] have it! for all your patient education needs. Source: [facility] POWERCHART Document Id: [id number] Piedad Flynn R.N. - 07/03/2017 1:24 PM CDT ED Depart Summary [facility] Emergency Department Clinical Discharge Summary PERSON INFORMATION Name HEIDI SHEEHAN Age 66 Years 1950 12:00 AM Sex Female Language Hebrew PCP PCP, ELSEWHERE Marital Status Visit Id Visit Reason Fall; shoulder pain Specialty Enc Type Emergency Med Service Emergency Medicine Referred by Track Group [facility] ED Discharge 07/03/2017 1:15 PM Tracking Id [id number] Checkout 07/03/2017 1:15 PM Checkin 07/03/2017 11:26 AM Acuity 3 -Urgent Dispo Type * Discharged to Home or Self Care Arrival 07/03/2017 11:26 AM Reg Status Complete LOS 000 01:49 Address: [address] [place] [phone] Comment: PROVIDER INFORMATION Provider Role Provider Contact Time ALEC ARRIETA III, MD ED Provider 07/03/17 11:35 PIEDAD FLYNN RN ED Nurse 07/03/17 11:41 DIAGNOSIS 1:Rotator Cuff Disorder L; 2:Pain Shoulder L Comment: PATIENT EDUCATION INFORMATION Instructions: ROTATOR CUFF TEAR; Parts of the Shoulder Follow up: With: Address: When: ELSEWHERE PCP Within 1 - 2 weeks Comments: Call for follow up appointment. Source: DAXKO Document Id: [id number] Piedad Flynn R.N. - 07/03/2017 1:20 PM CDT ED Disposition Summary ED Disposition Summary Entered On: 07/03/2017 13:20 CDT Performed On: 07/03/2017 13:20 CDT by PIEDAD FLYNN RN ED Disposition Summary Present in Room During Exam/Procedure : Spouse Mode of Discharge : Ambulatory Transportation : Private vehicle Discharge From ED With : Home Med List Printed Discharge Instructions Given to Patient : Yes Patient Status at Discharge from ED : Unchanged 30 Minutes Critical Care : No PIEDAD FLYNN RN - 07/03/2017 13:20 CDT Source: [facility]AXKO Document Id: [id number] CDT!9 documented in this encounter ED Notes Piedad Flynn R.N. - 07/03/2017 1:20 PM CDT ED Pain Assessment ED Pain Assessment Entered On: 07/03/2017 13:20 CDT Performed On: 07/03/2017 13:20 CDT by PIEDAD FLYNN RN Pain Assessment Pain Symptoms : Yes PIEDAD FLYNN RN - 07/03/2017 13:20 CDT Pain Scale Pain Scale Verbal 0-10 : Open PIEDAD FLYNN RN - 07/03/2017 13:20 CDT Pain Pain Assessment Grid Pain 1 Location : Shoulder Intensity : 7 PIEDAD FLNYN RN - 07/03/2017 13:20 CDT Source: [facility] RoommateFit Document Id: [id number] CDT!10 Alec Arrieta III, M.D. - 07/03/2017 11:42 AM CDT Fall Patient: HEIDI SHEEHAN Age: 66 years Sex: Female : 1950 Author: ALEC ARRIETA III, MD Attachments: None Associated Diagnosis: Rotator Cuff Disorder L; Pain Shoulder L Basic Information Time seen: Immediately upon arrival. History source: Patient. Arrival mode: Private vehicle. History limitation: None. Additional information: Chief Complaint from Nursing Triage Note : Chief Complaint Description 07/03/2017 11:34 CDT Chief Complaint Description 66 year old female admitted to ER wtith complaints of left shoulder pain. States she fell yesterday afternoon landed on left side. . History of Present Illness The patient presents following fall. The onset was just prior to arrival. The occurrence was single episode. The fall was described as tripped. [place]. Location: Left upper extremity. The character of symptoms is pain. The degree at present is moderate.The exacerbating factor is lateral raise of the left arm. There are relieving factors including immobilization and rest. Risk factors consist of age. The patient's dominant hand is the right hand. Therapy today: local therapy ice and degree of relief moderate. Preceding symptoms none. Associated symptoms: none. Review of Systems Constitutional symptoms: Negative except as documented in HPI. Skin symptoms: Negative except as documented in HPI. Eye symptoms: Negative except as documented in HPI. ENMT symptoms: Negative except as documented in HPI. Respiratory symptoms: Negative except as documented in HPI. Cardiovascular symptoms: Negative except as documented in HPI. Gastrointestinal symptoms: Negative except as documented in HPI. Genitourinary symptoms: Negative except as documented in HPI. Musculoskeletal symptoms: Negative except as documented in HPI. Neurologic symptoms: Negative except as documented in HPI. Psychiatric symptoms: Negative except as documented in HPI. Endocrine symptoms: Negative except as documented in HPI. Hematologic/Lymphatic symptoms: Negative except as documented in HPI. Allergy/immunologic symptoms: Negative except as documented in HPI. Health Status Allergies: Nonallergic Reactions (Selected) NKA. Medications: None. Past Medical/ Family/ Social History Medical history: Negative. Surgical history: HC EXCIS PRIMARY GANGLION WRIST - 1984 - Ganglionectomy, wrist on . REVISE SECONDARY VARICOSITY - 1986 - Vein ligation, stripping left leg on .. Family history: Mother History is negative. Father History is negative. . Social history: Alcohol use: Denies, Tobacco use: Denies, Drug use: Denies, Occupation: Retired, Family/social situation: . 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 Physical Examination Vital Signs: Vital Signs 07/03/2017 11:34 CDT Peripheral Pulse Rate 65 /min Respiratory Rate 18 /min SpO2 100 % Systolic Blood Pressure 153 mmHg HI Diastolic Blood Pressure 65 mmHg Mean Arterial Pressure 94 mmHg BP Location Right upper , Measurements 07/03/2017 11:34 CDT Dosing Weight 95.70 kg Actual Weight 95.7 kg Weight Source Standing scale . General: Alert and no acute distress. Wayne coma scale: Total score: Total score: 15. Neurological: Alert and oriented to person, place, time, and situation. Skin: Warm, dry and pink. Head: Normocephalic, but not atraumatic. and On exam: Left, facial, swelling, erythema, abrasion. Eye: Vision grossly normal. Ears, nose, mouth and throat: Oral mucosa moist and no pharyngeal erythema or exudate. Cardiovascular: Regular rate and rhythm, No murmur, Normal peripheral perfusion and No edema. Respiratory: Lungs are clear to auscultation, respirations are non-labored, breath sounds are equal and Symmetrical chest wall expansion. Chest wall: No tenderness and No deformity. Back: Nontender, Normal range of motion, Normal alignment and no step-offs. Musculoskeletal: Proximal upper extremity left, shoulder, aligned, tenderness and range of motion: limited, on abduction, on external rotation, restricted by pain, no swelling, no erythema, no deformity Gastrointestinal: Soft, Nontender, Non distended, Normal bowel sounds and No organomegaly. Medical Decision Making Trauma team: no trauma criteria met Differential Diagnosis:Fall, sprain, strain, closed fracture. Rationale:she is not concerned with her facial contusion but rather the left shoulder. Documents reviewed:Prior records. OrdersLaunch Orders Radiology: XR Shoulder Left 2 or more views (Order Processing): 07/03/2017 11:53 CDT, Fall from ground. Left shoulder pain with posterior pain and dec ROM, Stat, Patient Bed, Once, 07/03/2017 11:53 CDT, [facility] ED. Radiology results:03-Jul-2017 12:18:00 Exam: L Shoulder 2vw Indications: Fall from ground. Left shoulder pain with posterior pain and dec ROM 03-Jul-2017 12:27 CA EXAM: Shoulder 2vw LEFT IMPRESSION: No comparison. No acute fracture or dislocation. Marcelino Iniguez MD [phone] 03-Jul-2017 12:27 . Impression and Plan Diagnosis Rotator Cuff Disorder L (Discharge, Medical) Pain Shoulder L (Discharge, Medical) Plan Condition: Stable. Disposition: Medically cleared, Discharged: to home. Patient was given the following educational materials: Parts of the Shoulder, ROTATOR CUFF TEAR. Follow up with: ELSEWHERE PCP Within 1 - 2 weeks Call for follow up appointment.. Counseled: Patient, Family, Regarding diagnosis, Regarding diagnostic results, Regarding treatment plan. Orders: Launch Orders Patient Care: Discharge ED Patient (Order Processing): 07/03/2017 13:11 CDT, Once. Electronically Signed By: ALEC ARRIETA III, MD On: 07/05/2017 11:42 PM Modified by and Electronically Signed by: ALEC ARRIETA III, MD On: 07/03/2017 01:08 PM Source: [facility] POWERCHART Document Id: [id number] Piedad Flynn R.N. - 07/03/2017 11:38 AM CDT ED Primary Assessment Document Has Been Updated ED Primary Assessment Entered On: 07/03/2017 11:40 CDT Performed On: 07/03/2017 11:38 CDT by PIEDAD FLYNN RN Reason For Visit (As Of: 07/03/2017 11:40:09 CDT) Problems(Active) Optic Atrophy, Unspecified (ICD-9-CM :377.10 ) Name of Problem: Optic Atrophy, Unspecified ; Onset Date: 05/20/2011 ; Confirmation: Confirmed ; Classification: Medical ; Code: 377.10 ; Contributor System: [facility]PLO[facility] ; Last Updated: 01/26/2014 14:30 CDT ; Life Cycle Status: Active ; Vocabulary: ICD-9-CM ; Comments: - Optic atrophy Other Optic Neuritis (ICD-9-CM :377.39 ) Name of Problem: Other Optic Neuritis ; Onset Date: 06/04/2004 ; Confirmation: Confirmed ; Classification: UPDATE NEEDED ; Code: 377.39 ; Contributor System: [facility]HX_Cureatr_UPLOAD ; Last Updated: 01/26/2014 14:30 CDT ; Life Cycle Status: Active ; Vocabulary: ICD-9-CM ; Comments: - Other optic neuritis Unspecified Iridocyclitis (ICD-9-CM :364.3 ) Name of Problem: Unspecified Iridocyclitis ; Onset Date: 04/08/2004 ; Confirmation: Confirmed ; Classification: Medical ; Code: 364.3 ; Contributor System: [facility]_HX_PR_TotSpotOAD ; Last Updated: 01/26/2014 14:30 CDT ; Life Cycle Status: Active ; Vocabulary: ICD-9-CM ; Comments: - Unspecified iridocyclitis Diagnoses(Active) Fall Date: 07/03/2017 ; Diagnosis Type: Reason For Visit ; Confirmation: Complaint of ; Clinical Dx:Fall ; Classification: Medical ; Clinical Service: Emergency medicine ; Code: PNED ; Probability: 0 ; Diagnosis Code: [id number] Triage Chief Complaint Description : see triage note Mode of Arrival ED : Private vehicle Track : Trauma Other Languages : Hebrew Treatments Prior to Arrival : None Is Patient Female and 13-50 no hysterectomy : No PIEDAD FLYNN RN - 07/03/2017 11:38 CDT Pain Assessment Pain Symptoms : Yes PIEDAD FLYNN RN - 07/03/2017 11:38 CDT Respiratory Airway : Patent Respirations : Unlabored Respiratory Pattern : Regular PIEDAD FLYNN RN - 07/03/2017 11:38 CDT Cardiovascular Heart Rhythm : Regular Skin Color : Normal for ethnicity Skin Description : Dry Skin Temperature : Warm PIEDAD FLYNN RN - 07/03/2017 11:38 CDT Neurological Last Well Time Known : Not applicable Level of Consciousness : Alert Orientation : Oriented x 3 Characteristics of Speech : Appropriate for age PIEDAD FLYNN RN - 07/03/2017 11:38 CDT ED Psychosocial Affect/Behavior : Calm Domestic Abuse Concerns : None Behavioral Health Screen/Safety Assmt : No PIEDAD FLYNN RN - 07/03/2017 11:38 CDT Gastrointestinal Nutrition ED : Adequate PIEDAD FLYNN RN - 07/03/2017 11:38 CDT Musculoskeletal Fall Prevention Education Provided : NA PIEDAD FLYNN RN - 07/03/2017 11:38 CDT Social Habits Smoking Status : Never smoker Tobacco 2A : No Tobacco Use/Currently Using : No Tobacco Use/Last 30 Days : No Tobacco Use/Last 12 months : No PIEDAD FLYNN RN - 07/03/2017 11:38 CDT Alcohol Use Grid Alcohol Use : Yes Frequency : Occasionally PIEDAD FLYNN RN - 07/03/2017 11:38 CDT Recreational Drug Use Grid Drug Use : None PIEDAD FLYNN RN - 07/03/2017 11:38 CDT Source: [facility] POWERCHART Document Id: [id number] CDT!45 Piedad Flynn R.N. - 07/03/2017 11:34 AM CDT ED Triage Assessment Document Has Been Updated ED Triage Assessment Entered On: 07/03/2017 11:38 CDT Performed On: 07/03/2017 11:34 CDT by PIEDAD FLYNN RN Reason For Visit (As Of: 07/03/2017 11:38:53 CDT) Problems(Active) Optic Atrophy, Unspecified (ICD-9-CM :377.10 ) Name of Problem: Optic Atrophy, Unspecified ; Onset Date: 05/20/2011 ; Confirmation: Confirmed ; Classification: Medical ; Code: 377.10 ; Contributor System: [facility] ; Last Updated: 01/26/2014 14:30 CDT ; Life Cycle Status: Active ; Vocabulary: ICD-9-CM ; Comments: - Optic atrophy Other Optic Neuritis (ICD-9-CM :377.39 ) Name of Problem: Other Optic Neuritis ; Onset Date: 06/04/2004 ; Confirmation: Confirmed ; Classification: UPDATE NEEDED ; Code: 377.39 ; Contributor System: [facility]PLO[facility] ; Last Updated: 01/26/2014 14:30 CDT ; Life Cycle Status: Active ; Vocabulary: ICD-9-CM ; Comments: - Other optic neuritis Unspecified Iridocyclitis (ICD-9-CM :364.3 ) Name of Problem: Unspecified Iridocyclitis ; Onset Date: 04/08/2004 ; Confirmation: Confirmed ; Classification: Medical ; Code: 364.3 ; Contributor System: [facility]_HX_PR_TotSpotOAD ; Last Updated: 01/26/2014 14:30 CDT ; Life Cycle Status: Active ; Vocabulary: ICD-9-CM ; Comments: - Unspecified iridocyclitis Diagnoses(Active) Fall Date: 07/03/2017 ; Diagnosis Type: Reason For Visit ; Confirmation: Complaint of ; Clinical Dx:Fall ; Classification: Medical ; Clinical Service: Emergency medicine ; Code: PNED ; Probability: 0 ; Diagnosis Code: [id number] Triage Chief Complaint Description : 66 year old female admitted to ER wtith complaints of left shoulder pain. States she fell yesterday afternoon landed on left side. Information Given By : Patient Present in Room During Exam/Procedure : Spouse Mode of Arrival ED : Private vehicle Track : Trauma Other Languages : Hebrew Vital Signs Assessed : Yes GCS Assessed : Yes Treatments Prior to Arrival : None Is Patient Female and 13-50 no hysterectomy : No PIEDAD FLYNN RN - 07/03/2017 11:34 CDT Vital Signs Peripheral Pulse Rate : 65 /min Respiratory Rate : 18 /min Systolic Blood Pressure : 153 mmHg (HI) Diastolic Blood Pressure : 65 mmHg NIBP Mean : 94 mmHg BP Location : Right upper extremity SpO2 : 100 % Oxygen Therapy : Room air Actual Weight : 95.7 kg Actual Weight Conversion to Pounds : 210.54 lb Weight Source : Standing scale OPAL, PIEDAD Tellez RN - 07/03/2017 11:34 CDT Stephane Coma Eye Opening Response Wayne : Spontaneously Best Verbal Response Stephane : Oriented Best Motor Response Stephane : Obeys simple commands Stephane Coma Score : 15 PIEDAD FLYNN RN - 07/03/2017 11:34 CDT Pain Assessment Pain Symptoms : Yes PIEDAD FLYNN Rosalinda RN - 07/03/2017 11:34 CDT Pain Scale Pain Scale Verbal 0-10 : Open PIEDAD FLYNN RN - 07/03/2017 11:34 CDT Pain Pain Assessment Grid Pain 1 Location : Shoulder Laterality : Left Intensity : 8 OPALPIEDAD Boyle RN - 07/03/2017 11:34 CDT ED Physician Notification Time ED Physician Notification Time : 07/03/2017 11:37 CDT OPALPIEDAD Boyle RN - 07/03/2017 11:34 CDT SANDEE SANDEE Level 1 : No SANDEE Level 2 : No SANDEE Level 3 : One OPAL, PIEDAD A RN - 07/03/2017 11:34 CDT DCP GENERIC CODE Tracking Acuity : 3 -Urgent Tracking Group : [facility] ED OPAL PIEDAD Tellez - 07/03/2017 11:34 CDT Allergy (As Of: 07/03/2017 11:38:54 CDT) Allergies (Active) NKA Comments: Comment 1: NO KNOWN ALLERGIES ; Created By: Contributor_system, [facility] HEALTH_HX_ALRG_SYS; Reaction Status: Active ; Category: Drug ; Substance: NKA ; Type: Unknown ; Updated By: Contributor_system, [facility]_HX_ALRG_SYS; Reviewed Date: 07/03/2017 11:38 CDT ID Screen Drug Resistant Organism : No Travel Within Last 21 Days : No PIEDAD FLYNN RN - 07/03/2017 11:34 CDT Immunizations Last Tetanus : < 5 years Pneumovac : Last 5 years Influenza : None PIEDAD FLYNN RN - 07/03/2017 11:34 CDT Source: [facility] [employer] Document Id: [id number] CDT!55 documented in this encounter Miscellaneous Notes Miscellaneous - Piedad Flynn R.N. - 07/03/2017 1:20 PM CDT Valuables/Belongings Valuables/Belongings Entered On: 07/03/2017 13:20 CDT Performed On: 07/03/2017 13:20 CDT by PIEDAD FLYNN RN Valuables/Belongings Belongings Sent Home With : patient PIEDAD FLYNN RN - 07/03/2017 13:20 CDT Source: [employer] Document Id: [id number] CDT!3 Miscellaneous - Conversion, Historical Provider Ser - 07/03/2017 1:15 PM CDT Coding Summary-Paper Based CODING DATE: 07/09/[address] [facility] STATUS: * Discharged to Home or Self Care PAYOR: Medicare ADMIT DX: M25.512 Pain in left shoulder REASON FOR VISIT DX: M25.512 Pain in left shoulder FINAL DX: PRINCIPAL: M75.102 Unspecified rotator cuff tear or rupture of left shoulder, not specified as traumatic SECONDARY: PROCEDURES DOCTOR NAME DATE NOTE: The code number assigned matches the documented diagnosis and / or procedure in the patient's chart. However, the narrative phrase printed from the coding software may appear abbreviated, or result in slightly different terminology. Coded By: STEVEN BROWN Date Saved: 07/09/2017 01:37 pm Source: [employer] Document Id: [id number] Miscellaneous - Piedad Flynn R.N. - 07/03/2017 11:26 AM CDT Facility Charge Ticket 2.0 11.0 DX Facility Charge Ticket 2.0 11.0 DX Entered On: 07/03/2017 13:20 CDT Performed On: 07/03/2017 11:26 CDT by PIEDAD FLYNN RN Facility Charge Ticket 2.0 11.0 DX ED Other Charges : Standard ED Encounter TVL Level Translated RTF : Fall TVL:4 TVL Level for Facility Charge Ticket : Level 4 Arrival Mode Calc : 1 Mode of Arrival ED : Private vehicle [facility] Mode of Arrival Interpreted : Standard [facility] Process Management : None Order Management RTF : Xray XR Shoulder Left 2 or more views,07/03/17 11:53,ALEC ARRIETA III, MD Completed [facility] Order Management : Xray - plain films 30 Minutes Critical Care : No Nursing Notes RTF : Triage Forms ED Triage Assessment,07/03/17 11:34,PIEDAD FLYNN RN Nursing Notes ED Primary Assessment,07/03/17 11:38,PIEDAD FLYNN RN ED Pain Assessment,07/03/17 13:20,PIEDAD FLYNN RN [facility] Nursing Assessment : Triage and 1-2 nursing assessments [facility] Disposition : Discharge Disposition RTF : discharge [facility] Total Points with Diagnosis Control : 8 [facility] Visit Level : 95083 Level 4 Treatments Prior to Arrival : None PIEDAD FLYNN RN - 07/03/2017 13:20 CDT Source: [employer] Document Id: [id number] CDT!19 documented in this encounter Plan of Treatment Not on filedocumented as of this encounter Visit Diagnoses Not on filedocumented in this encounter
--- OUTSIDE RECORDS SUMMARY | 2022-08-12 08:50 | XMS_ITS | Encounter Summary ---
:1950 Author Organization [facility] Address [address] [place] [address] Care Team Providers Name Role Phone No Contact, Pcp Primary Care Provider Unavailable Reason for Visit Auth/Cert Specialty Diagnoses / Procedures Referred By Contact Refer red To Contact Diagnoses Primary Osteoarthritis Knee Right Osteoarthritis Primary Osteoarthritis Knee Right [M17.11] Procedures ARTHROPLASTY REPLACEMENT TOTAL KNEE Referral ID Status Reason Start Date Expiration Date Visits Requ ested Visits Authorized [id number] 1 1 Encounter Details Date Type Department Care Team Description 09/08/2020 Surgery [facility] [place] [facility] MAIN OR Edi Benito, ARTHROPLASTY REPLACEMENT [address] [place] [phone] [phone] [place] [address] (Wo rk) Social History Tobacco Use Types Packs/Day Years Used Date Smoking Tobacco: Never Smokeless Tobacco: Never Alcohol Use Standard Drinks/Week Comments Not Currently 0 (1 standard drink = 0.6 oz pure alcoho l) Sex Assigned at Date Recorded Not on file documented as of this encounter Last Filed Vital Signs Vital Sign Reading Time Taken Comments Blood Pressure 133/70 09/08/2020 6:58 AM INSTRUMENTAL MUSICIAN Pulse 72 09/08/2020 6:58 AM INSTRUMENTAL MUSICIAN Temperature 35.9 ??C (96.6 ??F) 09/08/2020 6:58 AM INSTRUMENTAL MUSICIAN Respiratory Rate 18 09/08/2020 6:58 AM INSTRUMENTAL MUSICIAN Oxygen Saturation 97% 09/08/2020 6:58 AM INSTRUMENTAL MUSICIAN Inhaled Oxygen Concentration - - Weight 107 kg (235 lb 0.2 oz) 09/08/2020 6:58 AM INSTRUMENTAL MUSICIAN Height 162 cm (5' 3.78) 09/08/2020 6:58 AM INSTRUMENTAL MUSICIAN Body Mass Index 41.97 09/08/2020 11:28 AM INSTRUMENTAL MUSICIAN documented in this encounter Medications at Time of Discharge Medication Sig Dispensed Refills Start Date End Date calcium carbonate (TUMS) Chew 1 tablet 2 (two) 0 500 mg (200 mg calcium) times a day as needed chewable tablet for indigestion or heartburn. docusate sodium (COLACE) Take 100 mg by mouth 0 100 mg capsule as needed for constipation. Takes once a month as needed acetaminophen (TYLENOL) Take 2 tablets (1,000 0 1 11/09/2019 500 mg tablet mg total) by mouth every 6 (six) hours. ondansetron ODT Take 1 tablet (4 mg [...] minimize risk of blood clot. fentaNYL (DURAGESIC) 12 Place 1 patch on the 5 patch 0 09/22/2020 mcg/hr patchIndications: skin every third day Prolonged Acute Indication: Prolonged Pain/Traumatic Injury Acute Pain/Traumatic Injury. traMADoL (ULTRAM) 50 mg Take 1-2 tablets 40 tablet 0 201910/21/2020 tabletIndications: (50-100 mg total) by Prolonged Acute mouth every 6 (six) Pain/Traumatic Injury hours as needed for pain Indications: Prolonged Acute Pain/Traumatic Injury. documented as of this encounter Progress Notes Mady Chaudhry - 09/09/2020 3:30 PM CST Physical Therapy Inpatient Treatment SUBJECTIVE Patient's Name: Heidi Huerta Referring/Attending Provider: Edi Benito M.D. Medical Diagnosis: Primary Osteoarthritis Knee Right [M17.11] Osteoarthritis [M19.90] Reason for Referral: PT evaluate and treat. TKA protocol. Onset Date: 09/08/20 Payor: MEDICARE / Plan: MEDICARE A AND B / Product Type: Medicare / Patient Comments: Patient was eager for therapy and very eager to discharge home before dark. She didnt mention any pain throughout the intervention. She seemed slightly overwhelemed with the influx ofappointments and information in a short amount of time however she did great in our last session Activity Orders (From admission, onward) Start Ordered 09/08/20 1129 Activity: Up with Assistance Until discontinued Comments: After PT allows Question: Activity Level: Answer: Up with Assistance 09/08/20 1128 Precautions Weight Bearing Status: Weight-bearing as tolerated right lower extremity Fall Risk (65 and older) Fall in the last 12 months: No Are you fearful of falling?: No OBJECTIVE Measures - Tools Bed Mobility - Supine to Sit # of Assistants: 1 Level of Assistance: Modified Independent Device: Bed rail Comments: Patient was independent in moving to EOB with use of bed rail, no complaints of pain during motion Transfer - Sit to Stand # of Assistants: 1 Device: Front wheeled walker Level of Assistance: Modified Independent Comments: VC to reinforce hand position for safety, patient demonstrated good awareness of injury Transfer - Stand to Sit # of Assistants: 1 Level of Assistance: Modified Independent Device: Front wheeled walker Comments: patient showed great safety awareness, used VC to reinforce hand positioning and leg extension for pain control and safety Gait Assessment # of Assistants: 1 Level of Assistance: Modified Independent, Supervision/Set-up Device: Front wheeled walker Distance (m): 50 m Cuing: Verbal Quality: Antalgic, Decreased stance time R, Decreased heel strike, Decreased toe off Assessment of Gait: Patient utillized step-to gait patterning at beginning but easily progressed to step-through Training/Intervention: Gait belt applied, VC for gait pattern progression Response: Patient showed good safety awareness and followed commands well. She advanced easily to continuous step-through Stairs # of Assistants: 1 Level of Assistance: Modified Independent, Supervision/Set-up # Stairs: 4 Rails: 1, 2(used 1 for last step for home safety purposes) Exercise - Position Supine Exercise: Ankle pumps, Quad sets, Hamstring stretch(verbally reviewed) Seated Exercise: Knee flexion, More Seated Exercises Seated Exercise 1: Floor scrub with plastic bag ROM: 0-0-85 Contact monitoring: PPE used during therapy: Therapist was wearing the following PPE throughout entire session: surgicalmask, eye protection and gloves Patient was wearing a mask during therapy session: yes Additional Staff Present During Session: Maddi Jeffrey PT wearing the same PPE Assessment Discharge Considerations: Clinical Impression: Ms. Huerta was admitted 09/08/2020 with a diagnosis of: Primary Osteoarthritis Knee Right [M17.11] Osteoarthritis [M19.90]. Currently, patient presents with limitations including decreased knowledge of condition, decreased ROM and strength, decreased coordination resulting in difficulty with transfers, gait, and stair negotiation. Education was provided regarding evaluative findings, diagnosis, prognosis, potential risks and benefits of rehabilitation interventions. Therapy findings and recommendations were discussed with supervising PT Maddi Jeffrey RN, [facility] The treatment plan and discharge recommendations may be modified based upon pt response to treatment. Functional Goals and Timeframes: PT Goal #1: Transfers with modified independence and supervision. MET PT Goal #1 Date: 09/09/20 PT Goal #2: Ambulate 20m with FWW and supervision. MET PT Goal #2 Date: 09/09/20 PT Goal #3: Up/down 4 stairs with minimal assist. MET PT Goal #3 Date: 09/10/20 PT Goal #4: Bed mobility with modified independence and supervision. MET PT Goal #4 Date: 09/09/20 Progress: Improving as expected, Goals met Plan Patient agrees with the plan of care and goals. Plan: Discontinue therapy Inpatient PT Received On Date: 09/09/20 Requires Inpatient Follow-Up: No Plan Comments: Patient walked to stairs with gait pattern progression, navigated 4 steps, showed competence of HEP and safety awareness Therapy Student Signature: RENAE Ferrari Time Spent with Patient Gait Training (min): 15 min Therapeutic Exercise (min): 8 min Total Timed Units (min): 23 min Total Treatment Time (min): 23 min Mady Chaudhry [facility], Third Floor [address] [facility] [address] Dept: [phone] Physical Therapy Dismissal Snapshot Patient was seen 3 visit(s) for post-op R TKA Inpatient goals: met Please see last progress note for status. Patient to dismiss to home with outpatient therapy set up in [place] to address remaining impairments of range of motion, strength, and pain and mobility deficits of transfers and gait RUMENTAL MUSICIAN Associated attestation - Maddi Jeffrey P.T. - 09/09/2020 3:53 PM INSTRUMENTAL MUSICIAN This therapist has reviewed all documentation and supervised today's session. This therapist agrees with the plan of care developed in collaboration with the patient.I was present during entire sessionand directed and provided treatment under my clinical decision making. Fabienne Farooq M.D. - 09/09/2020 12:31 PM CST Post Anesthesia Assessment Note Patient: Heidi Huerta General Info Post-procedure day: 1 Follow-up type: inpatient regional Regional Block Information Description/location: adductor canal block and spinal Laterality: right Multi-modal Analgesics: Acetaminophen: yes Gabapentinoids: no NSAIDs: no Opioids: yes Other: no Assessment: General assessment: uncomplicated postoperative course Side effects and complications: no complications Signs/symptoms of local anesthetic toxicity: none Site Assessment: Sensory: decreased sensation to light touch (some numbness medial knee) Motor: normal-preoperative baseline Pain Assessment: Current static pain scale: 1/10 Current dynamic pain scale: 2/10 Highest pain score last 24 hours: 2/10 Patient Care Plan:continue current management per plan/IPS protocol RUMENTAL MUSICIAN Maddi Jeffrey P.T. - 09/09/2020 10:11 AM CST Physical Therapy Inpatient Treatment SUBJECTIVE Patient's Name: Nikkicheri Beatrizxavier Huerta Referring/Attending Provider: Edi Benito M.D. Medical Diagnosis: Primary Osteoarthritis Knee Right [M17.11] Osteoarthritis [M19.90] Reason for Referral: PT evaluate and treat. TKA protocol. Onset Date: 09/08/20 Payor: MEDICARE / Plan: MEDICARE A AND B / Product Type: Medicare / Patient Comments: She and spouse are pleasant and ready for therapy. She does admit that she has some continued impaired sensation in her right lower extremity. She also has some minimal pain increase with walking. Activity Orders (From admission, onward) Start Ordered 09/08/20 1129 Activity: Up with Assistance Until discontinued Comments: After PT allows Question: Activity Level: Answer: Up with Assistance 09/08/20 1128 Precautions Weight Bearing Status: Weight-bearing as tolerated right lower extremity Fall Risk (65 and older) Fall in the last 12 months: No Are you fearful of falling?: No OBJECTIVE Measures - Tools Bed Mobility - Supine to Sit # of Assistants: 1 Level of Assistance: Supervision/Set-up, Modified Independent Comments: Patient able to get to EOB without assist. Transfer - Sit to Stand # of Assistants: 1 Device: Front wheeled walker Level of Assistance: Minimal assistance Comments: Verbal cues to reinforce patient good practice of use of hands, an optimal positioning forpain control of operative lower extremity Transfer - Stand to Sit # of Assistants: 1 Method: Stand pivot Level of Assistance: Supervision/Set-up, Modified Independent Device: Front wheeled walker Comments: no cues needed Transfers - Toilet # of Assistants: 1 Method: Stand pivot Device: fww Level of Assistance: Supervision/Set-up, Modified Independent Comments: cues for position of comfort while seated Gait Assessment # of Assistants: 1 Level of Assistance: Supervision/Set-up, Minimal assistance Device: Front wheeled walker Distance (m): 25 m Cuing: Verbal, Tactile Assessment of Gait: Five point, step-through right gait pattern, weight-bearing as tolerated with front wheeled walker. Patient steps pass each other. Training/Intervention: Gait belt applied, vcs for gait pattern, demo of step-to pattern if pain increases in coming days. Response: Patient showed good safety awareness and followed commands well. She advanced to nearly continuous gait pattern. Exercise - Position Supine Exercise: Ankle pumps, Quad sets, Hamstring stretch Seated Exercise: Knee flexion Exercise - Protocol Total Joints Exercise: Total knee Total Joints Exercise Comment: Reviewed horuly frequency of APs, QS. Added heel- prop knee ext stretch, and floor scrubs (active knee flex/ext). Patient felt pulling on incision with hold at end range of flex--relaxed the pull. Achieves 0-5-85?? visual estimate R knee. BETITO wrap removed and spandagrip sizes 4 and 6.75 applied for toes to mid thigh compression, surgicalbandage left intact along incision, no drainage noted. Patient instructed in principles of RICE: Rest, Ice, Compression, Elevation to promote comfort and healing. At the end of the session the patient was in the chair with the call light and cold pack in place. The plan of care is on the whiteboard. Contact monitoring: PPE used during therapy: Therapist was wearing the following PPE throughout entire session: surgicalmask, eye protection and gloves Patient was wearing a mask during therapy session: yes Family member/caregiver present was wearing a mask: yes Additional Staff Present During Session: RENAE Ferrari, wearing same PPE as PT. Assessment Discharge Considerations: Discharge Recommendation: Ongoing skilled outpatient therapy recommeded Recommendation: Outpatient PT Equipment Recommended PT: Walker Clinical Impression: Ms. Huerta was admitted 09/08/2020 with a diagnosis of: Primary Osteoarthritis Knee Right [M17.11] Osteoarthritis [M19.90]. Currently, patient presents with limitations including improving, but still requiring 24/7 assist for difficulty with bed mobility, transfers, gait, and stair negotiation. Education was provided regarding evaluative findings, diagnosis, prognosis, potential risks and benefits of rehabilitation interventions. Therapy findings and recommendations were discussed with patient, spouse. The treatment plan and discharge recommendations may be modified based upon pt response to treatment. Functional Goals and Timeframes: PT Goal #1: Transfers with modified independence and supervision. PT Goal #1 Date: 09/09/20 PT Goal #2: Ambulate 20m with FWW and supervision. PT Goal #2 Date: 09/09/20 PT Goal #3: Up/down 4 stairs with minimal assist. PT Goal #3 Date: 09/10/20 PT Goal #4: Bed mobility with modified independence and supervision. PT Goal #4 Date: 09/09/20 Progress: Improving as expected Plan Patient agrees with the plan of care and goals. Plan: Continue with current plan Inpatient PT Received On Date: 09/09/20 Requires Inpatient Follow-Up: Yes PT - Next Inpatient Appointment: 09/09/20 Plan for next session: Stair training, TKA pathway: Advance ROM, strength, transfer safety, gait safety. Teaching of self-care, RICE principles, use of spandogrip, knowledge of precautions. Time Spent with Patient Gait Training (min): 12 min Therapeutic Activity (min): 3 min Therapeutic Exercise (min): 12 min Total Timed Units (min): 27 min Total Treatment Time (min): 27 min Maddi Jeffrey P.T. [facility], Third Floor [address] [facility] [address] Dept: [phone] RUMENTAL MUSICIAN documented in this encounter H&P Notes Edi Benito M.D. - 09/09/2020 7:43 AM CST INTERVAL HISTORY AND PHYSICAL PRE-PROCEDURE UPDATE H&P reviewed. The patient was examined and there are no significant changes to the H&P. I discussed with this patient the tailored Risks, Benefits, Alternatives of treatment for their orthopedic condition given their specific medical and orthopedic issues at length today. The patient understands these. All questions were answered and they desire to precede with surgical treatment. Edi Benito M.D. RUMENTAL MUSICIAN Source Note - Rufino, Default Authenticator - 09/03/2020 6:59 AM INSTRUMENTAL MUSICIAN documented in this encounter Consult Notes Yolande Lockwood O.T. - 09/09/2020 4:11 PM CST Consults Occupational Therapy Inpatient Evaluation/Treatment SUBJECTIVE Patient's Name: Heidi Huerta Referring/Attending Provider: Edi Benito M.D. Medical Diagnosis: Primary Osteoarthritis Knee Right [M17.11] Osteoarthritis [M19.90] Reason for Referral: OT eval and treat; Right TKA Onset Date: 09/08/20 Payor: MEDICARE / Plan: MEDICARE A AND B / Product Type: Medicare / PERTINENT MEDICAL / SURGICAL HISTORY: Patient Active Problem List Diagnosis ??? Pain Shoulder Left ??? Rotator Cuff Repair Shoulder Status Post ??? Primary Osteoarthritis Knee Right ??? Gastroesophageal Reflux Disease ??? Morbid Obesity Body Mass Index 40.0-44.9 Adult (HCC) ??? Osteoarthritis Past Surgical History: Procedure Laterality Date ??? ARTHROPLASTY REPLACEMENT TOTAL KNEE Right 09/08/2020 Procedure: ARTHROPLASTY REPLACEMENT TOTAL KNEE; Surgeon: Edi Benito M.D.; Location: [facility] OR History of Present Illness: Patient has longstanding right knee pain, currently underwent a right TKA Occupational Profile: Level of [place]: Independent with ADLs and functional transfers, Independent with homemaking with ambulation Lives With: Spouse ADL Assistance: Independent Homemaking Assistance: Independent Driving: Independent Occupational Role: Retired Home Living Type of Home: House Home Layout: Multi-level, Bed/bath upstairs, Full bath main level Home Layout Comments: Preffered bedroom and full bathroom and sitting room with recliner is on the second level of home - 13 steps. There is a full bathroom on main floor. Home Access: Stairs to enter with rails Entrance Stairs: Rails: Left Entrance Stairs: Number of Steps: 2 Bathroom Shower/Tub: Tub/shower unit, Walk-in shower(prefers tub shower that is on second level) Bathroom Toilet: Standard(has a riser with rails she can use post op) Home Equipment Home Adaptive Equipment: Collar Fuser, Long-handled shoe horn Gait Devices Owned: Front-wheeled walker, Cane Bathroom Equipment: Shower chair with back, Raised toilet seat with rails Family/Caregiver Present: Yes(Supportive spouse (Dwayne); patient is hard of hearing and he helps with on ensuring education) Patient/Caregiver Goals: Safe return home with spouse; patient would like to be able to garden in the spring Patient Comments: Patient is pleasant and ready for OT. She reports mild pain, but is well managed. Activity Orders (From admission, onward) Start Ordered 09/08/20 1129 Activity: Up with Assistance Until discontinued Comments: After PT allows Question: Activity Level: Answer: Up with Assistance 09/08/20 1128 Precautions Weight Bearing Status: WBAT on right LE Other Precautions: no plant and twist on right LE; TKA pathway Fall Risk (65 and older) Fall in the last 12 months: No Are you fearful of falling?: No OBJECTIVE Measures - Tools AM-PAC is a functional measure used in post acute care to guide discharge recommendations. Today, Heidi Huerta had a standardized score of 44.27. [facility]'s 3-year data, as reported at [facility] 2017, indicates a cut off of 39.4 or greater in daily activity is a fair to good accurate prediction of discharge home. Source: AM-PAC ???6 -Clicks?? functional assessment scores predict acute care hospital discharge destination. [employer]. 2014 Jul; 94 (9): 1259-61. AM-PAC Activity: How much help from another person does the patient currently need??? Putting on and taking off regular lower body clothing?: A Little Putting on and taking off regular upper body clothing?: None Taking care of personal grooming such as brushing teeth?: None Bathing (including washing, rinsing, drying)?: A Little Toileting, which includes using toilet, bedpan, or urinal?: A Little Eating meals?: None AM-PAC Activity: Score Daily Activities Raw Score (max 24): 21 Daily Activities Standardized Score: 44.27 Cognition Overall Cognitive Status: Intact Orientation: Oriented X4 Following Commands: Follows all commands and directions without difficulty General ROM / Strength Screening ROM - Upper Extremity Screen: Addressed, no concerns noted Strength - Upper Extremity Screen: Addressed, no concerns noted(patient does have a history of left rotator cuff surgery, however this does not limit ROM or strength) LE Dressing LE Dressing Adaptive Equipment: Sock aide LE Dressing Level of Assistance: Supervision/Set-up LE Dressing Where Assessed: Chair LE Dressing Delivery: Instructed, Practiced, Educated, Therapist Assisted LE Dressing Comments: Therapist faciltated lower body dressing task while seated with gait belt secured. Patient able to doff/don socks at a mod I level with use of sock aid. Donned underwear while seated, with cues to thread right post op LE through first - completed standing at FWW Toileting Where Assessed: Toilet Toileting Delivery: Instructed, Educated, Therapist Assisted Toileting Comments: With gait belt secure around patient, therapist facilitated short distance ambualtion from chair to bathroom using FWW and CGA. Patient completed toilet transfer with min assist forsafety Contact monitoring: PPE used during therapy: Therapist was wearing the following PPE throughout entire session: surgicalmask, eye protection and gloves Patient was wearing a mask during therapy session: yes Family member/caregiver present was wearing a mask: yes Additional Staff Present During Session: anesthesiologist for less than 5 minutes; wore a mask Assessment Heidi Huerta is a 69 y.o. year old direct admit to [facility] following a right TKA on 09/08/2020. Prior to hospitalization patient was completing daily activities independently but was limited by ongoing right knee pain. Currently, patient presents with impairments including decreased strength and ROM in right LE, decreased knowledge of condition, pain limiting function resulting in the following functional deficits: impaired functional transfers/mobility, decreased safety and independence in ADLs. Today, Ms. Huerta was able to demo lower body dressing, doffing and donning socks with AE, and functional mobility with toilet transfer at a mod I level after therapist instruction and demonstration. She verbalized understanding of car transfer technique and future home modifications/adjustments in order for continued success and recovery after discharge. Ms. Huerta was very thankful for the AE recommendations provided today and will further look into obtaining the recommended items below. She is anticipated to discharge home with the support of her and children as needed; she indicates no concerns regarding discharge home. Patient reports having all necessary equipment needs met. No furtherneed for skilled occupational therapy services at this time. Recommendations: ??? Refrain from driving until off of pain medication and/or until cleared by surgeon ??? No twisting at the right post-surgical lower extremity ??? Weight bear as tolerated on the right post-surgical lower extremity ??? Do not place a pillow under extended right post-surgical lower extremity while seated; rather, promote extension ??? Use forestry faculty member as needed to complete tasks and/or pick things up from the floor ??? Obtain sock aid, toilet safety frame, and other DME/AE as needed to complete daily tasks Bathroom Safety Sheet [id number] provided as patient education with recommendations written down for patient and caregivers. At completion of session, patient positioned in recliner with legs elevated and cold cuff in place with call light, bedside table and phone within reach. Gait belt and recommended device used with all mobility and self care transfers. All needs met and questions answered before OT left. Discharge Considerations: Barriers to Discharge: None Discharge Recommendation: Intermittent supervision Recommended Adaptive Equipment OT: Dressing aids(sock aid) Clinical Impression: Ms. Huerta is a 69 y.o. who was admitted to the hospital with a diagnosis of: Primary Osteoarthritis Knee Right [M17.11] Osteoarthritis [M19.90]. Prior to hospitalization patient was completing daily activities independently but was limited by ongoing right knee pain. Currently, patient presents with impairments including decreased strength and ROM in right LE, decreased knowledge of condition, pain limiting function resulting in the following f unctional deficits: impaired functional transfers/mobility, decreased safety and independence in ADLs. Rehab potential: Ms. Huerta has good potential to achieve established occupational therapy goals within the time frame outlined below. Education was provided regarding evaluative findings, diagnosis, prognosis, potential risks and benefits of rehabilitation interventions. Therapy findings and recommendations were discussed with patient and her spouse Comorbidities: Reviewed EMR Personal Factors: Needs assistive device, Hearing impairment, Age Occupational Profile and History review: Brief Performance Deficits: 1 - 3 performance deficits Evaluation Complexity: Moderate Functional Goals and Timeframes: OT Goal #1: OT Inpatient Goals OT Goal #1: Heidi Huerta will complete LB dressing using AE following TKA precautions with SBA or better in prep for discharge from this facility. OT Goal #1 Date: 09/09/20 OT Goal #2: Heidi Huerta will demo mod I using FWW for safe toilet t/f tee care and clothingmgmt in prep for discharge from this facility. OT Goal #2 Date: 09/09/20 OT Goal #3: Heidi Huerta will demo understanding of safe functional/ADL transfers including car t/f technique, safe shower transfer following TKA precautions in prep for discharge from this facility. OT Goal #3 Date: 09/09/20 OT Goal #4: Heidi Huerta will verbalize understanding of home safe precautions to minimize fall risk in prep for discharge from this facility. OT Goal #4 Date: 09/09/20 Plan Patient agrees with the plan of care and goals. OT Frequency: One-time visit OT Duration: once Inpatient OT Received On Date: 09/09/20 Requires Inpatient Follow-Up: No Treatment interventions may include: Self-care/home management Time Spent with Patient OT Evaluation (min): 10 min Home Management Training (min): 29 min Time Calculation Total Timed Units (min): 29 min Total Treatment Time (min): 39 min Kaylyn Lockwood O[facility], Third Floor [address] [facility] [address] Dept: [phone] RUMENTAL MUSICIAN Maddi Jeffrey P.T. - 09/08/2020 3:32 PM CST Consults Physical Therapy Inpatient Evaluation/Treatment SUBJECTIVE Patient's Name: Heidi Huerta Referring/Attending Provider: Edi Benito M.D. Medical Diagnosis: Primary Osteoarthritis Knee Right [M17.11] Osteoarthritis [M19.90] Reason for Referral: PT evaluate and treat. TKA protocol. Onset Date: 09/08/20 Payor: MEDICARE / Plan: MEDICARE A AND B / Product Type: Medicare / PERTINENT MEDICAL / SURGICAL HISTORY: Patient Active Problem List Diagnosis ??? Pain Shoulder Left ??? Rotator Cuff Repair Shoulder Status Post ??? Primary Osteoarthritis Knee Right ??? Gastroesophageal Reflux Disease ??? Morbid Obesity Body Mass Index 40.0-44.9 Adult (HCC) ??? Osteoarthritis History reviewed. No pertinent surgical history. History of Present Illness: Right TKA. Operative note not available, but per report no complications. Prior Function / Occupational Profile Level of [place]: Independent with ADLs and functional transfers, Independent with homemaking with ambulation Lives With: Spouse ADL Assistance: Independent Homemaking Assistance: Independent Driving: Independent Occupational Role: Retired Home Equipment Gait Devices Owned: Front-wheeled walker Home Living Type of Home: House Home Layout: Multi-level, Bed/bath upstairs Home Layout Comments: preferred bedroom and sitting room with recliner is on second level Home Access: Stairs to enter with rails Entrance Stairs: Number of Steps: Two step entry with single rail; 13 steps to bedroom level Home Living Comments: Bathroom on each floor Family/Caregiver Present: Yes(Supportive spouse; patient is hard of hearing and he helps with on ensuring education) Patient/Caregiver Goals: Safe return to home with spouse, outpatient physical therapy in [place] with familiar therapistPreet Patient Comments: She is pleasant and ready for therapy. She does admit that she has some different and sensation in her right lower extremity. She also has some minimal pain. Activity Orders (From admission, onward) Start Ordered 09/08/20 1129 Activity: Up with Assistance Until discontinued Comments: After PT allows Question: Activity Level: Answer: Up with Assistance 09/08/20 1128 Precautions Weight Bearing Status: Weight-bearing as tolerated right lower extremity Fall Risk (65 and older) Fall in the last 12 months: No Are you fearful of falling?: No OBJECTIVE Measures - Tools AM-PAC Basic Mobility (V.2) How much help from another person do you currently need???If the patienthasn't done an activity recently, how much help from another person do you think he/she would need if he/she tried? 1. Turning from your back to your side while in a flat bed without using bedrails?: None 2. Moving from lying on your back to sitting on the side of a flat bed without using bedrails?: A Little 3. Moving to and from a bed to a chair (including a wheelchair)?: A Little 4. Standing up from a chair using your arms (e.g., wheelchair, or bedside chair)?: A Little 5. To walk in hospital room?: A Little 6. Climbing 3-5 steps with a railing?: A Lot [facility] Basic Mobility (V.2) Raw Score: 18 [facility] Basic Mobility (V.2) Standardized Score: 41.05 Observation / Posture General: Other (Comment)(Despite reports of impaired sensation, it is grossly intact to light touch bilateral feet and toes; Betito wrap in place right lower extremity) Cognition Following Commands: Follows all commands and directions without difficulty General ROM / Strength Screening ROM - Lower Extremity Screen: Impaired right(Observed 0-0-85?? right knee range of motion during functional repositioning) Strength - Lower Extremity Screen: Impaired right(Equal, strong EHL/FHL/TA/GS; strong contralateral 1/2 bridge) Bed Mobility Bed Mobility: Yes Bed Mobility - Supine to Sit # of Assistants: 1 Level of Assistance: Supervision/Set-up, Modified Independent Device: Bed rail Cuing: Verbal, Tactile Comments: Head of bed elevated 30??. Patient initially requires cues from moving right lower extremity. Transfer - Sit to Stand # of Assistants: 1 Device: Front wheeled walker Level of Assistance: Minimal assistance Comments: Verbal and tactile cues for safer use of hands, an optimal positioning for pain control ofoperative lower extremity Transfer - Stand to Sit # of Assistants: 1 Method: Stand pivot Level of Assistance: Minimal assistance Device: Front wheeled walker Comments: Verbal and tactile cues for safer use of hands, an optimal positioning for pain control ofoperative lower extremity Transfers Transfer: Yes Balance Postural Control: Head Control, Trunk Control Static Sitting-Balance: Good (Maintains balance without support) Dynamic Sitting-Balance: Good (Maintains balance without support) Static Standing-Balance: Fair (Maintains balance with handheld assistance) Dynamic Standing-Balance: Fair (Maintains balance with handheld assistance) Gait Assessment # of Assistants: 2(Second person for multiple lines) Level of Assistance: Minimal assistance Device: Front wheeled walker Distance (m): 0.5 m Quality: Guarding, Step to, Decreased stance time R, Decreased heel strike, Decreased toe off Assessment of Gait: Five point, step-to right gait pattern, weight-bearing as tolerated with front wheeled walker. Patient takes very small steps that do not pass each other. Training/Intervention: Gait belt applied, front wheeled walker adjusted, verbal cues for pattern, initial tactile cues at distal right quad and contact guard assist at gait belt. Response: Patient showed good safety awareness and followed commands well. She could control her knee extension for short distance without fatiguing. Stability: Safe and stable with front wheeled walker, recommend assist of 1-2 nursing staff at theirdiscretion. Exercise - Position Supine Exercise: Ankle pumps, Quad sets Exercise - Protocol Total Joints Exercise: Total knee Total Joints Exercise Comment: Ten reps each exercise with the verbal cues and tactile cues after demonstration Patient instructed in principles of RICE: Rest, Ice, Compression, Elevation to promote comfort and healing. At the end of the session the patient was in the chair with the call light and cold pack in place. The plan of care is on the whiteboard. Contact monitoring: PPE used during therapy: Therapist was wearing the following PPE throughout entire session: surgicalmask, eye protection and gloves Additional Staff Present During Session: Mady Chaudhry wearing same PPE as the physical therapist.Patient and spouse were wearing masks once asked. Assessment Discharge Considerations: Barriers to Discharge: None Discharge Recommendation: Ongoing skilled outpatient therapy recommeded Equipment Recommended PT: Walker Clinical Impression: Ms. Huerta is a 69 y.o. who has been hospitalized 0 day(s) with an admitting diagnosis of: Primary Osteoarthritis Knee Right [M17.11] Osteoarthritis [M19.90]. Prior to hospitalization patient was completing daily activities independent of gait aid, but walking progressively shorter distances due to knee pain, R>L. She is considering a future need for L TKA. She could do errands in a store, but just 3 years ago would walk 5 miles for exercise. Currently, patient presents with impairments including R knee pain, decreased knowledge of condition, decreased ROM and strength, decreased coordination resulting in the following functional deficits: difficulty with bed mobility, transfers, gait, and stair negotiation. Rehab potential: Ms. Huerta has Excellent potential to achieve established physical therapy goals within the time frame outlined below. Education was provided regarding evaluative findings, diagnosis, prognosis, potential risks and benefits of rehabilitation interventions. Therapy findings and recommendations were discussed with patient, spouse, nurse. The treatment plan and discharge recommendations may be modified based upon pt response to treatment. Comorbidities: Osteoarthritis, BMI 41 Personal Factors: Needs assistive device, Hearing impairment, Age Clinical Presentation: Evolving Examination elements: 3 Clinical Decision Making: Moderate: 1-2 complicating factors, 3 eval elements, evolving clinical presentation Functional Goals and Timeframes: PT Goal #1: Transfers with modified independence and supervision. PT Goal #1 Date: 09/09/20 PT Goal #2: Ambulate 20m with FWW and supervision. PT Goal #2 Date: 09/09/20 PT Goal #3: Up/down 4 stairs with minimal assist. PT Goal #3 Date: 09/10/20 PT Goal #4: Bed mobility with modified independence and supervision. PT Goal #4 Date: 09/09/20 Progress: Improving as expected Plan Patient agrees with the plan of care and goals. Plan: Plan of care initiated PT Frequency: Twice a day PT Duration: Until inpatient PT goals are met or patient leaves the facility Inpatient PT Received On Date: 09/08/20 Requires Inpatient Follow-Up: Yes Next Inpatient Appointment: 09/09/20 Plan for next session: Advance ROM, strength, transfer safety, gait safety. Teaching of self-care, RICE principles, use of spandogrip (5,6) knowledge of precautions. Other PT Comments: Patient is motivated to return home tomorrow if she is safe to do so Treatment interventions may include: Therapeutic exercise, Therapeutic functional activity, Gait training, Self- care/home management Time Spent with Patient PT Evaluation (min): 11 min Gait Training (min): 3 min Therapeutic Activity (min): 8 min Therapeutic Exercise (min): 1 min Total Timed Units (min): 12 min Total Treatment Time (min): 23 min Madid Jeffrey P.T. [facility], Third Floor [address] [place] [id number] Dept: [phone] RUMENTAL MUSICIAN Manuela Hyde L.S.W. - 09/08/2020 1:00 PM CST Psychosocial Assessment SUBJECTIVE DEMOGRAPHIC INFORMATION Referral Source: Service/Provider and Nursing Referral Reason: Psychosocial Assessment and Discharge Planning Person(s) present during interview: Heidi and her -Dwayne. Previous Psychosocial Assessment : No Primary care clinic and provider: Primary Care Physician They were advised of the various topics that will be assessed during this evaluation. They consentedto proceed. The information provided in the assessment is based on review of the medical record as well as the interview. They were advised that the content of this interview will be shared with the health care team. It was discussed that staff are mandated reporters and they reported understanding. SOCIAL HISTORY Family / Household: is her primary support; Three children; DaughterZack Mcgee lives in [place] & has been helping prior to surgery at home. SonZack Gonzalez lives in [place], [place] and comes home on weekends. DaughterRosita lives in [place], [place]. Spirituality / Jain / Culture: Baptized Presybeterian, although, Heidi identifies recently with the Jewish protestant. History: none; Heidi's Dwayne was in the [employer] for 38 years. Employment: Retired. Psychosocial Risk Factors impacting the patient: none Abuse, Neglect, Maltreatment, Trauma: Current: None reported. ENVIRONMENTAL SUPPORTS Current Living Situation: Heidi lives with her , Dwayne. In their home in [place], [place]. Two steps on entry with a railing; bathroom on that level, although, Heidi plans to stay on the upper level(13 steps with a railing) to her bedroom and a fully equipped bathroom. Anticipated modifications to the patient's home environment: None FUNCTIONAL STATUS (ADL's and IADL's) Dressing: independent Feeding: independent Bathing: independent Grooming: independent Toileting: independent Transfer to/from Bed, Chair, Etc.: independent Mobility: requires aide of device Meal Prep: independent Medication Setup/Administration: independent Telephone Use: independent Housekeeping: needs assistance Shopping: needs assistance Managing Finances: independent It is anticipated that the patient will need assistance with meal preparation, housekeeping, shopping and transportation use (drive car, use taxi/bus) ASSISTIVE DEVICES Patient has the following equipment: toilet riser has rails, shower seat also has rails., cane, toilet riser, tub/shower chair/bench and walker - front wheeled Patient anticipates potentially needing the following additional equipment: none Transportation needs: support from family/friends FINANCES/INSURANCE Primary insurance: MEDICARE A AND B Secondary insurance: FOR LIFE Financial concerns: No ADVANCE DIRECTIVES Advance Directive: Patient has advance directive, copy in chart, Patient would not like information OBJECTIVE Suicide Risk and Safety Risk Assessment: Suicidal: No Homicidal: No ASSESSMENT / PLAN IMPRESSION Met with patient to complete early screen for discharge planning, and discuss plans for discharge. Reviewed the role of social work. Upon review of the electronic medical record, as well as thorough assessment with patient there does not appear to be any barriers to discharge. Patient is a pleasant 69year old female from [place], [place]. Patient was alert and oriented. Patient was sitting in bed at the time of assessment. Patient was clean in appearance and looked her stated age. Patient made appropriateeye contact and was oriented to person, place, time, and situation. Patient's memory, attention, perception, cognition, and thought process were all within normal limits. Patient's speech was clear andshe expressed intellectual and emotional insight into her medical needs, mental health needs, and discharge planning needs. Patient was cooperative and engaged with social work. Family intends to provide transport when the patient's is ready to discharge from the hospital. The patient reports agreement with the plan, with no further questions at this time. Encouraged patient/family to seek out social work if any questions/concerns arise. Discussed other community resources for dismissal. Patient/family declined any additional resources at this time. INTERVENTIONS 1.) Completed Psychosocial Assessment. 2.) Provided education on role of Social Work in the hospital setting, offered assistance if any needs arise. 3.) Provided supportive Counseling: Empathetic, Active and Reflective Listening. 4.) Met with Heidi & her -Dwayne, provided a Healthcare Directive document. Encouragedpatient to complete the form, discuss with close family & friends. Also informed patient how to make the form a legal document by signing it in front of a notary or two witnesses, not named in the document. Answered any and all questions related to the Healthcare Directive and discussed submittinga copy to [facility] to have on file as needed. Social Work Services (SWS) contact information, including a phone number, was provided to patient, if any need or questions arise PLAN 1.)Social Work Services will continue to provide supportive listening regarding current hospitalization and discharge needs as they arise. No additional DME or service needs indicated at this time. 2.) Involve family in Heidi's medical plan of care to assure that all her needs are met upon discharge. 3.) Family will transport Heidi home on Tuesday, or whenever determined to be medically stable. No barriers to discharge indicated at this time. Social Work Services (SWS) contact information, including a phone number, was provided to patient, if any need or questions arise. Social Work Service will continue to follow to assist in facilitating a safe, timely & appropriate discharge when medically stable. Jefferson Rubio 09/08/2020 RUMENTAL MUSICIAN RodriguezMorgan M.D. - 09/08/2020 12:35 PM CST SUBJECTIVE Consults REASON FOR CONSULT Ms. Heidi Huerta is a 69 y.o. female who had her right knee replaced by doctor Benito. Hospitalist consulted for medical management HISTORY OF PRESENT ILLNESS Patient has been increasingly bothered by osteoarthritic pain in both knees in the last few years. Three years ago she was walking 5 miles a day. She was still doing some gardening this summer. She says she has walk less than the last month. She has done house work and she was able to walk to the backof a big box store. She has good pain control after the surgery, which was uncomplicated by report. PAST HISTORY MEDICAL See preop consult Dr. Baez August 25 in care everywhere. Osteoarthritis, past heartburn whichis resolved, morbid obesity without known metabolic or respiratory complications. SURGICAL Left rotator cuff surgery, left varicose vein surgery, bilateral tubal ligation MEDICINES None prescription or nonprescription including vitamins and [id number] analgesics. She says she does plan to take calcium and vitamin-D this winter (which I said could be a fine idea during the winter) ALLERGY No known medication allergies SOCIAL [place] [facility]. Two steps into the house and she hopesto go to her bedroom upstairs. 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 Patient never smoke cigarettes. She rarely drinks alcohol perhaps socially about twice a month. FAMILY HISTORY Father of some sort of stomach cancer age 71 Mom suddenly of heart attack or stroke age 93. REVIEW OF SYSTEMS Patient thinks she has gained maybe 30 lb in the last year so, walking less than previous. She has some chronic constipation. Patient has had some insomnia but not snoring or anything that looks like sleep apnea to the (who said he would recognize such as his father had sleep apnea). No other respiratory cardiac GI neurologic endocrine or constitutional symptoms are endorsed OBJECTIVE Admission Weight: 108 kg Current Weight: 106 kg VITAL SIGNS Temperature: [35.9 ??C-36.5 ??C] 36.4 ??C Heart Rate: [67-70] 68 Resp Rate: [16-18] 16 Blood Pressure: (88-133)/(48-70) 98/48 SpO2: [94 %-98 %] 98 % Flow Rate (L/min): [6 L/min] 6 L/min Pulse Rate: [64-72] 64 PHYSICAL EXAM Pleasant woman in the hospital bed in no distress. Postoperative vital signs normal as above, recently sat was recorded as 97% on room air. Head: Wears hearing aids (hears fairly well with them) Lungs: Clear to auscultation anterior, no respiratory distress Cardiac: No murmur, pulses 2+ and regular Abdomen: Obese, soft, nontender Extremities: Bandages on right leg. Both feet warm pink good pulses sensation (she feels me touch her although there is a slight tingling affect left over from spinal anesthesia she says) and movement.Overall neurovascularly intact. Skin: Warm, pink, dry Neurologic: Alert, nonfocal DIAGNOSTICS August 25 an outside records CBC normal with white count 5.7 hemoglobin 15.2 platelets normal. Routine chemistries also normal including potassium 4.1 creatinine 0.9 glucose 100. 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 #1 Right total knee arthroplasty September 08, 2020 #2 Osteoarthritis Doing well so far. Encouraged early mobility. Her history suggests possible physical deconditioning.Enoxaparin in the hospital, then prophylaxis going home per choice of surgeon. Patient plans to replace the contralateral knee in a few months. She is encouraged to put her new needs to good work and resume recreational walking in the future. #3 Morbid obesity Should be helped by being physically more active. She had some heartburn in the past which resolved.No known metabolic or respiratory problems. With no active medical problems hospitalist will sign off. Will follow from afar. Please call us if any medical questions arise. 45 minutes consultation by me today, half of that was counseling the patient and her about the processes of recovery from joint replacement. RUMENTAL MUSICIAN documented in this encounter Nursing Notes Shae Marquis RJuma. - 09/09/2020 3:55 PM CST Problem: PAIN - ADULT Goal: PT VERBALIZES/DEMONSTRATES ADEQUATE COMFORT LEVEL OR BASELINE Outcome: Adequate for Discharge Problem: KNOWLEDGE DEFICIT Goal: Patient/family/caregiver demonstrates understanding of disease process, treatment plan, medications, and discharge instructions Outcome: Adequate for Discharge Problem: INFECTION - ADULT Goal: Absence of infection during hospitalization Outcome: Adequate for Discharge Problem: SKIN/TISSUE INTEGRITY Goal: Skin/Tissue integrity maintained or improved Outcome: Adequate for Discharge Goal: Oral and Nasal mucous membranes remain intact Outcome: Adequate for Discharge Problem: SAFETY ADULT Goal: Maintain a safe environment Outcome: Adequate for Discharge Problem: DISCHARGE PLANNING Goal: Patient discharge needs identified Outcome: Adequate for Discharge Problem: SAFETY ADULT - RISK FOR FALL AND OR FALL INJURY Goal: Patient remains free from fall/fall injury Outcome: Adequate for Discharge Shift Goals: Clinical Goals for the Shift: pt will report adequate pain control this shift Identify possible barriers to meeting goals/advancing plan of care: surgery End of Shift Summary: pt reports adequate pain control with fentanyl patch and prn tramadol and ice.Pt discharged. RUMENTAL MUSICIAN Jimy Mon R.N. - 09/09/2020 5:21 AM CST Problem: PAIN - ADULT Goal: PT VERBALIZES/DEMONSTRATES ADEQUATE COMFORT LEVEL OR BASELINE Outcome: Progressing Problem: KNOWLEDGE DEFICIT Goal: Patient/family/caregiver demonstrates understanding of disease process, treatment plan, medications, and discharge instructions Outcome: Progressing Problem: INFECTION - ADULT Goal: Absence of infection during hospitalization Outcome: Progressing Problem: SKIN/TISSUE INTEGRITY Goal: Skin/Tissue integrity maintained or improved Outcome: Progressing Goal: Oral and Nasal mucous membranes remain intact Outcome: Progressing Problem: SAFETY ADULT Goal: Maintain a safe environment Outcome: Progressing Problem: DISCHARGE PLANNING Goal: Patient discharge needs identified Outcome: Progressing Problem: SAFETY ADULT - RISK FOR FALL AND OR FALL INJURY Goal: Patient remains free from fall/fall injury Outcome: Progressing Shift Goals: Clinical Goals for the Shift: Pt. will report adequate pain control this shift Identify possible barriers to meeting goals/advancing plan of care: none End of Shift Summary: Patient reported adequate pain control with the use of PRN and scheduled pain medications and cold therapy. RUMENTAL MUSICIAN Mindy Scott R.N. - 09/08/2020 6:38 PM CST Problem: PAIN - ADULT Goal: PT VERBALIZES/DEMONSTRATES ADEQUATE COMFORT LEVEL OR BASELINE Outcome: Progressing Problem: KNOWLEDGE DEFICIT Goal: Patient/family/caregiver demonstrates understanding of disease process, treatment plan, medications, and discharge instructions Outcome: Progressing Problem: INFECTION - ADULT Goal: Absence of infection during hospitalization Outcome: Progressing Problem: SKIN/TISSUE INTEGRITY Goal: Skin/Tissue integrity maintained or improved Outcome: Progressing Goal: Oral and Nasal mucous membranes remain intact Outcome: Progressing Problem: SAFETY ADULT Goal: Maintain a safe environment Outcome: Progressing Problem: DISCHARGE PLANNING Goal: Patient discharge needs identified Outcome: Progressing Problem: SAFETY ADULT - RISK FOR FALL AND OR FALL INJURY Goal: Patient remains free from fall/fall injury Outcome: Progressing Shift Goals: Clinical Goals for the Shift: Pt. will report adequate pain control this shift Identify possible barriers to meeting goals/advancing plan of care: Surgery today End of Shift Summary: Pt reports adequate pain control this shift. RUMENTAL MUSICIAN documented in this encounter OR Notes Op Note - Edi Benito M.D. - 09/08/2020 8:48 AM CST FULL OP NOTE Procedure(s) (LRB): ARTHROPLASTY REPLACEMENT TOTAL KNEE (Right) Surgeon(s) and Role: * Edi eBnito M.D. - Primary * Bridgette Francisco APRN, C.N.P., D.N.P. - Information Security Consultant * Earnestine Damon APRN, C.N.P., D.N.P. - Information Security Consultant Anesthesia Type Regional Pre-operative Diagnosis Primary Osteoarthritis Knee Right Post-operative Diagnosis Primary Osteoarthritis Knee Right Full Operative Note Details Post-operative Diagnosis Primary Osteoarthritis Knee Right Full Operative Note Details PROCEDURE(S) Right total knee arthroplasty. SURGEON(S) Edi Benito M.D. I requested my nurse practitioner to assist with total knee arthroplasty. Assistance was medically necessary in order to safely perform the procedure without increased blood loss or morbidity. Assistance was provided through positioning, instrumentation, and retraction of incisions for better visualiza tion of underlying structures and cauterization for hemostasis. Assistance was also provided throughwound closure, instillation of anesthetic, application of sterile dressing, and safe transport from the operative suite. Bridgette Francicso DNP, is the sociology research assistant for this right total knee arthroplasty. PRE-OPERATIVE DIAGNOSIS Right knee degenerative joint disease. POST-OPERATIVE DIAGNOSIS Right knee degenerative joint disease. DESCRIPTION OF PROCEDURE The patient was brought to the operating room, placed on the operating table. Anesthesia was smoothly induced, then placed in supine position. Tourniquet was placed around her right thigh. Right leg was then prepped and draped in sterile fashion. Attention was brought to the anterior aspect of the knee. A longitudinal incision was then made, this was brought down through subcutaneous tissue, down to the extensor mechanism. The extensor mechanism was then cleared off medially and laterally. Standard medial parapatellar arthrotomy was then performed. Medial release then done off the tibia. Patella was then everted. Knee was placed in flexion. ACL was then cut and excised. Drill was then used to gainaccess to distal aspect of the femur. An intramedullary guide was then placed. Distal femoral cut was then performed. Bony pieces then removed. External rotation, incising device then placed in distal aspect of the femur. Anterior, posterior and chamfer cuts were then performed. Bony pieces then removed. PS cutting block was placed on the distal aspect the femur. PS cut was then performed. Bony pieces then removed. The tibia was then subluxed anteriorly. Tibial guide was placed around the ankle, measured off the lateral side. Proximal tibial cut was then performed. Bony pieces then removed. Medial a nd lateral menisci were then excised in their entirety. Posterior aspects were then removed with osteotome and a rongeur. The tibia was then subluxed anteriorly. Tibial guide was placed proximally, pinned in place, drilled and punched. We then trialed a tibial trial, femoral trial and poly, excellent f lexion and extension with excellent balance of the knee. Patella was then everted. Soft tissue around the patella was then removed. Oscillating saw used to cut off approximately 9-10 mm of bone from the undersurface of the patella. The patellar drill guide was then snapped in position, drilled. We then trialed. We had excellent tracking. All of the trial components were then removed. The knee was copiously irrigated and suctioned out. Cement was then 1st placed in the tibia. Tibial components then pounded into position. Remaining cement removed. Cement was then placed on the femur, femoral components then pounded into position with remaining cement removed. The poly was then snapped into position.Cement was then placed on the undersurface of the patella. Patellar component was then snapped into position with the remaining cement removed. The knee was copiously irrigated with antibiotic solution. Extensor mechanism was closed using #1 Vicryl in interrupted [id number] fashion followed by copyright manager ious irrigation, subcutaneous tissue closure of this using 2-0 Vicryl. Skin was then closed using ZipLine device followed by an Aquacel AG dressing and BETITO bandage. The patient was then awakened and transferred to the recovery room in good condition. Needle and sponge counts correct. INDICATION Heidi Huerta is a 69 y.o. female who has been suffering with right knee DJD for a longstanding period of time. Despite conservative measures, she made no significant improvement in her symptoms. Discussed risks, benefits and alternatives to right total knee arthroplasty with her . @ understands, agrees and desires to proceed with surgery. Specimens None Drains [REMOVED] Indwelling Urinary Catheter Non-latex 16 Fr. (Removed) 09/08/20 0830 Placed by: BASSAM Solorzano Placed by External Staff?: Hand Hygiene Performed Prior to Insertion: Yes Sterile technique followed?: Yes Catheter Type: Non-latex Tube Size (Fr.): 16 Fr. Catheter Balloon Size: 10 mL Urine Returned: Yes Removal Reason: Criteria for drain removal met Removed 09/09/20 0621 Site Assessment Clean;Skin intact 09/08/20 1041 Collection Container Standard drainage bag 09/08/20 1110 Traction No 09/08/20 1110 Daily Assessment of Need Perioperative management (<48 hr post-op) 09/08/202004 Output (mL)- Urine 475 mL 09/09/20615 Estimated Blood Loss 150 mL Implants Implant Name Type Inv. Item Serial No. Finger Buffs Assembler Lot No. LRB No. Used Action CMNT BN HI VISC PMMA 40 - [id number] Bone Cement CMNT BN HI VISC PMMA 40 Alli [id number] Right 1 Implanted CMNT BN HI VISC PMMA 40 - [id number] Bone Cement CMNT BN HI VISC PMMA 40 Alli [id number] Right 1 Implanted KN FEM TRT RT CMNT PS SZ-4 - [id number] Knee Implant KN FEM TRT RT CMNT PS SZ-4 Alli [id number] Right 1 Implanted INS TIB TRT PS X3 SZ4 11 - [id number] Knee Implant INS TIB TRT PS X3 SZ4 11 Alli [id number] Right 1 Implanted PAT MKO SYM X3 9X33 - [id number] Knee Implant PAT MKO SYM X3 9X33 Alli [id number] Right 1 Implanted KN STM TRT CMNT 12X50 - [id number] Knee Implant KN STM TRT CMNT 12X50 Alli [id number] Right 1 Implanted BSPLT TIB TRT RT LT SZ4 - [id number] Knee Implant BSPLT TIB TRT RT LT SZ4 Alli [id number] Right 1 Implanted Intra-op Medications Date/Time Order Dose Route Action Action by 09/08/2020 0932 ropivacaine (PF) 200 mg, EPINEPHrine 150 mcg, ketorolac 15 mg in sodium chloride (PF) 0.9 % 60 mL injection (ARTHROPLASTY BLOCK 100+ kg) 60 mL infiltration Given Ramiro Benito 09/08/2020 0824 ceFAZolin in dextrose (iso-osm) IVPB 2 g (ANCEF) 2 g intravenous Given Brandy Bañuelos 09/08/2020 0928 povidone-iodine 0.25% in NaCl 0.9% sterile irrigation solution 1,000 mL irrigation Given Ramiro Benito M.D. RUMENTAL MUSICIAN Brief Op Note - Edi Benito M.D. - 09/08/2020 8:48 AM CST BRIEF OP NOTE Procedure(s) (LRB): ARTHROPLASTY REPLACEMENT TOTAL KNEE (Right) Surgeon(s) and Role: * Edi Benito M.D. - Primary * Bridgette Francisco APRN, C.N.P., D.N.P. - Information Security Consultant * Earnestine Damon APRN, C.N.P., D.N.P. - Information Security Consultant Anesthesia Type Regional Pre-operative Diagnosis Primary Osteoarthritis Knee Right Post-operative Diagnosis Primary Osteoarthritis Knee Right Brief Operative Note Details Specimens None Drains [REMOVED] Indwelling Urinary Catheter Non-latex 16 Fr. (Removed) 09/08/20 0830 Placed by: BASSAM Solorzano Placed by External Staff?: Hand Hygiene Performed Prior to Insertion: Yes Sterile technique followed?: Yes Catheter Type: Non-latex Tube Size (Fr.): 16 Fr. Catheter Balloon Size: 10 mL Urine Returned: Yes Removal Reason: Criteria for drain removal met Removed 09/09/20 0621 Site Assessment Clean;Skin intact 09/08/20 1041 Collection Container Standard drainage bag 09/08/20 1110 Traction No 09/08/20 1110 Daily Assessment of Need Perioperative management (<48 hr post-op) 09/08/202004 Output (mL)- Urine 475 mL 09/09/20 0616 Estimated Blood Loss 150 mL Implants Implant Name Type Inv. Item Serial No. Finger Buffs Assembler Lot No. LRB No. Used Action CMNT BN HI VISC PMMA 40 - [id number] Bone Cement CMNT BN HI VISC PMMA 40 Elizabeth [id number] Right 1 Implanted CMNT BN HI VISC PMMA 40 - [id number] Bone Cement CMNT BN HI VISC PMMA 40 Alli [id number] Right 1 Implanted KN FEM TRT RT CMNT PS SZ-4 - [id number] Knee Implant KN FEM TRT RT CMNT PS SZ-4 Alli [id number] Right 1 Implanted INS TIB TRT PS X3 SZ4 11 - [id number] Knee Implant INS TIB TRT PS X3 SZ4 11 Alli [id number] Right 1 Implanted PAT MKO SYM X3 9X33 - [id number] Knee Implant PAT MKO SYM X3 9X33 Elizabeth [id number] Right 1 Implanted KN STM TRT CMNT 12X50 - [id number] Knee Implant KN STM TRT CMNT 12X50 Alli [id number] Right 1 Implanted BSPLT TIB TRT RT LT SZ4 - [id number] Knee Implant BSPLT TIB TRT RT LT SZ4 Alli [id number] Right 1 Implanted Edi Benito M.D. RUMENTAL MUSICIAN documented in this encounter Plan of Treatment Scheduled Referrals Name Type Priority Associated Order Schedule Diagnoses Orthopedic Surgery Outpatient Referral Routine Ex pected: Post Op (clinic) 09/23/2020 (Approximate), Expires: 09/09/2023 documented as of this encounter Procedures Procedure Name Priority Date/Time Associated Diagnosis Comme nts HEMOGLOBIN, B Routine 09/09/2020 5:56 Results for this AM INSTRUMENTAL MUSICIAN procedure are i n the results section. PULSE OXIMETRY, Routine 09/08/2020 11:28 CONTINUOUS AM INSTRUMENTAL MUSICIAN ADULT OXYGEN THERAPY Routine 09/08/2020 10:20 AM INSTRUMENTAL MUSICIAN ARTHROPLASTY 09/08/2020 8:09 Primary Osteoarthritis REPLACEMENT TOTAL AM INSTRUMENTAL MUSICIAN Knee Right KNEE documented in this encounter Results (ABNORMAL) Hemoglobin (09/09/2020 5:56 AM INSTRUMENTAL MUSICIAN) P athologist Signature Hemoglobin 11.4 (L) 11.6 - 15.0 09/09/2020 [facility] g/dL 6:18 AM INSTRUMENTAL MUSICIAN Specimen Anatomical Collection Method Collection Time Receive d Time (Source) Location / / Volume Laterality Blood (Blood, 09/09/2020 5:56 AM 09/09/20 6:15 Venous) INSTRUMENTAL MUSICIAN AM INSTRUMENTAL MUSICIAN Earnestine Damon APRN, C.N.P., D.N.P. LAB BLOOD ADD-ON Performing Organization Address City/State/ZIP Code Phon e Number [facility]- [address] [place], [place] [address] [address] [facility] [place] [address] System in [place] [address] documented in this encounter Visit Diagnoses Diagnosis Primary Osteoarthritis Knee Right - Prim manuel Osteoarthritis Arthroplasty Total Knee Replacement Stat us Post Right Morbid Obesity Body Mass Index 40.0-44.9 Adult (HCC) Primary Osteoarthritis Knee Right documented in this encounter Admitting Diagnoses Diagnosis Primary Osteoarthritis Knee Right documented in this encounter Administered Medications Inactive Administered Medications - up to 3 most recent administrations Medication Order MAR Action Action Date Dose Rate Site acetaminophen tablet 1,000 mg Given 09/09/2020 1:29 PM INSTRUMENTAL MUSICIAN 1,000 mg (TYLENOL) 1,000 mg, oral, Every 6 hours, First dose on Tue09/08/20 at 1300 Given 09/09/2020 6:07 AM INSTRUMENTAL MUSICIAN 1,000 mg Given 09/09/2020 12:31 AM INSTRUMENTAL MUSICIAN 1,000 mg calcium carbonate chewable tablet Given 09/09/2020 12: 28 AM INSTRUMENTAL MUSICIAN 200 mg of calcium 200 mg of calcium (TUMS) 200 mg of calcium, oral, 3 times daily PRN, heartburn, indigestion, Starting on Tue09/08/20 at 1304, Doses listed are in mg of elemental calcium. Take with food. 500 mg calcium carbonate contains 200 mg of elemental calcium. enoxaparin injection 30 mg Given 09/09/2020 8:46 AM INSTRUMENTAL MUSICIAN 30 mg Left Lower Abdomen (LOVENOX) 30 mg, subcutaneous, 2 times daily, First dose on Tue09/09/20 at 0900, Start POD #1 in am fentaNYL 12 mcg/hr 1 patch Medication Applied 09/08/2020 1:10 PM 1 pa tch Left Arm (DURAGESIC) INSTRUMENTAL MUSICIAN 1 patch, transdermal, Administer over 72 Hours, Every 72 hours, First dose on Tue09/08/20 at 1130 lactated ringers Rate/Dose Verify 09/09/2020 6:43 AM INSTRUMENTAL MUSICIAN 50 mL/hr 50 mL/hr 50 mL/hr, intravenous, Continuous, Starting on Tue09/08/20 at 1130 New Bag 09/09/2020 12:18 AM INSTRUMENTAL MUSICIAN 50 mL/hr 50 mL/hr Continued from OR 09/08/2020 11:37 AM INSTRUMENTAL MUSICIAN 50 mL/hr 50 mL/hr povidone-iodine 0.25% in NaCl 0.9% sterile Given 09/08 9:28 AM INSTRUMENTAL MUSICIAN 1,000 mL irrigation solution As needed, Starting on Tue09/08/20 at 0928, Intra-Op ropivacaine (PF) 200 mg, EPINEPHrine 150 mcg, Given 9:32 AM INSTRUMENTAL MUSICIAN 60 mL ketorolac 15 mg in sodium chloride (PF) 0.9 % 60 mL injection (ARTHROPLASTY BLOCK 100+ kg) 60 mL, infiltration, Once in surgery, OR use only, Starting on Tue09/08/20 at 0636, For 1 dose, Intra-Op, *Not for IV use* sennosides-docusate sodium 8.6-50 mg per Given 09/09/2020 8:46 A M INSTRUMENTAL MUSICIAN 1 tablet tablet 1 tablet (SENOKOT-S) 1 tablet, oral, 2 times daily, First dose on Tue09/08/20 at 2100, Do not give if patient has diarrhea. Given 09/08/2020 8:05 PM INSTRUMENTAL MUSICIAN 1 tablet traMADoL tablet 100 mg (ULTRAM) Given 09/09/2020 8:46 AM INSTRUMENTAL MUSICIAN 100 mg 100 mg, oral, Every 6 hours PRN, moderate pain or score 4-6 of 10, severe pain or score 7-10 of 10, Starting on Tue09/08/20 at 1128, First line therapy or for pain greater than comfort goal (not to exceed 400 mg in 24 hours)., Drug Monitoring Program: Pharmacist to adjust medication dosing based on indication and drug clearance factors. traMADoL tablet 50 mg (ULTRAM) 50 mg, oral, Every 6 hours PRN, mild pain or score 1-3 of 10, Starting on Tue09/08/20 at 1128, First line therapy, Jaylen g Monitoring Program: Pharmacist to adjust medication dosing based on indication and drug clearan ce factors. documented in this encounter Active and Recently Administered Medications Times are shown in INSTRUMENTAL MUSICIAN. Scheduled Medication Order 09/07/2020 09/08/2020 09/09/2020 acetaminophen tablet 1,000 mg (TYLENOL) (COMPLETED) 0707 (Given - Provider: Becki Espinoza R.N.) 1,000 mg, oral, Once, On Tue09/08/20 at 0645, For 1 dose, Pre-Op acetaminophen tablet 1,000 mg (TYLENOL) 1310 (Given - Provider: Mindy Scott R.N.)1857 (Given - Provider: Mindy Scott R.N.) 0031 (Given - Provider: Jimy Mon R.N.)0607 (Given - Provider: Jimy Mon R.N.)1329 (Given - Provider: Shae Marquis R.N.) 1,000 mg, oral, Every 6 hours, First dose on Tue09/08/20 at 1300 ceFAZolin in dextrose (iso-osm) IVPB 2 g (ANCEF) (COMPLETED) 823 (Given - Provider: Ingrid Bañuelos R.N.) 2 g (rounded from 2.7 g = 25 mg/kg ? 108 kg), intravenous, at 100 mL/hr, Administer over 30 Minutes, Once, On Tue09/08/20 at 0645, For 1 dose, Intra-Op, Preoperatively within 1 hour prior to surgical i ncision premix bag, Drug Monitoring Prog anabelle: Pharmacist to adjust medication dosing based on indication and drug clearance factors., Indications: Prophylaxis, surgical ceFAZolin in dextrose (iso-osm) IVPB 2 g (ANCEF) (COMPLETED) 1309 (New Bag - Provider: Mindy Scott R.N.)2004 (New Bag - Provider: Jimy Mon R.N.) 2 g, intravenous, at 100 mL/hr, Administ er over 30 Minutes, Every 8 hours, First dose on Tue09/08/20 at 1300, For 2 doses, Start within 8 hours of last IV dose. premix bag, Drug Monitoring Program: Phahoney macist to adjust medication dosing based on indication and drug clearance factors., Indications: Prophylaxis, surgical celecoxib capsule 200 mg (CeleBREX) (COMPLETED) 706 (Given - Provider: Becki Espinoza RThomasNThomas) 200 mg, oral, Once, On Tue09/08/20 at 0645, For 1 dose, Pre-Op enoxaparin injection 30 mg (LOVENOX) 0846 (Given - Provider: Shae Marquis RThomasNThomas) 30 mg, subcutaneous, 2 times daily, Firs t dose on Tue09/09/20 at 0900, Start POD #1 in am fentaNYL 12 mcg/hr 1 patch (DURAGESIC) 1 310 (Medication Applied - Provider: Mindy Scott R.N.) 1510 (Due: Medication Removed - Provider : Discharge Provider, Automatic - Comment: Time automatically adjusted from order being discontinued) 1 patch, transdermal, Administer over 72 Hours, Every 72 hours, First dose on Tue09/08/20 at 1130 ketorolac injection 15 mg (TORADOL) (COMPLETED) 1311 (Given - Provider: Mindy Scott R.N.)1857 (Given - Provider: Mindy Scott R.N.) 0031 (Given - Provider: Mati WashingtonN.)0608 (Given - Provider: Jimy Mon R.N.) 15 mg, intravenous, Every 6 hours, First dose on Tue09/08/20 at 1300, For 4 doses, Adult IV push rate: Over 15 seconds. Peds IV push rate: Over 1 minute. 60 mg dose only for IM, not recommended for IV., Drug Monitoring Program: Pharmacist to adjust medication dosing based on indication and drug clearance factors. scopolamine base 1 mg over 3 days 1 patch (TRANSDERM SCOP) ( CANCELED) 0739 (Medication Applied - Provider: Becki Espinoza R.N.)1042 (Due: Medication Removed - Provider: Vira Deluca RThomasN. - Comment: Time automatically adjusted from order being discontinued) 1 patch, transdermal, Administer over 72 Hours, Every 72 hours, First dose on Tue09/08/20 at 0745, Pre-Op, Contains 1.5 mg to deliver 1 mg/72 hours. sennosides-docusate sodium 8.6-50 mg per tablet 1 tablet (SE NOKOT-S) 2004 (Given - Provider: Jimy Mon RThomasN.) 0846 (Given - Provider: Shae Marquis RThomasNThomas) 1 tablet, oral, 2 times daily, First dos e on Tue09/08/20 at 2100, Do not give if patient has diarrhea. tranexamic acid 1 g in NaCl 0.9% IVPB (COMPLETED) 0839 (New Bag - Provider: Ingrid Bañuelos RThomasNThomas) 1 g, intravenous, at 150 mL/hr, Administ er over 20 Minutes, Once, On Tue09/08/20 at 0645, For 1 dose, Pre-Op, Administer in OR upon induction Mini-Bag Plus bag, Drug Monitoring Program: Pharmacist to ad just medication dosing based on indication and drug clearance fa ctors. tranexamic acid 1 g in NaCl 0.9% IVPB (COMPLETED) 0940 (New Bag - Provider: Ingrid Bañuelos RIrasema) 1 g, intravenous, at 150 mL/hr, Administ er over 20 Minutes, Once, On Tue09/08/20 at 0645, For 1 dose, Pre-Op, Administer in OR during closure Mini-Bag Plus bag, Drug Monitoring Program: Pharmacist to ad just medication dosing based on indication and drug clearance fa ctors. Continuous Medication Order 09/07/2020 09/08/2020 09/09/2020 lactated ringers (CANCELED) 0730 (New Ba g - Provider: Becki Espinoza R.N.)0755 (Rate/Dose Verify - Provider: Earnestine Paulino APRN, EDGE WORKER)0925 (New Bag - Provider: Ingrid Bañuelos RThomasNThomas)0957 (Anesthesia Volume Adjustment - Provider: Ingrid Bañuelos RThomasNThomas) 20 mL/hr, intravenous, Continuous, Starting on Tue09/08/20 at 06 45, Pre-Op lactated ringers 1136 (Not Given - Pr ovider: Mindy Scott RThomasNThomas - Reason: Other - Comment: Duplicate see DEC 1136)1137 (Continued from OR - Provider: Jimy Mon RThomasNThomas) 0018 (New Bag - Provider: Jimy correia R.NThomas)0643 (Rate/Dose Verify - Provider: Jimy Mon RThomasNThomas) 50 mL/hr, intravenous, Continuous, Starting on Tue09/08/20 at 11 30 PRN Medication Order 09/07/2020 09/08/2020 09/09/2020 bisacodyL suppository 10 mg (DULCOLAX) 10 mg, rectal, Daily PRN, constipation, Starting Tue09/08/20 at 1128, Ordered sequence of administration: polyethylene glycol, then bisacodyl until BM achieved. calcium carbonate chewable tablet 200 mg of calcium (TUMS) 0028 (Given - Provider: Jimy Mon R.N.) 200 mg of calcium, oral, 3 times daily P RN, heartburn, indigestion, Starting on Tue09/08/20 at 1304, Doses listed are in mg of elemental calcium. Take with food. 500 mg calcium carbonate contains 200 mg of elemental calcium. dexAMETHasone injection 4 mg (DECADRON) 4 mg, intravenous, Once as needed, nause a, vomiting, Starting Tue09/08/20 at 1128, For 1 dose, Give only if NOT given during the pre or intraoperative period. If ondansetron ordered, give dexamethasone with first dose of ondansetron. haloperidol lactate injection 1 mg (HALDOL) 1 mg, intravenous, Every 6 hours PRN, na usea, vomiting, Starting Tue09/08/20 at 1128, For 48 hours, Total of 3 doses in 24 hour period. RASS must be -2 or higher to administer. Reassess for nausea or vo miting after at least 10 minutes. If renata sea or vomiting persists administer next ordered antiemetic medications (order for antiemetic medication administration ondansetron then haloperidol then promethazine) HYDROmorphone injection 0.5 mg (DILAUDID) 0.5 mg, intravenous, Every 2 hour PRN, s evere pain or score 7-10 of 10, Starting Tue09/08/20 at 1128, For 2 doses, May administer if pain is greater than 7 after scheduled and PRN regimen exhausted. If pain remains greater than 7, notify primary service. naloxone injection 0.2 mg (NARCAN) 0.2 mg, intravenous, As needed, respirat ory depression, Starting Tue09/08/20 at 1128, For RASS Score -4 or less, respiratory rate of less than 8 breaths/min. Notify provider/service and rapid response team (if available at institution). ondansetron (PF) injection 4 mg (ZOFRAN) 4 mg, intravenous, Every 6 hours PRN, na usea, vomiting, Starting Tue09/08/20 at 1128, For 48 hours, Reassess for nausea or vomiting after at least 10 minutes. If nausea or vomiting persists administer n ext ordered antiemetic medications (orde r for antiemetic medication administration ondansetron then droperidol then promethazine). ondansetron ODT disintegrating tablet 4 mg (ZOFRAN-ODT) 4 mg, oral, Every 8 hours PRN, nausea, v omiting, Starting Tue09/08/20 at 1128, When splitting ODT at bedside, handle with gloves and a pill splitter to prevent moisture contact. polyethylene glycol powder packet 1 packet (MIRALAX) 1 packet, oral, Daily PRN, constipation, Starting Tue09/08/20 at 1128, Ordered sequence of administration: polyethylene glycol, then bisacodyl until BM achieved. Avoid mixing with starch-based thickened liquids. povidone-iodine 0.25% in NaCl 0.9% sterile irrigation soluti on (CANCELED) 927 (Given - Provider: Edi Benito M.D.) As needed, Starting on Tue09/08/20 at 0928, Intra-Op promethazine injection 6.25 mg (PHENERGAN) 6.25 mg, intravenous, Every 6 hours PRN, nausea, vomiting, Starting Tue09/08/20 at 1128, For 48 hours, RASS must be -2 or higher to administer. Reassess for nausea/vomiting after at least 10 minutes. If nausea or vomiting persists administer next ordered antiemetic medications (order for antiemetic medication administration ondansetron then droperidol then promethazine). ropivacaine (PF) 200 mg, EPINEPHrine 150 mcg, ketorolac 15 mg in sodium chloride (PF) 0.9 % 60 mL injection (ARTHROPLASTY BLOCK 100+ kg) (COMPLETED) 0932 (Given - Provider: Edi Benito M.D.) 60 mL, infiltration, Once in surgery, OR use only, Starting on Tue09/08/20 at 0636, For 1 dose, Intra-Op, *Not for IV use* traMADoL tablet 100 mg (ULTRAM)(Linked Group 1) 0818 (Given - Provider: Shae Marquis R.N.) 100 mg, oral, Every 6 hours PRN, moderat e pain or score 4-6 of 10, severe pain or score 7-10 of 10, Starting on Tue09/08/20 at 1128, First line therapy or for pain greater than comfort goal (not to exce ed 400 mg in 24 hours)., Drug Monitoring Program: Pharmacist to adjust medication dosing based on indication and drug clearance factors. traMADoL tablet 50 mg (ULTRAM)(Linked Group 1) 0846 (See Alternative - Provider: Shae Marquis R.N.) 50 mg, oral, Every 6 hours PRN, mild dunia n or score 1-3 of 10, Starting on Tue09/08/20 at 1128, First line therapy, Drug Monitoring Program: Pharmacist to adjust medication dosing based on indication and drug clearance factors. Linked Groups Order Group 1: traMADoL tablet 50 mg (ULTRAM)Jump to med 50 mg, oral, Every 6 hours PRN, mild dunia n or score 1-3 of 10, Starting on Tue09/08/20 at 1128
First line therapy
Drug Monitoring Program: Pharmacist to adjust medication dosing based on indication and drug clearance factors. Or traMADoL tablet 100 mg (ULTRAM)Jump to med 100 mg, oral, Every 6 hours PRN, moderat e pain or score 4-6 of 10, severe pain or score 7-10 of 10, Starting on Tue09/08/20 at 1128
First line therapy or for pain greater than comfort goal (not to exceed 400 mg in 24 hours).
Drug Monitoring Program: Pharmacist to adjust medication dosing based on indication and drug clearance factors. documented in this encounter Care Teams Increment Manager Relationship Specialty Start Date End Date No Contact, Pcp PCP - General Family Medicine 09/05/20 documented as of this encounter
--- OUTSIDE RECORDS SUMMARY | 2022-08-12 08:50 | XMS_ITS | Encounter Summary ---
:1950 Author Organization [facility] Address [address] [place] [address] Care Team Providers Name Role Phone Unavailable Primary Care Provider Unavailable Encounter Details Date Type Department Care Team Description 10/28/2017 Clinical Support Department of Edi Benito M.D. [address] [place] [phone] Pain Shoulder Left Rehabilitation Services Dave Servin P.T. [address] [place] [address] [phone] [address] [phone] Social History Tobacco Use Types Packs/Day Years Used Date Smoking Tobacco: Never Sex Assigned at Date Recorded Not on file documented as of this encounter Progress Notes Dave Servin PThomasT. - 10/28/2017 6:30 AM CST Physical Therapy Outpatient Treatment Note Referring Provider: Edi Benito M.D. Medical Diagnosis: 1. Pain Shoulder Left - PT Ongoing treatment Payor: Payor: MEDICARE / Plan: MEDICARE A AND B / Product Type: Medicare / Payor considerations: Visit Counts: 5 Principal Problem: Patient Active Problem List Diagnosis ??? Pain Shoulder Left ??? Rotator Cuff Repair Shoulder Status Post SUBJECTIVE Rosie comes into therapy today with similar issues overall secondary to rotator cuff repair. She continues to do her exercises at home which consist of cane exercises, towel exercises, as well as wallwalking. She feels better today than she has in the past. She did not take her ibuprofen today. Pain Assessment Pain Score: 3 OBJECTIVE Today we treated with hot packs for approximately 15 minutes followed by manual techniques consisting of passive range of motion of the shoulder. We worked on both shoulder flexion/abduction/external rotation as well as internal rotation behind her back. With progressive stretching we are able to obtain shoulder flexion to approximately 100 and 35?? in supine. However, in short sitting, we are able to only obtain approximately 110??. There is tightness in the scapular complex. External rotation is to approximately 20 degrees. Internal rotation is behind her back to approximately the PSIS region. She continues to work aggressively this with this. However, she does have some weakness in her left hand. This has been weak since surgery. At this point, we recommended that she weaned from the sling as much as she can now. We also recommended that she use her left hand as much as she can keeping her arm to the side most of the time. She still has a weight restriction of no more than 1 lb. She really should be moving away from her body excessively. As mentioned, she is now 6 weeks postop. Total time today was 30 minutes of manual therapy. Measures - Tools Measures - Tools Treatment Provided Today: 30 minutes manual therapy. Home Exercise Program: Patient has her home exercises at this time. This includes wall walking as well as sliding her arm on her table trying to increase flexion. She has the Wand exercises as well as pulleys. She also has towel exercises to do for internal rotation. ASSESSMENT I mobility is slowly progressing. She does have some capsular tightness. Therapy Goals PLAN We will continue next week. Patient agrees with the plan of care and goals. Dave Servin P.T. 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
--- OUTSIDE RECORDS SUMMARY | 2022-08-12 08:50 | XMS_ITS | Encounter Summary ---
:1950 Author Organization [facility] Address [address] [place] [address] Care Team Providers Name Role Phone Unavailable Primary Care Provider Unavailable Encounter Details Date Type Department Care Team Description 10/13/2017 Abstract Department of Family Medicine, Provider, [facility], in [place], [place] [address] [place] [phone] Social History Tobacco Use Types Packs/Day Years Used Date Smoking Tobacco: Never Sex Assigned at Date Recorded Not on file documented as of this encounter Plan of Treatment Not on filedocumented as of this encounter Visit Diagnoses Not on filedocumented in this encounter
--- OUTSIDE RECORDS SUMMARY | 2022-08-12 08:50 | XMS_ITS | Encounter Summary ---
:1950 Author Organization [facility] Address [address] [place] [address] Care Team Providers Name Role Phone No Contact, Pcp Primary Care Provider Unavailable Reason for Referral Outpatient (Routine) - Closed Specialty Diagnoses / Procedures Referred By Contact Refer red To Contact Orthopedic Surgery Earnestine Damon, ISABELLA, [facility] C.N.P., D.N.P. [address] [facility] [place] [address] Referral ID Status Reason Start Date Expiration Date Visits Requ ested Visits Authorized [id number] Closed 09/09/2020 09/09/2021 1 1 Scheduling Instructions Ordered images/tests are associated with this appointment. ISH LITERATURE PROFESSOR Reason for Visit Auth/Cert Specialty Diagnoses / Procedures Referred By Contact Refer red To Contact Diagnoses Primary Osteoarthritis Knee Right Osteoarthritis Primary Osteoarthritis Knee Right [M17.11] Procedures ARTHROPLASTY REPLACEMENT TOTAL KNEE Referral ID Status Reason Start Date Expiration Date Visits Requ ested Visits Authorized [id number] 1 1 Encounter Details Date Type Department Care Team Description 09/08/2020 - Hospital [facility] Edi Benito Osteoarthrit is (Primary Dx); 09/[facility] K[facility] Replacement Stat [facility], [address] [place] [address] Third Floor [place] [address] [place] [address] [place] [phone] (Work) [phone] Social History Tobacco Use Types Packs/Day Years Used Date Smoking Tobacco: Never Smokeless Tobacco: Never Alcohol Use Standard Drinks/Week Comments Not Currently 0 (1 standard drink = 0.6 oz pure alcoho l) Sex Assigned at Date Recorded Not on file documented as of this encounter Last Filed Vital Signs Vital Sign Reading Time Taken Comments Blood Pressure 110/55 09/09/2020 2:10 PM SPANISH LITERATURE PROFESSOR Pulse 64 09/09/2020 2:10 PM SPANISH LITERATURE PROFESSOR Temperature 36.9 ??C (98.4 ??F) 09/09/2020 2:10 PM SPANISH LITERATURE PROFESSOR Respiratory Rate 18 09/09/2020 2:10 PM SPANISH LITERATURE PROFESSOR Oxygen Saturation 98% 09/09/2020 2:10 PM SPANISH LITERATURE PROFESSOR ra Inhaled Oxygen Concentration - - Weight 111 kg (244 lb 7.8 oz) 09/09/2020 6:16 AM SPANISH LITERATURE PROFESSOR Height 162.6 cm (5' 4) 09/08/2020 11:28 AM SPANISH LITERATURE PROFESSOR Body Mass Index 41.97 09/08/2020 11:28 AM SPANISH LITERATURE PROFESSOR documented in this encounter Medications at Time [...] yes Additional Staff Present During Session: Maddi eJffrey PT wearing the same PPE Assessment Discharge [...] discussed with supervising PT Maddi Jeffrey RN, [facility] The treatment plan and discharge recommendations may [...] Treatment Time (min): 23 min Mady Chaudhry [facility], Third Floor [address] [facility] [address] Dept: [phone] Physical Therapy Dismissal Snapshot Patient was seen 3 visit(s) for post-op R TKA Inpatient goals: met Please see last progress note for status. Patient to dismiss to home with outpatient therapy set up in [place] to address remaining impairments of range of motion, strength, and pain and mobility deficits of transfers and gait ISH LITERATURE PROFESSOR Associated attestation - Maddi Jefrfey PGrace. - 09/09/2020 3:53 PM SPANISH LITERATURE PROFESSOR This therapist has reviewed all documentation and [...] 2/10 Highest pain score last 24 hours: 12/10 Patient Care Plan:continue current management per plan/IPS protocol ISH LITERATURE PROFESSOR Maddi Jeffrey P.T. - 09/09/2020 10:11 AM [...] Time (min): 27 min Maddi Jeffrey P.T. [facility], Third Floor [address] [facility] [address] Dept: [phone] ISH LITERATURE PROFESSOR documented in this encounter H&P Notes Edi [...] precede with surgical treatment. Edi Benito M.D. ISH LITERATURE PROFESSOR Source Note - Rufino, Default Authenticator - 09/03/2020 6:59 AM SPANISH LITERATURE PROFESSOR documented in this encounter Consult Notes Yolande Lockwood, OBianca - 09/09/2020 4:11 PM CST Consults Occupational [...] TOTAL KNEE; Surgeon: Edi Benito M.D.; Location: [facility] OR History of Present Illness: Patient has longstanding right knee pain, currently underwent a right TKA Occupational Profile: Level of Wilkes: Independent with ADLs and functional transfers, Independent [...] post op) Home Equipment Home Adaptive Equipment: Director Of Business Applications, Long-handled shoe horn Gait Devices Owned: Front-wheeled [...] Huerta had a standardized score of 44.27. [facility]'s 3-year data, as reported at [facility] 2017, indicates a cut off of 39.4 or greater in daily activity is a fair to good accurate prediction of discharge home. Source: AM-PAC ???6 -Clicks?? functional assessment scores predict acute care hospital discharge destination. Chief Science Officer. 2014 Jul; 94 (9): 1252-61. AM-PAC Activity: How much help from another [...] LE through first - completed standing at W Toileting Where Assessed: Toilet Toileting Delivery: Instructed, [...] 69 y.o. year old direct admit to [facility] [place] [facility] following a right TKA on 09/08/2020. [...] while seated; rather, promote extension ??? Use canvas baster as needed to complete tasks and/or pick things up from the floor ??? Obtain sock aid, toilet safety frame, and other DME/AE as needed to complete daily tasks Bathroom Safety Sheet [id number] provided as patient education with recommendations written [...] Time (min): 39 min Kaylyn Lockwood O.T. [facility], Third Floor [address] [facility] [address] Dept: [phone] ISH LITERATURE PROFESSOR Maddi Jeffrey P.T. - 09/08/2020 3:32 PM [...] Prior Function / Occupational Profile Level of Wilkes: Independent with ADLs and functional transfers, Independent [...] home with spouse, outpatient physical therapy in [place] with familiar therapistPreet Patient Comments: She is [...] of falling?: No OBJECTIVE Measures - Tools [facility] Basic Mobility (V.2) How much help from [...] 3-5 steps with a railing?: A Lot [facility] Basic Mobility (V.2) Raw Score: 18 -[facility] WITH [facility] Basic Mobility (V.2) Standardized Score: 41.05 [...] min Total Treatment Time (min): 23 min Maddi Jeffrey P.T. [facility], Third Floor [address] [facility] [address] Dept: [phone] ISH LITERATURE PROFESSOR Manuela Hyde L.S.W. - 09/08/2020 1:00 PM [...] Household: is her primary support; Three children; Daughter- Everardo lives in [place] & has been helping prior to surgery at home. Son- Carlos lives in [place], [place] and comes home on weekends. Daughter-Belem lives in [place], [place]. Spirituality / Latter-Day / Culture: Baptized Adventist, although, Heidi identifies recently with the Alevism samaritan. History: none; Heidi's Dwayne was in the [employer] for 38 years. Employment: Retired. Psychosocial Risk Factors impacting the patient: none Abuse, Neglect, Maltreatment, Trauma: Current: None reported. ENVIRONMENTAL SUPPORTS Current Living Situation: Heidi lives with her , Dwayne. In their home in [place], [place]. Two steps on entry with a [...] is a pleasant 69year old female from [place], [place]. Patient was alert and oriented. Patient [...] Healthcare Directive and discussed submittinga copy to [facility] to have on file as needed. Social Work Services ([facility]) contact information, including a phone number, was [...] indicated at this time. Social Work Services ([facility]) contact information, including a phone number, was provided to patient, if any need or questions arise. Social Work Service will continue to follow to assist in facilitating a safe, timely & appropriate discharge when medically stable. Jefferson Rubio 09/08/2020 ISH LITERATURE PROFESSOR Morgan Rodriguez M.D. - 09/08/2020 12:35 PM CST SUBJECTIVE [...] None prescription or nonprescription including vitamins and kfva-kcr-yvtvoqz analgesics. She says she does plan to take calcium and vitamin-D this winter (which I said could be a fine idea during the winter) ALLERGY No known medication allergies SOCIAL [place] near [facility]. Two steps into the house and she hopesto go to her bedroom upstairs. 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 Patient never smoke cigarettes. 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 ISH LITERATURE PROFESSOR documented in this encounter Nursing Notes Shae Marquis R.N. - 09/09/2020 3:55 PM CST Problem: PAIN [...] patch and prn tramadol and ice.Pt discharged. Jimy Vasques R.N. - 09/09/2020 5:21 AM CST Problem: [...] and scheduled pain medications and cold therapy. Mindy Meier R.N. - 09/08/2020 6:38 PM CST Problem: [...] Pt reports adequate pain control this shift. ISH LITERATURE PROFESSOR documented in this encounter OR Notes Op Note - Edi Benito M.D. - 09/08/2020 8:48 AM CST FULL OP NOTE Procedure(s) (LRB): ARTHROPLASTY REPLACEMENT TOTAL KNEE (Right) Surgeon(s) and Role: * Edi Benito M.D. - Primary * Bridgette Francisco APRN, C.N.P., D.N.P. - Detail Drafter * Earnestine Damon APRN, C.N.P., D.N.P. - Detail Drafter Anesthesia Type Regional Pre-operative Diagnosis Primary Osteoarthritis [...] safe transport from the operative suite. Bridgette Francisco DNP, is the welder first class for this right total knee arthroplasty. PRE-OPERATIVE [...] was closed using #1 Vicryl in interrupted nmbybv-rf-vcprv fashion followed by ems helicopter pilot ious irrigation, subcutaneous tissue closure of this [...] Implant Name Type Inv. Item Serial No. Insurance Actuary Lot No. LRB No. Used Action CMNT BN HI VISC PMMA 40 - [id number] Bone Cement CMNT BN HI VISC PMMA 40 [place] [id number] Right 1 Implanted CMNT BN HI VISC PMMA 40 - [id number] Bone Cement CMNT BN HI VISC PMMA 40 [place] [id number] Right 1 Implanted KN FEM TRT RT CMNT PS SZ-4 - [id number] Knee Implant KN FEM TRT RT CMNT PS SZ-4 [place] [id number] Right 1 Implanted INS TIB TRT PS X3 SZ4 11 - [id number] Knee Implant INS TIB TRT PS X3 SZ4 11 Alli [id number] Right 1 Implanted PAT MKO SYM X3 9X33 - [id number] Knee Implant PAT MKO SYM X3 9X33 [place] [id number] Right 1 Implanted KN STM TRT CMNT 12X50 - [id number] Knee Implant KN STM TRT CMNT 12X50 [place] [id number] Right 1 Implanted BSPLT TIB TRT RT LT SZ4 - [id number] Knee Implant BSPLT TIB TRT RT LT SZ4 [place] [id number] Right 1 Implanted Intra-op Medications Date/Time Order Dose Route Action Action by 09/08/2020 0932 ropivacaine (PF) 200 mg, EPINEPHrine 150 mcg, ketorolac 15 mg in sodium chloride (PF) 0.9 % 60 mL injection (ARTHROPLASTY BLOCK 100+ kg) 60 mL infiltration Given Ramiro Benito 09/08/2020 0824 ceFAZolin in dextrose (iso-osm) IVPB 2 g (ANCEF) 2 g intravenous Given Brandy Bañuelos 09/08/2020 09 povidone-iodine 0.25% in NaCl 0.9% sterile irrigation solution 1,000 mL irrigation Given Ramiro Benito M.D. ISH LITERATURE PROFESSOR Brief Op Note - Edi Benito M.D. - 09/08/2020 8:48 AM CST BRIEF OP NOTE Procedure(s) (LRB): ARTHROPLASTY REPLACEMENT TOTAL KNEE (Right) Surgeon(s) and Role: * Edi Benito M.D. - Primary * Bridgette Francisco APRN, C.N.P., D.N.P. - Detail Drafter * Earnestine Damon APRN, C.N.P., D.N.P. - Detail Drafter Anesthesia Type Regional Pre-operative Diagnosis Primary Osteoarthritis [...] Implant Name Type Inv. Item Serial No. Insurance Actuary Lot No. LRB No. Used Action CMNT BN HI VISC PMMA 40 - [id number] Bone Cement CMNT BN HI VISC PMMA 40 Alli [id number] Right 1 Implanted CMNT BN HI VISC PMMA 40 - [id number] Bone Cement CMNT BN HI VISC PMMA 40 Alli [id number] Right 1 Implanted KN FEM TRT RT CMNT PS SZ-4 - [id number] Knee Implant KN FEM TRT RT CMNT PS SZ-4 Alli [id number] Right 1 Implanted INS TIB TRT PS X3 SZ4 11 - [id number] Knee Implant INS TIB TRT PS X3 SZ4 11 [place] [id number] Right 1 Implanted PAT MKO SYM X3 9X33 - [id number] Knee Implant PAT MKO SYM X3 9X33 [place] [id number] Right 1 Implanted KN STM TRT CMNT 12X50 - [id number] Knee Implant KN STM TRT CMNT 12X50 [place] [id number] Right 1 Implanted BSPLT TIB TRT RT LT SZ4 - [id number] Knee Implant BSPLT TIB TRT RT LT SZ4 Alli [id number] Right 1 Implanted Edi Benito M.D. ISH LITERATURE PROFESSOR documented in this encounter Plan of Treatment Scheduled Referrals Name Type Priority Associated Order Schedule Diagnoses Orthopedic Surgery Outpatient Referral Routine Ex pected: Post Op (clinic) 09/23/2020 (Approximate), Expires: 09/09/2023 documented as of this encounter Procedures Procedure Name Priority Date/Time Associated Diagnosis Comme nts HEMOGLOBIN, B Routine 09/09/2020 5:56 Results for this AM SPANISH LITERATURE PROFESSOR procedure are i n the results section. PULSE OXIMETRY, Routine 09/08/2020 11:28 CONTINUOUS AM SPANISH LITERATURE PROFESSOR ADULT OXYGEN THERAPY Routine 09/08/2020 10:20 AM SPANISH LITERATURE PROFESSOR ARTHROPLASTY 09/08/2020 8:09 Primary Osteoarthritis REPLACEMENT TOTAL AM SPANISH LITERATURE PROFESSOR Knee Right KNEE documented in this encounter Results (ABNORMAL) Hemoglobin (09/09/2020 5:56 AM SPANISH LITERATURE PROFESSOR) P athologist Signature Hemoglobin 11.4 (L) 11.6 - 15.0 09/09/2020 [facility] g/dL 6:18 AM SPANISH LITERATURE PROFESSOR Specimen Anatomical Collection Method Collection Time Receive d Time (Source) Location / / Volume Laterality Blood (Blood, 09/09/2020 5:56 AM 09/09/20 6:15 Venous) SPANISH LITERATURE PROFESSOR AM SPANISH LITERATURE PROFESSOR Earnestine Damon APRN, C.N.P., D.N.P. LAB BLOOD ADD-ON Performing Organization Address City/State/ZIP Code Phon e Number [facility]- [address] [place] [address] [phone] [place] [address] System in [place] [address] [place] [address] documented in this encounter Visit Diagnoses Diagnosis Primary Osteoarthritis Knee Right - Prim manuel Osteoarthritis Arthroplasty Total Knee Replacement Stat us Post Right Morbid Obesity Body Mass Index 40.0-44.9 Adult (HCC) documented in this encounter Admitting Diagnoses Diagnosis Primary Osteoarthritis Knee Right documented in this encounter Administered Medications Inactive Administered Medications - up to 3 most recent administrations Medication Order MAR Action Action Date Dose Rate Site acetaminophen tablet 1,000 mg Given 09/08/2020 7:07 AM SPANISH LITERATURE PROFESSOR 1,000 mg (TYLENOL) 1,000 mg, oral, Once, On Tue09/08/20 at 0645, For 1 dose, Pre-Op acetaminophen tablet 1,000 mg (TYLENOL) Given 09/09/2020 1:29 PM SPANISH LITERATURE PROFESSOR 1,000 mg 1,000 mg, oral, Every 6 hours, First dose on Tue09/08/20 at 1300 Given 09/09/2020 6:07 AM SPANISH LITERATURE PROFESSOR 1,000 mg Given 09/09/2020 12:31 AM SPANISH LITERATURE PROFESSOR 1,000 mg calcium carbonate chewable tablet Given 09/09/2020 12: 28 AM SPANISH LITERATURE PROFESSOR 200 mg of calcium 200 mg of calcium (TUMS) 200 mg of calcium, oral, 3 times daily PRN, heartburn, indigestion, Starting on Tue09/08/20 at 1304, Doses listed are in mg of elemental calcium. Take with food. 500 mg calcium carbonate contains 200 mg of elemental calcium. ceFAZolin in dextrose (iso-osm) IVPB 2 New Bag 09/08/2020 8:05 PM SPANISH LITERATURE PROFESSOR 2 g 100 mL/hr g (ANCEF) 2 g, intravenous, at 100 mL/hr, Administer over 30 Minutes, Every 8 hours, First dose on Tue09/08/20 at 1300, For 2 doses, Start within 8 hours of last IV dose. premix bag, Drug Monitoring Program: Pharmacist to adjust medication dosing based on indication and drug clearance factors., Indications: Prophylaxis, surgical New Bag 09/08/2020 1:10 PM SPANISH LITERATURE PROFESSOR 2 g 100 mL/hr celecoxib capsule 200 mg (CeleBREX) Given 09/08/2020 7:07 AM SPANISH LITERATURE PROFESSOR 200 mg 200 mg, oral, Once, On Tue09/08/20 at 0645, For 1 dose, Pre-Op enoxaparin injection 30 mg Given 09/09/2020 8:46 AM SPANISH LITERATURE PROFESSOR 30 mg Left Lower Abdomen (LOVENOX) 30 mg, subcutaneous, 2 times daily, First dose on Tue09/09/20 at 0900, Start POD #1 in am fentaNYL 12 mcg/hr 1 patch Medication Applied 09/08/2020 1:10 PM 1 pa tch Left Arm (DURAGESIC) SPANISH LITERATURE PROFESSOR 1 patch, transdermal, Administer over 72 Hours, Every 72 hours, First dose on Tue09/08/20 at 1130 ketorolac injection 15 mg (TORADOL) Given 09/09/2020 6:08 AM SPANISH LITERATURE PROFESSOR 15 mg 15 mg, intravenous, Every 6 hours, First dose on Tue09/08/20 at 1300, For 4 doses, Adult IV push rate: Over 15 seconds. Peds IV push rate: Over 1 minute. 60 mg dose only for IM, not recommended for IV., Drug Monitoring Program: Pharmacist to adjust medication dosing based on indication and drug clearance factors. Given 09/09/2020 12:31 AM SPANISH LITERATURE PROFESSOR 15 mg Given 09/08/2020 6:57 PM SPANISH LITERATURE PROFESSOR 15 mg lactated ringers New Bag 09/08/2020 9:25 AM SPANISH LITERATURE PROFESSOR 20 mL/hr, intravenous, Continuous, Starting on Tue09/08/20 at 0645, Pre-Op Rate/Dose Verify 09/08/2020 7:55 AM SPANISH LITERATURE PROFESSOR New Bag 09/08/2020 7:30 AM SPANISH LITERATURE PROFESSOR 20 mL/hr 20 mL/hr lactated ringers Rate/Dose Verify 09/09/2020 6:43 AM SPANISH LITERATURE PROFESSOR 50 mL/hr 50 mL/hr 50 mL/hr, intravenous, Continuous, Starting on Tue09/08/20 at 1130 New Bag 09/09/2020 12:18 AM SPANISH LITERATURE PROFESSOR 50 mL/hr 50 mL/hr Continued from OR 09/08/2020 11:37 AM SPANISH LITERATURE PROFESSOR 50 mL/hr 50 mL/hr scopolamine base 1 mg Medication Applied 09/08/2020 7:39 AM 1 patch Behind Left Ear over 3 days 1 patch SPANISH LITERATURE PROFESSOR (TRANSDERM SCOP) 1 patch, transdermal, Administer over 72 Hours, Every 72 hours, First dose on Tue09/08/20 at 0745, Pre-Op, Contains 1.5 mg to deliver 1 mg/72 hours. sennosides-docusate sodium 8.6-50 mg per Given 09/09/2020 8:46 A M SPANISH LITERATURE PROFESSOR 1 tablet tablet 1 tablet (SENOKOT-S) 1 tablet, oral, 2 times daily, First dose on Tue09/08/20 at 2100, Do not give if patient has diarrhea. Given 09/08/2020 8:05 PM SPANISH LITERATURE PROFESSOR 1 tablet traMADoL tablet 100 mg (ULTRAM) Given 09/09/2020 8:46 AM SPANISH LITERATURE PROFESSOR 100 mg 100 mg, oral, Every 6 [...] Recently Administered Medications Times are shown in SPANISH LITERATURE PROFESSOR. Scheduled Medication Order 09/07/2020 09/08/2020 09/09/2020 acetaminophen tablet 1,000 mg (TYLENOL) (COMPLETED) 0707 (Given - Provider: Becki Gonsior, R.N.) 1,000 mg, oral, Once, On Tue09/08/20 at 0645, For 1 dose, Pre-Op acetaminophen tablet 1,000 mg (TYLENOL) 1310 (Given - Provider: Mindy Scott R.N.)1857 (Given - Provider: Mindy Scott R.N.) 0031 (Given - Provider: Jimy Mon R.N.)06 (Given - Provider: Mati WashingtonNThomas)1329 (Given - Provider: Shae Marquis R.N.) 1,000 [...] dextrose (iso-osm) IVPB 2 g (ANCEF) (COMPLETED) 1310 (New Bag - Provider: Mindy Scott R.N.)2004 (New Bag - Provider: Jimy Mon R.N.) 2 g, intravenous, at 100 mL/hr, Administ er over 30 Minutes, Every 8 hours, First dose on Tue09/08/20 at 1300, For 2 doses, Start within 8 hours of last IV dose. premix bag, Drug Monitoring Program: Phar macist to adjust medication dosing based on indication and drug clearance factors., Indications: Prophylaxis, surgical celecoxib capsule 200 mg (CeleBREX) (COMPLETED) 706 (Given - Provider: Becki Espinoza RThomasNThomas) 200 mg, oral, Once, On Tue09/08/20 at 0645, For 1 dose, Pre-Op enoxaparin injection 30 mg (LOVENOX) 0846 (Given - Provider: Shae Marquis RIrasema) 30 mg, subcutaneous, 2 times daily, Firs [...] R.N.) 0031 (Given - Provider: Jimy Mon R.N.)0608 (Given - Provider: Jimy Mon R.N.) 15 [...] (Due: Medication Removed - Provider: Vira Deluca RThomasNThomas - Comment: Time automatically adjusted from order being discontinued) 1 patch, transdermal, Administer over 72 Hours, Every 72 hours, First dose on Tue09/08/20 at 0745, Pre-Op, Contains 1.5 mg to deliver 1 mg/72 hours. sennosides-docusate sodium 8.6-50 mg per tablet 1 tablet (SE NOKOT-S) 2004 (Given - Provider: Jimy Mon R.N.) 0846 (Given - Provider: Shae Marquis R.N.) 1 tablet, oral, 2 times daily, First dos e on Tue09/08/20 at 2100, Do not give if patient has diarrhea. tranexamic acid 1 g in NaCl 0.9% IVPB (COMPLETED) 0839 (New Bag - Provider: Ingrid Bañuelos R.N.) 1 g, intravenous, at 150 mL/hr, Administ er over 20 Minutes, Once, On Tue09/08/20 at 0645, For 1 dose, Pre-Op, Administer in OR upon induction Mini-Bag Plus bag, Drug Monitoring Program: Pharmacist to ad just medication dosing based on indication and drug clearance fa ctors. tranexamic acid 1 g in NaCl 0.9% IVPB (COMPLETED) 0940 (New Bag - Provider: Ingrid Bañuelos R.N.) 1 g, intravenous, at 150 mL/hr, Administ er over 20 Minutes, Once, On Tue09/08/20 at 0645, For 1 dose, Pre-Op, Administer in OR during closure Mini-Bag Plus bag, Drug Monitoring Program: Pharmacist to ad just medication dosing based on indication and drug clearance fa ctors. Continuous Medication Order 09/07/2020 09/08/2020 09/09/2020 lactated ringers (CANCELED) 0730 (New Ba g - Provider: Becki Espinoza RThomasNThomas)0755 (Rate/Dose Verify - Provider: Earnestine Paulino, POLISHER AND BUFFER, DOMESTIC FREIGHT FORWARDER)0925 (New Bag - Provider: Ingrid Bañuelos RIrasema)0957 (Anesthesia Volume Adjustment - Provider: Ingrid Bañuelos RIrasema) 20 mL/hr, intravenous, Continuous, Starting on Tue09/08/20 at 06 45, Pre-Op lactated ringers 1136 (Not Given - Pr ovider: Mindy Scott RThomasN. - Reason: Other - Comment: Duplicate see DEC 1136)1137 (Continued from OR - Provider: Jimy Mon RThomasN.) 0018 (New Bag - Provider: Jimy correia [...] Once as needed, nause a, vomiting, Starting 09/08/20 at 1128, For 1 dose, Give only if NOT given during the pre or intraoperative period. If ondansetron ordered, give dexamethasone with first dose of ondansetron. haloperidol lactate injection 1 mg (HALDOL) 1 mg, intravenous, Every 6 hours PRN, na usea, vomiting, Starting 09/08/20 at 1128, For 48 hours, Total of [...] NaCl 0.9% sterile irrigation soluti on (CANCELED) 09 (Given - Provider: Edi Benito M.D.) As [...] mL injection (ARTHROPLASTY BLOCK 100+ kg) (COMPLETED) 32 (Given - Provider: Edi Benito M.D.) 60 mL, infiltration, Once in surgery, OR use only, Starting on Tue09/08/20 at 0636, For 1 dose, Intra-Op, *Not for IV use* traMADoL tablet 100 mg (ULTRAM)(Linked Group 1) 0846 (Given - Provider: Shae Marquis R.N.) 100 [...] factors. documented in this encounter Care Teams Data Analytics Architect Relationship Specialty Start Date End Date No Contact, Pcp PCP - General Family Medicine 09/05/20 documented as of this encounter
--- OUTSIDE RECORDS SUMMARY | 2022-08-12 08:50 | XMS_ITS | Encounter Summary ---
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 - 09/03/2020 10:27 AM BELLY PACKER COVID Screening Questions Does the patient, anyone in the household, or anyone that they have had prolonged exposure with for the past 5 days have any of the followin. Fever greater than or equal to 37.7 C (100.0 F) in the last 24 hours? No 2. Symptoms: Cough: No Shortness of breath: No Sore throat: No Diarrhea: No Vomiting: No Respiratory distress: No Headache: No Chills: No Myalgias: No Loss of smell: No Change or loss of taste sensation: No 3. Does the patient or visitor have close contact with a person under quarantine or isolation, or maureen LABORATORY CONFIRMED case of COVID-19? Close contact defined as being within 6 feet of a COVID-19 patient for more than 5 mintues or having direct contact with infectious secretions of a COVID-19 case? (ie being coughed on) No 4. Has the patient been tested for COVID-19 with a positive or pending result due to symptoms ? No If yes to any of these questions, patient is considered interview positive and should be referred tothe [facility] Nurse Line (Phone number ) and this information communicated to clinical team responsible for the operation. Sent to [facility] Nurse Triage No Patient was instructed to call department if they develop any of the above symptoms prior to the procedure or surgery date. Yes Patient verbalized back understanding of the PCR swab plan and when to complete and at which site. Yes Y PACKER Telephone Encounter - Elaine Estes L.P.N. - 08/21/2020 2:41 PM CDT Scheduled right total knee replacement on 09-08-2020 to be performed by Dr Benito. documented in this encounter Plan of Treatment Not on filedocumented as of this encounter Visit Diagnoses Not on filedocumented in this encounter
--- OUTSIDE RECORDS SUMMARY | 2022-08-12 08:51 | XMS_ITS | Encounter Summary ---
:1950 Author Organization [facility] Address [address] [place] [address] Care Team Providers Name Role Phone Unavailable Primary Care Provider Unavailable Encounter Details Date Type Department Care Team Description 04/24/2004 Hospital Encounter HX [facility] Jeremy Garcia M.D. [address] [place] [phone] (Wo rk) Social History Tobacco Use Types Packs/Day Years Used Date Smoking Tobacco: Never Assessed Sex Assigned at Date Recorded Not on file documented as of this encounter Miscellaneous Notes Miscellaneous - Conversion, Historical Provider Ser - 04/24/2004 12:00 AM CDT [id number] Heidi Huerta [address] [facility] [address] [place] [address] April 24, 2004 Dear Heidi Huerta: Our records indicate that you are due for the following appointment: EYE EXAM Please call us to make an appointment at your convenience. Our telephone number for scheduling an appointments is [phone]. If you have already made an appointment for this or have had the procedure done, please disregard this notice. We look forward to seeing you soon. Sincerely, Delmar Andrew M.D./[facility] Ophthamology Department [facility] Source: [facility] Document Id: [id number] documented in this encounter Plan of Treatment Not on filedocumented as of this encounter Visit Diagnoses Not on filedocumented in this encounter
--- OUTSIDE RECORDS SUMMARY | 2022-08-12 08:51 | XMS_ITS | Encounter Summary ---
:1950 Author Organization [facility] Address [address] [place] [address] Care Team Providers Name Role Phone Unavailable Primary Care Provider Unavailable Encounter Details Date Type Department Care Team Description 02/03/2009 Hospital Encounter HX [facility] Jeremy Garcia M.D. [address] [place], [place] [phone] (Wo rk) Social History Tobacco Use Types Packs/Day Years Used Date Smoking Tobacco: Never Assessed Sex Assigned at Date Recorded Not on file documented as of this encounter Progress Notes Delmar Andrew M.D. - 02/03/2009 1:00 PM CDT [id number] CLINIC ENCOUNTER SUBJECTIVE: Ms. Huerta is here to be evaluated for iritis and optic atrophy. She has a history of recurrent iritis of the right eye and one episode of ocular neuritis in her right eye which was managed by Dr Antoine. She occasionally gets pressure around her right eye but that is also associated with spring and fall when her allergies act up. She can tell the vision in her right eye isn't as good as the left eye. OBJECTIVE: CONFRONTATIONAL VISUAL SERRANO: Intact. MOTILITY: Full. PUPILS: 4/2 brisk. No RAPD (relative afferent pupillary defect). EXTERNAL: Unremarkable. SLIT LAMP EXAMINATION: Lid margins are clean. Tear film is adequate. Conjunctivae are quiet. Corneas clear. Chambers of adequate depth and quiet. I don't see any evidence of active iritis though there are iridolenticular adhesions on her right side. Left iris is normal. Left lens is clear. Right lens shows some mild cortical changes. FUNDUS: Dilated. Cup to disc ratio 0.5 OD (right eye), 0.3 OS (left eye). There is slight pallor to the right optic nerve head. [place] optic nerve head on the left. This is consistent with Dr. Antoine's findings. The macula, arcades and periphery are otherwise unremarkable. IOP as noted above. IMPRESSION: 1. History of iridocyclitis of the right eye, currently quiescent. 2. 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 3. Refractive error. PLAN: 1. Continue over the counter reading glasses. 2. Reassurance regarding iritis. 3. Reassess in 2 years. Brennan Carrillo/brennen cc: Source: [facility] RWHXTRANSXSYS Document Id: [id number] Electronically signed by Conversion, [facility] Assistant Operations Manager [id number] at 04/03/2017 3:30 PM CDT Delmar Andrew M.D. - 02/03/2009 1:00 PM CDT [id number] SUBJECTIVE-Heidi Huerta is a 58 year old female who presents for complete eye exam History of present illness-Patient states her eyes do react to allergies. She feels as if she sometimes will not see as well as other times. The patient has a history of iritis/optic neuritis Charis Rosalinda Springer 02/03/2009 Distance Right Eye Left Eye Both Eyes SC 40 30-1 40+2 Pinhole Near RIght Eye Left Eye Both Eyes @ 16 in CC 20 w/+1.75 @ 16 in SC Comments Red top color desaturation test right eye -dimmer/duller red left eye -bright red Right pupil shows slight oval appearance with less response (MD TO ASSESS) . No afferent defect-Dr. Patiño Current RX: Refraction MR Right Eye -1.00 +0.75 095 20/25+2 VA Both Eyes MR Left Eye -1.00 +0.75 100 20/25+2 ADD Right Eye +2.50 NA NA 20/ VA Both Eyes ADD Left Eye +2.50 NA NA 20/ Manifest Refraction is also Final RX IOP Right Eye 15 Left Eye 17 Tonometry Applination Dilation Medication Tropicamide 1.0% Optic Disc Assessment C/D Ratio Right Eye .50 C/D Ratio Left Eye .30 Patient Active Problem List Diagnoses Code IRIDOCYCLITIS NOS 364.3 OPTIC NEURITIS NEC 377.39 PAST MEDICAL HISTORY: Past Medical History Diagnosis Date Other Optic Neuritis right eye Depressive Disorder, not Elsewhere Classified Unspecified Acute and Subacute Iridocyclitis Arthritis knees PAST SURGICAL HISTORY: Past Surgical History Procedure Date Excis primary ganglion wrist 1984 Ganglionectomy, wrist Revise secondary varicosity 1986 Vein ligation, stripping left leg MEDICATIONS: Current outpatient prescriptions Medication Sig PIROXICAM 20 MG OR CAPS 1 CAPSULE DAILY GLUCOSAMINE CHONDR 1500 COMPLX OR None Entered ALLERGIES: No known allergies History Substance Use Topics Tobacco Use: Never Alcohol Use: No Pt does drive motor vehicle. Family History Problem Relation Eye Mother cataracts REVIEW OF SYSTEMS: General: negative Skin: negative Eyes: as above Ears/Nose/Mouth/Throat: negative Respiratory: negative Cardiovascular: negative Gastrointestinal: negative Genitourinary: negative Musculoskeletal: arthritis Neurologic: negative Psychiatric: negative Hematologic/Lymphatic/Immunologic: negative Endocrine: negative Source: [facility] RWHXTRANSXRTFSYS Document Id: [id number] Electronically signed by Conversion, [facility] Assistant Operations Manager [id number] at 04/03/2017 3:30 PM CDT documented in this encounter Plan of Treatment Not on filedocumented as of this encounter Visit Diagnoses Not on filedocumented in this encounter
--- OUTSIDE RECORDS SUMMARY | 2022-08-12 08:51 | XMS_ITS | Encounter Summary ---
:1950 Author Organization [facility] Address [address] [place] [address] Care Team Providers Name Role Phone Unavailable Primary Care Provider Unavailable Encounter Details Date Type Department Care Team Description 04/22/2011 Hospital Encounter HX [facility] Anna Reynoso R.N. Social History Tobacco Use Types Packs/Day Years Used Date Smoking Tobacco: Never Assessed Sex Assigned at Date Recorded Not on file documented as of this encounter Miscellaneous Notes Telephone Encounter - Anna Lyn, R.N. - 04/22/2011 12:00 AM CDT [id number] Appointment requested for: eye exam Subjective Sx: right eye became very sore w/ increased sensation of pressure yesterday. Today the pressure feels better, it my entire eye is very red I want to rub it and scratch it pt reports vision may be mildly blurry and feels only slighlty light sensitive today. Triage advised: appt within 24hours Patient has previous hx of Optic neuritis and Iritis. Source cited: page 195 Isa Hennessy, 3rd Edition 2007 Appointment scheduled: Transferred to scheduling for an appt with Opth team provider [facility] Document Id: [id number] documented in this encounter Plan of Treatment Not on filedocumented as of this encounter Visit Diagnoses Not on filedocumented in this encounter
--- OUTSIDE RECORDS SUMMARY | 2022-08-12 08:51 | XMS_ITS | Encounter Summary ---
:1950 Author Organization [facility] Address [address] [place] [address] Care Team Providers Name Role Phone Unavailable Primary Care Provider Unavailable Encounter Details Date Type Department Care Team Description 02/04/2011 Hospital Encounter HX [facility] Jeremy Garcia M.D. [address] [place] [address] [phone] (Wo rk) Social History Tobacco Use Types Packs/Day Years Used Date Smoking Tobacco: Never Assessed Sex Assigned at Date Recorded Not on file documented as of this encounter Miscellaneous Notes Miscellaneous - Conversion, Historical Provider Ser - 02/04/2011 12:00 AM CDT [id number] Heidi Huerta [address] [facility] [address] [facility] [address] [place] February 04, 2011 Dear Heidi Huerta: Our records indicate that you are due for the following appointment: TWO YEAR EYE EXAM Please call us to make an appointment at your convenience. Our telephone number for scheduling an appointment is [phone]. If you have already made an appointment for this or have had the proceduredone, please disregard this notice. We look forward to seeing you soon. Sincerely, Delmar Andrew M.D./[facility] Ophthalmology Department [facility] Source: [facility] Document Id: [id number] documented in this encounter Plan of Treatment Not on filedocumented as of this encounter Visit Diagnoses Not on filedocumented in this encounter
--- OUTSIDE RECORDS SUMMARY | 2022-08-12 08:51 | XMS_ITS | Encounter Summary ---
:1950 Author Organization [facility] Address [address] [place] [address] Care Team Providers Name Role Phone Unavailable Primary Care Provider Unavailable Encounter Details Date Type Department Care Team Description 09/10/2004 Hospital Encounter HX NO MAPPING Provider, Historical Social History Tobacco Use Types Packs/Day Years Used Date Smoking Tobacco: Never Assessed Sex Assigned at Date Recorded Not on file documented as of this encounter Plan of Treatment Not on filedocumented as of this encounter Visit Diagnoses Not on filedocumented in this encounter
--- OUTSIDE RECORDS SUMMARY | 2022-08-12 08:51 | XMS_ITS | Encounter Summary ---
:1950 Author Organization [facility] Address [address] [place] [address] Care Team Providers Name Role Phone Unavailable Primary Care Provider Unavailable Encounter Details Date Type Department Care Team Description 02/03/2006 Hospital Encounter HX [facility] Nikunj Longo M.D. [address] [place] [phone] (Wo rk) Social History Tobacco Use Types Packs/Day Years Used Date Smoking Tobacco: Never Assessed Sex Assigned at Date Recorded Not on file documented as of this encounter Progress Notes Chang Antoine M.D. - 02/03/2006 9:45 AM CDT [id number] CLINIC ENCOUNTER Mrs. Huerta has a history of iritis in her left eye and comes in to be re-evaluated following this episode of iritis. EXAM: SLIT LAMP EXAM of the left eye shows a deep and clear chamber. Right eye shows posterior synechiae present. INTRAOCULAR PRESSURES: 15 in the left. ASSESSMENT: Resolving iritis, left eye. PLAN: BID steroids since this is springtime of the year in both eyes for a month and then once a day for a month. Recheck in three months. Brennan Berumen/gardenia cc: [facility] Document Id: [id number] Electronically signed by Conversion, [facility] Rn Shift Mgr [id number] at 04/04/2017 3:35 PM CDT Conversion, Historical Provider Ser - 02/03/2006 9:45 AM CDT [id number] Pain Questionnaire: Is your visit today because of Pain? NO Raulvanessa Beatriz Huerta is a 55 year old female who presents for recheck. History of Present Illness: Patient states she is here today for a one month recheck of the left eyefor iritis. States left eye is better. Still using Pred Forte in the left eye three times a day. Lona Cardenas LPN Visual Acuity SC Distance OS: 25 Patient Active Problem List Diagnoses Code IRIDOCYCLITIS NOS 364.3 OPTIC NEURITIS NEC 377.39 PAST MEDICAL HISTORY: Past Medical History Diagnosis Date OPTIC NEURITIS NEC right eye DEPRESSIVE DISORDER NEC ACUTE IRIDOCYCLITIS NOS PAST SURGICAL HISTORY: Past Surgical History Procedure Date Excis primary ganglion wrist 1984 Ganglionectomy, wrist Revise secondary varicosity 1986 Vein ligation, stripping left leg MEDICATIONS: Current outpatient prescriptions Medication Sig PRED FORTE 1 % OP SUSP 1 drop in the left eye four times a day NO ACTIVE MEDICATIONS per pt ALLERGIES: No known allergies History Substance Use Topics Tobacco Use: Never Alcohol Use: No Pt does drive motor vehicle. Family History Problem Relation Eye Mother cataracts REVIEW OF SYSTEMS: General: Skin: negative Eyes: negative Ears/Nose/Mouth/Throat: negative Respiratory: negative Cardiovascular: negative Gastrointestinal: negative Genitourinary: negative Musculoskeletal: negative Neurologic: negative Psychiatric: negative Hematologic/Lymphatic/Immunologic: negative Endocrine: negative Source: [facility] RWHXTRANSXRTFSYS Document Id: [id number] documented in this encounter Plan of Treatment Not on filedocumented as of this encounter Visit Diagnoses Not on filedocumented in this encounter
--- OUTSIDE RECORDS SUMMARY | 2022-08-12 08:51 | XMS_ITS | Encounter Summary ---
:1950 Author Organization [facility] Address [address] [place] [address] Care Team Providers Name Role Phone Unavailable Primary Care Provider Unavailable Encounter Details Date Type Department Care Team Description 02/04/2005 Hospital Encounter HX [facility] Nikunj Longo M.D. 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 NO SUBJECTIVE: Heidi Huerta is a 54 year old female who presents for recheck. History of Present Illness:Patient states eyes are better. Does still have floaters but they are less. Vision is hte left eye is still blurry. Does have head pain but says she feels it is because of her cold. Using Atropine and Pred forte. Lona Cardenas LPN Patient Active Problem List: IRIDOCYCLITIS NOS[364.3] OPTIC NEURITIS NEC[377.39] PAST MEDICAL HISTORY: Previous Medical History: OPTIC NEURITIS NEC Comment: right eye DEPRESSIVE DISORDER NEC ACUTE IRIDOCYCLITIS NOS MEDICATIONS: Current outpatient prescriptions: NO ACTIVE MEDICATIONS per pt Disp: 0 Rfl: 0 ALLERGIES: No Known Allergies FAMILY HISTORY: Family History: Eye Mother Comment: cataracts REVIEW OF SYSTEMS: Respiratory: negative. Cardiovascular: negative. Neurologic: headaches. PSYCH: No apparent anxiety or depression. Pleasant affect. HISTORY: As noted. The patient has a history of recent iridocyclitis and was being treated for this. She comes back in for a reevaluation. Summary of her history, which is complex, involving possible optic neuritis was summarized on her visit 01/21/05. She is on Atropine 1% left eye and every 2 hour steroids. She comes in for reevaluation. She feels her symptoms have abated. EXAM: CONFRONTATION SERRANO: Full. EXTERNAL: Without lesions. MOTILITY: Full. PUPILS: No afferent defect. SLIT LAMP EXAM: Shows deep and quiet chambers in both eyes. Right eye posterior synechia . No cells noted. Left eye 1+ cell and no cells. INTRAOCULAR PRESSURES: Left eye 17. ASSESSMENT: Resolving iridocyclitis left eye. PLAN: 1. Gradual taper of steroids. 2. Recheck on an as needed basis. 3. The patient has hot flashes after starting either the home Atropine or the Pred Forte. My suspicion is it is due to the home Atropine and will take this into consideration if this should flare up in the future. Chang Antoine M.D./jennifer Source: [facility] RWHXTRANSXRTFSYS Document Id: [id number] documented in this encounter Plan of Treatment Not on filedocumented as of this encounter Visit Diagnoses Not on filedocumented in this encounter
--- OUTSIDE RECORDS SUMMARY | 2022-08-12 08:51 | XMS_ITS | Encounter Summary ---
:1950 Author Organization [facility] Address [address] [place] [address] Care Team Providers Name Role Phone Unavailable Primary Care Provider Unavailable Encounter Details Date Type Department Care Team Description 01/11/2006 Hospital Encounter HX [facility] Nikunj Longo M.D. [address] [place] [address] (Wo rk) Social History Tobacco Use Types Packs/Day Years Used Date Smoking Tobacco: Never Assessed Sex Assigned at Date Recorded Not on file documented as of this encounter Progress Notes Chang Antoine M.D. 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 She notes that the left eye has become irritated and has light sensitivity that has developed over the past several weeks and is bothersome to her. Severity is 8 out of 10. EXAM: CONFRONTATION SERRANO: Full. EXTERNAL: Without lesions. MOTILITY: Full. PUPILS: 2+ afferent defect on the right eye. SLIT LAMP EXAM: Right eye shows an irregular pupillary margin. Left eye shows a reactive iris 3 mm. Right eye, deep chamber. Posterior synechia are present. Lenses clear. FUNDUS: Right eye shows a 0.5 deep cup. Normal macula and periphery. Left eye, 0.3 deep cup. 1+ cell and flare in the left eye. ASSESSMENT: Iritis left eye. PLAN: I would recommend Pred Forte on a tapering basis on the left eye. Recheck and follow-up in month's time. Sooner if any difficulties should develop. Chang Antoine M.D. Gina Source: [facility] RWHXTRANSXSYS Document Id: [id number] Electronically signed by Conversion, [facility] Nuclear Medicine Specialist [id number] at 04/04/2017 5:08 PM CDT Conversion, Historical Provider Ser - 01/11/2006 9:00 AM CST [id number] Pain Questionnaire: Is your visit today because of Pain? NO Heidi Huerta is a 55 year old female who presents for EYE EXAM. History of Present Illness: Patient states Comments: VA SEEMS HAVE TO HAVE DETERIORAED SOME OVER THEPAST FEW MONTHS. VA WILL FUCTUATE, GOOD SOME DAYS NOT SO GOOD OTHER PT HAS HISTORY OF IRIITIS AND OPTIC NEURITIS IN RIGHT EYE. Visual Acuity SC Distance OD: 40 OS: 60 +2.00 OTC S' Manifest OD: Sphere: -0.50 Cylinder: 0 Leander: 0 VA: 30 Add: +2.00 AddVA: Manifest OS: Sphere: +0.50 Cylinder: 0 Leander: 0 VA: 30-2 Add: +2.00 AddVA: +2 APD RIGHT EYE IOP OD: 14 OS: 14 Dilation Medication: Tropicamide 1.0% Phenylephrine 2.5% [place] PRESSURES: OD , OS Patient Active Problem List Diagnoses Code IRIDOCYCLITIS NOS 364.3 OPTIC NEURITIS NEC 377.39 PAST MEDICAL HISTORY: Past Medical History Diagnosis Date OPTIC NEURITIS NEC right eye DEPRESSIVE DISORDER NEC ACUTE IRIDOCYCLITIS NOS PAST SURGICAL HISTORY: Past Surgical History Procedure Date Excis primary ganglion wrist 1985 Ganglionectomy, wrist Revise secondary varicosity 1987 Vein ligation, stripping left leg MEDICATIONS: Current outpatient prescriptions Medication Sig NO ACTIVE MEDICATIONS per pt ALLERGIES: No known allergies History Substance Use Topics Tobacco Use: Never Alcohol Use: No Pt drive motor vehicle. Family History Problem Relation Eye Mother cataracts REVIEW OF SYSTEMS: General: negative Skin: negative Eyes: negative Ears/Nose/Mouth/Throat: negative Respiratory: negative Cardiovascular: negative Gastrointestinal: negative Genitourinary: negative Musculoskeletal: negative Neurologic: negative Psychiatric: negative Hematologic/Lymphatic/Immunologic: negative Endocrine: negative Source: [facility] RWHXTRANSXRTFSYS Document Id: [id number] documented in this encounter Plan of Treatment Not on filedocumented as of this encounter Visit Diagnoses Not on filedocumented in this encounter
--- OUTSIDE RECORDS SUMMARY | 2022-08-12 08:51 | XMS_ITS | Encounter Summary ---
:1950 Author Organization [facility] Address [address] [place] [address] Care Team Providers Name Role Phone Unavailable Primary Care Provider Unavailable Encounter Details Date Type Department Care Team Description 04/21/2004 Hospital Encounter HX NO MAPPING Provider, Historical Social History Tobacco Use Types Packs/Day Years Used Date Smoking Tobacco: Never Assessed Sex Assigned at Date Recorded Not on file documented as of this encounter Plan of Treatment Not on filedocumented as of this encounter Visit Diagnoses Not on filedocumented in this encounter
--- OUTSIDE RECORDS SUMMARY | 2022-08-12 08:51 | XMS_ITS | Encounter Summary ---
:1950 Author Organization [facility] Address [address] [place] [address] Care Team Providers Name Role Phone Unavailable Primary Care Provider Unavailable Encounter Details Date Type Department Care Team Description 04/13/2004 Hospital Encounter HX [facility] Nikunj Longo M.D. 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 NOSUBJECTIVE:Heidi Huerta is a 53 year old female who present s for OD vision decrease in the past 5 days. History of Present Illness:Patient states that she sti ll has pressure discomfort in the right eye- notices more after instilling the drop. The vision alfaro ehas been noticable since 2 days ago. Last year when she had iritis- she was on 2 different drops- th is year only the prenisolone. Has some burnig- no itching or mattering of the eye. Virginia Scott, RNV isual Acuity SC DistanceOD: hmoVisual Acuity SC DistanceOS: 25-1Tonometry: ApplinationIOP O D: 19 Patient Active Problem List: IRIDOCYCLITIS NOS[364.3]PAST MEDICAL HISTORY: Review of aroldo roberts's past medical history indicates: NO ACTIVE PROBLEMS MEDICATIONS:Current prescriptions:PRED FORTE 1 % OP SUSP use as directedNO ACTIVE MEDICATIONS pe r ptALLERGIES:No Known AllergiesFAMILY HISTORY:Review of patient's family history indicates: Eye Mother Comment: cataractsREVIEW OF SYSTEMS: Respiratory: negative.Cardiovascular: negative.Neurologic: negative.PSYCH: No apparent anxiety or depression. Pleasant affect.HISTORY: As noted.The patient has a history of iridis in the righ t eye and comes in with a significant substantial loss of vision over the last several days. She star bo Pred Forte four times a day in the right eye and now comes in to have this reevaluated. EXAM:C ONFRONTATION SERRANO: Right eye significantly constricted. EXTERNAL: Moderate lid redundancy.MOTIL ITY: Full.PUPILS: Right eye irregular, minimally reactive to light although difficult to assess due to posterior synechia present. SLIT LAMP EXAM: Conjunctivae/sclerae quiet. Corneas clear. Lenses posterior synechia right eye. She has 2+ cell in the chamber on the right. FUNDUS: Right eye shows normal macula, disks and periphery as does the left.ASSESSMENT: Iridis right eye with probable ret robulbar optic neuritis certainly has a history of the retro-orbital pain followed by substantial and significant decrease in visual acuity; it does really correlate with retrobulbar process. The degree of visual loss does not correlate with the level of inflammation she has in the anterior chamber. PLAN: I would recommend an MRI and starting her on 1 gram per day of methylprednisolone for five day s and recheck in a week's time. An MRI is ordered with gadolinium. The five-day course of methylpre dnisolone will be followed by five days of oral prednisone 60/day. Chang Antoine M.D./shyD: 04/13/2004T: 04/17/2004 Source: [facility] RWHXTRANSXSYS Document Id: [id number] documented in this encounter Plan of Treatment Not on filedocumented as of this encounter Visit Diagnoses Not on filedocumented in this encounter
--- OUTSIDE RECORDS SUMMARY | 2022-08-12 08:51 | XMS_ITS | Encounter Summary ---
:1950 Author Organization [facility] Address [address] [place] [address] Care Team Providers Name Role Phone Unavailable Primary Care Provider Unavailable Encounter Details Date Type Department Care Team Description 01/21/2005 Hospital Encounter HX [facility] Nikunj Longo M.D. [address] [place] [address] (Wo rk) Social History Tobacco Use Types Packs/Day Years Used Date Smoking Tobacco: Never Assessed Sex Assigned at Date Recorded Not on file documented as of this encounter Progress Notes Santa Harden C.O.A. - 01/21/2005 2:15 PM CST [id number] Comment: warm in worker Visual Acuity SC Distance OD: 25 OS: 30 IOP OD: 16 OS: 13 Angles open Dilation Medication: Tropicamide 1.0% Phenylephrine 2.5% Pain Questionnaire: Is your visit today because of Pain? NO SUBJECTIVE: Heidi Huerta is a 54 year old female who presents for floaters. History of Present Illness:Patient states she is seeing floaters with her left eye. It is very bad today. They are very dark. No flashes of light. vision is a little decreased. No pain or headaches. She has been on prednisone for optic neuritis in the right eye. Last dose was in March. WINSTON Ruff Patient Active Problem List: IRIDOCYCLITIS NOS[364.3] OPTIC NEURITIS NEC[377.39] PAST MEDICAL HISTORY: Previous Medical History: OPTIC NEURITIS NEC Comment: right eye DEPRESSIVE DISORDER NEC ACUTE IRIDOCYCLITIS NOS MEDICATIONS: Current outpatient prescriptions: NO ACTIVE MEDICATIONS per pt Disp: 0 Rfl: 0 ALLERGIES: No Known Allergies FAMILY HISTORY: Family History: Eye Mother Comment: cataracts REVIEW OF SYSTEMS: Respiratory: negative. Cardiovascular: negative. Neurologic: negative. PSYCH: No apparent anxiety or depression. Pleasant affect. HISTORY: As noted. The patient has a history of iritis and optic neuritis on the right eye which was an isolated incident evaluated by Dr. Villasenor because she had some abnormalities on her MRI scan and also had a second opinion done at the [facility] in [place] where they felt she had just isolated optic neuritis. She c omes in for reevaluation due to the decreased vision in her left eye. She also has a history of iritis in the right eye. Severity is 8 out of 10. EXAM: CONFRONTATION SERRANO: Full. EXTERNAL: Without lesions. MOTILITY: Full. PUPILS: 2+ afferent defect on the right eye. Right eye is also minimally reactive to light and irregular. SLIT LAMP EXAM: Conjunctivae/sclerae quiet. Corneas clear. Left eye has some keratic precipitates present. Chamber-right eye deep and quiet. There is posterior synechia present. Left eye has 2-3+ cell and flare. FUNDUS: Right eye cup-to-disk ratio 0.7 with cribiform plate showing and somewhat pale nerve. Left eye cup-to-disk ratio 0.1-0.2 with a healthy appearing optic nerve. Maculae and periphery are intact and normal. ASSESSMENT: 1. Optic neuritis history of right eye. 2. Ocular inflammation left eye with acute iridocyclitis. PLAN: I would recommend home Atropine 5% three times a day in the left eye in addition to every 2 hours steroids for three days and then four times a day following that. Recheck in two weeks time. Chang Antoine M.D./jennifer Source: [facility] RWHXTRANSXRTFSYS Document Id: [id number] documented in this encounter Plan of Treatment Not on filedocumented as of this encounter Visit Diagnoses Not on filedocumented in this encounter
--- OUTSIDE RECORDS SUMMARY | 2022-08-12 08:51 | XMS_ITS | Encounter Summary ---
:1950 Author Organization [facility] Address [address] [place] [address] Care Team Providers Name Role Phone Unavailable Primary Care Provider Unavailable Encounter Details Date Type Department Care Team Description 01/11/2007 Hospital Encounter HX [facility] Primo Morel M.D. Social History Tobacco Use Types Packs/Day Years Used Date Smoking Tobacco: Never Assessed Sex Assigned at Date Recorded Not on file documented as of this encounter Miscellaneous Notes Miscellaneous - Zia, Val Provider Ser - 01/11/2007 12:00 AM CDT [id number] Heidi Huerta [address] [facility] [address] [place] [address] January 11, 2007 Dear Heidi Huerta: Our records indicate that you are due for the following appointment: EYE EXAM. We are pleased to announce that Gurjit Quintanilla M.D has joined our Ophthamology Practice. Dr. Quintanilla has 15 years of ophthamology experience and is available to meet all of your eye care needs. Please call us to make an appointment at your convenience. Our telephone number for scheduling is [phone]. If you have already made an appointment for this or have had the procedure done, please disregard this notice. We look forward to seeing you soon. Sincerely, Ophthamology Department [facility] Source[facility] Document Id: [id number] documented in this encounter Plan of Treatment Not on filedocumented as of this encounter Visit Diagnoses Not on filedocumented in this encounter
--- OUTSIDE RECORDS SUMMARY | 2022-08-12 08:51 | XMS_ITS | Encounter Summary ---
:1950 Author Organization [facility] Address [address] [place] [address] Care Team Providers Name Role Phone Unavailable Primary Care Provider Unavailable Encounter Details Date Type Department Care Team Description 07/23/[address] [facility] Nikunj Longo M.D. [address] [place] [address] (Wo rk) Social History Tobacco Use Types Packs/Day Years Used Date Smoking Tobacco: Never Assessed Sex Assigned at Date Recorded Not on file documented as of this encounter Progress Notes Conversion, Historical Provider Ser - 07/23/2004 11:00 AM CDT [id number] Addended by: AUDIE GARNETT on: 07/28/2004,12:09 PMModules accepted: Order Summary, Progress Not esAddended by: AUDIE GARNETT on: 07/28/2004,12:05 PM Comment: TranscriptionModules accept ed: Progress NotesPain Questionnaire: Is your visit today because of Pain? NOSUBJECTIVE:Rose Huerta is a 53 year old female who presents for recheck of optic neuritis OD. History of Pres ent Illness:Patient states that she saw a neurologist here 2 weeks ago and was on a prednisone IV for three days and told she should come back and see Dr. Antoine. Pt is unsure why she was put on the IV a nd wonders if the neurologist has spoken with Dr. Antoine. She has been followed for optic neuritis in the right eye but feels the eye has been about the same since her last eye examBill NUNU John isual Acuity SC DistanceOD: 40+2Pinhole:OD: NI OS: Visual Acuity SC DistanceOS: 20-2IOP OD : 15 OS: 152+ APD OD (noted on previous exam also)Dilation Medication: Tropicamide 1.0% Phenyleph rine 2.5% Patient Active Problem List: IRIDOCYCLITIS NOS[364.3] OPTIC NEURITIS NEC[377.39] PAST MEDICAL HISTORY: Review of patient's past medical history indicates: NO ACTIVE PROBLEMS OPTIC NEURITIS NEC C omment: right eyeMEDICATIONS:Current prescriptions:NO ACTIVE MEDICATIONS per ptALLERGIES:No K nown AllergiesFAMILY HISTORY:Review of patient's family history indicates: Eye Mother Comment: cataractsREVIEW OF SYSTEMS:Respiratory: negative. Cardiovascular: negative.Neurologic: negative.PSYCH: No apparent anxiety or depression. Pleasa nt affect.HISTORY: The patient has a history of a relative afferent pupillary defect on the right e ye and was seen by Dr. Villasenor recently who at that time thought she may be experiencing an optic neuri tis on the left eye. The patient comes in with no significant visual complaints at this time and i s feeling quite good.PHYSICAL EXAM: Visual acuity 20/40 right, 20/30 left. CONFRONTATION SERRANO: Constricted.EXTERNAL: Without lesions.MOTILITY: Full.PUPILS: Right eye has posterior synechia present and a relative 2+ afferent defect. The patient also it should be noted has a history of irid ocyclitis on the right. SLIT LAMP EXAM: Shows bilateral mild early cataracts. FUNDUS: Right eye normal macula, disks and periphery.Left eye normal macula, disk and periphery. The second episode o f optic neuritis may or may not have been optic neuritis. I did not see the patient at that time. It should be noted that on fundus exam her optic nerve right eye has quite a bit of pallor with crib riform plates showing through. Left eye has some degree of pallor as well. At this point I would re commend a repeat formal visual field test to see if there is any significant objective progression in the field test areas. Otherwise she will recheck with a field test to see if there is any change or progression suggestive of a second bout of optic neuritis. Certainly the left optic nerve does not look like it was involved at this time.Chang Antoine M.D./amaD: 07/23/2004 cc: Dr. Villasenor Source: [facility] RWHXTRANSXSYS Document Id: [id number] documented in this encounter Plan of Treatment Not on filedocumented as of this encounter Visit Diagnoses Not on filedocumented in this encounter
--- OUTSIDE RECORDS SUMMARY | 2022-08-12 08:51 | XMS_ITS | Encounter Summary ---
:1950 Author Organization [facility] Address [address] [place] [address] Care Team Providers Name Role Phone Unavailable Primary Care Provider Unavailable Encounter Details Date Type Department Care Team Description 06/04/2004 Hospital Encounter HX [facility] Nikunj Longo M.D. [address] [place] [address] (Wo rk) Social History Tobacco Use Types Packs/Day Years Used Date Smoking Tobacco: Never Assessed Sex Assigned at Date Recorded Not on file documented as of this encounter Progress Notes Conversion, Historical Provider Ser - 06/04/2004 9:45 AM CDT [id number] Addended by: LORENA GARNETT on: 06/09/2004,3:53 PM Comment: Clerk To Justice.Modules accepted: Progress NotesPain Questionnaire: Is your visit today because of Pain? NOSUBJECTIVE:Heidi Huerta is a 53 year old female who presents for a visual field. History of Present Illness:Annamaria cedillo states she is here for a visual field test. Her vision has improved. At this time she states she only has some blurry vision in the right eye. Some pain in the right eye. Not using gtts at this t cathryn. Lona Cardenas LPNVisual Acuity SC DistanceOD: 30+3Patient Active Problem List: IR IDOCYCLITIS NOS[364.3]PAST MEDICAL HISTORY: Review of patient's past medical history indicates: NO ACTIVE PROBLEMS MEDICATIONS:Current prescriptions:PRED FORTE 1 % OP SUSP use as directedNO ACTIVE MEDICATIONS per ptALLERGIES:No Known AllergiesFAMI LY HISTORY:Review of patient's family history indicates: Eye Mother Comment: cataractsREVIEW OF SYSTEMS:Respiratory: negative.Cardiovascular: ne gative.Neurologic: headaches.PSYCH: No apparent anxiety or depression. Pleasant affect.HISTO RY: Patient has a history of optic neuritis on the right eye. She was evaluated by the neurologist and felt this was just optic neuritis rather than any other process. She also does note that she h as some blacking out in her obscuration of vision on bending over. Formal visual field testing:Rig ht eye shows a fairly full field maybe one somewhat deep area in the eye. Left eye shows a full fiel d as well. EXAM: MOTILITY: Otherwise full. PUPILS: 2+ afferent defect on the right eye. SLIT LA MP EXAM: Conjunctivae/sclerae quiet. Corneas clear. Lenses clear. FUNDUS: Somewhat pale appeari ng optic nerve in the right eye with a deep cribriform plate. ASSESSMENT: Optic neuritis, right e ye, resolving at this point. PLAN: I recommended reassurance and rechecking in 6 months with a fiel d test. Chang Antoine M.D./Sara: 06/04/2004T: 06/09/2004 Source: [facility] RWHXTRANSXSYS Document Id: [id number] documented in this encounter Plan of Treatment Not on filedocumented as of this encounter Visit Diagnoses Not on filedocumented in this encounter
--- OUTSIDE RECORDS SUMMARY | 2022-08-12 08:51 | XMS_ITS | Encounter Summary ---
:1950 Author Organization [facility] Address [address] [place] [address] Care Team Providers Name Role Phone No Contact, Pcp Primary Care Provider Unavailable Encounter Details Date Type Department Care Team Description 08/17/2004 Historical Ophthalmology [facility] Peggy Barakat M.D. Social History Tobacco Use Types Packs/Day Years Used Date Smoking Tobacco: Never Assessed Sex Assigned at Date Recorded Not on file documented as of this encounter Progress Notes Lynn Barakat M.D. - 08/17/2004 12:00 AM CDT Eye General CHIEF COMPLAINT blurred vision HISTORY OF PRESENT ILLNESS Went to see Dr. Maravilla with iritis OD one year ago. Early March vision got blurry again OD - found to have mild iriits and was treated with topical steroids. Woke up 1- 1.5 days later blind in right eye, painless. Was seen that following Tuesday and treated her with IV MP x 5 days with PO taper. Vision improved. Saw neurologist who retreated her with IV MPx 3 days and PO taper in July for ?recurrent optic neuritis OD and new episode OS - based solely on the neurologist's measuremet of vision. Also hearing loss in the past 3 wks (family hx of hearing loss). W/up at home included negative MARIAMA, Lyme and ESR. MRI shows some frontal lobe white matter changes. IMPRESSION / REPORT / PLAN #1 Optic neuritis OD. Her hx is pretty clear for retrobulbar neuritis. Discussed ONTT findings, relationship to MS, gradual improvement greates in first 6 months then minor up to 5 years. IF MS is diagnosed there are different medical options - including nothing at this time. Plan: get neurology consult, get outside MRI evaluated. She hasn't had a spinal tap yet but I will leave that up to neurology if she needs that. Sheand her want to pin down a dx. I explained that sometimes we can't dx MS on the first event. #2 Hx of iritis OD with residual posterior synechia. No active iriits. I cannot relate these diagnoses. #3 Hearing loss, per patient. No evidence for Susak's. DIAGNOSIS #1 Optic neuritis OD. #2 Hx of iritis OD with residual posterior synechia. #3 Hearing loss, per patient. [facility] Id: [id number] Status: Fnl documented in this encounter Plan of Treatment Not on filedocumented as of this encounter Visit Diagnoses Not on filedocumented in this encounter Additional Health Concerns Infection Onset Date Last Indicated Resolved Time COVID19 Pending 09/05/2020 09/05/2020 09/06/2020 5:07 PM LOOM STOP CHECKER documented as of this encounter Care Teams Personal Fitness Trainer Relationship Specialty Start Date End Date No Contact, Pcp PCP - General Family Medicine 09/05/20 documented as of this encounter
--- OUTSIDE RECORDS SUMMARY | 2022-08-12 08:51 | XMS_ITS | Encounter Summary ---
:1950 Author Organization [facility] Address [address] [place] [address] Care Team Providers Name Role Phone Unavailable Primary Care Provider Unavailable Encounter Details Date Type Department Care Team Description 04/13/2004 Hospital Encounter HX [facility] Nikunj Longo M.D. [address] [place] [address] (Wo rk) Social History Tobacco Use Types Packs/Day Years Used Date Smoking Tobacco: Never Assessed Sex Assigned at Date Recorded Not on file documented as of this encounter Miscellaneous Notes Telephone Encounter - Conversion, Historical Provider Ser - 04/13/2004 12:00 AM CDT [id number] >> JAM CARBIDE GRINDER TueApr 17, 2004 11:12 AM >> CALL RECEIVED. Contact: Ms. Huerta had her condition discussed. 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 It could be a mass. She needed neural imaging which she will follow up on and also her IV steroid course. Chang Antoine M.D./jennifer [facility] Document Id: [id number] documented in this encounter Plan of Treatment Not on filedocumented as of this encounter Visit Diagnoses Not on filedocumented in this encounter
--- OUTSIDE RECORDS SUMMARY | 2022-08-12 08:51 | XMS_ITS | Encounter Summary ---
:1950 Author Organization [facility] Address [address] [place] [address] Care Team Providers Name Role Phone Unavailable Primary Care Provider Unavailable Encounter Details Date Type Department Care Team Description 04/14/2004 Hospital Encounter HX [facility] Jeremy Garcia M.D. [address] [place] [address] [phone] (Wo rk) Social History Tobacco Use Types Packs/Day Years Used Date Smoking Tobacco: Never Assessed Sex Assigned at Date Recorded Not on file documented as of this encounter Miscellaneous Notes Miscellaneous - Conversion, Historical Provider Ser - 04/14/2004 12:00 AM CDT [id number] Heidi Huerta [id number] [facility] [address] [place] [address] April 14, 2004 Dear Heidi Huerta: We have scheduled you for a RECHECK APPOINTMENT with DR. ANDREW for Thursday, April 22, 2004 at 11:15 A.M. Please call us if this is an inconvenience. Our telephone number for scheduling is [phone]. We look forward to seeing you. Sincerely, Delmar Andrew M.D./cari Ophthamology Department [facility] Document Id: [id number] documented in this encounter Plan of Treatment Not on filedocumented as of this encounter Visit Diagnoses Not on filedocumented in this encounter
--- OUTSIDE RECORDS SUMMARY | 2022-08-12 08:51 | XMS_ITS | Encounter Summary ---
:1950 Author Organization [facility] Address [address] [place] [address] Care Team Providers Name Role Phone Unavailable Primary Care Provider Unavailable Encounter Details Date Type Department Care Team Description 04/20/2004 Hospital Encounter HX [facility] Nikunj Longo M.D. [address] [place], [place] [id number] (Wo rk) Social History Tobacco Use Types Packs/Day Years Used Date Smoking Tobacco: Never Assessed Sex Assigned at Date Recorded Not on file documented as of this encounter Miscellaneous Notes Telephone Encounter - Conversion, Historical Provider Ser - 04/20/2004 12:00 AM CDT [id number] >> JIR RADIOGRAPHER TueApr 23, 2004 9:11 AM >> CALL RECEIVED. Contact: Dr. Brii Villasenor Telephone call with Dr. Brii Villasenor regarding follow up on this patient for her lesions. She will b e seeing Dr. Villasenor. Dr. Villasenor will contact the patient to get her in sooner for an evaluation for p ossible MS. It should be noted that in discussing her case with her , who had clearance to discuss her ca se per the , she was taking her steroids inappropriately and took 60 mg of prednisone in comb ination with her 100 mg of methylprednisolone. She will continue a course for 5 days of oral predni sone and follow up and recheck with Dr. Villasenor and with myself in 24 hours. Chang Antoine M.D./sakina [facility] Document Id: [id number] documented in this encounter Plan of Treatment Not on filedocumented as of this encounter Visit Diagnoses Not on filedocumented in this encounter
--- OUTSIDE RECORDS SUMMARY | 2022-08-12 08:51 | XMS_ITS | Encounter Summary ---
:1950 Author Organization [facility] Address [address] [place] [address] Care Team Providers Name Role Phone Unavailable Primary Care Provider Unavailable Encounter Details Date Type Department Care Team Description 04/22/2011 Hospital Encounter HX [facility] Primo Morel M.D. Social History Tobacco Use Types Packs/Day Years Used Date Smoking Tobacco: Never Assessed Sex Assigned at Date Recorded Not on file documented as of this encounter Progress Notes Gurjit Quintanilla M.D., Ph.D. - 04/22/2011 4:00 PM CDT [id number] CLINIC ENCOUNTER SUBJECTIVE: Red eye for the last day. History of iritis in this eye in the past. She did notice yesterday that the eye was sore, but she has not had light sensitivity or pain. 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 Acne rosacea facial features. She has a fairly large subconjunctival hemorrhage distributed inferiorly nasally and temporally on the right side. Her corneas are clear. Anterior chambers deep and quiet. She does have old posterior synechia between the iris and the anterior lens capsule. No sign of any cellular reaction. Intraocular pressure noted above. IMPRESSION/PLAN: Subconjunctival hemorrhage on the right side. No sign of iritis. Monitor symptoms. Follow up if it becomes more light sensitivity or increased pain. Gurjit Quintanilla M.D. LIZA/edmundo cc: [facility] Document Id: [id number] Electronically signed by [facility] Forging Operator [id number] at 04/03/2017 6:43 AM CDT Gurjit Quintanilla M.D., Ph.D. - 04/22/2011 4:00 PM CDT [id number] SUBJECTIVE: Heidi Huerta is a 60 year old female who presents for red eye right. History of Present Illness:Patient states that since yesterday, soreness with pressure, today more red and less sore. Not related to any event or activity. Hx iritis RIGHT EYE, optic neuritis, LEFT EYE. Scheduled for complete exam in April. M. Camilo Distance Right Eye Left Eye Both Eyes CC NA NA SC 50 30-2 Pinhole 25 25-2 Correction no IOP Right Eye 15 Left Eye 16 Tonometry TONOPEN I Optic Disc Assessment C/D Ratio Right Eye C/D Ratio Left Eye Patient Active Problem List Diagnoses Code IRIDOCYCLITIS NOS 364.3 OPTIC NEURITIS NEC 377.39 PAST MEDICAL HISTORY: Past Medical History Diagnosis Date Other Optic Neuritis right eye Depressive Disorder, not Elsewhere Classified Unspecified Acute and Subacute Iridocyclitis Arthritis knees MEDICATIONS: Current outpatient prescriptions Medication Sig PIROXICAM 20 MG OR CAPS 1 CAPSULE DAILY GLUCOSAMINE CHONDR 1500 COMPLX OR None Entered ALLERGIES: No known allergies FAMILY HISTORY: Family History Problem Relation Age of Onset Eye Mother cataracts REVIEW OF SYSTEMS: Respiratory: negative. Cardiovascular: negative. Neurologic: negative. PSYCH: No apparent anxiety or depression. Pleasant affect. Source: [facility] RWHXTRANSXRTFSYS Document Id: [id number] Electronically signed by Conversion, [facility] Forging Operator [id number] at 04/03/2017 6:43 AM CDT documented in this encounter Plan of Treatment Not on filedocumented as of this encounter Visit Diagnoses Not on filedocumented in this encounter
--- OUTSIDE RECORDS SUMMARY | 2022-08-12 08:51 | XMS_ITS | Encounter Summary ---
:1950 Author Organization [facility] Address [address] [place] [address] Care Team Providers Name Role Phone Unavailable Primary Care Provider Unavailable Encounter Details Date Type Department Care Team Description 04/27/2004 Hospital Encounter HX [facility] Nikunj Longo M.D. [address] [place] [address] (Wo rk) Social History Tobacco Use Types Packs/Day Years Used Date Smoking Tobacco: Never Assessed Sex Assigned at Date Recorded Not on file documented as of this encounter Progress Notes Conversion, Historical Provider Ser - 04/27/2004 8:45 AM CDT [id number] Addended by: SHY GARNETT on: 05/01/2004,10:21 AM Comment: TranscriptionModules accepted: Progress NotesPain Questionnaire: Is your visit today because of Pain? NOSUBJECTIVE:Heidi Huerat is a 53 year old female who presents for a re check of right eye. History of Present Illne ss:Patient states she took her last dose of prednisone on noon on Tuesday. She is currently using s teroid gtts 4 times a day but feel this week end she only used them 3 times a day. She occasionally feels pressure but this comes and goes. She is aware that her vision has improved in her right eye. Natalie Hall LPNVisual Acuity SC DistanceOD: 50_2 Pinhole:OD: unable OS: 30 IOP OD: 1 5 OS: 14Patient Active Problem List: IRIDOCYCLITIS NOS[364.3]PAST MEDICAL HISTORY: Review o f patient's past medical history indicates: NO ACTIVE PROBLEMS MEDICATIONS:Current prescriptions:PRED FORTE 1 % OP SUSP use as directedNO ACTIVE MEDICATIONS per ptALLERGIES:No Known AllergiesFAMILY HISTORY:Review of patient's family history indicates : Eye Mother Comment: cataractsREVIEW OF SYSTEMS :Respiratory: negative.Cardiovascular: negative.Neurologic: negative.PSYCH: No apparent anxi ety or depression. Pleasant affect.HISTORY: The patient had an abnormal MRI scan with lesions in t he white matter and also opticneuritis on the right eye. She was placed on a course of IV systemic me thylprednisolone and comes in for reevaluation. She saw Dr. Villasenor the Neurologist who diagnosed that she did not have MS but rather had just an isolated case of opticneuritis. Dr. Villasenor also did some ot her lab work up in the [facility] area. EXAM:CONFRONTATION SERRANO: Constricted right eye.AGRONOMY TEACHER AL: Without lesions.MOTILITY: Full.PUPILS: 3+ afferent defect on the right.SLIT LAMP EXAM: Con junctivae/sclerae quiet. Corneas clear. Lenses clear.FUNDUS: Shows normal appearing nerves.ASSES SMENT: Retrobulbar opticneuritis right eye resolving.PLAN: I recommend following up with neurolog ist and rechecking with a field test in about six weeks time. Otherwise Dr. Villasenor will follow up on t he lab work.Chang Antoine M.D./shyD: 04/27/2004T: 05/01/2004 Source: [facility] RWHXTRANSXSYS Document Id: [id number] documented in this encounter Plan of Treatment Not on filedocumented as of this encounter Visit Diagnoses Not on filedocumented in this encounter
--- OUTSIDE RECORDS SUMMARY | 2022-08-12 08:51 | XMS_ITS | Encounter Summary ---
:1950 Author Organization [facility] Address [address] [place] [address] Care Team Providers Name Role Phone Unavailable Primary Care Provider Unavailable Encounter Details Date Type Department Care Team Description 07/02/2004 Hospital Encounter HX [facility] INTER[facility]ED Provider, [facility] Social History Tobacco Use Types Packs/Day Years Used Date Smoking Tobacco: Never Assessed Sex Assigned at Date Recorded Not on file documented as of this encounter Progress Notes Conversion, Historical Provider Ser - 07/02/2004 9:30 AM CDT [id number] Addended by: ERIBERTO GARNETT on: 07/07/2004,12:25 PM Comment: TranscriptionModules accepted: Progress NotesSUBJECTIVE: Heidi comes in for follow up of optic neuritis. She is a patient th at was seen April 21 with optic neuritis in her right eye. She was treated with IV steroids and ora l steroids and her vision improved. She had 2 nonspecific areas in the white matter on her MRI scan. She had negative sed rate, CLINT and Lyme titer. We told her at that time she basically just had one episode of optic neuritis and had a low probability given her age of going on to develop Multiple Sc lerosis. She comes in today saying that her vision had actually improved in her right eye but now ov er the last several weeks, she has had pain and increased blurred vision in her right eye and her lef t eye as well. She has had no other neurologic symptoms such as numbness, tingling, weakness, balanc e trouble or fatigue. OBJECTIVE: On exam, today,Vital signs - BP 106/62. P 72. She has an affer ent pupil defect on the right. She has a pale disc on the right. Her left pupil is reactive and she has a sharp disc. She is 20/40 vision on the left and 20/70 vision on the right. She has no double vision. She has otherwise a normal neurologic exam with normal cranial nerves. Otherwise, normal mo tor, sensation, cerebellar, gait and station. IMPRESSION: Unfortunately, I think she has had a re current optic neuritis on the right and possibly on the left as well.PLAN:1. We will give her ano ther course of IV steroids followed by a tapering course of oral steroids at [facility].2 . We will then have her follow up with me in 2 months and also with Dr. Antoine.3. Even though we goetz ve not been able to diagnose Multiple Sclerosis based on a clear cut MRI findings, if she has had a s econd episode of optic neuritis, we may need to consider immunomodulating therapy when we see her and discuss this with her on her next visit, particularly since she has now had bilateral episodes.Julio Cesar Villasenor M.D./Susie: 07/02/2004T: 07/07/2004 Source: [facility] RWHXTRANSXSYS Document Id: [id number] documented in this encounter Plan of Treatment Not on filedocumented as of this encounter Visit Diagnoses Not on filedocumented in this encounter
--- OUTSIDE RECORDS SUMMARY | 2022-08-12 08:51 | XMS_ITS | Encounter Summary ---
:1950 Author Organization [facility] Address [address] [place] [address] Care Team Providers Name Role Phone Unavailable Primary Care Provider Unavailable Encounter Details Date Type Department Care Team Description 04/14/2004 Hospital Encounter HX NO MAPPING Brandie Antoine M.D. [address] [place] [phone] (Wo rk) Social History Tobacco Use Types Packs/Day Years Used Date Smoking Tobacco: Never Assessed Sex Assigned at Date Recorded Not on file documented as of this encounter Plan of Treatment Not on filedocumented as of this encounter Visit Diagnoses Not on filedocumented in this encounter
--- OUTSIDE RECORDS SUMMARY | 2022-08-12 08:51 | XMS_ITS | Encounter Summary ---
:[address] [facility] Address [address] [place] [address] Care Team Providers Name Role Phone Unavailable Primary Care Provider Unavailable Encounter Details Date Type Department Care Team Description 04/23/2003 Hospital Encounter HX [facility] Jeremy Garcia M.D. 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 NOSUBJECTIVE:Heidi naik is a 52 year old female who presents for a re check iritis OD. History of Present Illness:Patien t states the blurriness has improved. Discomfort is gone and she is no longer using any gtts in [facility] eye. Natalie Hall LPNVisual Acuity CC DistanceOD: 25+2 OS: 2013 with Glasses.IOP OD: 1 4 OS: 15There is no problem list on file for this patient.PAST MEDICAL HISTORY: There is no pre vious medical history on file.MEDICATIONS:No current prescriptions on file.ALLERGIES:No Known AllergiesFAMILY HISTORY:Review of patient's family history indicates: Eye Mother Comment: cataractsREVIEW OF SYSTEMS:Respiratory: negative.Card iovascular: negative.Neurologic: negative.PSYCH: No apparent anxiety or depression. Pleasant af fect.* * *SLIT LAMP EXAMINATION: OD - Conjunctiva/sclera quiet. Cornea clear. Chamber deep with r are cell. Iris shows no nodules. Lens clear. IOP noted above. A manifest refraction today does no t improve the patient's visual acuity.IMPRESSION: Iritis OD, stable, off of the steroid medication . Refractive error without refractive shift.PLAN: 1. No change in glasses. 2. Recheck in 1 yea r, sooner if iritis symptoms recur in the right eye. Delmar Andrew M.D./bbD: Source: [facility] RWHXTRANSXSYS Document Id: [id number] documented in this encounter Plan of Treatment Not on filedocumented as of this encounter Visit Diagnoses Not on filedocumented in this encounter
--- OUTSIDE RECORDS SUMMARY | 2022-08-12 08:51 | XMS_ITS | Encounter Summary ---
:1950 Author Organization [facility] Address [address] [place] [address] Care Team Providers Name Role Phone Unavailable Primary Care Provider Unavailable Encounter Details Date Type Department Care Team Description 08/03/2004 Hospital Encounter [facility] Nikunj Longo M.D. [address] [place] [address] (Wo rk) Social History Tobacco Use Types Packs/Day Years Used Date Smoking Tobacco: Never Assessed Sex Assigned at Date Recorded Not on file documented as of this encounter Progress Notes Conversion, Historical Provider Ser - 08/03/2004 8:15 AM CDT [id number] Addended by: SHY GARNETT on: 08/05/2004,10:53 AM Comment: TranscriptionModules accepted: Order Summary, Progress NotesPain Questionnaire: Is your visit today because of Pain? NOSUBJECTI VE:Heidi Huerta is a 53 year old female who presents for visual field and check. History of Present Illness:Patient states she doesn't have any pain- but occasionally feels there is pressure i n it. The right eye vision continues to fluctuate- but has not noticed any changes since the last vis it. Denies any burning, mattering or lightsensativity. Doesn't wear any rx glasses at this time- uses OTC readers. Virginia Scott RNVisual Acuity SC DistanceOD: 40-2+3Visual Acuity SC DistanceOS: 30 -1+2Tonometry: ApplinationIOP OD: 12 OS: 14Patient Active Problem List: IRIDOCYCLITIS NOS[ 364.3] OPTIC NEURITIS NEC[377.39]PAST MEDICAL HISTORY: Review of patient's past medical history indicates: OPTIC NEURITIS NEC Comment: right eyeMEDI CATIONS:Current prescriptions:NO ACTIVE MEDICATIONS per ptALLERGIES:No Known AllergiesFAMILY HISTORY:Review of patient's family history indicates: Eye Mother Comment: cataractsREVIEW OF SYSTEMS:Respiratory: negative.Cardiovascular: negat pia.Neurologic: negative.PSYCH: No apparent anxiety or depression. Pleasant affect.HISTORY: As noted.The patient has a history of a possible optic neuritis on her left eye. She was diagnosed wit h optic neuritis alone on the right and then she was seen recently by Dr. Villasenor who diagnosed optic n euritis on the left although this was not documented by an opthalmic exam. Certainly the patient has a history of iritis and it could be iritis related. She comes in for a field test at this time. E XAM: Formal visual field testing is normal in each eye. Nonspecific changes.MOTILITY: Full.PUPILS: No afferent defect.SLIT LAMP EXAM: Conjunctivae/sclerae quiet. Corneas clear. Lenses moderated nuclear sclerosis in both eyes. Posterior synechia present in the right eye. ASSESSMENT: 1. Iridoc yclitis right eye is greater than the left.2. Presumed optic neuritis left eye although not document ed and certainly not documentable based on her field test. PLAN: I would recommend consideration o f holding off on the diagnosis of MS at this point although it is certainly possible and this is disc ussed at length with the patient that it is certainly possible that she could have had optic nerve in the left eye. I recommend she recheck in six month's time or as needed.At this point, her ears s eem plugged and I looked at both the eardrums and they both look clear and normal. I would recommen d she follow up with ENT as this maybe an MS related process. Chang Antoine M.D./shyD: 2003T: 08/05/2004CC: Dr. Villasenor per Dr. Antoine. [facility] Document Id: [id number] documented in this encounter Plan of Treatment Not on filedocumented as of this encounter Visit Diagnoses Not on filedocumented in this encounter
--- OUTSIDE RECORDS SUMMARY | 2022-08-12 08:51 | XMS_ITS | Encounter Summary ---
:1950 Author Organization [facility] Address [address] [place] [address] Care Team Providers Name Role Phone Unavailable Primary Care Provider Unavailable Encounter Details Date Type Department Care Team Description 03/18/2012 Hospital Encounter HX NO MAPPING Patrick Loaiza P .A.-C. Social History Tobacco Use Types Packs/Day Years Used Date Smoking Tobacco: Never Assessed Sex Assigned at Date Recorded Not on file documented as of this encounter Progress Notes Patrick Loaiza - 03/18/2012 12:00 PM CDT [id number] SUBJECTIVE: Adult female in her 60s from [place] who comes to Urgent Care in [place] with a rash on her left forearm for the past couple of days. She thinks it came on after she was in her garden. It is somewhat itchy. Her sister had shingles and she's very worried that it's shingles. She complains of some pain in the left elbow with range of motion. She has no history of arthritis in the lower extremities and also the left wrist. PHYSICAL EXAM: There is a very faint papular dermatitis on the left forearm on the volar aspect. The elbow has full range of motion without obvious erythema. There's no vesicular lesions on the lower or upper arm or the shoulder or neck area. She is reassured I think she just has contact dermatitis. She can use triamcinolone cream topically a few times a day for the rest of the week and then stop if needed. If she gets some vesicular lesions I discussed in detail then she can start on Valtrex 1000 three times a day for a week. She's happy with this plan. She'll recheck with us or her primary care provider if problems persist or increase. She denies any chest pain or shortness of breath. As mentioned, her left arm pain is reproducible on range of motion. BRIANDA Travis/sakina [facility] RWMCHXTRANSXSYS Document Id: [id number] documented in this encounter Plan of Treatment Not on filedocumented as of this encounter Visit Diagnoses Not on filedocumented in this encounter
--- OUTSIDE RECORDS SUMMARY | 2022-08-12 08:51 | XMS_ITS | Encounter Summary ---
:1950 Author Organization [facility] Address [address] [place] [id number] Care Team Providers Name Role Phone Unavailable Primary Care Provider Unavailable Encounter Details Date Type Department Care Team Description 08/07/2004 Hospital Encounter HX NO MAPPING Provider, Historical Social History Tobacco Use Types Packs/Day Years Used Date Smoking Tobacco: Never Assessed Sex Assigned at Date Recorded Not on file documented as of this encounter Miscellaneous Notes Miscellaneous - Conversion, Historical Provider Ser - 08/07/2004 12:00 AM CDT [id number] Date of R/C request: [id number] sent to: [facility], Dr Fleming, Neuropth. Dept, [address] [place] [id number] of Disclosure: Pt hx sheets, Brain MRI and rf of 6-15-04, Fac e/neck MRI and rf of 6-15-04, Visual will of 10-4-04 and 8-5-04, and all opth/clinic enc notes 01-15 -03 to 10--04. NCPurpose of Disclosure: continuing medical careAuthorization; NANumber of pag es: 25/CDPerson processing request: Sherrell Alarcon Source: [facility] RWHXTRANSXSYS Document Id: [id number] documented in this encounter Plan of Treatment Not on filedocumented as of this encounter Visit Diagnoses Not on filedocumented in this encounter
--- OUTSIDE RECORDS SUMMARY | 2022-08-12 08:52 | XMS_ITS | Encounter Summary ---
:1950 Author Organization [facility] Address [address] [place] [address] Care Team Providers Name Role Phone Unavailable Primary Care Provider Unavailable Encounter Details Date Type Department Care Team Description 02/05/2003 Hospital Encounter HX [facility] Jeremy Garcia M.D. [address] [place], [place] [phone] (Wo rk) Social History Tobacco Use Types Packs/Day Years Used Date Smoking Tobacco: Never Assessed Sex Assigned at Date Recorded Not on file documented as of this encounter Progress Notes Conversion, Historical Provider Ser - 02/05/2003 9:10 AM CDT [id number] Addended by: MERRY VINCENT on: 02/11/2003,11:20 AM Comment: transcriptionModules accepted: Progr ess NotesPain Questionnaire: Is your visit today because of Pain? Salocheri Huerta is a 52 year old female who presents for recheck on the right eye. History of Present Illness: Patient sta douglas there has been improvement in the right eye. Vision is still cloudy. No pain in the eye some ir ritation still. No tearing.Lona Cardenas, LPNVA with glasses 20/80 20/20 pinhole NIThere is no problem list on file for this patient.PAST MEDICAL HISTORY: There is no previous medical hist ory on file.PAST SURGICAL HISTORY: Review of patient's past surgical history indicates: EXCIS MARIANA KARON GANGLION WRIST 1984 Comment: Ganglionectomy, wrist REVISE SECONDA RY VARICOSITY 1986 Comment: Vein ligation, stripping left legMEDICATI ONS: Current prescriptions:PRED FORTE 1 % OP SUSP 1 gtt OD qidATROPINE SULFATE 1 % OP SOLN 1 gtt OD bidALLERGIES: No Known Allergies Tobacco Use: Never Alcohol Use: No Pt do es drive motor vehicle.Review of patient's family history indicates: Eye Mother Comment: cataractsREVIEW OF SYSTEMS:General: negativeSkin: negati veEyes: negativeEars/Nose/Mouth/Throat: negativeRespiratory: negativeCardiovascular: negativeGas trointestinal: negativeGenitourinary: negativeMusculoskeletal: negativeNeurologic: negativePsychi atric: negativeHematologic/Lymphatic/Immunologic: negativeEndocrine: negative* * *SLIT LAMP EXAM INATION: OD-Conjunctiva/sclera quiet. Cornea clear without carotid precipitates. Chamber deep with oc casional trace cell and flare. Iris no nodules. Lens no carotid precipitates on interior lens capsul e.FUNDUS: (Dilated) Very few vitreous cells noted. IOP measures 12 mmHg.IMPRESSION: Uveitis OD improving on current regimen.PLAN: 1. Discontinue Mydriatic.2. Continue with Pred-acetate on a t apering dose.3. Recheck in one month. Delmar Andrew MD/jenniferD: 02/07/2003T: 2002 Source: [facility] RWHXTRANSXSYS Document Id: [id number] documented in this encounter Plan of Treatment Not on filedocumented as of this encounter Visit Diagnoses Not on filedocumented in this encounter
--- OUTSIDE RECORDS SUMMARY | 2022-08-12 08:52 | XMS_ITS | Encounter Summary ---
:1950 Author Organization [facility] Address [address] [place] [address] Care Team Providers Name Role Phone Unavailable Primary Care Provider Unavailable Encounter Details Date Type Department Care Team Description 01/15/2003 [facility] Jeremy Garcia M.D. 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 Nory Beatriz Huerta is a 52 year old female who presents for a check up on floaters OD. History of Present Illness: Patient ates she first noticed floaters OD in Sept.-Oct. of last fall. She first noticed the floaters but no w she feels she is looking through a haze. Sometimes OD feels sore and she sometimes feels pressure behind OD. Natalie Hall, LPNDistance CC OD: 60-1 Distance CC OS: 20Pinhole OD: unable Near CC OD: 70 Near CC OS: 25IOP:OD: 11 OS: 15OD sluggish. min. react. compared to OS. Di d not detect APD.There is no problem list on file for this patient.PAST MEDICAL HISTORY: There is no previous medical history on file.PAST SURGICAL HISTORY: Review of patient's past surgical his tory indicates: EXCIS PRIMARY GANGLION WRIST 1984 Comment: Ganglionect nomi, wrist REVISE SECONDARY VARICOSITY 1986 Comment: Vein ligation, s tripping left legMEDICATIONS: No current prescriptions on file.ALLERGIES: No Known Allergies Tobacco Use: Never Alcohol Use: No Pt does drive motor vehicle.Review of patie nt's family history indicates: Eye Mother Comment: c ataractsREVIEW OF SYSTEMS:General: negativeSkin: negativeEyes: as aboveEars/Nose/Mouth/Throat : negativeRespiratory: negativeCardiovascular: negativeGastrointestinal: negativeGenitourinary: n egativeMusculoskeletal: negativeNeurologic: negativePsychiatric: negativeHematologic/Lymphatic/Im munologic: negativeEndocrine: negative* * *SLIT LAMP EXAMINATION: OD - Lid margin clean. Tear f ilm adequate. Conjunctiva/sclera quiet. Cornea shows fine keratic precipitates. Chamber deep with t race to +1 cell and flare. Iris shows iridolenticular adhesions without iris nodularity or neovascul arization. Lens - Keratic precipitates on the anterior lens capsule. Questionable trace anterior reyez bcapsular changes. Otherwise, clear.OS - Cornea clear. Deep, quiet chamber. Normal iris and lens. FUNDUS (Dilated): There is a mild vitreitis OD. Careful inspection of the fundus, including the disc, macula, vessels, and periphery, reveals no masses, no retinal detachment, no snow-banking, and no vitreous debris. 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 Pred [place] 1%, one drop OD q.i.d. 2. Atropine 1%, one drop OD b.i.d. in an attempt to break the iridolenticu lar adhesions and round out the cornea. 3. Recheck in 2 or 3 weeks. 4. If were are unable to con trol the iritis, then further systemic workup would be indicated at that time. Delmar Andrew M.D./bbD: 01/15/2003T: 01/16/2003 [facility] Document Id: [id number] documented in this encounter Plan of Treatment Not on filedocumented as of this encounter Visit Diagnoses Not on filedocumented in this encounter
[2022-08-12 13:38] LABS: Albumin* 4.4 g/dL (3.3-5.0)
[2022-08-12 13:39] LABS: Basophils Absolute Auto 0.04 K/uL (0.00-0.30); Basophils Percent Auto 0.7 % (0.0-3.0); Chloride* 103 mmol/L (96-114); Eosinophils Absolute Auto 0.12 K/uL (0.00-0.50); Eosinophils Percent Auto 2.2 % (0.0-7.0); Hematocrit 44.8 % (33.0-51.0); Hemoglobin* 15.4 gm/dL (12.0-16.0); Immature Granulocytes Abs Auto 0.01 K/uL (0.00-0.30); Lymphocytes Absolute Auto 2.18 K/uL (0.90-2.90); Lymphocytes Percent Auto 40.7 % (20-44); Mean Corpuscular HGB Conc 34 gm/dL (32-36); Mean Corpuscular Hemoglobin 31 pg (26-34); Mean Corpuscular Volume 91 fL (80-100); Monocytes Percent Auto 8.4 % (0.0-11.0); Neutrophils Absolute Auto 2.55 K/uL (1.7-7.0); Neutrophils Percent Auto 47.8 % (42.0-72.0); Platelet Count* 250 K/uL (140-440); Potassium* 5.5 mmol/L (3.6-5.1); Sodium* 137 mmol/L (135-149); White Blood Count* 5.35 K/uL (4.50-11.00)
[2022-08-12 13:41] LABS: Aspartate Amino Transferase* 25 U/L (12-35); Bilirubin Total* 0.9 mg/dL (0.1-1.5); Carbon Dioxide* 26 mmol/L (20-32); Cholesterol* 221 mg/dL (90-199); Creatinine* 0.9 mg/dL (0.5-1.5); Estimated Glomerular Filt Rate 68 ml/min; Total Protein* 7.1 g/dL (6.0-8.3)
[2022-08-12 13:42] LABS: Alanine Aminotransferase* 20 U/L (4-35); Alkaline Phosphatase* 105 U/L (40-150); Blood Urea Nitrogen* 19 mg/dL (7-30); Calcium* 9.8 mg/dL (8.4-10.6); Glucose* 110 mg/dL (60-115); HDL Cholesterol* 55 mg/dL (>=50); LDL Cholesterol Calculated 143 mg/dL (<100); Triglycerides* 117 mg/dL (40-149)
[2022-08-12 13:43] LABS: Slide Review Reflex No
== END 2022-08-12 08:40 | disposition home or self-care (01) ==
PROVIDERS: PCP Nurse Practitioner Family; Visit Provider Nurse Practitioner Family
DX: Z00.00 Encounter for general adult medical examination without abnormal findings (principal); E66.9 Obesity, unspecified; Z13.0 Encounter for screening for diseases of the blood and blood-forming organs and certain disorders involving the immune mechanism; Z13.6 Encounter for screening for cardiovascular disorders; Z13.29 Encounter for screening for other suspected endocrine disorder
CPT/HCPCS: 36415; 80053; 80061; 84443; 85025

== ENCOUNTER 2022-09-06 13:09 | Outpatient (CLI) | payer MEDICARE, OTHER, SELFPAY ==
--- OUTSIDE RECORDS SUMMARY | 2022-09-06 13:35 | XMS_ITS | Encounter Summary ---
:[address] [facility] Address [address] [place] [address] Care Team Providers Name Role Phone No Contact, Pcp Primary Care Provider Unavailable Reason for Visit Physical Therapy (Routine) - Canceled Specialty Diagnoses / Procedures Referred By Contact Refer red To Contact Diagnoses Follow Up Surgery Exam Edi Benito M.D. [facility] Procedures PT Ongoing treatment [address] [place] [phone] Referral ID Status Reason Start Date Expiration Date Visits V isits Requested Authorized [id number] Canceled 09/16/2020 09/16/2021 1 1 Encounter Details Date Type Department Care Team Description 11/28/2020 Clinical Support Department of Edi Benito M.D. 701 [facility] [place] [phone] Follow Up Surgery Rehabilitation Services Dave Servin, P.T. [address] [place] [phone] Exam in [address] [phone] Social History Tobacco Use Types Packs/Day Years [...] 122??. This was a non billable visit. GER LONG TERM CARE documented in this encounter Plan of Treatment Not on filedocumented as of this encounter Visit Diagnoses Diagnosis Follow Up Surgery Exam documented in this encounter Care Teams Recruiting Scheduler Relationship Specialty Start Date End Date No Contact, Pcp PCP - General Family Medicine 09/05/20 documented as of this encounter
--- OUTSIDE RECORDS SUMMARY | 2022-09-06 13:35 | XMS_ITS | Encounter Summary ---
:1950 Author Organization [facility] Address [address] [place] [address] Care Team Providers Name Role Phone No Contact, Pcp Primary Care Provider Unavailable Reason for Visit Physical Therapy (Routine) - Canceled Specialty Diagnoses / Procedures Referred By Contact Refer red To Contact Diagnoses Follow Up Surgery Exam Edi Benito M.D. [facility] Procedures PT Ongoing treatment [address] [place] [phone] Referral ID Status Reason Start Date Expiration Date Visits V isits Requested Authorized [id number] Canceled 09/16/2020 09/16/2021 1 1 Encounter Details Date Type Department Care Team Description 11/21/2020 Clinical Support Department of Edi Benito M.D. 701 [facility] [place] [phone] Follow Up Surgery Rehabilitation Services Dave Servin, P.T. [address] [place] [phone] Exam in [address] [phone] Social History Tobacco Use Types Packs/Day Years [...] P.T. Department of Rehabilitation Services in [address] [phone] Dept: [phone] LATION ANALYST documented in this encounter Plan of Treatment Not on filedocumented as of this encounter Visit Diagnoses Diagnosis Follow Up Surgery Exam documented in this encounter Care Teams Manager Of Exhibitions And Collections Relationship Specialty Start Date End Date No Contact, Pcp PCP - General Family Medicine 09/05/20 documented as of this encounter
--- OUTSIDE RECORDS SUMMARY | 2022-09-06 13:35 | XMS_ITS | Encounter Summary ---
:1950 Author Organization [facility] Address [address] [place] [address] Care Team Providers Name Role Phone No Contact, Pcp Primary Care Provider Unavailable Reason for Visit Physical Therapy (Routine) - Canceled Specialty Diagnoses / Procedures Referred By Contact Refer red To Contact Diagnoses Follow Up Surgery Exam Edi Benito M.D. [facility] Procedures PT Ongoing treatment [address] [place] [phone] Referral ID Status Reason Start Date Expiration Date Visits V isits Requested Authorized [id number] Canceled 09/16/2020 09/16/2021 1 1 Encounter Details Date Type Department Care Team Description 11/13/2020 Clinical Support Department of Edi Benito M.D. 701 [facility] [place] [phone] Follow Up Surgery Rehabilitation Services Dave Servin, P.T. [address] [place] [phone] Exam in [address] [phone] Social History Tobacco Use Types Packs/Day Years [...] This was a no charge visit today. 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
--- OUTSIDE RECORDS SUMMARY | 2022-09-06 13:35 | XMS_ITS | Encounter Summary ---
:1950 Author Organization [facility] Address [address] [place] [address] Care Team Providers Name Role Phone No Contact, Pcp Primary Care Provider Unavailable Reason for Visit Physical Therapy (Routine) - Canceled Specialty Diagnoses / Procedures Referred By Contact Refer red To Contact Diagnoses Follow Up Surgery Exam Edi Benito M.D. [facility] Procedures PT Ongoing treatment [address] [place] [phone] Referral ID Status Reason Start Date Expiration Date Visits V isits Requested Authorized [id number] Canceled 09/16/2020 09/16/2021 1 1 Encounter Details Date Type Department Care Team Description 11/24/2020 Clinical Support Department of Edi Benito M.D. 701 [facility] [place] [phone] Follow Up Surgery Rehabilitation Services Dave Servin, P.T. [address] [place] [phone] Exam in [address] [phone] Social History Tobacco Use Types Packs/Day Years [...] min Total Treatment Time (min): 15 min H SETTER documented in this encounter Plan of Treatment Not on filedocumented as of this encounter Visit Diagnoses Diagnosis Follow Up Surgery Exam documented in this encounter Care Teams Barrel Repairer Relationship Specialty Start Date End Date No Contact, Pcp PCP - General Family Medicine 09/05/20 documented as of this encounter
--- OUTSIDE RECORDS SUMMARY | 2022-09-06 13:35 | XMS_ITS | Encounter Summary ---
:1950 Author Organization [facility] Address [address] [place] [address] Care Team Providers Name Role Phone No Contact, Pcp Primary Care Provider Unavailable Encounter Details Date Type Department Care Team Description 12/31/2020 Orders Only [facility] PCP TH Sa karissa Thomas M.D. [address] [place], [place] [phone] (Wo rk) Social History [...] on filedocumented in this encounter Care Teams Procurement Coordinator Relationship Specialty Start Date End Date No Contact, Pcp PCP - General Family Medicine 09/05/20 documented as of this encounter
--- OUTSIDE RECORDS SUMMARY | 2022-09-06 13:35 | XMS_ITS | Encounter Summary ---
:1950 Author Organization [facility] Address [address] [place] [address] Care Team Providers Name Role Phone No Contact, Pcp Primary Care Provider Unavailable Reason for Visit Physical Therapy (Routine) - Canceled Specialty Diagnoses / Procedures Referred By Contact Refer red To Contact Diagnoses Follow Up Surgery Exam Edi Benito M.D. [facility] Procedures PT Ongoing treatment [address] [place] [phone] Referral ID Status Reason Start Date Expiration Date Visits V isits Requested Authorized [id number] Canceled 09/16/2020 09/16/2021 1 1 Encounter Details Date Type Department Care Team Description 11/12/2020 Clinical Support Department of Edi Benito M.D. 701 [facility] [place] [phone] Follow Up Surgery Rehabilitation Services Dave Servin, P.T. [address] [place] [phone] Exam in [address] [phone] Social History Tobacco Use Types Packs/Day Years [...] Servin P.T. Department of Rehabilitation Services in [address] [address] Dept: [phone] DISTRIBUTOR documented in this encounter Plan of Treatment Not on filedocumented as of this encounter Visit Diagnoses Diagnosis Follow Up Surgery Exam documented in this encounter Care Teams Well Tester Relationship Specialty Start Date End Date No Contact, Pcp PCP - General Family Medicine 09/05/20 documented as of this encounter
--- OUTSIDE RECORDS SUMMARY | 2022-09-06 13:35 | XMS_ITS | Encounter Summary ---
:1950 Author Organization [facility] Address [address] [place] [address] Care Team Providers Name Role Phone No Contact, Pcp Primary Care Provider Unavailable Encounter Details Date Type Department Care Team Description 06/02/2022 Clinical Communication Department of Edi Benito , Orthopedic Surgery in [place], [place] 701 [facility] [address] [place] [phone] Social History Tobacco Use Types Packs/Day Years [...] on filedocumented in this encounter Care Teams Refund Clerk Relationship Specialty Start Date End Date No Contact, Pcp PCP - General Family Medicine 09/05/20 documented as of this encounter
--- OUTSIDE RECORDS SUMMARY | 2022-09-06 13:35 | XMS_ITS | Encounter Summary ---
:1950 Author Organization [facility] Address [address] [place] [address] Care Team Providers Name Role Phone No Contact, Pcp Primary Care Provider Unavailable Reason for Visit Reason Comments Follow-up Arthroplasty Outpatient (Routine) - Closed Specialty Diagnoses / Procedures Referred By Contact Refer red To Contact Orthopedic Surgery Edi Benito M .D. [facility] [address] [place] [phone] Referral ID Status Reason Start Date Expiration Date Visits Requ ested Visits Authorized [id number] Closed 10/21/2020 10/21/2021 1 1 Encounter Details Date Type Department Care Team Description 11/11/2020 Office Visit Department of Edi Benito M.D. [address] [place] [phone] Aftercare Total Knee Orthopedic Surgery in Bridgette Francisco APRN, C.N.P., D.N.P. [address] [place] [phone] Arthroplasty (Primary [place], [place]) [address] [phone] Social History Tobacco Use Types Packs/Day Years Used Date Smoking Tobacco: Never Smokeless Tobacco: Never Alcohol Use Standard Drinks/Week Comments Not Currently 0 (1 standard drink = 0.6 oz pure alcoho l) Sex Assigned at Date Recorded Not on file documented as of this encounter Progress Notes Bridgette Francisco APRN, C.NOsvaldo., D.N.P. - 11/11/2020 8:30 AM CST Heidi is a pleasant 69-year-old female who is status post right total knee arthroplasty on 09/08/2020. She has been working with physical therapy and continue to slowly progress some improvement with her motion noted. She denies any signs or symptoms of infection. She does have some achiness at times. She has been only using iael-kmb-emcctch analgesics and has discontinued her fentanyl patch 3 days ago. Physical exam-right knee surgical incision is healing well. There is no signs of infection. There ismild effusion noted. She has full extension and flexes to 115??. Knee is stable to valgus and varus. Impression and plan- Heidi is a pleasant 69-year-old status post right total knee arthroplasty. She is happy with her motion and her progress. She feels that progress is slower than she thought so we reviewed expectations. Will have her continue to work with physical therapy. We discussed prophylactic antibiotic use for future and a script was provided. Her questions were answered will have her follow up on an as-needed basis. ALIZER documented in this encounter Plan of Treatment Not on filedocumented as of this encounter Visit Diagnoses Diagnosis Aftercare Total Knee Arthroplasty - Prim manuel documented in this encounter Care Teams Renal Nurse Relationship Specialty Start Date End Date No Contact, Pcp PCP - General Family Medicine 09/05/20 documented as of this encounter
--- OUTSIDE RECORDS SUMMARY | 2022-09-06 13:35 | XMS_ITS | Encounter Summary ---
:1950 Author Organization [facility] Address [address] [place] [address] Care Team Providers Name Role Phone No Contact, Pcp Primary Care Provider Unavailable Reason for Visit Physical Therapy (Routine) - Canceled Specialty Diagnoses / Procedures Referred By Contact Refer red To Contact Diagnoses Follow Up Surgery Exam Edi Benito M.D. [facility] Procedures PT Ongoing treatment [address] [place] [phone] Referral ID Status Reason Start Date Expiration Date Visits V isits Requested Authorized [id number] Canceled 09/16/2020 09/16/2021 1 1 Encounter Details Date Type Department Care Team Description 11/18/2020 Clinical Support Department of Edi Benito M.D. 701 [facility] [place] [phone] Follow Up Surgery Rehabilitation Services Dave Servin, P.T. [address] [place] [phone] Exam in [address] [phone] Social History Tobacco Use Types Packs/Day Years [...] P.T. Department of Rehabilitation Services in [address] [address] Dept: [phone] DRIVER documented in this encounter Plan of Treatment Not on filedocumented as of this encounter Visit Diagnoses Diagnosis Follow Up Surgery Exam documented in this encounter Care Teams Automatic Silk Screen Printer Relationship Specialty Start Date End Date No Contact, Pcp PCP - General Family Medicine 09/05/20 documented as of this encounter
--- OUTSIDE RECORDS SUMMARY | 2022-09-06 13:35 | XMS_ITS | Clinical Summary ---
:1950 Author Organization [facility] Address [address] [place] [address] Care Team Providers Name Role Phone No Contact, Pcp Primary Care Provider Unavailable Source Comments Patient records contain information from all sites at [facility]. For routine questions regarding patient records, call [phone] during business hours, M-F 8:00 AM - 5:00 PM Central Time. Record requests for emergency care only can be directed to [phone] at any time.[facility] Allergies Active Allergy Reactions Severity Noted [...] Added automatically from request for ted briceno [id number] Pain Shoulder Left Rotator Cuff Repair Shoulder Status Post Follow Up Surgery Exam Family History Medical History Relation Name Comments [...] Comments Blood Pressure 110/55 09/09/2020 2:10 PM TRUCK BODY REPAIRER Pulse 64 09/09/2020 2:10 PM TRUCK BODY REPAIRER Temperature 36.9 ??C (98.4 ??F) 09/09/2020 2:10 PM TRUCK BODY REPAIRER Respiratory Rate 18 09/09/2020 2:10 PM TRUCK BODY REPAIRER Oxygen Saturation 98% 09/09/2020 2:10 PM TRUCK BODY REPAIRER ra Inhaled Oxygen Concentration - - Weight 111 kg (244 lb 7.8 oz) 09/09/2020 6:16 AM TRUCK BODY REPAIRER Height 162.6 cm (5' 4) 09/08/2020 11:28 AM TRUCK BODY REPAIRER Body Mass Index 41.97 09/08/2020 11:28 AM TRUCK BODY REPAIRER Plan of Treatment Health Maintenance Due Date [...] 09/01/2019, 04/07/2012 Medical Devices Implanted Type Area Dial Polisher Device Identifier Shelf Model / Expiration Serial / Date Lot Cmnt Bn Hi Visc Pmma 40 - [id number] Bone Cement Right: [place] dunn [id number] 03/30/2022 [id number] / Implanted: Qty: 1 on 09/08/2020 by Edi Bean M.D. at [facility] Knee / [id number] [id number] Tib Trt Rt Lt Sz4 - [id number] Knee Right: [place] 06/25/2025 [id number] / Implanted: Qty: 1 on 09/08/2020 by Edi Bean M.D. at [facility] Implant Knee / [id number] Insurance Payer Benefit Plan Subscriber ID Effective Phone Address Typ e / Group Dates MEDICARE MEDICARE A [id number] 2014-Prese [address] Medicare [place] [facility] [place] [address] FOR FOR [id number] 2017-Pre [phone] [address] [place] [address] Advance Directives For more information, please contact: [phone] Latest Code Status on File Code Status Date Activated Date Inactivated Comments Full Code 09/08/2020 11:28 AM 09/09/2020 6:22 PM Question Answer Comments Full Code: Not Discussed Due to: Patient not available Care Teams Ship'S Pilot Relationship Specialty Start Date End Date No Contact, Pcp PCP - General Family Medicine 09/05/20
--- OUTSIDE RECORDS SUMMARY | 2022-09-06 13:36 | XMS_ITS | Encounter Summary ---
:1950 Author Organization [facility] Address [address] [place] [address] Care Team Providers Name Role Phone No Contact, Pcp Primary Care Provider Unavailable Reason for Visit Reason Comments Post-op Outpatient (Routine) - Closed Specialty Diagnoses / Procedures Referred By Contact Refer red To Contact Orthopedic Surgery Bridgette Francisco, ISABELLA, [facility] C.N.P., D.N.P. [address] [place] [phone] Referral ID Status Reason Start Date Expiration Date Visits Requ ested Visits Authorized [id number] Closed 08/21/2020 08/21/2021 1 1 Encounter Details Date Type Department Care Team Description 09/22/2020 Office Visit Department of Bridgette Francisco, Follow Up S urgery Exam Orthopedic Surgery in [facility], C.N.P., (Prim manuel Dx) [place], [place] D.N.P. 701 [facility] [address] [place] [phone] Social History Tobacco Use Types Packs/Day Years [...] sensation and motion with her foot. Diagnostic mengbhn-t-tgb of her right knee shows total knee [...] on speaker phone to help clarify medications. KEY DRIVER documented in this encounter Plan of Treatment Not on filedocumented as of this encounter Results DX Knee Right 3 Views (09/22/2020 3:04 PM SET KEY DRIVER) Anatomical Region Laterality Modality Lower Extremity, Knee, Musculoskeletal RST LOS, Right Digital Radiography Musculoskeletal ARZ LOS, Muskuloskeletal FLA LOS Specimen (Source) Anatomical Collection Method Collection Time Re ceived Time Location / / Volume Laterality 09/22/2020 3:19 PM SET KEY DRIVER Impressions 09/22/2020 3:20 PM SET KEY DRIVER Interval right TKA with patellar resurfacing. Components appear well seated without evidence of loosening. Ne w soft tissue swelling about the right knee relative to the left. Tricompartmen shravan degenerative change left knee. Comparison with 08/21/2020. Narrative 09/22/2020 3:20 PM SET KEY DRIVER EXAM: DX KNEE RIGHT 3 VIEWS [...] Exam documented in this encounter Care Teams Production Support Specialist Relationship Specialty Start Date End Date No Contact, Pcp PCP - General Family Medicine 09/05/20 documented as of this encounter
--- OUTSIDE RECORDS SUMMARY | 2022-09-06 13:36 | XMS_ITS | Encounter Summary ---
:1950 Author Organization [facility] Address [address] [place] [address] Care Team Providers Name Role Phone No Contact, Pcp Primary Care Provider Unavailable Reason for Visit Physical Therapy (Routine) - Canceled Specialty Diagnoses / Procedures Referred By Contact Refer red To Contact Diagnoses Follow Up Surgery Exam Edi Benito M.D. [facility] Procedures PT Ongoing treatment [address] [place] [phone] Referral ID Status Reason Start Date Expiration Date Visits V isits Requested Authorized [id number] Canceled 09/16/2020 09/16/2021 1 1 Encounter Details Date Type Department Care Team Description 10/27/2020 Clinical Support Department of Edi Benito M.D. [address] [facility] [place] [phone] Follow Up Surgery Rehabilitation Services Dave Servin, P.T. [address] [place] [phone] Exam in [address] [phone] Social History Tobacco Use Types Packs/Day Years [...] Servin P.T. Department of Rehabilitation Services in [address] [address] Dept: [phone] L GRINDER documented in this encounter Plan of Treatment Not on filedocumented as of this encounter Visit Diagnoses Diagnosis Follow Up Surgery Exam documented in this encounter Care Teams Esthetician And Manager Medical Spa Relationship Specialty Start Date End Date No Contact, Pcp PCP - General Family Medicine 09/05/20 documented as of this encounter
--- OUTSIDE RECORDS SUMMARY | 2022-09-06 13:36 | XMS_ITS | Encounter Summary ---
:1950 Author Organization [facility] Address [address] [place] [address] Care Team Providers Name Role Phone No Contact, Pcp Primary Care Provider Unavailable Reason for Visit Physical Therapy (Routine) - Canceled Specialty Diagnoses / Procedures Referred By Contact Refer red To Contact Diagnoses Follow Up Surgery Exam Edi Benito M.D. [facility] Procedures PT Ongoing treatment [address] [place] [phone] Referral ID Status Reason Start Date Expiration Date Visits V isits Requested Authorized [id number] Canceled 09/16/2020 09/16/2021 1 1 Encounter Details Date Type Department Care Team Description 10/03/2020 Clinical Support Department of Edi Benito M.D. 701 [facility] [place] [phone] Follow Up Surgery Rehabilitation Services Dave Servin, P.T. [address] [place] [phone] Exam in [address] [phone] Social History Tobacco Use Types Packs/Day Years [...] P.T. Department of Rehabilitation Services in [address] [address] Dept: [phone] CIATE PROFESSOR OF MUSICOLOGY documented in this encounter Plan of Treatment Not on filedocumented as of this encounter Visit Diagnoses Diagnosis Follow Up Surgery Exam documented in this encounter Care Teams Geologist Petroleum Relationship Specialty Start Date End Date No Contact, Pcp PCP - General Family Medicine 09/05/20 documented as of this encounter
--- OUTSIDE RECORDS SUMMARY | 2022-09-06 13:36 | XMS_ITS | Encounter Summary ---
:1950 Author Organization [facility] Address [address] [place] [address] Care Team Providers Name Role Phone No Contact, Pcp Primary Care Provider Unavailable Reason for Visit Physical Therapy (Routine) - Canceled Specialty Diagnoses / Procedures Referred By Contact Refer red To Contact Diagnoses Follow Up Surgery Exam Edi Benito M.D. [facility] Procedures PT Ongoing treatment [address] [place] [address] Referral ID Status Reason Start Date Expiration Date Visits V isits Requested Authorized [id number] Canceled 09/16/2020 09/16/2021 1 1 Encounter Details Date Type Department Care Team Description 09/26/2020 Clinical Support Department of Edi Benito M.D. 701 [facility] [place] [phone] Follow Up Surgery Rehabilitation Services Dave Servin, P.T. [address] [place] [phone] Exam in [address] [phone] Social History Tobacco Use Types Packs/Day Years [...] Servin P.T. Department of Rehabilitation Services in [address] [address] Dept: [phone] TRY CUTTER documented in this encounter Plan of Treatment Not on filedocumented as of this encounter Visit Diagnoses Diagnosis Follow Up Surgery Exam documented in this encounter Care Teams Plant Control Operator Relationship Specialty Start Date End Date No Contact, Pcp PCP - General Family Medicine 09/05/20 documented as of this encounter
--- OUTSIDE RECORDS SUMMARY | 2022-09-06 13:36 | XMS_ITS | Encounter Summary ---
:1950 Author Organization [facility] Address [address] [place] [address] Care Team Providers Name Role Phone No Contact, Pcp Primary Care Provider Unavailable Reason for Visit Physical Therapy (Routine) - Canceled Specialty Diagnoses / Procedures Referred By Contact Refer red To Contact Diagnoses Follow Up Surgery Exam Edi Benito M.D. [facility] Procedures PT Ongoing treatment [address] [place] [phone] Referral ID Status Reason Start Date Expiration Date Visits V isits Requested Authorized [id number] Canceled 09/16/2020 09/16/2021 1 1 Encounter Details Date Type Department Care Team Description 10/20/2020 Clinical Support Department of Edi Benito M.D. 701 [facility] [place] [phone] Follow Up Surgery Rehabilitation Services Dave Servin, P.T. [address] [place] [phone] Exam in [address] [phone] Social History Tobacco Use Types Packs/Day Years [...] Servin P.T. Department of Rehabilitation Services in [address] [address] Dept: [phone] OYMENT EVALUATOR/CASE MANAGER documented in this encounter Plan of Treatment Not on filedocumented as of this encounter Visit Diagnoses Diagnosis Follow Up Surgery Exam documented in this encounter Care Teams Technical Support Engineer Relationship Specialty Start Date End Date No Contact, Pcp PCP - General Family Medicine 09/05/20 documented as of this encounter
--- OUTSIDE RECORDS SUMMARY | 2022-09-06 13:36 | XMS_ITS | Encounter Summary ---
:1950 Author Organization [facility] Address [address] [place] [address] Care Team Providers Name Role Phone No Contact, Pcp Primary Care Provider Unavailable Reason for Visit Physical Therapy (Routine) - Canceled Specialty Diagnoses / Procedures Referred By Contact Refer red To Contact Diagnoses Follow Up Surgery Exam Edi Benito M.D. [facility] Procedures PT Ongoing treatment [address] [place] [phone] Referral ID Status Reason Start Date Expiration Date Visits V isits Requested Authorized [id number] Canceled 09/16/2020 09/16/2021 1 1 Encounter Details Date Type Department Care Team Description 09/22/2020 Clinical Support Department of Edi Benito M.D. 701 [facility] [place] [phone] Follow Up Surgery Rehabilitation Services Dave Servin, P.T. [address] [place] [phone] Exam in [address] [phone] Social History Tobacco Use Types Packs/Day Years [...] knee flexion. We moved over to the [facility] where she worked on this as [...] Servin P.T. Department of Rehabilitation Services in [address] [address] Dept: [phone] ON RAILS ENGINEER documented in this encounter Plan of Treatment Not on filedocumented as of this encounter Visit Diagnoses Diagnosis Follow Up Surgery Exam documented in this encounter Care Teams Motor Analyst Relationship Specialty Start Date End Date No Contact, Pcp PCP - General Family Medicine 09/05/20 documented as of this encounter
--- OUTSIDE RECORDS SUMMARY | 2022-09-06 13:36 | XMS_ITS | Encounter Summary ---
:1950 Author Organization [facility] Address [address] [place] [address] Care Team Providers Name Role Phone No Contact, Pcp Primary Care Provider Unavailable Encounter Details Date Type Department Care Team Description 09/22/2020 Clinical Communication Department of Bridgette Francisco, Orthopedic Surgery in COMMODITY SPECIALIST[place] D.N.P. [address] [place] [phone] Social History Tobacco Use Types Packs/Day Years Used Date Smoking Tobacco: Never Smokeless Tobacco: Never Alcohol Use Standard Drinks/Week Comments Not Currently 0 (1 standard drink = 0.6 oz pure alcoho l) Sex Assigned at Date Recorded Not on file documented as of this encounter Miscellaneous Notes Telephone Encounter - Stefanie Taylor R.N. - 09/22/2020 3:33 PM REMOTE SENSING TECHNICIAN ----- Message from Bridgette Francisco APRN C.N.PThomas, D.N.P. sent at 09/22/2020 3:28 PM REMOTE SENSING TECHNICIAN ----- Please put follow-up appointment TKA for this patient on October 14 in [place] at 8:00 a.m..Thank you TE SENSING TECHNICIAN documented in this encounter Plan of Treatment Not on filedocumented as of this encounter Visit Diagnoses Not on filedocumented in this encounter Care Teams Seafood And Service Meat Manager Relationship Specialty Start Date End Date No Contact, Pcp PCP - General Family Medicine 09/05/20 documented as of this encounter
--- OUTSIDE RECORDS SUMMARY | 2022-09-06 13:36 | XMS_ITS | Encounter Summary ---
:1950 Author Organization [facility] Address [address] [place] [address] Care Team Providers Name Role Phone No Contact, Pcp Primary Care Provider Unavailable Reason for Visit Physical Therapy (Routine) - Canceled Specialty Diagnoses / Procedures Referred By Contact Refer red To Contact Diagnoses Follow Up Surgery Exam Edi Benito M.D. [facility] Procedures PT Ongoing treatment [address] [place] [phone] Referral ID Status Reason Start Date Expiration Date Visits V isits Requested Authorized [id number] Canceled 09/16/2020 09/16/2021 1 1 Encounter Details Date Type Department Care Team Description 10/01/2020 Clinical Support Department of Edi Benito M.D. 701 [facility] [place] [phone] Follow Up Surgery Rehabilitation Services Dave Servin, P.T. [address] [place] [phone] Exam in [address] [phone] Social History Tobacco Use Types Packs/Day Years Used Date Smoking Tobacco: Never Smokeless Tobacco: Never Alcohol Use Standard Drinks/Week Comments Not Currently 0 (1 standard drink = 0.6 oz pure alcoho l) Sex Assigned at Date Recorded Not on file documented as of this encounter Progress Notes Dave Servin, P.T. - 10/01/2020 6:00 AM CST Physical Therapy Outpatient Treatment Note SUBJECTIVE Patient's Name: Heidi Huerta Referring Provider: Edi Benito M.D. Visit Diagnosis: 1. Follow Up Surgery Exam Reason for Referral: Patient is 1 week status post right Total Knee Arthroplasty Onset Date: 09/08/20 Payor: MEDICARE / Plan: MEDICARE A AND B / Product Type: Medicare / No data recorded Epic Visit Count: 7 Patient comments: Sandee comes into therapy today stating that she was sore after treatment yesterday. We were little more aggressive with mobility. However, she feels she is doing better overall. OBJECTIVE Pain: Pain Assessment Pain Score: 4 After therapy today, we are able to obtain knee flexion to approximately 98??. Extension lag is to nearly 0??. TREATMENT Treatment today consisted of: We had her transition between the sci fit and the treatment table. She is on the sci fit for a totalof 15 minutes sliding the seat ahead as tolerated. On the treatment table, we worked on aggressive passive range of motion for knee flexion/extension. She worked on short arc quads with manual resistance. Home Exercise Program/Education: Contact monitoring: Appropriate PPE was utilized including face mask/protective eyewear. Assessment Clinical Impression: Patient tolerated well overall. She is able to tolerate mobility without as much pain today. She is slowly progressing with her mobility. Functional Goals and Timeframes: PT Goal #1: [...] #4 Date: 10/14/20 Plan We will continue to see her daily for this week. She will come in tomorrow to get on the sci fit. Plan for next session: Time Spent with Patient Manual Therapy (min): 15 min Therapeutic Exercise (min): 15 min Time Calculation Total Timed Units (min): 30 min Total Treatment Time (min): 30 min Dave Servin P.T. Department of Rehabilitation Services in [address] [address] Dept: [phone] ARY ASSISTANT documented in this encounter Plan of Treatment Not on filedocumented as of this encounter Visit Diagnoses Diagnosis Follow Up Surgery Exam documented in this encounter Care Teams Lead Atg Developer Relationship Specialty Start Date End Date No Contact, Pcp PCP - General Family Medicine 09/05/20 documented as of this encounter
--- OUTSIDE RECORDS SUMMARY | 2022-09-06 13:36 | XMS_ITS | Encounter Summary ---
:[address] [facility] Address [address] [place] [address] Care Team Providers Name Role Phone No Contact, Pcp Primary Care Provider Unavailable Reason for Visit Physical Therapy (Routine) - Canceled Specialty Diagnoses / Procedures Referred By Contact Refer red To Contact Diagnoses Follow Up Surgery Exam Edi Benito M.D. [facility] Procedures PT Ongoing treatment [address] [place] [phone] Referral ID Status Reason Start Date Expiration Date Visits V isits Requested Authorized [id number] Canceled 09/16/2020 09/16/2021 1 1 Encounter Details Date Type Department Care Team Description 11/10/2020 Clinical Support Department of Edi Benito M.D. 701 [facility] [place] [phone] Follow Up Surgery Rehabilitation Services Dave Servin, P.T. [address] [place] [phone] Exam in [address] [phone] Social History Tobacco Use Types Packs/Day Years [...] Servin P.T. Department of Rehabilitation Services in [address] [address] Dept: [phone] LEADER/CONTROL ROOM OPERATOR documented in this encounter Plan of Treatment Not on filedocumented as of this encounter Visit Diagnoses Diagnosis Follow Up Surgery Exam documented in this encounter Care Teams Client Services Administrator Relationship Specialty Start Date End Date No Contact, Pcp PCP - General Family Medicine 09/05/20 documented as of this encounter
--- OUTSIDE RECORDS SUMMARY | 2022-09-06 13:36 | XMS_ITS | Encounter Summary ---
:[address] [facility] Address [address] [place] [address] Care Team Providers Name Role Phone No Contact, Pcp Primary Care Provider Unavailable Reason for Visit Physical Therapy (Routine) - Canceled Specialty Diagnoses / Procedures Referred By Contact Refer red To Contact Diagnoses Follow Up Surgery Exam Edi Benito M.D. [facility] Procedures PT Ongoing treatment [address] [place] [phone] Referral ID Status Reason Start Date Expiration Date Visits V isits Requested Authorized [id number] Canceled 09/16/2020 09/16/2021 1 1 Encounter Details Date Type Department Care Team Description 09/29/2020 Clinical Support Department of Edi Benito M.D. 701 [facility] [place] [phone] Follow Up Surgery Rehabilitation Services Dave Servin, P.T. [address] [place] [phone] Exam in [address] [phone] Social History Tobacco Use Types Packs/Day Years [...] Servin P.T. Department of Rehabilitation Services in [address] [address] Dept: [phone] AL RUNNER documented in this encounter Plan of Treatment Not on filedocumented as of this encounter Visit Diagnoses Diagnosis Follow Up Surgery Exam documented in this encounter Care Teams Food Stand Manager Relationship Specialty Start Date End Date No Contact, Pcp PCP - General Family Medicine 09/05/20 documented as of this encounter
--- OUTSIDE RECORDS SUMMARY | 2022-09-06 13:36 | XMS_ITS | Encounter Summary ---
:1950 Author Organization [facility] Address [address] [place] [address] Care Team Providers Name Role Phone No Contact, Pcp Primary Care Provider Unavailable Reason for Visit Physical Therapy (Routine) - Canceled Specialty Diagnoses / Procedures Referred By Contact Refer red To Contact Diagnoses Follow Up Surgery Exam Edi Benito M.D. [facility] Procedures PT Ongoing treatment [address] [place] [phone] Referral ID Status Reason Start Date Expiration Date Visits V isits Requested Authorized [id number] Canceled 09/16/2020 09/16/2021 1 1 Encounter Details Date Type Department Care Team Description 11/07/2020 Clinical Support Department of Edi Benito M.D. 701 [facility] [place] [phone] Follow Up Surgery Rehabilitation Services Dave Servin, P.T. [address] [place] [phone] Exam in [address] [phone] Social History Tobacco Use Types Packs/Day Years [...] Servin P.T. Department of Rehabilitation Services in [address] [address] Dept: [phone] CTIVE PRECINCT documented in this encounter Plan of Treatment Not on filedocumented as of this encounter Visit Diagnoses Diagnosis Follow Up Surgery Exam documented in this encounter Care Teams Optical Effects Line Up Person Relationship Specialty Start Date End Date No Contact, Pcp PCP - General Family Medicine 09/05/20 documented as of this encounter
--- OUTSIDE RECORDS SUMMARY | 2022-09-06 13:36 | XMS_ITS | Encounter Summary ---
:1950 Author Organization [facility] Address [address] [place] [address] Care Team Providers Name Role Phone No Contact, Pcp Primary Care Provider Unavailable Reason for Visit Physical Therapy (Routine) - Canceled Specialty Diagnoses / Procedures Referred By Contact Refer red To Contact Diagnoses Follow Up Surgery Exam Edi Benito M.D. [facility] Procedures PT Ongoing treatment [address] [place] [phone] Referral ID Status Reason Start Date Expiration Date Visits V isits Requested Authorized [id number] Canceled 09/16/2020 09/16/2021 1 1 Encounter Details Date Type Department Care Team Description 10/08/2020 Clinical Support Department of Edi Benito M.D. 701 [facility] [place] [phone] Follow Up Surgery Rehabilitation Services Dave Servin, P.T. [address] [place] [phone] Exam in [address] [phone] Social History Tobacco Use Types Packs/Day Years Used Date Smoking Tobacco: Never Smokeless Tobacco: Never Alcohol Use Standard Drinks/Week Comments Not Currently 0 (1 standard drink = 0.6 oz pure alcoho l) Sex Assigned at Date Recorded Not on file documented as of this encounter Progress Notes Dave Servin, P.T. - 10/08/2020 6:00 AM CST Physical Therapy Outpatient Treatment [...] Visit Count: 9 Patient comments: Sandee comes in after not having seen her for approximately 4 days. She states that she may have lost a little mobility. She feels a little stiff today. However, her pain has been quite manageable overall. OBJECTIVE Pain: Pain Assessment Pain Score: 2 After therapy today, knee flexion is to approximately 90??. There is an extension lag of no more than 2??. Overall strength is doing well with knee extension strength 4+/5. TREATMENT Treatment today consisted of: Patient was on the sci fit for approximately 15 minutes followed by manual techniques for both flexion/extension. We also worked on some knee extension exercises with manual resistance by the therapist. We also reviewed her home exercise program. Home Exercise Program/Education: Contact monitoring: Appropriate PPE was utilized including face mask/protective eyewear. Assessment Clinical Impression: Patient tolerated well overall. Her pain is quite manageable overall. She really has no significant pain. Her movement/mobility is progressing slowly overall. There does not appear to be hard end feel at this time. Functional Goals and Timeframes: [...] Servin P.T. Department of Rehabilitation Services in [address] [address] Dept: [phone] LFISH SHUCKER documented in this encounter Plan of Treatment Not on filedocumented as of this encounter Visit Diagnoses Diagnosis Follow Up Surgery Exam documented in this encounter Care Teams Commercial Finance Manager Relationship Specialty Start Date End Date No Contact, Pcp PCP - General Family Medicine 09/05/20 documented as of this encounter
--- OUTSIDE RECORDS SUMMARY | 2022-09-06 13:36 | XMS_ITS | Encounter Summary ---
:1950 Author Organization [facility] Address [address] [place] [address] Care Team Providers Name Role Phone No [...] 09/08/2020 7:50 AM Res ults for this CLIENT EXPERIENCE SPECIALIST procedure are i n the results section. documented in this encounter Results Non-Radiology Image-Surgery Image Exam (09/08/2020 7:50 AM CLIENT EXPERIENCE SPECIALIST) Specimen (Source) Anatomical Collection Method Collection Time Re ceived Time Location / / Volume Laterality 09/08/2020 7:49 AM CLIENT EXPERIENCE SPECIALIST Narrative [facility] - 09/08/2020 9:20 AM CLIENT EXPERIENCE SPECIALIST This order has been created and auto-finalized [...] on filedocumented in this encounter Care Teams Associate Genetics Professor Relationship Specialty Start Date End Date No Contact, Pcp PCP - General Family Medicine 09/05/20 documented as of this encounter
--- OUTSIDE RECORDS SUMMARY | 2022-09-06 13:36 | XMS_ITS | Encounter Summary ---
:1950 Author Organization [facility] Address [address] [place] [address] Care Team Providers Name Role Phone No Contact, Pcp Primary Care Provider Unavailable Reason for Visit Physical Therapy (Routine) - Canceled Specialty Diagnoses / Procedures Referred By Contact Refer red To Contact Diagnoses Follow Up Surgery Exam Edi Benito M.D. [facility] Procedures PT Ongoing treatment [address] [place] [phone] Referral ID Status Reason Start Date Expiration Date Visits V isits Requested Authorized [id number] Canceled 09/16/2020 09/16/2021 1 1 Encounter Details Date Type Department Care Team Description 10/28/2020 Clinical Support Department of Edi Benito M.D. [address] [facility] [place] [phone] Follow Up Surgery Rehabilitation Services Dave Servin, P.T. [address] [place] [phone] Exam in [address] [phone] Social History Tobacco Use Types Packs/Day Years [...] Servin P.T. Department of Rehabilitation Services in [address] [address] Dept: [phone] MOSTAT MACHINE TENDER documented in this encounter Plan of Treatment Not on filedocumented as of this encounter Visit Diagnoses Diagnosis Follow Up Surgery Exam documented in this encounter Care Teams Faa Certified Powerplant Mechanic Relationship Specialty Start Date End Date No Contact, Pcp PCP - General Family Medicine 09/05/20 documented as of this encounter
--- OUTSIDE RECORDS SUMMARY | 2022-09-06 13:36 | XMS_ITS | Encounter Summary ---
:1950 Author Organization [facility] Address [address] [place] [address] Care Team Providers Name Role Phone No Contact, Pcp Primary Care Provider Unavailable Reason for Visit Physical Therapy (Routine) - Canceled Specialty Diagnoses / Procedures Referred By Contact Refer red To Contact Diagnoses Follow Up Surgery Exam Edi Benito M.D. [facility] Procedures PT Ongoing treatment [address] [place] [address] Referral ID Status Reason Start Date Expiration Date Visits V isits Requested Authorized [id number] Canceled 09/16/2020 09/16/2021 1 1 Encounter Details Date Type Department Care Team Description 10/13/2020 Clinical Support Department of Edi Benito M.D. 701 [facility] [place] [phone] Follow Up Surgery Rehabilitation Services Dave Servin, P.T. [address] [place] [phone] Exam in [address] [phone] Social History Tobacco Use Types Packs/Day Years [...] Servin P.T. Department of Rehabilitation Services in [address] [address] Dept: [phone] RVISOR BELT AND LINK ASSEMBLY documented in this encounter Plan of Treatment Not on filedocumented as of this encounter Visit Diagnoses Diagnosis Follow Up Surgery Exam documented in this encounter Care Teams Share Dairy Farmer Relationship Specialty Start Date End Date No Contact, Pcp PCP - General Family Medicine 09/05/20 documented as of this encounter
--- OUTSIDE RECORDS SUMMARY | 2022-09-06 13:36 | XMS_ITS | Encounter Summary ---
:1950 Author Organization [facility] Address [address] [place] [address] Care Team Providers Name Role Phone No Contact, Pcp Primary Care Provider Unavailable Reason for Visit Physical Therapy (Routine) - Canceled Specialty Diagnoses / Procedures Referred By Contact Refer red To Contact Diagnoses Follow Up Surgery Exam Edi Benito M.D. [facility] Procedures PT Ongoing treatment [address] [place] [phone] Referral ID Status Reason Start Date Expiration Date Visits V isits Requested Authorized [id number] Canceled 09/16/2020 09/16/2021 1 1 Encounter Details Date Type Department Care Team Description 10/29/2020 Clinical Support Department of Edi Benito M.D. [address] [facility] [place] [phone] Follow Up Surgery Rehabilitation Services Dave Servin, P.T. [address] [place] [phone] Exam in [address] [phone] Social History Tobacco Use Types Packs/Day Years [...] are able to obtain knee flexion to [id number] degrees. She was able to bring this [...] Servin P.T. Department of Rehabilitation Services in [address] [address] Dept: [phone] [employer] documented in this encounter Plan of Treatment Not on filedocumented as of this encounter Visit Diagnoses Diagnosis Follow Up Surgery Exam documented in this encounter Care Teams Aircraft Fueler Relationship Specialty Start Date End Date No Contact, Pcp PCP - General Family Medicine 09/05/20 documented as of this encounter
--- OUTSIDE RECORDS SUMMARY | 2022-09-06 13:36 | XMS_ITS | Encounter Summary ---
:1950 Author Organization [facility] Address [address] [place] [address] Care Team Providers Name Role Phone No Contact, Pcp Primary Care Provider Unavailable Reason for Visit Physical Therapy (Routine) - Canceled Specialty Diagnoses / Procedures Referred By Contact Refer red To Contact Diagnoses Follow Up Surgery Exam Edi Benito M.D. [facility] Procedures PT Ongoing treatment [address] [place] [phone] Referral ID Status Reason Start Date Expiration Date Visits V isits Requested Authorized [id number] Canceled 09/16/2020 09/16/2021 1 1 Encounter Details Date Type Department Care Team Description 10/16/2020 Clinical Support Department of Edi Benito M.D. [address] [facility] [place] [phone] Follow Up Surgery Rehabilitation Services Dave Servin, P.T. [address] [place] [phone] Exam in [address] [phone] Social History Tobacco Use Types Packs/Day Years [...] Servin P.T. Department of Rehabilitation Services in [address] [address] Dept: [phone] PLACEMENT OFFICER documented in this encounter Plan of Treatment Not on filedocumented as of this encounter Visit Diagnoses Diagnosis Follow Up Surgery Exam documented in this encounter Care Teams Manager Of Organizational Development Relationship Specialty Start Date End Date No Contact, Pcp PCP - General Family Medicine 09/05/20 documented as of this encounter
--- OUTSIDE RECORDS SUMMARY | 2022-09-06 13:36 | XMS_ITS | Encounter Summary ---
:1950 Author Organization [facility] Address [address] [place] [address] Care Team Providers Name Role Phone No Contact, Pcp Primary Care Provider Unavailable Reason for Visit Physical Therapy (Routine) - Canceled Specialty Diagnoses / Procedures Referred By Contact Refer red To Contact Diagnoses Follow Up Surgery Exam Edi Benito M.D. [facility] Procedures PT Ongoing treatment [address] [place] [phone] Referral ID Status Reason Start Date Expiration Date Visits V isits Requested Authorized [id number] Canceled 09/16/2020 09/16/2021 1 1 Encounter Details Date Type Department Care Team Description 11/05/2020 Clinical Support Department of Edi Benito M.D. [address] [facility] [place] [phone] Follow Up Surgery Rehabilitation Services Dave Servin, P.T. [address] [place] [phone] Exam in [address] [phone] Social History Tobacco Use Types Packs/Day Years [...] Outpatient Treatment Note SUBJECTIVE Patient's Name: Heidi Huerat Referring Provider: Edi Benito M.D. Visit Diagnosis: [...] Servin P.T. Department of Rehabilitation Services in [address] [address] Dept: [phone] EL WHEELER documented in this encounter Plan of Treatment Not on filedocumented as of this encounter Visit Diagnoses Diagnosis Follow Up Surgery Exam documented in this encounter Care Teams Cementer Machine Joiner Relationship Specialty Start Date End Date No Contact, Pcp PCP - General Family Medicine 09/05/20 documented as of this encounter
--- OUTSIDE RECORDS SUMMARY | 2022-09-06 13:36 | XMS_ITS | Encounter Summary ---
:1950 Author Organization [facility] Address [address] [place] [address] Care Team Providers Name Role Phone No Contact, Pcp Primary Care Provider Unavailable Reason for Visit Physical Therapy (Routine) - Closed Specialty Diagnoses / Procedures Referred By Contact Refer red To Contact Diagnoses Follow Up Surgery Exam Bridgette Francisco APRN, [facility] Procedures PT Evaluate and treat C.N.P., D.N.P. [address] [place] [phone] Referral ID Status Reason Start Date Expiration Date Visits Requ ested Visits Authorized [id number] Closed 08/21/2020 08/21/2021 1 1 Encounter Details Date Type Department Care Team Description 09/16/2020 Comprehensive Visit Department of Bridgette Francisco APRN, C.N.P., D.N.P. [address] [place] [phone] Follow Up Surgery Rehabilitation Dave Servin, P.TThomas [address] [place] [phone] Exam (Primary Dx) Services in [address] [phone] Social History Tobacco Use Types Packs/Day Years [...] AND B / Product Type: Medicare / Mtime Visit Count: 1 PERTINENT MEDICAL / SURGICAL [...] TOTAL KNEE; Surgeon: Edi Benito M.D.; Location: [facility] OR Heidi Huerta is a 69 y.o. [...] Servin P.T. Department of Rehabilitation Services in [address] [address] Dept: [phone] AVER documented in this encounter Plan of Treatment Not on filedocumented as of this encounter Visit Diagnoses Diagnosis Follow Up Surgery Exam - Primary documented in this encounter Care Teams Commercial Carpenter Relationship Specialty Start Date End Date No Contact, Pcp PCP - General Family Medicine 09/05/20 documented as of this encounter
--- OUTSIDE RECORDS SUMMARY | 2022-09-06 13:36 | XMS_ITS | Encounter Summary ---
:1950 Author Organization [facility] Address [address] [place] [address] Care Team Providers Name Role Phone No Contact, Pcp Primary Care Provider Unavailable Reason for Visit Physical Therapy (Routine) - Canceled Specialty Diagnoses / Procedures Referred By Contact Refer red To Contact Diagnoses Follow Up Surgery Exam Edi Benito M.D. [facility] Procedures PT Ongoing treatment [address] [place] [phone] Referral ID Status Reason Start Date Expiration Date Visits V isits Requested Authorized [id number] Canceled 09/16/2020 09/16/2021 1 1 Encounter Details Date Type Department Care Team Description 10/30/2020 Clinical Support Department of Edi Benito M.D. [address] [facility] [place] [phone] Follow Up Surgery Rehabilitation Services Dave Servin, P.T. [address] [place] [phone] Exam in [address] [phone] Social History Tobacco Use Types Packs/Day Years [...] next week. She follows up with her citizen participation specialist in approximately 10 days. Plan for next session: Time Spent with Patient Dave Servin P.T. Department of Rehabilitation Services in [address] [address] Dept: [phone] MANAGER documented in this encounter Plan of Treatment Not on filedocumented as of this encounter Visit Diagnoses Diagnosis Follow Up Surgery Exam documented in this encounter Care Teams Nascar Pit Crew Person Relationship Specialty Start Date End Date No Contact, Pcp PCP - General Family Medicine 09/05/20 documented as of this encounter
--- OUTSIDE RECORDS SUMMARY | 2022-09-06 13:36 | XMS_ITS | Encounter Summary ---
:1950 Author Organization [facility] Address [address] [place] [address] Care Team Providers Name Role Phone No Contact, Pcp Primary Care Provider Unavailable Reason for Referral Outpatient (Routine) - Closed Specialty Diagnoses / Procedures Referred By Contact Refer red To Contact Orthopedic Surgery Earnestine Damon, ISABELLA, [facility] C.N.P., D.N.P. [address] [facility] [place] [address] Referral ID Status Reason Start Date Expiration Date Visits Requ ested Visits Authorized [id number] Closed 09/09/2020 09/09/2021 1 1 Scheduling Instructions Ordered images/tests are associated with this appointment. ULAR KNIFE CUTTER MACHINE Reason for Visit Auth/Cert Specialty Diagnoses / Procedures Referred By Contact Refer red To Contact Diagnoses Primary Osteoarthritis Knee Right Osteoarthritis Primary Osteoarthritis Knee Right [M17.11] Procedures ARTHROPLASTY REPLACEMENT TOTAL KNEE Referral ID Status Reason Start Date Expiration Date Visits Requ ested Visits Authorized [id number] 1 1 Encounter Details Date Type Department Care Team Description 09/08/2020 - Hospital [facility] Edi Benito Osteoarthrit is (Primary Dx); 09/[facility] Knee Replacement Stat [facility], [address] [place] [address] Third Floor [place], [place] [address] [place] [address] [place] [phone] (Work) [phone] Social History Tobacco Use Types Packs/Day Years Used Date Smoking Tobacco: Never Smokeless Tobacco: Never Alcohol Use Standard Drinks/Week Comments Not Currently 0 (1 standard drink = 0.6 oz pure alcoho l) Sex Assigned at Date Recorded Not on file documented as of this encounter Last Filed Vital Signs Vital Sign Reading Time Taken Comments Blood Pressure 110/55 09/09/2020 2:10 PM CIRCULAR KNIFE CUTTER MACHINE Pulse 64 09/09/2020 2:10 PM CIRCULAR KNIFE CUTTER MACHINE Temperature 36.9 ??C (98.4 ??F) 09/09/2020 2:10 PM CIRCULAR KNIFE CUTTER MACHINE Respiratory Rate 18 09/09/2020 2:10 PM CIRCULAR KNIFE CUTTER MACHINE Oxygen Saturation 98% 09/09/2020 2:10 PM CIRCULAR KNIFE CUTTER MACHINE ra Inhaled Oxygen Concentration - - Weight 111 kg (244 lb 7.8 oz) 09/09/2020 6:16 AM CIRCULAR KNIFE CUTTER MACHINE Height 162.6 cm (5' 4) 09/08/2020 11:28 AM CIRCULAR KNIFE CUTTER MACHINE Body Mass Index 41.97 09/08/2020 11:28 AM CIRCULAR KNIFE CUTTER MACHINE documented in this encounter Medications at Time [...] discussed with supervising PT Maddi Jeffrey RN, [facility] [place] The treatment plan and discharge recommendations may [...] Treatment Time (min): 23 min Mady Chaudhry [facility], Third Floor [address] [facility] [address] Dept: [phone] Physical Therapy Dismissal Snapshot Patient was seen 3 visit(s) for post-op R TKA Inpatient goals: met Please see last progress note for status. Patient to dismiss to home with outpatient therapy set up in [place] to address remaining impairments of range of motion, strength, and pain and mobility deficits of transfers and gait ULAR KNIFE CUTTER MACHINE Associated attestation - Maddi Jeffrey PGrace. - 09/09/2020 3:53 PM CIRCULAR KNIFE CUTTER MACHINE This therapist has reviewed all documentation and supervised today's session. This therapist agrees with the plan of care developed in collaboration with the patient.I was present during entire sessionand directed and provided treatment under my clinical decision making. Fabienne Farooq M.D. - 09/09/2020 12:31 PM CST Post Anesthesia Assessment Note Patient: Heidi Huetra General Info Post-procedure day: 1 Follow-up type: [...] Care Plan:continue current management per plan/IPS protocol ULAR KNIFE CUTTER MACHINE Maddi Jeffrey P.T. - 09/09/2020 10:11 AM [...] Time (min): 27 min Maddi Jeffrey P.T. [facility], Third Floor [address] [facility] [address] Dept: [phone] ULAR KNIFE CUTTER MACHINE documented in this encounter H&P Notes Edi [...] precede with surgical treatment. Edi Benito M.D. ULAR KNIFE CUTTER MACHINE Source Note - Rufino, Default Authenticator - 09/03/2020 6:59 AM CIRCULAR KNIFE CUTTER MACHINE documented in this encounter Consult Notes Yolande [...] TOTAL KNEE; Surgeon: Edi Benito M.D.; Location: [facility] OR History of Present Illness: Patient has longstanding right knee pain, currently underwent a right TKA Occupational Profile: Level of Crosby: Independent with ADLs and functional transfers, Independent [...] post op) Home Equipment Home Adaptive Equipment: Showroom Sales Consultant, Long-handled shoe horn Gait Devices Owned: Front-wheeled [...] Huerta had a standardized score of 44.27. [facility]'s 3-year data, as reported at [facility] 2017, indicates a cut off of 39.4 or greater in daily activity is a fair to good accurate prediction of discharge home. Source: AM-PAC ???6 -Clicks?? functional assessment scores predict acute care hospital discharge destination. Molasses Coloring Operator. 2014 Jul; 94 (9): 1252-61. AM-PAC Activity: [...] 69 y.o. year old direct admit to [facility] [place] [facility] following a right TKA on 09/08/2020. [...] while seated; rather, promote extension ??? Use data processing consultant as needed to complete tasks and/or pick things up from the floor ??? Obtain sock aid, toilet safety frame, and other DME/AE as needed to complete daily tasks Bathroom Safety Sheet [id number] provided as patient education with recommendations written [...] Time (min): 39 min Kaylyn Lockwood O.T. [facility], Third Floor [address] [facility] [address] Dept: [phone] ULAR KNIFE CUTTER MACHINE Maddi Jeffrey P.T. - 09/08/2020 3:32 PM [...] Prior Function / Occupational Profile Level of Crosby: Independent with ADLs and functional transfers, Independent [...] home with spouse, outpatient physical therapy in [place] with familiar therapistPreet Patient Comments: She is [...] of falling?: No OBJECTIVE Measures - Tools [facility] Basic Mobility (V.2) How much help [...] 3-5 steps with a railing?: A Lot [facility] Basic Mobility (V.2) Raw Score: 18 -[facility] Basic Mobility (V.2) Standardized Score: 41.05 [...] Time (min): 23 min Maddi Jeffrey P.T. [facility] Third Floor [address] [facility] [address] Dept: [phone] ULAR KNIFE CUTTER MACHINE Manuela Hyde L.S.W. - 09/08/2020 1:00 PM [...] support; Three children; Daughter- Everardo lives in [place] & has been helping prior to surgery at home. Son- Carlos lives in [place], [place] and comes home on weekends. Daughter-Belem lives in [place], [place]. Spirituality / Lutheran / Culture: Baptized Advent, although, Heidi identifies recently with the Amish latter day. History: none; Heidi's Dwayne was in the [employer] for 38 years. Employment: Retired. Psychosocial Risk Factors impacting the patient: none Abuse, Neglect, Maltreatment, Trauma: Current: None reported. ENVIRONMENTAL SUPPORTS Current Living Situation: Heidi lives with her , Dwayne. In their home in [place], [place]. Two steps on entry with a [...] is a pleasant 69year old female from [place], [place]. Patient was alert and oriented. Patient [...] Healthcare Directive and discussed submittinga copy to [facility] to have on file as needed. Social Work Services ([facility]) contact information, including a phone number, [...] indicated at this time. Social Work Services ([facility]) contact information, including a phone number, was provided to patient, if any need or questions arise. Social Work Service will continue to follow to assist in facilitating a safe, timely & appropriate discharge when medically stable. Jefferson Rubio 09/08/2020 ULAR KNIFE CUTTER MACHINE Morgan Rodriguez M.D. - 09/08/2020 12:35 PM [...] None prescription or nonprescription including vitamins and mneh-fyc-hcwxqtl analgesics. She says she does plan to take calcium and vitamin-D this winter (which I said could be a fine idea during the winter) ALLERGY No known medication allergies SOCIAL [place] near [facility]. Two steps into the house and she hopesto go to her bedroom upstairs. 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 Patient never smoke cigarettes. 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 ULAR KNIFE CUTTER MACHINE documented in this encounter Nursing Notes Shae [...] Pt reports adequate pain control this shift. ULAR KNIFE CUTTER MACHINE documented in this encounter OR Notes Op Note - Edi Benito M.D. - 09/08/2020 8:48 AM CST FULL OP NOTE Procedure(s) (LRB): ARTHROPLASTY REPLACEMENT TOTAL KNEE (Right) Surgeon(s) and Role: * Edi Benito M.D. - Primary * Bridgette Francisco APRN, C.N.P., D.N.P. - Supervisor Paint * Earnestine Damon APRN, C.N.P., D.N.P. - Supervisor Paint Anesthesia Type Regional Pre-operative Diagnosis Primary Osteoarthritis [...] operative suite. Bridgette Francisco DNP, is the nurse first assist for this right total knee arthroplasty. PRE-OPERATIVE [...] was closed using #1 Vicryl in interrupted uzxgrd-uv-fahuo fashion followed by telescope repairer ious irrigation, subcutaneous tissue closure of this [...] Implant Name Type Inv. Item Serial No. Drain Layer Lot No. LRB No. Used Action CMNT BN HI VISC PMMA 40 - [id number] Bone Cement CMNT BN HI VISC PMMA 40 Hulbert [id number] Right 1 Implanted CMNT BN HI VISC PMMA 40 - [id number] Bone Cement CMNT BN HI VISC PMMA 40 Hulbert [id number] Right 1 Implanted KN FEM TRT RT CMNT PS SZ-4 - [id number] Knee Implant KN FEM TRT RT CMNT PS SZ-4 Alli [id number] Right 1 Implanted INS TIB TRT PS X3 SZ4 11 - [id number] Knee Implant INS TIB TRT PS X3 SZ4 11 Hulbert [id number] Right 1 Implanted PAT MKO SYM X3 9X33 - [id number] Knee Implant PAT MKO SYM X3 9X33 Hulbert [id number] Right 1 Implanted KN STM TRT CMNT 12X50 - [id number] Knee Implant KN STM TRT CMNT 12X50 Alli [id number] Right 1 Implanted BSPLT TIB TRT RT LT SZ4 - [id number] Knee Implant BSPLT TIB TRT RT LT [...] 1,000 mL irrigation Given Ramiro Benito M.D. ULAR KNIFE CUTTER MACHINE Brief Op Note - Edi Benito M.D. - 09/08/2020 8:48 AM CST BRIEF OP NOTE Procedure(s) (LRB): ARTHROPLASTY REPLACEMENT TOTAL KNEE (Right) Surgeon(s) and Role: * Edi Benito M.D. - Primary * Bridgette Francisco APRN, C.N.P., D.N.P. - Supervisor Paint * Earnestine Damon APRN, C.N.P., D.N.P. - Supervisor Paint Anesthesia Type Regional Pre-operative Diagnosis Primary Osteoarthritis [...] Implant Name Type Inv. Item Serial No. Drain Layer Lot No. LRB No. Used Action CMNT BN HI VISC PMMA 40 - [id number] Bone Cement CMNT BN HI VISC PMMA 40 Alli [id number] Right 1 Implanted CMNT BN HI VISC PMMA 40 - [id number] Bone Cement CMNT BN HI VISC PMMA 40 Hulbert [id number] Right 1 Implanted KN FEM TRT RT CMNT PS SZ-4 - [id number] Knee Implant KN FEM TRT RT CMNT PS SZ-4 Alli [id number] Right 1 Implanted INS TIB TRT PS X3 SZ4 11 - [id number] Knee Implant INS TIB TRT PS X3 SZ4 11 Alli [id number] Right 1 Implanted PAT MKO SYM X3 9X33 - [id number] Knee Implant PAT MKO SYM X3 9X33 Alli [id number] Right 1 Implanted KN STM TRT CMNT 12X50 - [id number] Knee Implant KN STM TRT CMNT 12X50 Hulbert [id number] Right 1 Implanted BSPLT TIB TRT RT LT SZ4 - [id number] Knee Implant BSPLT TIB TRT RT LT SZ4 Hulbert [id number] Right 1 Implanted Edi Benito M.D. ULAR KNIFE CUTTER MACHINE documented in this encounter Plan of Treatment Scheduled Referrals Name Type Priority Associated Order Schedule Diagnoses Orthopedic Surgery Outpatient Referral Routine Ex pected: Post Op (clinic) 09/23/2020 (Approximate), Expires: 09/09/2023 documented as of this encounter Procedures Procedure Name Priority Date/Time Associated Diagnosis Comme nts HEMOGLOBIN, B Routine 09/09/2020 5:56 Results for this AM CIRCULAR KNIFE CUTTER MACHINE procedure are i n the results section. PULSE OXIMETRY, Routine 09/08/2020 11:28 CONTINUOUS AM CIRCULAR KNIFE CUTTER MACHINE ADULT OXYGEN THERAPY Routine 09/08/2020 10:20 AM CIRCULAR KNIFE CUTTER MACHINE ARTHROPLASTY 09/08/2020 8:09 Primary Osteoarthritis REPLACEMENT TOTAL AM CIRCULAR KNIFE CUTTER MACHINE Knee Right KNEE documented in this encounter Results (ABNORMAL) Hemoglobin (09/09/2020 5:56 AM CIRCULAR KNIFE CUTTER MACHINE) P athologist Signature Hemoglobin 11.4 (L) 11.6 - 15.0 09/09/2020 [facility] g/dL 6:18 AM CIRCULAR KNIFE CUTTER MACHINE Specimen Anatomical Collection Method Collection Time Receive d Time (Source) Location / / Volume Laterality Blood (Blood, 09/09/2020 5:56 AM 09/09/20 6:15 Venous) CIRCULAR KNIFE CUTTER MACHINE AM CIRCULAR KNIFE CUTTER MACHINE Earnestine Damon APRN, C.N.P., D.N.P. LAB BLOOD ADD-ON Performing Organization Address City/State/ZIP Code Phon e Number [facility]- [address] [place] [phone] [place] [address] System in [address] documented in this encounter Visit Diagnoses Diagnosis Primary Osteoarthritis Knee Right - Prim manuel Osteoarthritis Arthroplasty Total Knee Replacement Stat us Post Right Osteoarthritis Morbid Obesity Body Mass Index 40.0-44.9 Adult (HCC) documented in this encounter Admitting Diagnoses Diagnosis Primary Osteoarthritis Knee Right documented in this encounter Administered Medications Inactive Administered Medications - up to 3 most recent administrations Medication Order MAR Action Action Date Dose Rate Site acetaminophen tablet 1,000 mg Given 09/08/2020 7:07 AM CIRCULAR KNIFE CUTTER MACHINE 1,000 mg (TYLENOL) 1,000 mg, oral, Once, On Tue09/08/20 at 0645, For 1 dose, Pre-Op acetaminophen tablet 1,000 mg (TYLENOL) Given 09/09/2020 1:29 PM CIRCULAR KNIFE CUTTER MACHINE 1,000 mg 1,000 mg, oral, Every 6 hours, First dose on Tue09/08/20 at 1300 Given 09/09/2020 6:07 AM CIRCULAR KNIFE CUTTER MACHINE 1,000 mg Given 09/09/2020 12:31 AM CIRCULAR KNIFE CUTTER MACHINE 1,000 mg calcium carbonate chewable tablet Given 09/09/2020 12: 28 AM CIRCULAR KNIFE CUTTER MACHINE 200 mg of calcium 200 mg of calcium (TUMS) 200 mg of calcium, oral, 3 times daily PRN, heartburn, indigestion, Starting on Tue09/08/20 at 1304, Doses listed are in mg of elemental calcium. Take with food. 500 mg calcium carbonate contains 200 mg of elemental calcium. ceFAZolin in dextrose (iso-osm) IVPB 2 New Bag 09/08/2020 8:05 PM CIRCULAR KNIFE CUTTER MACHINE 2 g 100 mL/hr g (ANCEF) 2 g, intravenous, at 100 mL/hr, Administer over 30 Minutes, Every 8 hours, First dose on Tue09/08/20 at 1300, For 2 doses, Start within 8 hours of last IV dose. premix bag, Drug Monitoring Program: Pharmacist to adjust medication dosing based on indication and drug clearance factors., Indications: Prophylaxis, surgical New Bag 09/08/2020 1:10 PM CIRCULAR KNIFE CUTTER MACHINE 2 g 100 mL/hr celecoxib capsule 200 mg (CeleBREX) Given 09/08/2020 7:07 AM CIRCULAR KNIFE CUTTER MACHINE 200 mg 200 mg, oral, Once, On Tue09/08/20 at 0645, For 1 dose, Pre-Op enoxaparin injection 30 mg Given 09/09/2020 8:46 AM CIRCULAR KNIFE CUTTER MACHINE 30 mg Left Lower Abdomen (LOVENOX) 30 mg, subcutaneous, 2 times daily, First dose on Tue09/09/20 at 0900, Start POD #1 in am fentaNYL 12 mcg/hr 1 patch Medication Applied 09/08/2020 1:10 PM 1 pa tch Left Arm (DURAGESIC) CIRCULAR KNIFE CUTTER MACHINE 1 patch, transdermal, Administer over 72 Hours, Every 72 hours, First dose on Tue09/08/20 at 1130 ketorolac injection 15 mg (TORADOL) Given 09/09/2020 6:08 AM CIRCULAR KNIFE CUTTER MACHINE 15 mg 15 mg, intravenous, Every 6 hours, First dose on Tue09/08/20 at 1300, For 4 doses, Adult IV push rate: Over 15 seconds. Peds IV push rate: Over 1 minute. 60 mg dose only for IM, not recommended for IV., Drug Monitoring Program: Pharmacist to adjust medication dosing based on indication and drug clearance factors. Given 09/09/2020 12:31 AM CIRCULAR KNIFE CUTTER MACHINE 15 mg Given 09/08/2020 6:57 PM CIRCULAR KNIFE CUTTER MACHINE 15 mg lactated ringers New Bag 09/08/2020 9:25 AM CIRCULAR KNIFE CUTTER MACHINE 20 mL/hr, intravenous, Continuous, Starting on Tue09/08/20 at 0645, Pre-Op Rate/Dose Verify 09/08/2020 7:55 AM CIRCULAR KNIFE CUTTER MACHINE New Bag 09/08/2020 7:30 AM CIRCULAR KNIFE CUTTER MACHINE 20 mL/hr 20 mL/hr lactated ringers Rate/Dose Verify 09/09/2020 6:43 AM CIRCULAR KNIFE CUTTER MACHINE 50 mL/hr 50 mL/hr 50 mL/hr, intravenous, Continuous, Starting on Tue09/08/20 at 1130 New Bag 09/09/2020 12:18 AM CIRCULAR KNIFE CUTTER MACHINE 50 mL/hr 50 mL/hr Continued from OR 09/08/2020 11:37 AM CIRCULAR KNIFE CUTTER MACHINE 50 mL/hr 50 mL/hr scopolamine base 1 mg Medication Applied 09/08/2020 7:39 AM 1 patch Behind Left Ear over 3 days 1 patch CIRCULAR KNIFE CUTTER MACHINE (TRANSDERM SCOP) 1 patch, transdermal, Administer over 72 Hours, Every 72 hours, First dose on Tue09/08/20 at 0745, Pre-Op, Contains 1.5 mg to deliver 1 mg/72 hours. sennosides-docusate sodium 8.6-50 mg per Given 09/09/2020 8:46 A M CIRCULAR KNIFE CUTTER MACHINE 1 tablet tablet 1 tablet (SENOKOT-S) 1 tablet, oral, 2 times daily, First dose on Tue09/08/20 at 2100, Do not give if patient has diarrhea. Given 09/08/2020 8:05 PM CIRCULAR KNIFE CUTTER MACHINE 1 tablet traMADoL tablet 100 mg (ULTRAM) Given 09/09/2020 8:46 AM CIRCULAR KNIFE CUTTER MACHINE 100 mg 100 mg, oral, Every 6 [...] Recently Administered Medications Times are shown in CIRCULAR KNIFE CUTTER MACHINE. Scheduled Medication Order 09/07/2020 09/08/2020 09/09/2020 acetaminophen [...] surgical celecoxib capsule 200 mg (CeleBREX) (COMPLETED) 07 (Given - Provider: Becki Espinoza RThomasNThomas) 200 [...] Espinoza RThomasNThomas)0755 (Rate/Dose Verify - Provider: Earnestine Paulino APRN, WOOL PRESSER)0925 (New Bag - Provider: Ingrid Bañuelos RIrasema)0957 (Anesthesia Volume Adjustment - Provider: Ingrid Bañuelos RIrasema) 20 mL/hr, intravenous, Continuous, Starting on Tue09/08/20 at 06 45, Pre-Op lactated ringers 1136 (Not Given - Pr ovider: Mindy Scott RThomasN. - Reason: Other - Comment: Duplicate see DEC [phone] (Continued from OR - Provider: Jimy Mon R.N.) 0018 (New Bag - Provider: Jimy correia [...] factors. documented in this encounter Care Teams Help Desk Representative Relationship Specialty Start Date End Date No Contact, Pcp PCP - General Family Medicine 09/05/20 documented as of this encounter
--- OUTSIDE RECORDS SUMMARY | 2022-09-06 13:36 | XMS_ITS | Encounter Summary ---
:1950 Author Organization [facility] Address [address] [place] [address] Care Team Providers Name Role Phone No Contact, Pcp Primary Care Provider Unavailable Reason for Referral Outpatient (Routine) - Closed Specialty Diagnoses / Procedures Referred By Contact Refer red To Contact Orthopedic Surgery Edi Benito M .D. 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 [address] [place] [phone] Referral ID Status Reason Start Date Expiration Date Visits Requ ested Visits Authorized [id number] Closed 10/14/2020 10/14/2021 1 1 Encounter Details Date Type Department Care Team Description 10/21/2020 Office Visit Department of Edi Benito Follow Up E xamination Orthopedic Surgery heena Seay M.D. Postoperative Visit [place], [address] [place] [address] (Primary Dx) [address] [address] [place] [phone] (Work) [phone] Social History Tobacco Use Types Packs/Day Years [...] that she has maintained this motion trend. COVERY PROJECT MANAGER documented in this encounter Plan of Treatment Scheduled Referrals Name Type Priority Associated Order Schedule Diagnoses Orthopedic Surgery Outpatient Referral Routine Ex pected: office visit 11/11/2020 (clinic) (Approximate), Expires: 10/21/2023 documented as of this encounter Visit Diagnoses Diagnosis Follow Up Examination Postoperative Visi t - Primary documented in this encounter Care Teams L Tacker Relationship Specialty Start Date End Date No Contact, Pcp PCP - General Family Medicine 09/05/20 documented as of this encounter
--- OUTSIDE RECORDS SUMMARY | 2022-09-06 13:36 | XMS_ITS | Encounter Summary ---
:1950 Author Organization [facility] Address [address] [place] [address] Care Team Providers Name Role Phone No Contact, Pcp Primary Care Provider Unavailable Reason for Referral Outpatient (Routine) - Closed Specialty Diagnoses / Procedures Referred By Contact Refer red To Contact Orthopedic Surgery Bridgette Francisco, HAFSA MASON [facility] C.N.P., D.N.P. [address] [place] [phone] Referral ID Status Reason Start Date Expiration Date Visits Requ ested Visits Authorized [id number] Closed 10/14/2020 10/14/2021 1 1 ER PRESS TENDER HEAD Reason for Visit Reason Comments Arthroplasty Doing well. Follow-up Doing well. Appointment Request (Routine) - Closed Specialty Diagnoses / Procedures Referred By Contact Refer red To Contact Orthopedic Surgery Referral ID Status Reason Start Date Expiration Date Visits Requ ested Visits Authorized [id number] Closed 09/22/2020 09/22/2021 1 1 Encounter Details Date Type Department Care Team Description 10/14/2020 Office Visit Department of Bridgette Francisco, Aftercare T otaalexandra Knee Orthopedic Surgery in [place], C.N.PThomas, Arthr oplasty (Primary Mag Lopez.N.P. Dx) [address] [place] [phone] Social History Tobacco Use Types Packs/Day Years [...] this plan and her questions were answered. ER PRESS TENDER HEAD documented in this encounter Plan of Treatment Scheduled Referrals Name Type Priority Associated Order Schedule Diagnoses Orthopedic Surgery Outpatient Referral Routine Ex pected: Post Op (clinic) 10/21/2020 (Approximate), Expires: 10/14/2023 documented as of this encounter Visit Diagnoses Diagnosis Aftercare Total Knee Arthroplasty - Prim manuel documented in this encounter Care Teams Magento Developer Relationship Specialty Start Date End Date No Contact, Pcp PCP - General Family Medicine 09/05/20 documented as of this encounter
--- OUTSIDE RECORDS SUMMARY | 2022-09-06 13:36 | XMS_ITS | Encounter Summary ---
:1950 Author Organization [facility] Address [address] [place] [address] Care Team Providers Name Role Phone No Contact, Pcp Primary Care Provider Unavailable Reason for Visit Physical Therapy (Routine) - Canceled Specialty Diagnoses / Procedures Referred By Contact Refer red To Contact Diagnoses Follow Up Surgery Exam Edi Benito M.D. [facility] Procedures PT Ongoing treatment [address] [place] [phone] Referral ID Status Reason Start Date Expiration Date Visits V isits Requested Authorized [id number] Canceled 09/16/2020 09/16/2021 1 1 Encounter Details Date Type Department Care Team Description 09/24/2020 Clinical Support Department of Edi Benito M.D. 701 [facility] [place] [phone] Follow Up Surgery Rehabilitation Services Dave Servin, P.T. [address] [place] [phone] Exam in [address] [phone] Social History Tobacco Use Types Packs/Day Years [...] P.T. Department of Rehabilitation Services in [address] [address] Dept: [phone] EDUCATOR documented in this encounter Plan of Treatment Not on filedocumented as of this encounter Visit Diagnoses Diagnosis Follow Up Surgery Exam documented in this encounter Care Teams Hotel Houseman Relationship Specialty Start Date End Date No Contact, Pcp PCP - General Family Medicine 09/05/20 documented as of this encounter
--- OUTSIDE RECORDS SUMMARY | 2022-09-06 13:36 | XMS_ITS | Encounter Summary ---
:1950 Author Organization [facility] Address [address] [place] [address] Care Team Providers Name Role Phone No Contact, Pcp Primary Care Provider Unavailable Encounter Details Date Type Department Care Team Description 09/22/2020 Hospital Encounter Department of Bridgette Francisco Follo w Surgery Radiology [facility] [place] D.N.P. [address] [place] [phone] Social History Tobacco Use Types Packs/Day Years [...] ults for this VIEWS (most inpatients PM FRUIT AND VEGETABLE INSPECTOR Exam procedure a re in and all the results outpatients) section. documented in this encounter Results DX Knee Right 3 Views (09/22/2020 3:04 PM FRUIT AND VEGETABLE INSPECTOR) Anatomical Region Laterality Modality Lower Extremity, Knee, Musculoskeletal RST LOS, Right Digital Radiography Musculoskeletal ARZ LOS, Muskuloskeletal FLA LOS Specimen (Source) Anatomical Collection Method Collection Time Re ceived Time Location / / Volume Laterality 09/22/2020 3:19 PM FRUIT AND VEGETABLE INSPECTOR Impressions 09/22/2020 3:20 PM FRUIT AND VEGETABLE INSPECTOR Interval right TKA with patellar resurfacing. Components appear well seated without evidence of loosening. Ne w soft tissue swelling about the right knee relative to the left. Tricompartmen shravan degenerative change left knee. Comparison with 08/21/2020. Narrative 09/22/2020 3:20 PM FRUIT AND VEGETABLE INSPECTOR EXAM: DX KNEE RIGHT 3 VIEWS Procedure [...] Exam documented in this encounter Care Teams Elevator Examiner And Adjuster Relationship Specialty Start Date End Date No Contact, Pcp PCP - General Family Medicine 09/05/20 documented as of this encounter
--- OUTSIDE RECORDS SUMMARY | 2022-09-06 13:36 | XMS_ITS | Encounter Summary ---
:1950 Author Organization [facility] Address [address] [place] [address] Care Team Providers Name Role Phone No Contact, Pcp Primary Care Provider Unavailable Reason for Visit Physical Therapy (Routine) - Canceled Specialty Diagnoses / Procedures Referred By Contact Refer red To Contact Diagnoses Follow Up Surgery Exam Edi Benito M.D. [facility] Procedures PT Ongoing treatment [address] [place] [phone] Referral ID Status Reason Start Date Expiration Date Visits V isits Requested Authorized [id number] Canceled 09/16/2020 09/16/2021 1 1 Encounter Details Date Type Department Care Team Description 09/18/2020 Clinical Support Department of Edi Benito M.D. 701 [facility] [place] [phone] Follow Up Surgery Rehabilitation Services Dave Servin, P.T. [address] [place] [phone] Exam in [address] [phone] Social History Tobacco Use Types Packs/Day Years [...] Servin P.T. Department of Rehabilitation Services in [address] [address] Dept: [phone] ORER documented in this encounter Plan of Treatment Not on filedocumented as of this encounter Visit Diagnoses Diagnosis Follow Up Surgery Exam documented in this encounter Care Teams Cooker Tender Relationship Specialty Start Date End Date No Contact, Pcp PCP - General Family Medicine 09/05/20 documented as of this encounter
--- OUTSIDE RECORDS SUMMARY | 2022-09-06 13:36 | XMS_ITS | Encounter Summary ---
:1950 Author Organization [facility] Address [address] [place] [address] Care Team Providers Name Role Phone No Contact, Pcp Primary Care Provider Unavailable Encounter Details Date Type Department Care Team Description 11/07/2020 Clinical Communication Department of Dave Servin [facility] Services Jeremy PBianca in [address] [phone] Social History Tobacco Use Types Packs/Day Years Used Date Smoking Tobacco: Never Smokeless Tobacco: Never Alcohol Use Standard Drinks/Week Comments Not Currently 0 (1 standard drink = 0.6 oz pure alcoho l) Sex Assigned at Date Recorded Not on file documented as of this encounter Miscellaneous Notes Telephone Encounter - Zoila Khan - 11/07/2020 9:12 AM CST Reason [...] Thanks Name of Medication (if relevant): N/A GER TRANSFER documented in this encounter Plan of Treatment Not on filedocumented as of this encounter Visit Diagnoses Not on filedocumented in this encounter Care Teams Linux Support Engineer Relationship Specialty Start Date End Date No Contact, Pcp PCP - General Family Medicine 09/05/20 documented as of this encounter
--- OUTSIDE RECORDS SUMMARY | 2022-09-06 13:36 | XMS_ITS | Encounter Summary ---
:1950 Author Organization [facility] Address [address] [place] [address] Care Team Providers Name Role Phone No Contact, Pcp Primary Care Provider Unavailable Reason for Visit Physical Therapy (Routine) - Canceled Specialty Diagnoses / Procedures Referred By Contact Refer red To Contact Diagnoses Follow Up Surgery Exam Eid Benito M.D. [facility] Procedures PT Ongoing treatment [address] [place] [phone] Referral ID Status Reason Start Date Expiration Date Visits V isits Requested Authorized [id number] Canceled 09/16/2020 09/16/2021 1 1 Encounter Details Date Type Department Care Team Description 11/03/2020 Clinical Support Department of Edi Benito M.D. 701 [facility] [place] [phone] Follow Up Surgery Rehabilitation Services Dave Servin, P.T. [address] [place] [phone] Exam in [address] [phone] Social History Tobacco Use Types Packs/Day Years [...] Servin P.T. Department of Rehabilitation Services in [address] [address] Dept: [phone] R VEHICLE LIGHT ASSEMBLER documented in this encounter Plan of Treatment Not on filedocumented as of this encounter Visit Diagnoses Diagnosis Follow Up Surgery Exam documented in this encounter Care Teams C Iron Worker Relationship Specialty Start Date End Date No Contact, Pcp PCP - General Family Medicine 09/05/20 documented as of this encounter
--- OUTSIDE RECORDS SUMMARY | 2022-09-06 13:36 | XMS_ITS | Encounter Summary ---
:1950 Author Organization [facility] Address [address] [place] [address] Care Team Providers Name Role Phone No Contact, Pcp Primary Care Provider Unavailable Reason for Visit Physical Therapy (Routine) - Canceled Specialty Diagnoses / Procedures Referred By Contact Refer red To Contact Diagnoses Follow Up Surgery Exam Edi Benito M.D. [facility] Procedures PT Ongoing treatment [address] [place] [phone] Referral ID Status Reason Start Date Expiration Date Visits V isits Requested Authorized [id number] Canceled 09/16/2020 09/16/2021 1 1 Encounter Details Date Type Department Care Team Description 10/22/2020 Clinical Support Department of Edi Benito M.D. 701 [facility] [place] [phone] Follow Up Surgery Rehabilitation Services Dave Servin, P.T. [address] [place] [phone] Exam in [address] [phone] Social History Tobacco Use Types Packs/Day Years [...] going to be following up with her infection control specialist at that time. They will decide whether not she will require a manipulation at that point. Plan for next session: Time Spent with Patient Manual Therapy (min): 15 min Therapeutic Exercise (min): 15 min Time Calculation Total Timed Units (min): 30 min Total Treatment Time (min): 30 min Dave Servin P.T. Department of Rehabilitation Services in [address] [address] Dept: [phone] USEL OPERATOR documented in this encounter Plan of Treatment Not on filedocumented as of this encounter Visit Diagnoses Diagnosis Follow Up Surgery Exam documented in this encounter Care Teams Trailer Sections Assembler Relationship Specialty Start Date End Date No Contact, Pcp PCP - General Family Medicine 09/05/20 documented as of this encounter
--- OUTSIDE RECORDS SUMMARY | 2022-09-06 13:36 | XMS_ITS | Encounter Summary ---
:1950 Author Organization [facility] Address [address] [place] [address] Care Team Providers Name Role Phone No Contact, Pcp Primary Care Provider Unavailable Reason for Visit Physical Therapy (Routine) - Canceled Specialty Diagnoses / Procedures Referred By Contact Refer red To Contact Diagnoses Follow Up Surgery Exam Edi Benito M.D. [facility] Procedures PT Ongoing treatment [address] [place] [phone] Referral ID Status Reason Start Date Expiration Date Visits V isits Requested Authorized [id number] Canceled 09/16/2020 09/16/2021 1 1 Encounter Details Date Type Department Care Team Description 10/10/2020 Clinical Support Department of Edi Benito M.D. 701 [facility] [place] [phone] Follow Up Surgery Rehabilitation Services Dave Servin, P.T. [address] [place] [phone] Exam in [address] [phone] Social History Tobacco Use Types Packs/Day Years [...] She will be following up with her associate relations specialist on Tuesday. Plan for next session: Time Spent with Patient Manual Therapy (min): 15 min Therapeutic Exercise (min): 15 min Time Calculation Total Timed Units (min): 30 min Total Treatment Time (min): 30 min Dave Servin P.T. Department of Rehabilitation Services in [address] [phone] Dept: [phone] WORKER documented in this encounter Plan of Treatment Not on filedocumented as of this encounter Visit Diagnoses Diagnosis Follow Up Surgery Exam documented in this encounter Care Teams Customer Accounts Advisor Relationship Specialty Start Date End Date No Contact, Pcp PCP - General Family Medicine 09/05/20 documented as of this encounter
--- OUTSIDE RECORDS SUMMARY | 2022-09-06 13:37 | XMS_ITS | Encounter Summary ---
:1950 Author Organization [facility] Address [address] [place] [address] Care Team Providers Name Role Phone No Contact, Pcp Primary Care Provider Unavailable Reason for Visit Auth/Cert Specialty Diagnoses / Procedures Referred By Contact Refer red To Contact Diagnoses Primary Osteoarthritis Knee Right Osteoarthritis Primary Osteoarthritis Knee Right [M17.11] Procedures ARTHROPLASTY REPLACEMENT TOTAL KNEE Referral ID Status Reason Start Date Expiration Date Visits Requ ested Visits Authorized [id number] 1 1 Encounter Details Date Type Department Care Team Description 09/08/2020 Anesthesia Event [facility] MAIN OR Fabienne Farooq M.D. 701 [facility] [address] [place] [address] [place] [phone] (Wo rk) Anesthesia Record Procedure Summary [...] by [id number] by Right; Zip-line; Aileen Couch, [facility] ckgrou 07/21/21 (Removed by Preet Garcia nd [...] Procedure Summary Date: 09/08/20 Room / Location: [place] [address] / [facility] Anesthesia Start: 809 Anesthesia Stop: 1025 Procedure: [...] Post Op nausea/vomiting: none Hydration status: euvolemic TRICIAN HELPER Anesthesia Procedure Notes - Ingrid Bañuelos R.N. - 09/08/2020 8:25 AM ELECTRICIAN HELPER Associated Order(s): Regional Block Regional Block Date/Time: [...] Medications: Injection(s), anesthetic agent(s) and/or steroid; See [facility] UNIVERSAL PROTOCOL All relevant documentation and testing [...] method: local infiltration Local infiltrate type: see [facility] for dose POST-PROCEDURE DETAILS: Procedure completed successfully: successful procedure Other complications: none TRICIAN HELPER Anesthesia Preprocedure Evaluation - Fabienne Farooq M.D. 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 Pertinent [...] with patient /legal guardian or through an supervisor delivery department. Risks/Benefits/Alternatives of Blood transfusion discussed with patient / legal guardian, including an opportunity to ask questions and/or decline some or all transfusion therapies. The patient / legalguardian consented to the use of all blood products, as deemed medically necessary Approval to Proceed: approved for anesthesia TRICIAN HELPER documented in this encounter Plan of Treatment Not on filedocumented as of this encounter Procedures Procedure Name Priority Date/Time Associated Comments Diagnosis ANESTHESIA REGIONAL Routine 09/08/2020 8:25 AM Re sults for this BLOCK ELECTRICIAN HELPER procedure are i n the results section. documented in this encounter Results Regional Block (09/08/2020 8:25 AM ELECTRICIAN HELPER) Narrative Earnestine Paulino, REFRACTORY SPECIALIST, TREND INVESTIGATOR - 09/08/2020 8 :25 AM ELECTRICIAN HELPER Ingrid Bañuelos R.N. ? 09/08/2020 ??8:26 AM [...] bupivacaine-EPINEPHrine (PF) 0.5 Given 09/08/2020 8:02 AM ELECTRICIAN HELPER 15 mL %-1:200,000 injection (MARCAINE w/EPI) As needed, Starting on Tue09/08/20 at 0802, Anesthesia Intra-op ceFAZolin in dextrose (iso-osm) IVPB 2 g (ANCEF) Given 09/08/2020 8:24 AM ELECTRICIAN HELPER 2 g 2 g (rounded from 2.7 [...] dexAMETHasone injection (DECADRON) Given 09/08/2020 9:12 AM ELECTRICIAN HELPER 4 mg As needed, Starting on Tue09/08/20 at 0825, Anesthesia Intra-op Given 09/08/2020 8:25 AM ELECTRICIAN HELPER 4 mg dexmedeTOMIDine injection (PRECEDEX) Given 09/08/2020 8:02 AM ELECTRICIAN HELPER 50 mcg As needed, Starting on Tue09/08/20 at 0802, Anesthesia Intra-op ePHEDrine (PF) injection Given 09/08/2020 9:26 AM ELECTRICIAN HELPER 5 mg As needed, Starting on Tue09/08/20 at 0857, Anesthesia Intra-op Given 09/08/2020 9:10 AM ELECTRICIAN HELPER 5 mg Given 09/08/2020 8:57 AM ELECTRICIAN HELPER 10 mg fentaNYL injection (SUBLIMAZE) Given 09/08/2020 7:56 AM ELECTRICIAN HELPER 50 mcg intravenous, As needed, Starting on Tue09/08/20 at 0756, Anesthesia Intra-op lactated ringers New Bag 09/08/2020 9:25 AM ELECTRICIAN HELPER 20 mL/hr, intravenous, Continuous, Starting on Tue09/08/20 at 0645, Pre-Op Rate/Dose Verify 09/08/2020 7:55 AM ELECTRICIAN HELPER New Bag 09/08/2020 7:30 AM ELECTRICIAN HELPER 20 mL/hr 20 mL/hr mepivacaine (PF) 20 mg/mL (2 %) injection Given 09/08/2020 8:22 AM ELECTRICIAN HELPER 2 mL (CARBOCAINE) As needed, Starting on Tue09/08/20 at 0822, Anesthesia Intra-op midazolam (PF) injection (VERSED) Given 09/08/2020 9:20 AM ELECTRICIAN HELPER 2 mg intravenous, As needed, Starting on Tue09/08/20 at 0756, Anesthesia Intra-op Given 09/08/2020 7:56 AM ELECTRICIAN HELPER 2 mg ondansetron (PF) injection (ZOFRAN) Given 09/08/2020 8:25 AM ELECTRICIAN HELPER 4 mg As needed, Starting on Tue09/08/20 at 0825, Anesthesia Intra-op phenylephrine injection Given 09/08/2020 10:14 AM ELECTRICIAN HELPER 100 mcg As needed, Starting on Tue09/08/20 at 0830, Anesthesia Intra-op Given 09/08/2020 9:55 AM ELECTRICIAN HELPER 100 mcg Given 09/08/2020 9:42 AM ELECTRICIAN HELPER 100 mcg propofol 10 mg/mL infusion Rate/Dose 09/08/2020 8:45 40 mcg/kg/min 2 5.6 mL/hr (DIPRIVAN) Change AM ELECTRICIAN HELPER intravenous, Continuous Infusion: Per Instructions PRN, Starting on Tue09/08/20 at 0824, Anesthesia Intra-op New Bag 09/08/2020 8:24 AM ELECTRICIAN HELPER 50 mcg/kg/min 32 mL/hr propofoL injection (DIPRIVAN) Given 09/08/2020 8:29 AM ELECTRICIAN HELPER 20 mg intravenous, As needed, Starting on Tue09/08/20 at 0829, Anesthesia Intra-op tranexamic acid 1 g in NaCl 0.9% IVPB New Bag 09/08/2020 8:39 AM ELECTRICIAN HELPER 1 g 1 g, intravenous, at 150 mL/hr, Administer over 20 Minutes, Once, On Tue09/08/20 at 0645, For 1 dose, Pre-Op, Administer in OR upon induction Mini-Bag Plus bag, Drug Monitoring Program: Pharmacist to adjust medication dosing based on indication and drug clearance factors. tranexamic acid 1 g in NaCl 0.9% IVPB New Bag 09/08/2020 9:40 AM ELECTRICIAN HELPER 1 g 1 g, intravenous, at 150 mL/hr, Administer over 20 Minutes, Once, On Tue09/08/20 at 0645, For 1 dose, Pre-Op, Administer in OR during closure Mini-Bag Plus bag, Drug Monitoring Program: Pharmacist to adjust medication dosing based on indication and drug clearance factors. documented in this encounter Care Teams Land Economist Relationship Specialty Start Date End Date No Contact, Pcp PCP - General Family Medicine 09/05/20 documented as of this encounter
--- OUTSIDE RECORDS SUMMARY | 2022-09-06 13:37 | XMS_ITS | Encounter Summary ---
:1950 Author Organization [facility] Address [address] [place] [address] Care Team Providers Name Role Phone Unavailable Primary Care Provider Unavailable Reason for Referral Outpatient (Routine) - Closed Specialty Diagnoses / Procedures Referred By Contact Debo arce To Contact General Surgery Diagnoses Preoperative Exam Bridgette Francisco APRN, [facility] C.N.P., D.N.P. [address] [place] [phone] Referral ID Status Reason Start Date Expiration Date Visits Requ ested Visits Authorized [id number] Closed 08/21/2020 08/21/2021 1 1 utpatient (Routine) - Closed Specialty Diagnoses / Procedures Referred By Contact Debo arce To Contact Family Medicine Diagnoses Preoperative Exam Bridgette Francisco APRN, [facility] C.N.P., D.N.P. [address] [place] [phone] Referral ID Status Reason Start Date Expiration Date Visits Requ ested Visits Authorized [id number] Closed 08/21/2020 08/21/2021 1 1 utpatient (Routine) - Closed Specialty Diagnoses / Procedures Referred By Contact Refer red To Contact Orthopedic Surgery Bridgette Francisco APRN, [facility] C.N.P., D.N.P. [address] [place] [phone] Referral ID Status Reason Start Date Expiration Date Visits Requ ested Visits Authorized [id number] Closed 08/21/2020 08/21/2021 1 1 hysical Therapy (Routine) - Closed Specialty Diagnoses / Procedures Referred By Contact Refer red To Contact Diagnoses Follow Up Surgery Exam Bridgette Francisco APRN, [facility] Procedures PT Evaluate and treat Annabelle.N.Amna, D.N.P. [address] [place] [phone] Referral ID Status Reason Start Date Expiration Date Visits Requ ested Visits Authorized [id number] Closed 08/21/2020 08/21/2021 1 1 Specialty Diagnoses / Procedures Referred By Contact Refer red To Contact Bridgette Francisco APRN, C.N.Amna, [facility] D.N.P. [address] [place] [phone] Referral ID Status Reason Start Date Expiration Date Visits Requ ested Visits Authorized Reason for Visit Reason Comments Pain Encounter Details Date Type Department Care Team Description 08/21/2020 Comprehensive Visit Department of Samy Benito M.D. [address] [place] [phone] Arthritis Knee Right (Primary Dx); Orthopedic Surgery Bridgette Francisco APRN, C.N.P., D.N.P. [place] [phone] Preoperative Exam; in [place] Narayanan, Follow Up Surge ry Exam [place] [phone] Social History Tobacco Use [...] non conservative therapy including activity modification, or evxk-qio-hskfank analgesics, ice and heat without any improvement [...] Name Type Priority Associated Diagnoses Order [facility] Orthopedic Surgery Outpatient Referral Routine Preoperative Ex [...] Coronavirus-2 RNA, V Asymptomatic (09/05/2020 8:07 AM SIDING INSTALLER) [facility] Method Time Signature SARS-CoV-2 Swab, 09/06/2020 ECLR Specimen Nasopharynx 5:07 PM SIDING INSTALLER Source SARS CoV-2 Undetected Undetected 09/06/2020 ECLR RNA, TMA 5:07 PM SIDING INSTALLER Comment: SARS-CoV-2 RNA absent. This result does not rule out COVID-19 in the patient, as the sensitivity of the test depends o n the timing of the specimen collection and the quality of the specim en. Result should be correlated with patient's history and clinical presentat ion. ----ADDITIONAL INFORMATION---- This test is performed using the Aptima SARS-CoV-2 assay ([employer] which has received Emergency Use Authori zation (EUA) by the U.S. Food and Drug Administration. Fact sheets for this Emergency Use Autho rization (EUA) assay can be found at the following links: For Healthcare Providers: https://www.SmartMenuCard a.gov/media/263669/download For Patients: https://www.fda.gov/media/ 273038/download Specimen Anatomical Collection Method Collection Time Receive d Time (Source) Location / / Volume Laterality Varies 09/05/2020 8:07 AM 0 3:19 (Nasopharynx) SIDING INSTALLER PM SIDING INSTALLER Bridgette Francisco APRN, Annabelle.N.P., D.N.P. LAB MICROBIOLOGY - GENERAL ORDERABLES Performing Organization Address City/State/ZIP Code Phon e Number [facility] [address] [place] [phone] [facility] [place] [address] [address] DX Knee Right 3 Views (08/21/2020 [...]
--- OUTSIDE RECORDS SUMMARY | 2022-09-06 13:37 | XMS_ITS | Encounter Summary ---
:1950 Author Organization [facility] Address [address] [place] [address] Care Team Providers Name Role Phone Unavailable Primary Care Provider Unavailable Reason for Visit Reason Comments Patient Education Virtual Total Joint Class Encounter Details Date Type Department Care Team Description 09/02/2020 Education Department of Orthopedic Bridgette Francisco APRN, C.N.P., D.N.P. [address] [place] [phone] Preoperative Exam Surgery in [facility] Zhanna Kemp RThomasNThomas [address] [phone] Social History Tobacco Use Types Packs/Day [...] over and questions addressed after viewing the [facility] Total Joint video. Therapy portion [...] call with any other questions or concerns. 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
--- OUTSIDE RECORDS SUMMARY | 2022-09-06 13:37 | XMS_ITS | Encounter Summary ---
:1950 Author Organization [facility] Address [address] [place] [address] Care Team Providers Name Role Phone Unavailable Primary Care Provider Unavailable Encounter Details Date Type Department Care Team Description 09/02/2020 Clinical Communication Department of Zhanna Kemp Orthopedic Surgery in K, R.N. [place], [place] [phone] Juice HARESH ALVARENGA (Work) [place] [phone] Social History Tobacco Use Types Packs/Day Years Used Date Smoking Tobacco: Never Smokeless Tobacco: Never Sex Assigned at Date Recorded Not on file documented as of this encounter Plan of Treatment Not on filedocumented as of this encounter Visit Diagnoses Not on filedocumented in this encounter
--- OUTSIDE RECORDS SUMMARY | 2022-09-06 13:37 | XMS_ITS | Encounter Summary ---
:[address] [facility] Address [address] [place] [address] Care Team Providers Name Role Phone Unavailable Primary Care Provider Unavailable Encounter Details Date Type Department Care Team Description 11/04/2017 Clinical Support Department of Lynn Jasso M. D. Rotator Cuff Rehabilitation Dave Servin P.T. [address] [place] [phone] Repair Shoulder Services in [address] [phone] Social History Tobacco Use Types Packs/Day Years Used Date Smoking Tobacco: Never Sex Assigned at Date Recorded Not on file documented as of this encounter Progress Notes Dave Servin, P.T. - 11/04/2017 6:00 AM CST Physical Therapy Outpatient Treatment Note Referring Provider: Lynn Jasso M.D. Medical Diagnosis: 1. Rotator Cuff Repair Shoulder Status Post - PT Ongoing treatment Payor: Payor: MEDICARE / Plan: MEDICARE A AND B / Product Type: Medicare / Payor considerations: Visit Counts: 7 Principal Problem: Patient Active Problem List Diagnosis ??? Pain Shoulder Left ??? Rotator Cuff Repair Shoulder Status Post SUBJECTIVE Rosie comes into therapy today stating that she continues to do her exercises aggressively at home.Her is able to help assist. However, she feels that her progress is relatively slow. We tried to encourage her that this is normal for this type of protocol. Pain Assessment Pain Score: 2 OBJECTIVE We did continue with more aggressive stretching and passive range of motion. Shoulder flexion is to approximately 160??. This is in supine. In standing, which she is able to bring this to ?? passively. Internal rotation is slowly improving. She can bring her hand behind to approximately the sacral region. Today we did instruct patient with some light Thera-Band exercises. This is to address internal/external rotation as well as shoulder flexion and extension. We also instructed witha rows. Thera-Band was provided as well as illustrations. She is to do this slowly and she is not toengage just slightly with her resistance. This is just trying get the muscles to engage at this time. Measures - Tools Measures - Tools Treatment Provided Today: 15 minutes of therapeutic exercise and 15 minutes of manual therapy. Home Exercise Program: ASSESSMENT Patient is slowly progressing. We are now slowly progressing with strengthening. Mobility is slowly improving. Therapy Goals PLAN We will continue. Patient agrees with the plan of care and goals. Dave Servin P.T. Time Spent with Patient Functional G-code Worksheet R DIGGER OPERATOR documented in this encounter Plan of Treatment Not on filedocumented as of this encounter Visit Diagnoses Diagnosis Rotator Cuff Repair Shoulder Status Post documented in this encounter
--- OUTSIDE RECORDS SUMMARY | 2022-09-06 13:37 | XMS_ITS | Encounter Summary ---
:1950 Author Organization [facility] Address [address] [place] [address] Care Team Providers Name Role Phone No Contact, Pcp Primary Care Provider Unavailable Reason for Visit Auth/Cert Specialty Diagnoses / Procedures Referred By Contact Refer red To Contact Diagnoses Primary Osteoarthritis Knee Right Osteoarthritis Primary Osteoarthritis Knee Right [M17.11] Procedures ARTHROPLASTY REPLACEMENT TOTAL KNEE Referral ID Status Reason Start Date Expiration Date Visits Requ ested Visits Authorized [id number] 1 1 Encounter Details Date Type Department Care Team Description 09/08/2020 Surgery [facility] MAIN OR Edi Benito, ARTHROPLASTY REPLACEMENT [address] [place] [address] [address] [phone] [place] [address] (Wo rk) Social History Tobacco [...] Comments Blood Pressure 133/70 09/08/2020 6:58 AM NURSE AIDE Pulse 72 09/08/2020 6:58 AM NURSE AIDE Temperature 35.9 ??C (96.6 ??F) 09/08/2020 6:58 AM NURSE AIDE Respiratory Rate 18 09/08/2020 6:58 AM NURSE AIDE Oxygen Saturation 97% 09/08/2020 6:58 AM NURSE AIDE Inhaled Oxygen Concentration - - Weight 107 kg (235 lb 0.2 oz) 09/08/2020 6:58 AM NURSE AIDE Height 162 cm (5' 3.78) 09/08/2020 6:58 AM NURSE AIDE Body Mass Index 41.97 09/08/2020 11:28 AM NURSE AIDE documented in this encounter Medications at Time [...] discussed with supervising PT Maddi Jeffrey RN, [facility] The treatment plan and discharge recommendations may [...] Treatment Time (min): 23 min Mady Chaudhry [facility], Third Floor [address] [facility] [address] Dept: [phone] Physical Therapy Dismissal Snapshot Patient was seen 3 visit(s) for post-op R TKA Inpatient goals: met Please see last progress note for status. Patient to dismiss to home with outpatient therapy set up in [place] to address remaining impairments of range of motion, strength, and pain and mobility deficits of transfers and gait E AIDE Associated attestation - Maddi Jeffrey P.T. - 09/09/2020 3:53 PM NURSE AIDE This therapist has reviewed all documentation and [...] Care Plan:continue current management per plan/IPS protocol E AIDE Maddi Jeffrey P.T. - 09/09/2020 10:11 AM CST Physical Therapy Inpatient Treatment SUBJECTIVE Patient's Name: Nikkicheri Beatrizxavier Huetra Referring/Attending Provider: Edi Benito M.D. Medical Diagnosis: [...] Time (min): 27 min Maddi Jeffrey P.T. [facility], Third Floor [address] [facility] [address] Dept: [phone] E AIDE documented in this encounter H&P Notes Edi [...] precede with surgical treatment. Edi Benito M.D. E AIDE Source Note - Rufino, Default Authenticator - 09/03/2020 6:59 AM NURSE AIDE documented in this encounter Consult Notes Yolande [...] TOTAL KNEE; Surgeon: Edi Benito M.D.; Location: [facility] OR History of Present Illness: Patient has longstanding right knee pain, currently underwent a right TKA Occupational Profile: Level of [place]: Independent with ADLs and functional transfers, Independent [...] post op) Home Equipment Home Adaptive Equipment: Legal Aide, Long-handled shoe horn Gait Devices Owned: Front-wheeled [...] Huerta had a standardized score of 44.27. [facility]'s 3-year data, as reported at [facility] 2017, indicates a cut off of 39.4 or greater in daily activity is a fair to good accurate prediction of discharge home. Source: AM-PAC ???6 -Clicks?? functional assessment scores predict acute care hospital discharge destination. Retail Project Merchandiser. 2014 Jul; 94 (9): 1259-61. AM-PAC Activity: [...] 69 y.o. year old direct admit to [facility] [place] [facility] following a right TKA on 09/08/2020. [...] while seated; rather, promote extension ??? Use dobby loom weaver as needed to complete tasks and/or pick things up from the floor ??? Obtain sock aid, toilet safety frame, and other DME/AE as needed to complete daily tasks Bathroom Safety Sheet [id number] provided as patient education with recommendations written [...] Time (min): 39 min Kaylyn Lockwood O.T. [facility], Third Floor [address] [facility] [address] Dept: [phone] E AIDE Maddi Jeffrey P.T. - 09/08/2020 3:32 PM [...] Prior Function / Occupational Profile Level of [place]: Independent with ADLs and functional transfers, Independent [...] home with spouse, outpatient physical therapy in [place] with familiar therapistPreet Patient Comments: She is [...] 3-5 steps with a railing?: A Lot [facility] Basic Mobility (V.2) Raw Score: 18 [facility] Basic Mobility (V.2) Standardized Score: 41.05 [...] Time (min): 23 min Maddi Jeffrey P.T. [facility], Third Floor [address] [place] [phone] Dept: [phone] E AIDE Manuela Hyde L.S.W. - 09/08/2020 1:00 PM [...] support; Three children; DaughterZack Mcgee lives in [place] & has been helping prior to surgery at home. SonZack Gonzalez lives in [place], [place] and comes home on weekends. DaughterRosita lives in [place], [place]. Spirituality / Restorationism / Culture: Baptized Quaker, although, Heidi identifies recently with the Amish taoist. History: none; Heidi's Dwayne was in the [employer] for 38 years. Employment: Retired. Psychosocial Risk Factors impacting the patient: none Abuse, Neglect, Maltreatment, Trauma: Current: None reported. ENVIRONMENTAL SUPPORTS Current Living Situation: Heidi lives with her , Dwayne. In their home in [place], [place]. Two steps on entry with a [...] is a pleasant 69year old female from [place], [place]. Patient was alert and oriented. Patient [...] Healthcare Directive and discussed submittinga copy [facility] to have on file as needed. [...] discharge when medically stable. Jefferson Rubio 09/08/2020 E AIDE RodriguezMorgan M.D. - 09/08/2020 12:35 PM CST [...] None prescription or nonprescription including vitamins and itiu-qmf-atzhefa analgesics. She says she does plan to take calcium and vitamin-D this winter (which I said could be a fine idea during the winter) ALLERGY No known medication allergies SOCIAL [place] near [facility]. Two steps into the house and she hopesto go to her bedroom upstairs. 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 Patient never smoke cigarettes. 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 E AIDE documented in this encounter Nursing Notes Shae [...] patch and prn tramadol and ice.Pt discharged. E AIDE Jimy Mon R.N. - 09/09/2020 5:21 AM [...] and scheduled pain medications and cold therapy. E AIDE Mindy Scott R.N. - 09/08/2020 6:38 PM [...] Pt reports adequate pain control this shift. E AIDE documented in this encounter OR Notes Op Note - Edi Benito M.D. - 09/08/2020 8:48 AM CST FULL OP NOTE Procedure(s) (LRB): ARTHROPLASTY REPLACEMENT TOTAL KNEE (Right) Surgeon(s) and Role: * Edi Benito M.D. - Primary * Bridgette Francisco APRN, C.N.P., D.N.P. - Breakfast Supervisor * Earnestine Damon APRN, C.N.P., D.N.P. - Breakfast Supervisor Anesthesia Type Regional Pre-operative Diagnosis Primary Osteoarthritis [...] operative suite. Bridgette Francisco DNP, is the engineer second assistant for this right total knee arthroplasty. [...] was closed using #1 Vicryl in interrupted uostdc-tc-lajbf fashion followed by coppersmith apprentice ious irrigation, subcutaneous tissue closure of this [...] Implant Name Type Inv. Item Serial No. Bridge Expert Lot No. LRB No. Used Action CMNT BN HI VISC PMMA 40 - [id number] Bone Cement CMNT BN HI VISC PMMA 40 Alli [id number] Right 1 Implanted CMNT BN HI VISC PMMA 40 - [id number] Bone Cement CMNT BN HI VISC PMMA 40 Conway [id number] Right 1 Implanted KN FEM TRT RT CMNT PS SZ-4 - [id number] Knee Implant KN FEM TRT RT CMNT PS SZ-4 Conway [id number] Right 1 Implanted INS TIB TRT PS X3 SZ4 11 - [id number] Knee Implant INS TIB TRT PS X3 SZ4 11 Conway [id number] Right 1 Implanted PAT MKO SYM X3 9X33 - [id number] Knee Implant PAT MKO SYM X3 9X33 Alli [id number] Right 1 Implanted KN STM TRT CMNT 12X50 - [id number] Knee Implant KN STM TRT CMNT 12X50 Conway [id number] Right 1 Implanted BSPLT TIB TRT RT LT SZ4 - [id number] Knee Implant BSPLT TIB TRT RT LT SZ4 Conway [id number] Right 1 Implanted Intra-op Medications Date/Time [...] 1,000 mL irrigation Given Ramiro Benito M.D. E AIDE Brief Op Note - Edi Benito M.D. - 09/08/2020 8:48 AM CST BRIEF OP NOTE Procedure(s) (LRB): ARTHROPLASTY REPLACEMENT TOTAL KNEE (Right) Surgeon(s) and Role: * Edi Benito M.D. - Primary * Bridgette Francisco APRN, C.N.P., D.N.P. - Breakfast Supervisor * Earnestine Damon APRN, C.N.P., D.N.P. - Breakfast Supervisor Anesthesia Type Regional Pre-operative Diagnosis Primary Osteoarthritis Knee Right Post-operative Diagnosis Primary Osteoarthritis Knee Right Brief Operative Note Details Specimens None Drains [REMOVED] Indwelling Urinary Catheter Non-latex 16 Fr. (Removed) 09/08/20 0830 Placed by: BASSAM oSlorzano Placed by External Staff?: Hand Hygiene Performed [...] Implant Name Type Inv. Item Serial No. Bridge Expert Lot No. LRB No. Used Action CMNT BN HI VISC PMMA 40 - [id number] Bone Cement CMNT BN HI VISC PMMA 40 Alli [id number] Right 1 Implanted CMNT BN HI VISC PMMA 40 - [id number] Bone Cement CMNT BN HI VISC PMMA 40 Conway [id number] Right 1 Implanted KN FEM TRT RT CMNT PS SZ-4 - [id number] Knee Implant KN FEM TRT RT CMNT PS SZ-4 Alli [id number] Right 1 Implanted INS TIB TRT PS X3 SZ4 11 - [id number] Knee Implant INS TIB TRT PS X3 SZ4 11 Conway [id number] Right 1 Implanted PAT MKO SYM X3 9X33 - [id number] Knee Implant PAT MKO SYM X3 9X33 Conway [id number] Right 1 Implanted KN STM TRT CMNT 12X50 - [id number] Knee Implant KN STM TRT CMNT 12X50 Alli [id number] Right 1 Implanted BSPLT TIB TRT RT LT SZ4 - [id number] Knee Implant BSPLT TIB TRT RT LT SZ4 Conway [id number] Right 1 Implanted Edi Benito M.D. E AIDE documented in this encounter Plan of Treatment Scheduled Referrals Name Type Priority Associated Order Schedule Diagnoses Orthopedic Surgery Outpatient Referral Routine Ex pected: Post Op (clinic) 09/23/2020 (Approximate), Expires: 09/09/2023 documented as of this encounter Procedures Procedure Name Priority Date/Time Associated Diagnosis Comme nts HEMOGLOBIN, B Routine 09/09/2020 5:56 Results for this AM NURSE AIDE procedure are i n the results section. PULSE OXIMETRY, Routine 09/08/2020 11:28 CONTINUOUS AM NURSE AIDE ADULT OXYGEN THERAPY Routine 09/08/2020 10:20 AM NURSE AIDE ARTHROPLASTY 09/08/2020 8:09 Primary Osteoarthritis REPLACEMENT TOTAL AM NURSE AIDE Knee Right KNEE documented in this encounter Results (ABNORMAL) Hemoglobin (09/09/2020 5:56 AM NURSE AIDE) P athologist Signature Hemoglobin 11.4 (L) 11.6 - 15.0 09/09/2020 [facility] g/dL 6:18 AM NURSE AIDE Specimen Anatomical Collection Method Collection Time Receive d Time (Source) Location / / Volume Laterality Blood (Blood, 09/09/2020 5:56 AM 09/09/20 6:15 Venous) NURSE AIDE AM NURSE AIDE Earnestine Damon APRN, C.N.P., D.N.P. LAB BLOOD ADD-ON Performing Organization Address City/State/ZIP Code Phon e Number [facility]- [address] [place], [place] [address] [address] [facility] [place] [address] System in [place] [address] documented in this encounter [...] tablet 1,000 mg Given 09/09/2020 1:29 PM NURSE AIDE 1,000 mg (TYLENOL) 1,000 mg, oral, Every 6 hours, First dose on Tue09/08/20 at 1300 Given 09/09/2020 6:07 AM NURSE AIDE 1,000 mg Given 09/09/2020 12:31 AM NURSE AIDE 1,000 mg calcium carbonate chewable tablet Given 09/09/2020 12: 28 AM NURSE AIDE 200 mg of calcium 200 mg of calcium (TUMS) 200 mg of calcium, oral, 3 times daily PRN, heartburn, indigestion, Starting on Tue09/08/20 at 1304, Doses listed are in mg of elemental calcium. Take with food. 500 mg calcium carbonate contains 200 mg of elemental calcium. enoxaparin injection 30 mg Given 09/09/2020 8:46 AM NURSE AIDE 30 mg Left Lower Abdomen (LOVENOX) 30 mg, subcutaneous, 2 times daily, First dose on Tue09/09/20 at 0900, Start POD #1 in am fentaNYL 12 mcg/hr 1 patch Medication Applied 09/08/2020 1:10 PM 1 pa tch Left Arm (DURAGESIC) NURSE AIDE 1 patch, transdermal, Administer over 72 Hours, Every 72 hours, First dose on Tue09/08/20 at 1130 lactated ringers Rate/Dose Verify 09/09/2020 6:43 AM NURSE AIDE 50 mL/hr 50 mL/hr 50 mL/hr, intravenous, Continuous, Starting on Tue09/08/20 at 1130 New Bag 09/09/2020 12:18 AM NURSE AIDE 50 mL/hr 50 mL/hr Continued from OR 09/08/2020 11:37 AM NURSE AIDE 50 mL/hr 50 mL/hr povidone-iodine 0.25% in NaCl 0.9% sterile Given 09/08 9:28 AM NURSE AIDE 1,000 mL irrigation solution As needed, Starting on Tue09/08/20 at 0928, Intra-Op ropivacaine (PF) 200 mg, EPINEPHrine 150 mcg, Given 9:32 AM NURSE AIDE 60 mL ketorolac 15 mg in sodium chloride (PF) 0.9 % 60 mL injection (ARTHROPLASTY BLOCK 100+ kg) 60 mL, infiltration, Once in surgery, OR use only, Starting on Tue09/08/20 at 0636, For 1 dose, Intra-Op, *Not for IV use* sennosides-docusate sodium 8.6-50 mg per Given 09/09/2020 8:46 A M NURSE AIDE 1 tablet tablet 1 tablet (SENOKOT-S) 1 tablet, oral, 2 times daily, First dose on Tue09/08/20 at 2100, Do not give if patient has diarrhea. Given 09/08/2020 8:05 PM NURSE AIDE 1 tablet traMADoL tablet 100 mg (ULTRAM) Given 09/09/2020 8:46 AM NURSE AIDE 100 mg 100 mg, oral, Every 6 [...] Recently Administered Medications Times are shown in NURSE AIDE. Scheduled Medication Order 09/07/2020 09/08/2020 09/09/2020 acetaminophen [...] IV dose. premix bag, Drug Monitoring Program: Arnaud cole to adjust medication dosing based on indication [...] (New Ba g - Provider: Becki Espinoza RIrasema)0755 (Rate/Dose Verify - Provider: Earnestine Paulino APRN, NAPHTHALENE OPERATOR)0925 (New Bag - Provider: Ingrid Bañuelos RThomasNThomas)0957 [...] traMADoL tablet 100 mg (ULTRAM)(Linked Group 1) 7096 (Given - Provider: Shae Marquis R.N.) 100 [...] factors. documented in this encounter Care Teams Industrial Gas Fitter Helper Relationship Specialty Start Date End Date No Contact, Pcp PCP - General Family Medicine 09/05/20 documented as of this encounter
--- OUTSIDE RECORDS SUMMARY | 2022-09-06 13:37 | XMS_ITS | Encounter Summary ---
:1950 Author Organization [facility] Address [address] [place] [address] Care Team Providers Name Role Phone Unavailable Primary Care Provider Unavailable Encounter Details Date Type Department Care Team Description 08/21/2020 Hospital Encounter Department of Bridgette Francisco Arthr itis Knee Right Radiology in [facility] CN.[place], [place] DN.P. [address] [place] [address] [place] [phone] Social History Tobacco Use Types Packs/Day Years [...] enerative changes noted at the left knee. Bridegtte Francisco APRN C.N.P., D.N.P. IMG DIAGNOSTIC IMAG ING PROCEDURES documented in this encounter Visit Diagnoses Diagnosis Arthritis Knee Right documented in this encounter
--- OUTSIDE RECORDS SUMMARY | 2022-09-06 13:37 | XMS_ITS | Encounter Summary ---
:1950 Author Organization [facility] Address [address] [place] [address] Care Team Providers Name Role Phone Unavailable Primary Care Provider Unavailable Encounter Details Date Type Department Care Team Description 2017 Clinical Support Department of Lynn Jasso M. D. Rotator Cuff Rehabilitation Dave Servin P.T. [address] [place] [phone] Repair Shoulder Services in [address] [phone] Social History Tobacco Use Types Packs/Day Years Used Date Smoking Tobacco: Never Sex Assigned at Date Recorded Not on file documented as of this encounter Progress Notes Dave Servin, P.T. - 2017 6:30 AM CST Physical Therapy Outpatient Treatment Note Referring Provider: Lynn Jasso M.D. Medical Diagnosis: 1. Rotator Cuff Repair Shoulder Status Post - PT Ongoing treatment Payor: Payor: MEDICARE / Plan: MEDICARE A AND B / Product Type: Medicare / Payor considerations Visit Counts: 9 Principal Problem: Patient Active Problem List Diagnosis ??? Pain Shoulder Left ??? Rotator Cuff Repair Shoulder Status Post SUBJECTIVE Rosie comes into therapy today stating that her arm is quite sore overall. She has been working on pre aggressively now that she can do some strengthening. She has been trying to use the shoulder as much as possible. She has still been staying away from anything heavy. She still has a 5 lb weight restriction away from her body. Pain Assessment Pain Score: 3 OBJECTIVE We continue with passive range of motion for shoulder flexion/abduction and external rotation/internal rotation. Shoulder flexion in supine is to approximately 160??. With patient in sitting, we were able to bring this to approximately 145??. We had her work on shoulder external rotation in side-lying. She worked on shoulder flexion in supine this being with 2 lb weights. We then had patient work with shoulder flexion in standing. This again was with 2 lb weights. Actively, she is able to bring the shoulder to approximately 90??. She requires assist by the therapist to go beyond this to 130??. We had patient work on rows as well as shoulder extension exercises on the wall unit. She then worked on ball exercises up against the wall. We recommended that she get a ball for at home so she can start doing these as well. Measures - Tools Measures - Tools Treatment Provided Today: 15 minutes of manual therapy and 15 minutes of therapeutic exercise. Home Exercise Program: ASSESSMENT Patient's strength is continuing to slowly improve. She does have some limitation with shoulder flexion and external rotation. Hopefully this will continue to improve. Therapy Goals PLAN We will continue on Tuesday. Patient agrees with the plan of care and goals. Dave Servin P.T. Time Spent with Patient Functional G-code Worksheet ENT RESOURCE SPECIALIST documented in this encounter Plan of Treatment Not on filedocumented as of this encounter Visit Diagnoses Diagnosis Rotator Cuff Repair Shoulder Status Post documented in this encounter
--- OUTSIDE RECORDS SUMMARY | 2022-09-06 13:37 | XMS_ITS | Encounter Summary ---
:1950 Author Organization [facility] Address [address] [place] [address] Care Team Providers Name Role Phone Unavailable Primary Care Provider Unavailable Encounter Details Date Type Department Care Team Description 11/25/2017 Clinical Support Department of Lynn Jasso M. D. Rotator Cuff Rehabilitation Dave Servin P.T. [address] [place] [phone] Repair Shoulder Services in [address] [phone] Social History Tobacco Use Types Packs/Day Years [...] well overall. She will be seeing her consumer affairs specialist in 2 weeks. We would like to see her on approximately he-10 days. Therapy Goals PLAN Will see approximately 8-10 days. Dave Servin P.T. Time Spent with Patient Functional G-code Worksheet FIC ENGINEERING DIRECTOR documented in this encounter Plan of Treatment Not on filedocumented as of this encounter Visit Diagnoses Diagnosis Rotator Cuff Repair Shoulder Status Post documented in this encounter
--- OUTSIDE RECORDS SUMMARY | 2022-09-06 13:37 | XMS_ITS | Encounter Summary ---
:1950 Author Organization [facility] Address [address] [place] [address] Care Team Providers Name Role Phone No Contact, Pcp Primary Care Provider Unavailable Encounter Details Date Type Department Care Team Description 09/05/2020 Lab Department of Bridgette Ohara APRN , Preoperative Exam Medicine, Professional and C.N.P ., D[facility]N.P[facility] in [address] [address] [place] [address] [phone] Social History Tobacco Use Types Packs/Day Years Used Date Smoking Tobacco: Never Smokeless Tobacco: Never Sex Assigned at Date Recorded Not on file documented as of this encounter Plan of Treatment Not on filedocumented as of this encounter Procedures Procedure Name Priority Date/Time Associated Diagnosis Comme nts SARS CORONAVIRUS-2 Routine 09/05/2020 8:07 AM Preoperative Exa m Results for this RNA, V MECHANICS SUPERVISOR procedure are i n the results section. documented in this encounter Results SARS Coronavirus-2 RNA, V Asymptomatic (09/05/2020 8:07 AM MECHANICS SUPERVISOR) [facility] Method Time Signature SARS-CoV-2 Swab, 09/06/2020 ECLR Specimen Nasopharynx 5:07 PM MECHANICS SUPERVISOR Source SARS CoV-2 Undetected Undetected 09/06/2020 ECLR RNA, TMA 5:07 PM MECHANICS SUPERVISOR Comment: SARS-CoV-2 RNA absent. This result does not rule out COVID-19 in the patient, as the sensitivity of the test depends o n the timing of the specimen collection and the quality of the specim en. Result should be correlated with patient's history and clinical presentat ion. ----ADDITIONAL INFORMATION---- This test is performed using the Aptima SARS-CoV-2 assay ([employer] which has received Emergency Use Authori zation (EUA) by the U.S. Food and Drug Administration. Fact sheets for this Emergency Use Autho rization (EUA) assay can be found at the following links: For Healthcare Providers: https://www.[employer] a.gov/media/532145/download For Patients: https://www.fda.gov/media/ 574714/download Specimen Anatomical Collection Method Collection Time Receive d Time (Source) Location / / Volume Laterality Varies 09/05/2020 8:07 AM 0 3:19 (Nasopharynx) MECHANICS SUPERVISOR PM MECHANICS SUPERVISOR Annabelle Narvaez APRN.N.P., D.N.P. LAB MICROBIOLOGY - GENERAL ORDERABLES Performing Organization Address City/State/ZIP [facility] Phon e Number [facility] [address] [place] [address] [place] [address] [place] [address] [address] documented in this encounter Visit Diagnoses Diagnosis Preoperative Exam documented in this encounter Additional Health Concerns Infection Onset Date Last Indicated Resolved Time COVID19 Pending 09/05/2020 09/05/2020 09/06/2020 5:07 PM MECHANICS SUPERVISOR documented as of this encounter Care Teams Criminal Defense Lawyer Relationship Specialty Start Date End Date No Contact, Pcp PCP - General Family Medicine 09/05/20 documented as of this encounter
--- OUTSIDE RECORDS SUMMARY | 2022-09-06 13:37 | XMS_ITS | Encounter Summary ---
:1950 Author Organization [facility] Address [address] [place] [address] Care Team Providers Name Role Phone Unavailable Primary Care Provider Unavailable Reason for Visit Reason Comments Other TJC Preparation Encounter Details Date Type Department Care Team Description 09/01/2020 Clinical Communication Department of Hardik Kemp (TJ Orthopedic Surgery Zhanna Patiño R.N. Preparation) in [facility] [phone] [place] (Work) [address] [place] [phone] Social History Tobacco Use Types Packs/Day [...] a message due to a full mailbox. documented in this encounter Plan of Treatment Not on filedocumented as of this encounter Visit Diagnoses Not on filedocumented in this encounter
--- OUTSIDE RECORDS SUMMARY | 2022-09-06 13:37 | XMS_ITS | Encounter Summary ---
:1950 Author Organization [facility] Address [address] [place] [address] Care Team Providers Name Role Phone Unavailable Primary Care Provider Unavailable Encounter Details Date Type Department Care Team Description 11/08/2017 Clinical Support Department of Lynn Jasso M. D. Rotator Cuff Rehabilitation Dave Servin P.T. [address] [place] [phone] Repair Shoulder Services in [address] [phone] Social History Tobacco Use Types Packs/Day Years [...] Time Spent with Patient Functional G-code Worksheet L BONDER documented in this encounter Plan of Treatment Not on filedocumented as of this encounter Visit Diagnoses Diagnosis Rotator Cuff Repair Shoulder Status Post documented in this encounter
--- OUTSIDE RECORDS SUMMARY | 2022-09-06 13:37 | XMS_ITS | Encounter Summary ---
:1950 Author Organization [facility] Address [address] [place] [address] Care Team Providers Name Role Phone Unavailable Primary Care Provider Unavailable Encounter Details Date Type Department Care Team Description 12/06/2017 Clinical Support Department of Lynn Jasso M. D. Rotator Cuff Rehabilitation Dave Servin P.T. [address] [place] [phone] Repair Shoulder Services in [address] [phone] Social History Tobacco Use Types Packs/Day Years Used Date Smoking Tobacco: Never Sex Assigned at Date Recorded Not on file documented as of this encounter Progress Notes Dave Servin, P.T. - 12/06/2017 6:00 AM CST Physical Therapy Outpatient Treatment Note Referring Provider: Lynn Jasso M.D. Medical Diagnosis: 1. Rotator Cuff Repair Shoulder Status Post - PT Ongoing treatment Payor: Payor: MEDICARE / Plan: MEDICARE A AND B / Product Type: Medicare / Total Visit Count: 12 Visit Count since last G-Codes: 2 Principal Problem: Patient Active Problem List Diagnosis ??? Pain Shoulder Left ??? Rotator Cuff Repair Shoulder Status Post SUBJECTIVE Sandee comes into therapy today stating that she is doing fairly well overall. She has been sick over the past week. She has not been doing her exercises as aggressively. She still does feel some tightness in her shoulder. However, she is starting to use a shoulders much as she can. Her is with her today. He feels that she is becoming more and more independent. Pain Assessment Pain Score: 1 OBJECTIVE We did have patient lying supine we did check a mobility. She is with some stiffness initially. We are able to bring her shoulder to approximately 150?? passively in supine. When she is in short sitting she can actively bring her arm to approximately 140??. There does seem to be a restriction at approximately 150??. There is some pain at pathological end range. However, this seems to be more due to tissue tightness. Overall, her strength is doing well. Shoulder flexion strength is 4+/5. Internal/external rotation is 4+/5. However, the restriction in her shoulder does make it difficult to flex beyond 140??. She continues to do her exercises aggressively at home. We did give her some more Thera-Bandto work on for resistance. Measures - Tools Measures - Tools Treatment Provided Today: 15 minutes of manual therapy. Home Exercise Program: Patient has home exercises which addresses both mobility and strength at this time. ASSESSMENT Overall, patient is doing well. Her biggest issue was some limitation with mobility in her shoulder.She will be seeing her military technology specialist this week. Therapy Goals PLAN At this time, we are going to hold on physical therapy. Her physician may wish for us to continue with further therapy for mobility. Otherwise, he may wish for her to continue with a home exercise program independently over the next several months to see how she progresses. She will call to let us know. Dave Servin P.T. Time Spent with Patient Functional G-code Worksheet NEER GAS PUMPING STATION documented in this encounter Plan of Treatment Not on filedocumented as of this encounter Visit Diagnoses Diagnosis Rotator Cuff Repair Shoulder Status Post documented in this encounter
--- OUTSIDE RECORDS SUMMARY | 2022-09-06 13:37 | XMS_ITS | Encounter Summary ---
:1950 Author Organization [facility] Address [address] [place] [address] Care Team Providers Name Role Phone Unavailable Primary Care Provider Unavailable Reason for Referral MRI/CAT/PET Scan (Routine) - Closed Specialty Diagnoses / Procedures Referred By Contact Refer red To Contact Radiology Diagnoses Pain Knee Right Jakob Baez M.D. [facility] [place] [facility] Procedures MR Knee Right without IV Contrast [address] [place], [place] [address] Referral ID Status Reason Start Date Expiration Date Visits Requ ested Visits Authorized [id number] Closed 08/07/2020 08/07/2021 1 1 Reason for Visit MRI/CAT/PET Scan (Routine) - Closed Specialty Diagnoses / Procedures Referred By Contact Refer red To Contact Radiology Diagnoses Pain [facility]nee Right [facility].D. [facility] [place] [facility] Procedures MR Knee Right without IV Contrast [address] [place], [place] [address] Referral ID Status Reason Start Date Expiration Date Visits Requ ested Visits Authorized [id number] Closed 08/07/2020 08/07/2021 1 1 Encounter Details Date Type Department Care Team Description 08/07/2020 Hospital Encounter Department of Radiology Haroon Baez Pain Knee Right in Mag Lopez M.D. [place] [address] [place] [phone] Social History Tobacco Use Types Packs/Day Years [...]
--- OUTSIDE RECORDS SUMMARY | 2022-09-06 13:37 | XMS_ITS | Encounter Summary ---
:1950 Author Organization [facility] Address [address] [place] [address] Care Team Providers Name Role Phone Unavailable Primary Care Provider Unavailable Encounter Details Date Type Department Care Team Description 11/18/2017 Clinical Support Department of Lynn Jasso M. D. Rotator Cuff Rehabilitation Dave Servin P.T. [address] [place] [phone] Repair Shoulder Services in [address] [phone] Social History Tobacco Use Types Packs/Day Years Used Date Smoking Tobacco: Never Sex Assigned at Date Recorded Not on file documented as of this encounter Progress Notes Dave Servin, P.T. - 11/18/2017 6:30 AM CST Physical Therapy Outpatient Treatment Note Referring Provider: yLnn Jasso M.D. Medical Diagnosis: 1. Rotator Cuff [...] Time Spent with Patient Functional G-code Worksheet AR CARE TECHNOLOGIST documented in this encounter Plan of Treatment Not on filedocumented as of this encounter Visit Diagnoses Diagnosis Rotator Cuff Repair Shoulder Status Post documented in this encounter
--- OUTSIDE RECORDS SUMMARY | 2022-09-06 13:37 | XMS_ITS | Encounter Summary ---
:1950 Author Organization [facility] Address [address] [place] [address] Care Team Providers Name Role Phone Unavailable Primary Care Provider Unavailable Reason for Visit Outpatient (Routine) - Closed Specialty Diagnoses / Procedures Referred By Contact Refer red To Contact General Surgery Diagnoses Preoperative Exam Bridgette Francisco APRN, [facility] C.N.P., D.N.P. [address] [place] [phone] Referral ID Status Reason Start Date Expiration Date Visits Requ ested Visits Authorized [id number] Closed 08/21/2020 08/21/2021 1 1 Encounter Details Date Type Department Care Team Description 09/02/2020 Telemedicine Department of General Nii Francisco APRN, C.N.P., D.N.P. [address] [place] [phone] Preanesthetic Medical Exam (Primary Dx); Surgery in [facility] Jennifer Vargas R.N. [address] [place] [phone] Preoperative Exam [address] [phone] Social History Tobacco Use Types [...] 1.6 09/02/2020 2:[address] Jose makc's oz) TUBER MACHINE OPERATOR HELPER preop dated 08/01 04/19 Height 162 cm (5' 3.78) 09/02/2020 2:[address] Renee nesbitt's TUBER MACHINE OPERATOR HELPER preop dated 08/01 04/19 Body Mass Index 41.15 09/02/2020 2:38 PM TUBER MACHINE OPERATOR HELPER documented in this encounter Progress Notes Jennifer Vargas R.N. - 09/02/2020 2:15 PM CST This patient was called for a KENAN nurse visit on 09/02/2020 for surgery scheduled on 09/08/20 with . Surgery Nurse Supervisor Benzene Refining Skin Alert Assessment: Complete this section only [...] flat? No Comment: Do you have any baptist or other objection to having a blood transfusion? No Teaching: Preoperative education was done with (x) patient () parent . It was confirmed the patient/family member had received the following preoperative education sheets:Checklist For Surgical Patients ([id number]),???Surgical Site Infections: Reducing Your Risk ([id number]), Speak Up: Antibiotics ([id number]), Acute Pain and the Healing Process ([id number]) with the Integrative Medicine and Health ([id number]), and ???Appointments Required Before Your Surgery?? (no MC). These were reviewed in detail. (x) Preoperative medication education provided through Ask Olmitz Expert (x) Preoperative COVID-19 testing ordered and discussed with patient- scheduled 09/08/20 Total Joint Class scheduled: Date: 09/02/20 (x)Total Joint Surgery: Total Joint Class (good for one year). (x) Reviewed Hibiclens packet and reviewed Reducing Your Risk of Surgical Infection ([id number]). Patient is ready to learn, no apparent learning barriers were identified. Reviewed diagnosis and treatment plan; patient verbalized understanding through teach back. All questions were answered. Patient has contact information and understands the need to call with any questions or concerns. Post op appointments: 1st po with surgeon or physician assistant controller: (x) made R MACHINE OPERATOR HELPER documented in this encounter Plan of Treatment Not on filedocumented as of this encounter Visit Diagnoses Diagnosis Preanesthetic Medical Exam - Primary Preoperative Exam documented in this encounter
--- OUTSIDE RECORDS SUMMARY | 2022-09-06 13:37 | XMS_ITS | Encounter Summary ---
:1950 Author Organization [facility] Address [address] [place] [address] Care Team Providers Name Role Phone Unavailable Primary Care Provider Unavailable Reason for Visit Reason Comments Surgical Listing ortho Dr Benito Encounter Details Date Type Department Care Team Description 08/21/2020 Clinical Communication Department of Bridgette Francisco Surg ical Listing Orthopedic Surgery L, SIDING COREBOARD INSPECTOR, (ortho Dr Benito ) in [place], C.N.P., D.N.[address] [phone] Social History Tobacco Use Types Packs/Day Years Used Date Smoking Tobacco: Never Sex Assigned at Date Recorded Not on file documented as of this encounter Miscellaneous Notes Telephone Encounter - Magali Hall L.P.N. - 09/03/2020 10:27 AM RESEARCH/PROGRAM DIRECTOR COVID Screening Questions Does the patient, anyone [...] interview positive and should be referred tothe [facility] Nurse Line (Phone number ) and this information communicated to clinical team responsible for the operation. Sent to [facility] Nurse Triage No Patient was instructed to call department if they develop any of the above symptoms prior to the procedure or surgery date. Yes Patient verbalized back understanding of the PCR swab plan and when to complete and at which site. Yes ARCH/PROGRAM DIRECTOR Telephone Encounter - Elaine Estes L.P.N. - 08/21/2020 2:41 PM CDT Scheduled right total knee replacement on 09-08-2020 to be performed by Dr Benito. documented in this encounter Plan of Treatment Not on filedocumented as of this encounter Visit Diagnoses Not on filedocumented in this encounter
--- OUTSIDE RECORDS SUMMARY | 2022-09-06 13:38 | XMS_ITS | Encounter Summary ---
:1950 Author Organization [facility] Address [address] [place] [address] Care Team Providers Name Role Phone Unavailable Primary Care Provider Unavailable Encounter Details Date Type Department Care Team Description 06/27/2012 Hospital Encounter HX NO MAPPING Roman Olivares M.D. [address] [place], [place] [phone] (Wo rk) Social History Tobacco Use Types Packs/Day Years Used Date Smoking Tobacco: Never Assessed Sex Assigned at Date Recorded Not on file documented as of this encounter Plan of Treatment Not on filedocumented as of this encounter Visit Diagnoses Not on filedocumented in this encounter
--- OUTSIDE RECORDS SUMMARY | 2022-09-06 13:38 | XMS_ITS | Encounter Summary ---
:1950 Author Organization [facility] Address [address] [place] [address] Care Team Providers Name Role Phone Unavailable Primary Care Provider Unavailable Encounter Details Date Type Department Care Team Description 07/02/2004 Hospital Encounter HX [facility] INTERNMED Provider, [facility] Social History Tobacco Use Types Packs/Day Years Used Date Smoking Tobacco: Never Assessed Sex Assigned at Date Recorded Not on file documented as of this encounter Progress Notes Conversion, Historical Provider Ser - 07/02/2004 9:30 AM CDT [id number] Addended by: ERIBERTO GARNETT on: 07/07/2004,12:25 PM [...] a tapering course of oral steroids at [facility].2 . We will then have her follow [...] episodes.Julio Cesar Villasenor M.D./Susie: 07/02/2004T: 07/07/2004 Source: [facility] RWHXTRANSXSYS Document Id: [id number] documented in this encounter Plan of Treatment Not on filedocumented as of this encounter Visit Diagnoses Not on filedocumented in this encounter
--- OUTSIDE RECORDS SUMMARY | 2022-09-06 13:38 | XMS_ITS | Encounter Summary ---
:1950 Author Organization [facility] Address [address] [place] [address] Care Team Providers Name Role Phone Unavailable Primary Care Provider Unavailable Encounter Details Date Type Department Care Team Description 01/11/2006 Hospital Encounter HX [facility] Nikunj Longo M.D. [address] [place] [address] (Wo rk) Social History Tobacco Use Types Packs/Day Years Used Date Smoking Tobacco: Never Assessed Sex Assigned at Date Recorded Not on file documented as of this encounter Progress Notes Chang Antoine M.D. - 01/11/2006 9:00 AM CST [id number] CLINIC ENCOUNTER HISTORY: The patient has a [...] should develop. Chang Antoine M.D. Gina Source: [facility] RWHXTRANSXSYS Document Id: [id number] Electronically signed by Conversion, [facility] Screw Remover [id number] at 04/04/2017 5:08 PM CDT Conversion, Historical Provider Ser - 01/11/2006 9:00 AM CST [id number] Pain Questionnaire: Is your visit today because [...] S' Manifest OD: Sphere: -0.50 Cylinder: 0 [place]: 0 VA: 30 Add: +2.00 AddVA: Manifest OS: Sphere: +0.50 Cylinder: 0 [place]: 0 VA: 30-2 Add: +2.00 AddVA: +2 [...] Psychiatric: negative Hematologic/Lymphatic/Immunologic: negative Endocrine: negative Source: [facility] RWHXTRANSXRTFSYS Document Id: [id number] documented in this encounter Plan of Treatment Not on filedocumented as of this encounter Visit Diagnoses Not on filedocumented in this encounter
--- OUTSIDE RECORDS SUMMARY | 2022-09-06 13:38 | XMS_ITS | Encounter Summary ---
:1950 Author Organization [facility] Address [address] [place] [address] Care Team Providers Name Role Phone Unavailable Primary Care Provider Unavailable Encounter Details Date Type Department Care Team Description 05/20/2011 Hospital Encounter HX [facility] Jeremy Garcia M.D. [address] [place], [place] [phone] (Wo rk) Social History Tobacco Use Types Packs/Day Years Used Date Smoking Tobacco: Never Assessed Sex Assigned at Date Recorded Not on file documented as of this encounter Progress Notes Delmar Andrew M.D. 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 She has no visual complaints. The vision in the right eye is not as good as in the left eye but she is pleased she did recover as much vision as she did. OBJECTIVE: CONFRONTATION VISUAL SERRANO: Intact. MOTILITY: Full. PUPILS: No APD. EXTERNAL: Unremarkable. SLIT LAMP EXAMINATION: Conjunctivae quiet. Corneas clear. Chambers deep and quiet. There are iridolenticular adhesions right eye. The iris and lens are normal left eye. No significant cataract change in either eye. FUNDUS: (Dilated) There is mild pallor of the right optic nerve. The left optic nerve is pink. The maculae, arcades and periphery are otherwise unremarkable. The IOPs are noted above. IMPRESSION: 1. History of iridocyclitis of the right eye, currently quiescent. 2. 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 3. Hyperopia. PLAN: 1. Reassurance. 2. Continue with reading glasses. 3. Recheck in two years. Delmar Andrew M.D. RANDAL/christian cc: Source: [facility] [email or web address] Document Id: [id number] Electronically signed by Conversion, [facility] Capsule Machine Operator [id number] at 04/03/2017 4:27 AM CDT Delmar Andrew M.D. - 05/20/2011 1:30 PM CDT [id number] Heidi Huerta is a 60 year old female who presents for a complete eye exam. History of Present Illness: Patient states no complaints. Hx iritis left and optic neuritis, right eye. Distance Right Eye Left Eye Both Eyes CC 25 25-2 SC Pinhole Correction none Near OTC +2.25 RIght Eye Left Eye Both Eyes @ 16 in CC 25 20 @ 16 in SC Refraction MR Right Eye PL SPH 0 20/25 VA Both Eyes MR Left Eye PL SPH 0 20/25+2 ADD Right Eye +2.25 NA NA 20/20 VA Both Eyes ADD Left Eye +2.25 NA NA 20/20 Manifest Refraction is also Final RX EOMs full Serrano full Ortho -APD IOP Right Eye 15 Left Eye 16 Tonometry Applination Dilation Medication Tropicamide 1.0% and Phenylephrine 2.5% Optic Disc Assessment C/D Ratio Right Eye .40, Pale C/D Ratio Left Eye .30 Huber Page 05/20/2011 Patient Active Problem List Diagnoses Code IRIDOCYCLITIS NOS 364.3 OPTIC NEURITIS NEC 377.39 PAST MEDICAL HISTORY: Past Medical History Diagnosis Date Other optic neuritis right eye Depressive disorder, not elsewhere classified Unspecified acute and subacute iridocyclitis Arthritis knees PAST SURGICAL HISTORY: Past Surgical History Procedure Date Hc excis primary ganglion wrist 1984 Ganglionectomy, wrist Revise secondary varicosity 1986 Vein ligation, stripping left leg MEDICATIONS: Current outpatient prescriptions Medication Sig PIROXICAM 20 MG OR CAPS 1 CAPSULE DAILY GLUCOSAMINE CHONDR 1500 COMPLX OR None Entered ALLERGIES: No known allergies History Substance Use Topics Smoking status: Never Smoker Smokeless tobacco: Not on file Alcohol Use: No Pt does drive motor vehicle. Family History Problem Relation Age of Onset Eye Mother cataracts REVIEW OF SYSTEMS: General: obese Skin: negative Eyes: as above Ears/Nose/Mouth/Throat: hearing loss Respiratory: negative Cardiovascular: negative Gastrointestinal: negative Genitourinary: negative Musculoskeletal: joint pain Neurologic: negative Psychiatric: negative Hematologic/Lymphatic/Immunologic: negative Endocrine: negative [facility]: [facility] Document Id: [id number] Electronically signed by Zia [facility] Capsule Machine Operator [id number] at 04/03/2017 4:27 AM CDT documented in this encounter Plan of Treatment Not on filedocumented as of this encounter Visit Diagnoses Not on filedocumented in this encounter
--- OUTSIDE RECORDS SUMMARY | 2022-09-06 13:38 | XMS_ITS | Encounter Summary ---
:1950 Author Organization [facility] Address [address] [place] [address] Care Team Providers Name Role Phone Unavailable Primary Care Provider Unavailable Encounter Details Date Type Department Care Team Description 08/04/2017 Hospital Encounter HX [facility] MRI Jyoti Carnes C.NThomasPThomas [address] [place] [address] (Wo rk) Social History Tobacco Use Types Packs/Day Years Used Date Smoking Tobacco: Never Sex Assigned at Date Recorded Not on file documented as of this encounter Miscellaneous Notes Miscellaneous - Conversion, Historical Provider Ser - 08/04/2017 11:59 PM CDT Coding Summary-Paper Based CODING DATE: 08/10/2017 FINAL [facility] STATUS: * Discharged to Home or Self [...] MOSLEY Date Saved: 08/10/2017 01:13 pm Source: [facility] [employer] Document Id: [id number] documented in this encounter Plan of Treatment Not on filedocumented as of this encounter Visit Diagnoses Not on filedocumented in this encounter
--- OUTSIDE RECORDS SUMMARY | 2022-09-06 13:38 | XMS_ITS | Encounter Summary ---
:1950 Author Organization [facility] Address [address] [place] [address] Care Team Providers Name Role Phone Unavailable Primary Care Provider Unavailable Encounter Details Date Type Department Care Team Description 07/03/2017 Hospital Encounter [facility]X [facility] ED Alec Arrieta III, M.D. [address] [place] [phone] (Wo rk) Social History Tobacco Use Types [...] 07/03/2017 1:24 PM CDT ED Discharge Instructions [address] [address] Name: HEIDI SHEEHAN Date of : 1950 12:00 AM Visit Date: 07/03/2017 11:26 AM [facility] Number: [id number] Address: [address] [place] [address] [facility] [phone] Primary Care Provider: PCP, ELSEWHERE IMPORTANT: [facility] in [place] would like to thank you for allowing [...] of strength in the affected arm ?? [place] [address]. All rights reserved. This information is not [...] direction (a full range of motion). ?? [address] [address]. All rights reserved. This information is not [...] if you dont have one. Go to [email or web address] and click on Create Your Account. Then, follow the directions to complete the online form. Youll be asked for your [facility] number which you can find at the [...] arrange a ride home with a responsible democrat. AGUILA Mckay SHERRILYN JOY , or responsible democrat have received this information and my questions havebeen answered. I have discussed any challenges I see with this plan with the nurse or physician. Patient Signature or Responsible Alliance Party/Relationship Date Time Provider Signature Date Time [...] arrange a ride home with a responsible democrat. I, DANIELA SHEEHANDiamond ARTEMIO , or responsible democrat have received this information and my questions havebeen answered. I have discussed any challenges I see with this plan with the nurse or physician. Patient Signature or Responsible Alliance Party/Relationship Date Time Provider Signature Date Time This document has images extracted. Please consider using [employer] for all your patient education needs. Source: [facility] POWERCHART Document Id: [id number] Piedad Flynn R.N. - 07/03/2017 1:24 PM CDT ED Depart Summary [facility] Emergency Department Clinical Discharge Summary PERSON INFORMATION Name HEIDI SHEEHAN Age 66 Years 1950 12:00 AM Sex Female Language Arabic PCP PCP, ELSEWHERE Marital Status Visit Id Visit Reason Fall; shoulder pain Specialty Enc Type Emergency Med Service Emergency Medicine Referred by Track Group [facility] ED Discharge 07/03/2017 1:15 PM Tracking Id [id number] Checkout 07/03/2017 1:15 PM Checkin 07/03/2017 11:26 AM Acuity 3 -Urgent Dispo Type * Discharged to Home or Self Care Arrival 07/03/2017 11:26 AM Reg Status Complete LOS 000 01:49 Address: [address] [place] [phone] Comment: PROVIDER INFORMATION Provider Role Provider Contact Time ALEC ARRIETA III, MD ED Provider 07/03/17 11:35 PIEDAD FLYNN RN ED Nurse 07/03/17 11:41 DIAGNOSIS 1:Rotator Cuff Disorder L; 2:Pain Shoulder L Comment: PATIENT EDUCATION INFORMATION Instructions: ROTATOR CUFF TEAR; Parts of the Shoulder Follow up: With: Address: When: ELSEWHERE PCP Within 1 - 2 weeks Comments: Call for follow up appointment. Source: [employer] Document Id: [id number] Piedad Flynn R.N. - 07/03/2017 1:20 PM [...] FLYNN RN - 07/03/2017 13:20 CDT Source: [employer] Document Id: [id number] CDT!9 documented in this encounter ED Notes [...] Location : Shoulder Intensity : 7 PIEDAD FLYNN RN - 07/03/2017 13:20 CDT Source: [facility] [employer] Document Id: [id number] CDT!10 Alec Arrieta III, M.D. - 07/03/2017 [...] . General: Alert and no acute distress. Eunice coma scale: Total score: Total score: 15. [...] Stat, Patient Bed, Once, 07/03/2017 11:53 CDT, [facility] ED. Radiology results:03-Jul-2017 12:18:00 Exam: L [...] III, MD On: 07/03/2017 01:08 PM Source: [facility] POWERCHART Document Id: [id number]} Piedad Flynn R.N. - 07/03/2017 11:38 AM [...] Medical ; Code: 377.10 ; Contributor System: [facility]_HX_PR_UPLOAD ; Last Updated: 01/26/2014 14:30 CDT ; Life Cycle Status: Active ; Vocabulary: ICD-9-CM ; Comments: - Optic atrophy Other Optic Neuritis (ICD-9-CM :377.39 ) Name of Problem: Other Optic Neuritis ; Onset Date: 06/04/2004 ; Confirmation: Confirmed ; Classification: UPDATE NEEDED ; Code: 377.39 ; Contributor System: [facility]_HX_Runa_UPLOAD ; Last Updated: 01/26/2014 14:30 CDT ; Life Cycle Status: Active ; Vocabulary: ICD-9-CM ; Comments: - Other optic neuritis Unspecified Iridocyclitis (ICD-9-CM :364.3 ) Name of Problem: Unspecified Iridocyclitis ; Onset Date: 04/08/2004 ; Confirmation: Confirmed ; Classification: Medical ; Code: 364.3 ; Contributor System: [facility]_HX_PR_AnybodyOutThereOAD ; Last Updated: 01/26/2014 14:30 CDT ; Life Cycle Status: Active ; Vocabulary: ICD-9-CM ; Comments: - Unspecified iridocyclitis Diagnoses(Active) Fall Date: 07/03/2017 ; Diagnosis Type: Reason For Visit ; Confirmation: Complaint of ; Clinical Dx:Fall ; Classification: Medical ; Clinical Service: Emergency medicine ; Code: PNED ; Probability: 0 ; Diagnosis Code: [id number] Triage Chief Complaint Description : see triage note Mode of Arrival ED : Private vehicle Track : Trauma Other Languages : Arabic Treatments Prior to Arrival : None Is [...] FLYNN RN - 07/03/2017 11:38 CDT Source: [facility] POWERCHART Document Id: [id number] CDT!45 Piedad Flynn R.N. - 07/03/2017 11:34 [...] Medical ; Code: 377.10 ; Contributor System: [facility]_HX_PR_UPLOAD ; Last Updated: 01/26/2014 14:30 CDT ; Life Cycle Status: Active ; Vocabulary: ICD-9-CM ; Comments: - Optic atrophy Other Optic Neuritis (ICD-9-CM :377.39 ) Name of Problem: Other Optic Neuritis ; Onset Date: 06/04/2004 ; Confirmation: Confirmed ; Classification: UPDATE NEEDED ; Code: 377.39 ; Contributor System: [facility]_HX_PR_UPLOAD ; Last Updated: 01/26/2014 14:30 CDT ; Life Cycle Status: Active ; Vocabulary: ICD-9-CM ; Comments: - Other optic neuritis Unspecified Iridocyclitis (ICD-9-CM :364.3 ) Name of Problem: Unspecified Iridocyclitis ; Onset Date: 04/08/2004 ; Confirmation: Confirmed ; Classification: Medical ; Code: 364.3 ; Contributor System: [facility]_HX_PR_AnybodyOutThereOAD ; Last Updated: 01/26/2014 14:30 CDT ; Life Cycle Status: Active ; Vocabulary: ICD-9-CM ; Comments: - Unspecified iridocyclitis Diagnoses(Active) Fall Date: 07/03/2017 ; Diagnosis Type: Reason For Visit ; Confirmation: Complaint of ; Clinical Dx:Fall ; Classification: Medical ; Clinical Service: Emergency medicine ; Code: PNED ; Probability: 0 ; Diagnosis Code: [id number] Triage Chief Complaint Description : 66 year old female admitted to ER wtith complaints of left shoulder pain. States she fell yesterday afternoon landed on left side. Information Given By : Patient Present in Room During Exam/Procedure : Spouse Mode of Arrival ED : Private vehicle Track : Trauma Other Languages : Arabic Vital Signs Assessed : Yes GCS Assessed [...] 11:34 CDT Stephane Coma Eye Opening Response Stephane : Spontaneously Best Verbal Response Stephane : Oriented Best Motor Response Eunice : Obeys simple commands Eunice Coma Score : 15 PIEDAD FLYNN RN [...] Acuity : 3 -Urgent Tracking Group : [facility] ED OPAL PIEDAD Tellez - 07/03/2017 11:34 CDT Allergy (As Of: 07/03/2017 11:38:54 CDT) Allergies (Active) NKA Comments: Comment 1: NO KNOWN ALLERGIES ; Created By: Contributor_system, [facility]_HX_ALRG_SYS; Reaction Status: Active ; Category: Drug ; Substance: NKA ; Type: Unknown ; Updated By: Contributor_system, [facility]_HX_ALRG_SYS; Reviewed Date: 07/03/2017 11:38 CDT ID Screen Drug Resistant Organism : No Travel Within Last 21 Days : No PIEDAD FLYNN RN - 07/03/2017 11:34 CDT Immunizations Last Tetanus : < 5 years Pneumovac : Last 5 years Influenza : None PIEDAD FLYNN RN - 07/03/2017 11:34 CDT Source: [facility] [employer] Document Id: [id number] CDT!55 documented in this encounter Miscellaneous Notes Miscellaneous - Piedad Flynn R.N. - 07/03/2017 1:20 PM CDT Valuables/Belongings Valuables/Belongings Entered On: 07/03/2017 13:20 CDT Performed On: 07/03/2017 13:20 CDT by PIEDAD FLYNN RN Valuables/Belongings Belongings Sent Home With : patient PIEDAD FLYNN RN - 07/03/2017 13:20 CDT Source: [employer] Document Id: [id number] CDT!3 Miscellaneous - Conversion, Historical Provider Ser - 07/03/2017 1:15 PM CDT Coding Summary-Paper Based CODING DATE: 07/09/2017 FINAL [facility] STATUS: * Discharged to Home or Self [...] BROWN Date Saved: 07/09/2017 01:37 pm Source: [employer] Document Id: [id number] Miscellaneous - Piedad Flynn R.N. - 07/03/2017 [...] Control : 8 Lynx Visit Level : 18331 Level 4 Treatments Prior to Arrival : None PIEDAD FLYNN RN - 07/03/2017 13:20 CDT Source: [employer] Document Id: [id number] CDT!19 documented in this encounter Plan of Treatment Not on filedocumented as of this encounter Visit Diagnoses Not on filedocumented in this encounter
--- OUTSIDE RECORDS SUMMARY | 2022-09-06 13:38 | XMS_ITS | Encounter Summary ---
:1950 Author Organization [facility] Address [address] [place] [address] Care Team Providers Name Role Phone No [...] Hearing loss, per patient. [facility] Id: [id number] Status: Fnl documented in this encounter Plan of Treatment Not on filedocumented as of this encounter Visit Diagnoses Not on filedocumented in this encounter Additional Health Concerns Infection Onset Date Last Indicated Resolved Time COVID19 Pending 09/05/2020 09/05/2020 09/06/2020 5:07 PM LEATHER COATER documented as of this encounter Care Teams Budget And Policy Analyst Relationship Specialty Start Date End Date No Contact, Pcp PCP - General Family Medicine 09/05/20 documented as of this encounter
--- OUTSIDE RECORDS SUMMARY | 2022-09-06 13:38 | XMS_ITS | Encounter Summary ---
:1950 Author Organization [facility] Address [address] [place] [address] Care Team Providers Name Role Phone Unavailable Primary Care Provider Unavailable Encounter Details Date Type Department Care Team Description 01/21/2005 Hospital Encounter HX [facility] Nikunj Longo M.D. [address] [place] [address] (Wo rk) Social History Tobacco Use Types Packs/Day Years Used Date Smoking Tobacco: Never Assessed Sex Assigned at Date Recorded Not on file documented as of this encounter Progress Notes Santa Harden C.O.A. - 01/21/2005 2:15 PM CST [id number] Comment: risk management intern Visual Acuity SC Distance OD: 25 OS: [...] had a second opinion done at the [facility] in [place] where they felt she had just isolated [...] two weeks time. Chang Antoine M.D./jennifer Source: [facility] RWHXTRANSXRTFSYS Document Id: [id number] documented in this encounter Plan of Treatment Not on filedocumented as of this encounter Visit Diagnoses Not on filedocumented in this encounter
--- OUTSIDE RECORDS SUMMARY | 2022-09-06 13:38 | XMS_ITS | Encounter Summary ---
:1950 Author Organization [facility] Address [address] [place] [address] Care Team Providers Name Role Phone Unavailable [...]
--- OUTSIDE RECORDS SUMMARY | 2022-09-06 13:38 | XMS_ITS | Encounter Summary ---
:1950 Author Organization [facility] Address [address] [place] [address] Care Team Providers Name Role Phone Unavailable Primary Care Provider Unavailable Encounter Details Date Type Department Care Team Description 06/27/2012 Hospital Encounter HX NO MAPPING Roman Olivares M.D. [address] [place], [place] [phone] (Wo rk) Social History Tobacco Use Types Packs/Day Years Used Date Smoking Tobacco: Never Assessed Sex Assigned at Date Recorded Not on file documented as of this encounter Plan of Treatment Not on filedocumented as of this encounter Visit Diagnoses Not on filedocumented in this encounter
--- OUTSIDE RECORDS SUMMARY | 2022-09-06 13:38 | XMS_ITS | Encounter Summary ---
:[address] [facility] Address [address] [place] [address] Care Team Providers Name Role Phone Unavailable Primary Care Provider Unavailable Reason for Visit Physical Therapy (Routine) - Closed Specialty Diagnoses / Procedures Referred By Contact Refer red To Contact Diagnoses Pain Shoulder Left Provider, Unknown [facility] Procedures PT Evaluate and treat [facility] [address] [place] [address] Referral ID Status Reason Start Date Expiration Date Visits Requ ested Visits Authorized [id number] Closed 10/13/2017 04/11/2018 12 12 Encounter Details Date Type Department Care Team Description 10/14/2017 Comprehensive Visit Department of [facility] Patricia shaw M.D. [address] [phone] Pain Shoulder Rehabilitation Jyoti Carnes C.NThomasPThomas [address] [place], [place] [phone] Left (Primary Dx) Services in [place] Dave Servin, P.TThomas [address] [phone] [phone] Social History Tobacco Use Types Packs/Day Years [...] 2 more weeks. She has been very mandaen and not using this time. Pain has [...] as tolerated and per protocol per physician. 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
--- OUTSIDE RECORDS SUMMARY | 2022-09-06 13:38 | XMS_ITS | Encounter Summary ---
:1950 Author Organization [facility] Address [address] [place] [address] Care Team Providers Name Role Phone Unavailable Primary Care Provider Unavailable Encounter Details Date Type Department Care Team Description 02/03/2006 Hospital Encounter HX [facility] Nikunj Longo M.D. [address] [place] [phone] (Wo rk) Social History Tobacco Use Types Packs/Day Years Used Date Smoking Tobacco: Never Assessed Sex Assigned at Date Recorded Not on file documented as of this encounter Progress Notes Chang Antoine M.D. - 02/03/2006 9:45 AM CDT [id number] CLINIC ENCOUNTER Mrs. Huerta has a history [...] in three months. Brennan Berumen/gardenia cc: Source[facility] Document Id: [id number] Electronically signed by Conversion, [facility] Family Resource Management Professor [id number] at 04/04/2017 3:35 PM CDT Conversion, Historical Provider Ser - 02/03/2006 9:45 AM CDT [id number] Pain Questionnaire: Is your visit today because [...] Psychiatric: negative Hematologic/Lymphatic/Immunologic: negative Endocrine: negative Source: [facility] RWHXTRANSXRTFSYS Document Id: [id number] documented in this encounter Plan of Treatment Not on filedocumented as of this encounter Visit Diagnoses Not on filedocumented in this encounter
--- OUTSIDE RECORDS SUMMARY | 2022-09-06 13:38 | XMS_ITS | Encounter Summary ---
:1950 Author Organization [facility] Address [address] [place] [address] Care Team Providers Name Role Phone Unavailable Primary Care Provider Unavailable Encounter Details Date Type Department Care Team Description 10/25/2017 Clinical Support Department of Edi Benito M.D. [address] [place] [phone] Rotator Cuff Repair Shoulder Status Post (Primary Dx); Rehabilitation Services Dave Servin P.T. [address] [place] [phone] Pain Shoulder Left in [address] [phone] Social History Tobacco Use Types Packs/Day Years Used Date Smoking Tobacco: Never Sex Assigned at Date Recorded Not on file documented as of this encounter Progress Notes Dave Servin, PThomasT. - 10/25/2017 6:30 AM CST Physical Therapy Outpatient Treatment Note Referring Provider: Edi Benito M.D. Medical Diagnosis: 1. Rotator Cuff Repair Shoulder Status Post - PT Ongoing treatment; Standing Payor: Payor: MEDICARE / Plan: MEDICARE A AND B / Product Type: Medicare / Payor considerations: Visit Counts: 4 Rosie Principal Problem: Patient Active Problem List Diagnosis ??? Pain Shoulder Left Precautions/Restrictions: SUBJECTIVE Rosie comes into therapy today for continued therapy on her left rotator cuff. She had a good weekend overall. She continues to do her exercises. She has been trying to wean herself from the sling slowly. Pain Assessment Pain Score: 3 OBJECTIVE we continued with passive range of motion today. We addressed shoulder flexion, abduction, and external rotation. We also worked on muscle stripping of the upper traps concentrating on the left side. We had her work on some light shoulder flexion in supine with assist by the therapist. There is no significant pain with this. It is noted that she is now 5-1/2 weeks postop. She continues to do exercises at home. We strongly encouraged her to continue to address both internal and external rotation more aggressively. Measures - Tools Measures - Tools Treatment Provided Today: Home Exercise Program: ASSESSMENT Patient is slowly improving with her mobility. She is now 5-1/2 weeks postop. At 6 weeks, we will bedoing some light active range of motion in supine for shoulder flexion. We will probably address internal/external rotation isometrically. This will also be very light. Therapy Goals PLAN We will continue. Patient agrees with the plan of care and goals. Dave Servin P.T. Time Spent with Patient Functional G-code Worksheet CONSULTANT documented in this encounter Plan of Treatment Not on filedocumented as of this encounter Visit Diagnoses Diagnosis Rotator Cuff Repair Shoulder Status Post - Primary Pain Shoulder Left documented in this encounter
--- OUTSIDE RECORDS SUMMARY | 2022-09-06 13:38 | XMS_ITS | Encounter Summary ---
:1950 Author Organization [facility] Address [address] [place] [address] Care Team Providers Name Role Phone Unavailable Primary Care Provider Unavailable Encounter Details Date Type Department Care Team Description 10/18/2017 Clinical Support Department of Edi Benito M.D. [address] [place] [phone] Pain Shoulder Left Rehabilitation Services Dave Servin, P.T. [address] [place] [phone] [address] [phone] Social History Tobacco Use Types Packs/Day Years [...] Time Spent with Patient Functional G-code Worksheet AGE WINDER documented in this encounter Plan of Treatment Not on filedocumented as of this encounter Visit Diagnoses Diagnosis Pain Shoulder Left documented in this encounter
--- OUTSIDE RECORDS SUMMARY | 2022-09-06 13:38 | XMS_ITS | Encounter Summary ---
:1950 Author Organization [facility] Address [address] [place] [address] Care Team Providers Name Role Phone Unavailable Primary Care Provider Unavailable Encounter Details Date Type Department Care Team Description 04/17/2013 Hospital Encounter HX [facility] Jeremy Garcia M.D. [address] [place] [phone] (Wo rk) Social History Tobacco Use Types Packs/Day Years Used Date Smoking Tobacco: Never Assessed Sex Assigned at Date Recorded Not on file documented as of this encounter Miscellaneous Notes Miscellaneous - Delmar Andrew M.D. - 04/17/2013 12:00 AM CDT [id number] Heidi Huerta [id number] [phone] April 17, 2013 Dear Heidi Huerta: Our records indicate that you are due for the following appointment: TWO YEAR EYE EXAM AROUND 05-20-13 Please call us to make an appointment at your convenience. Our telephone number for scheduling an appointment is [phone]. If you have already made an appointment for this or have had the proceduredone, please disregard this notice. We look forward to seeing you soon. Sincerely, Delmar Andrew M.D./[facility] Ophthalmology Department [facility] [place] Source: [facility] Document Id: [id number] documented in this encounter Plan of Treatment Not on filedocumented as of this encounter Visit Diagnoses Not on filedocumented in this encounter
--- OUTSIDE RECORDS SUMMARY | 2022-09-06 13:38 | XMS_ITS | Encounter Summary ---
:1950 Author Organization [facility] Address [address] [place] [address] Care Team Providers Name Role Phone Unavailable Primary Care Provider Unavailable Encounter Details Date Type Department Care Team Description 11/01/2017 Clinical Support Department of Edi Benito M.D. [address] [place] [phone] Pain Shoulder Left Rehabilitation Services Dave Servin PThomasT. [address] [place] [phone] [phone] Social History Tobacco Use Types Packs/Day Years Used Date Smoking Tobacco: Never Sex Assigned at Date Recorded Not on file documented as of this encounter Progress Notes Dave Srevin PThomasT. 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
--- OUTSIDE RECORDS SUMMARY | 2022-09-06 13:38 | XMS_ITS | Encounter Summary ---
:1950 Author Organization [facility] Address [address] [place] [address] Care Team Providers Name Role Phone Unavailable Primary Care Provider Unavailable Encounter Details Date Type Department Care Team Description 01/29/2009 Hospital Encounter HX [facility] Ernie Bee, INPT/OBSRV M.D. [address] [place] [phone] (Wo rk) Social History Tobacco Use Types Packs/Day Years Used Date Smoking Tobacco: Never Assessed Sex Assigned at Date Recorded Not on file documented as of this encounter Plan of Treatment Not on filedocumented as of this encounter Visit Diagnoses Not on filedocumented in this encounter
--- OUTSIDE RECORDS SUMMARY | 2022-09-06 13:38 | XMS_ITS | Encounter Summary ---
:1950 Author Organization [facility] Address [address] [place] [address] Care Team Providers Name Role Phone Unavailable [...] Patrick Loaiza - 03/18/2012 12:00 PM CDT [id number] SUBJECTIVE: Adult female in her 60s [place], [place] who comes to Urgent Care in [place] with a rash on her left forearm [...] on range of motion. BRIANDA Travis/sakina [facility] RWMCHXTRANSXSYS Document Id: [id number] documented in this encounter Plan of Treatment Not on filedocumented as of this encounter Visit Diagnoses Not on filedocumented in this encounter
--- OUTSIDE RECORDS SUMMARY | 2022-09-06 13:38 | XMS_ITS | Encounter Summary ---
:1950 Author Organization [facility] Address [address] [place] [address] Care Team Providers Name Role Phone Unavailable Primary Care Provider Unavailable Encounter Details Date Type Department Care Team Description 10/21/2017 Clinical Support Department of Edi Benito M.D. [address] [place] [phone] Pain Shoulder Left Rehabilitation Services Dave Servin, P.T. 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
--- OUTSIDE RECORDS SUMMARY | 2022-09-06 13:38 | XMS_ITS | Encounter Summary ---
:1950 Author Organization [facility] Address [address] [place] [address] Care Team Providers Name Role Phone Unavailable Primary Care Provider Unavailable Encounter Details Date Type Department Care Team Description 08/26/2016 - Hospital Encounter [facility] CarnesPrimo guohenea almendarez 08/30/2016 ROGELIO Seay, C.N.P. [address] [place] [address] (Wo rk) Social History Tobacco Use Types Packs/Day Years Used Date Smoking Tobacco: Never Assessed Sex Assigned at Date Recorded Not on file documented as of this encounter Progress Notes Dave Burton, P.T. - 08/30/2016 12:00 AM CDT [id number] PHYSICAL THERAPY PROGRESS NOTE IMPRESSION/REPORT/PLAN Sandee comes [...] DAVE BURTON On: 09/10/2016 06:10 AM Source: [facility] MHSDOLBEYNONRADSYS Document Id: [id number] T DESK ASSOCIATE documented in this encounter Consult Notes Dave Burton P.T. - 08/26/2016 12:00 AM CDT [id number] INITIAL THERAPY EVALUATION REFERRING PHYSICIAN Jyoti Carnes, [...] DAVE BURTON On: 08/31/2016 10:22 AM Source: [facility] MHSDOLBEYNONRADSYS Document Id: [id number] documented in this encounter Miscellaneous Notes Miscellaneous - Conversion, Historical Provider Ser - 08/27/2016 11:59 PM CDT Coding Summary-Paper Based CODING DATE: 08/31/2016 FINAL [facility] STATUS: * Discharged to Home or Self [...] LIMON Date Saved: 08/31/2016 11:02 am Source: [facility] POWERCHART Document Id: [id number] documented in this encounter Plan of Treatment Not on filedocumented as of this encounter Visit Diagnoses Not on filedocumented in this encounter
--- OUTSIDE RECORDS SUMMARY | 2022-09-06 13:38 | XMS_ITS | Encounter Summary ---
:1950 Author Organization [facility] Address [address] [place] [address] Care Team Providers Name Role Phone Unavailable [...] Provider Ser - 08/07/2004 12:00 AM CDT [id number] Date of R/C request: [id number] sent to: [facility], Dr Fleming, Neuropth. Dept, [address] [place] [id number] of Disclosure: Pt hx sheets, Brain MRI and rf of 6-15-04, Fac e/neck MRI and rf of 6-15-04, Visual will of 10-4-04 and 8-5-04, and all opth/clinic enc notes 01-15 -03 to 10--04. NCPurpose of Disclosure: continuing medical careAuthorization; NANumber of pag es: 25/CDPerson processing request: Sherrell Alarcon Source: [facility] RWHXTRANSXSYS Document Id: [id number] documented in this encounter Plan of Treatment Not on filedocumented as of this encounter Visit Diagnoses Not on filedocumented in this encounter
--- OUTSIDE RECORDS SUMMARY | 2022-09-06 13:38 | XMS_ITS | Encounter Summary ---
:[address] [facility] Address [address] [place] [address] Care Team Providers Name Role Phone Unavailable Primary Care Provider Unavailable Encounter Details Date Type Department Care Team Description 04/22/2011 Hospital Encounter HX [facility] Primo Morel M.D. Social History Tobacco Use Types Packs/Day Years Used Date Smoking Tobacco: Never Assessed Sex Assigned at Date Recorded Not on file documented as of this encounter Progress Notes Gurjit Quintanilla M.D., Ph.D. - 04/22/2011 4:00 PM CDT [id number] CLINIC ENCOUNTER SUBJECTIVE: Red eye for the [...] pain. Gurjit Quintanilla M.D. LIZA/edmundo cc: Source: [facility] Document Id: [id number] Gurjit Quintanilla M.D., Ph.D. - 04/22/2011 4:00 PM CDT [id number] SUBJECTIVE: Heidi Huerta is a 60 year [...] apparent anxiety or depression. Pleasant affect. Source: [facility] RWHXTRANSXRTFSYS Document Id: [id number] documented in this encounter Plan of Treatment Not on filedocumented as of this encounter Visit Diagnoses Not on filedocumented in this encounter
--- OUTSIDE RECORDS SUMMARY | 2022-09-06 13:38 | XMS_ITS | Encounter Summary ---
:1950 Author Organization [facility] Address [address] [place] [address] Care Team Providers Name Role Phone Unavailable Primary Care Provider Unavailable Encounter Details Date Type Department Care Team Description 04/22/2011 Hospital Encounter HX [facility] Anna Reynoso R.N. Social History Tobacco Use Types Packs/Day Years Used Date Smoking Tobacco: Never Assessed Sex Assigned at Date Recorded Not on file documented as of this encounter Miscellaneous Notes Telephone Encounter - Anna Lyn, R.N. - 04/22/2011 12:00 AM CDT [id number] Appointment requested for: eye exam Subjective Sx: [...] an appt with Opth team provider Source[facility] Document Id: [id number] documented in this encounter Plan of Treatment Not on filedocumented as of this encounter Visit Diagnoses Not on filedocumented in this encounter
--- OUTSIDE RECORDS SUMMARY | 2022-09-06 13:38 | XMS_ITS | Encounter Summary ---
:1950 Author Organization [facility] Address [address] [place] [address] Care Team Providers Name Role Phone Unavailable Primary Care Provider Unavailable Encounter Details Date Type Department Care Team Description 10/12/2016 Hospital Encounter [facility] Leoncio Carnes, C.N.P. 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 However, the narrative phrase printed from the coding software may appear abbreviated, or result in slightly different terminology. Coded By: MINDY TANNER Date Saved: 10/15/2016 08:30 am Source: [facility] Restore Flow AllograftsCHART Document Id: [id number] documented in this encounter Plan of Treatment Not on filedocumented as of this encounter Visit Diagnoses Not on filedocumented in this encounter
--- OUTSIDE RECORDS SUMMARY | 2022-09-06 13:38 | XMS_ITS | Encounter Summary ---
:1950 Author Organization [facility] Address [address] [place] [address] Care Team Providers Name Role Phone Unavailable Primary Care Provider Unavailable Encounter Details Date Type Department Care Team Description 02/04/2011 Hospital Encounter HX [facility] Jeremy Garcia M.D. [address] [place] [phone] (Wo rk) Social History Tobacco Use Types Packs/Day Years Used Date Smoking Tobacco: Never Assessed Sex Assigned at Date Recorded Not on file documented as of this encounter Miscellaneous Notes Miscellaneous - Conversion, Historical Provider Ser - 02/04/2011 12:00 AM CDT [id number] Heidi Huerta [id number] [phone] [place] February 04, 2011 Dear Heidi Huerta: Our records indicate that you are due for the following appointment: TWO YEAR EYE EXAM Please call us to make an appointment at your convenience. Our telephone number for scheduling an appointment is [phone]. If you have already made an appointment for this or have had the proceduredone, please disregard this notice. We look forward to seeing you soon. Sincerely, Delmar Andrew M.D./jaydon Ophthalmology Department [facility] Source: [facility] Document Id: [id number] documented in this encounter Plan of Treatment Not on filedocumented as of this encounter Visit Diagnoses Not on filedocumented in this encounter
--- OUTSIDE RECORDS SUMMARY | 2022-09-06 13:38 | XMS_ITS | Encounter Summary ---
:1950 Author Organization [facility] Address [address] [place] [address] Care Team Providers Name Role Phone Unavailable Primary Care Provider Unavailable Encounter Details Date Type Department Care Team Description 02/03/2009 Hospital Encounter HX [facility] Jeremy Garcia M.D. [address] [place], [place] [phone] (Wo rk) Social History Tobacco Use Types Packs/Day Years Used Date Smoking Tobacco: Never Assessed Sex Assigned at Date Recorded Not on file documented as of this encounter Progress Notes Delmar Andrew M.D. - 02/03/2009 1:00 PM CDT [id number] CLINIC ENCOUNTER SUBJECTIVE: Ms. Huerta is here [...] pallor to the right optic nerve head. Hazen optic nerve head on the left. This [...] in 2 years. Brennan Carrillo/brennen cc: Source: [facility] RWHXTRANSXSYS Document Id: [id number] Electronically signed by Conversion, [facility] Diamond Blender [id number] at 04/03/2017 3:30 PM CDT Delmar Andrew M.D. - 02/03/2009 1:00 PM CDT [id number] SUBJECTIVE-Heidi Huerta is a 58 year old [...] Psychiatric: negative Hematologic/Lymphatic/Immunologic: negative Endocrine: negative Source: [facility] RWHXTRANSXRTFSYS Document Id: [id number] Electronically signed by Conversion, [facility] Diamond Blender [id number] at 04/03/2017 3:30 PM CDT documented in this encounter Plan of Treatment Not on filedocumented as of this encounter Visit Diagnoses Not on filedocumented in this encounter
--- OUTSIDE RECORDS SUMMARY | 2022-09-06 13:38 | XMS_ITS | Encounter Summary ---
:1950 Author Organization [facility] Address [address] [place] [address] Care Team Providers Name Role Phone Unavailable Primary Care Provider Unavailable Encounter Details Date Type Department Care Team Description 10/28/2017 Clinical Support Department of Edi Benito M.D. [address] [place] [phone] Pain Shoulder Left Rehabilitation Services Dave Servin P.T. 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
--- OUTSIDE RECORDS SUMMARY | 2022-09-06 13:38 | XMS_ITS | Encounter Summary ---
:1950 Author Organization [facility] Address [address] [place] [address] Care Team Providers Name Role Phone Unavailable Primary Care Provider Unavailable Encounter Details Date Type Department Care Team Description 10/13/2017 Abstract Department of Family Medicine, Provider, [facility], in [place], [place] [address] [phone] Social History Tobacco Use Types Packs/Day Years Used Date Smoking Tobacco: Never Sex Assigned at Date Recorded Not on file documented as of this encounter Plan of Treatment Not on filedocumented as of this encounter Visit Diagnoses Not on filedocumented in this encounter
--- OUTSIDE RECORDS SUMMARY | 2022-09-06 13:38 | XMS_ITS | Encounter Summary ---
:1950 Author Organization [facility] Address [address] [place] [address] Care Team Providers Name Role Phone Unavailable Primary Care Provider Unavailable Encounter Details Date Type Department Care Team Description 09/01/2016 - Hospital Encounter [facility] Shirley Carnes tanesha 12/06/2016 ROGELIO Seay, C.N.P. [address] [place] [address] (Wo rk) Social History Tobacco Use Types Packs/Day Years Used Date Smoking Tobacco: Never Assessed Sex Assigned at Date Recorded Not on file documented as of this encounter Progress Notes Dave Burton, P.T. - 09/20/2016 12:00 AM CST [id number] PHYSICAL THERAPY PROGRESS NOTE IMPRESSION/REPORT/PLAN Sandee comes [...] DAVE BURTON On: 10/14/2016 07:56 AM Source: [facility] JESÚS Document Id: [id number] Dave Bueno P.T. - 09/10/2016 12:00 AM CST [id number] PHYSICAL THERAPY PROGRESS NOTE IMPRESSION/REPORT/PLAN Sandee comes [...] DAVE BURTON On: 09/16/2016 09:30 AM Source: [facility] HERBERTYNNEMO Document Id: [id number] Dave Bueno P.T. - 09/07/2016 12:00 AM CST [id number] PHYSICAL THERAPY PROGRESS NOTE IMPRESSION/REPORT/PLAN Sandee comes [...] DAVE BURTON On: 09/16/2016 09:30 AM Source: [facility] MHSDOLBEYNONRADSYS Document Id: [id number] Dave Bueno PGrace. - 09/01/2016 12:00 AM CDT [id number] PHYSICAL THERAPY DAILY PROGRESS NOTE IMPRESSION/REPORT/PLAN Sandee [...] DAVE BURTON On: 09/10/2016 06:09 AM Source: [facility] MHSDOLBEYNONRADSYS Document Id: [id number] PORTER documented in this encounter Miscellaneous Notes Miscellaneous - Conversion, Historical Provider Ser - 09/08/2016 1:07 PM LOT PORTER Coding Summary-Paper Based CODING DATE: 09/08/2016 FINAL [facility] STATUS: Still Patient/Expected to Rtn [facility] PAYOR: Medicare ADMIT DX: REASON FOR VISIT [...] LIMON Date Saved: 09/08/2016 01:07 pm Source: [facility] POWERCHART Document Id: [id number] documented in this encounter Plan of Treatment Not on filedocumented as of this encounter Visit Diagnoses Not on filedocumented in this encounter
--- OUTSIDE RECORDS SUMMARY | 2022-09-06 13:38 | XMS_ITS | Encounter Summary ---
:1950 Author Organization [facility] Address [address] [place] [address] Care Team Providers Name Role Phone Unavailable Primary Care Provider Unavailable Encounter Details Date Type Department Care Team Description 02/04/2005 Hospital Encounter [facility] Nikunj Longo M.D. [address] [place] [address] (Wo rk) Social History Tobacco Use Types Packs/Day Years Used Date Smoking Tobacco: Never Assessed Sex Assigned at Date Recorded Not on file documented as of this encounter Progress Notes Conversion, Historical Provider Ser - 02/04/2005 8:15 AM CDT [id number] Comment: Project Assistant Pain Questionnaire: Is your visit today because [...] in the future. Chang Antoine M.D./jennifer Source: [facility] RWHXTRANSXRTFSYS Document Id: [id number] documented in this encounter Plan of Treatment Not on filedocumented as of this encounter Visit Diagnoses Not on filedocumented in this encounter
--- OUTSIDE RECORDS SUMMARY | 2022-09-06 13:38 | XMS_ITS | Encounter Summary ---
:1950 Author Organization [facility] Address [address] [place] [address] Care Team Providers Name Role Phone Unavailable Primary Care Provider Unavailable Encounter Details Date Type Department Care Team Description 01/11/2007 Hospital Encounter HX [facility] Primo Morel M.D. Social History Tobacco Use Types Packs/Day Years Used Date Smoking Tobacco: Never Assessed Sex Assigned at Date Recorded Not on file documented as of this encounter Miscellaneous Notes Miscellaneous - Zia, Val Provider Ser - 01/11/2007 12:00 AM CDT [id number] Heidi Huerta [address] [phone] January 11, 2007 Dear Heidi Huerta: Our [...] convenience. Our telephone number for scheduling is [phone]. If you have already made an appointment for this or have had the procedure done, please disregard this notice. We look forward to seeing you soon. Sincerely, Ophthamology Department [facility] Source: [facility] Document Id: [id number] documented in this encounter Plan of Treatment Not on filedocumented as of this encounter Visit Diagnoses Not on filedocumented in this encounter
--- OUTSIDE RECORDS SUMMARY | 2022-09-06 13:38 | XMS_ITS | Encounter Summary ---
:1950 Author Organization [facility] Address [address] [place] [address] Care Team Providers Name Role Phone Unavailable Primary Care Provider Unavailable Encounter Details Date Type Department Care Team Description 07/23/[address] [facility] Nikunj Longo M.D. [address] [place] [address] (Wo rk) Social History Tobacco Use Types Packs/Day Years Used Date Smoking Tobacco: Never Assessed Sex Assigned at Date Recorded Not on file documented as of this encounter Progress Notes Conversion, Historical Provider Ser - 07/23/2004 11:00 AM CDT [id number] Addended by: AUDIE GARNETT on: 07/28/2004,12:09 PMModules [...] Antoine M.D./amaD: 07/23/2004 cc: Dr. Villasenor Source: [facility] RWHXTRANSXSYS Document Id: [id number] documented in this encounter Plan of Treatment Not on filedocumented as of this encounter Visit Diagnoses Not on filedocumented in this encounter
--- OUTSIDE RECORDS SUMMARY | 2022-09-06 13:38 | XMS_ITS | Encounter Summary ---
:1950 Author Organization [facility] Address [address] [place] [address] Care Team Providers Name Role Phone Unavailable Primary Care Provider Unavailable Encounter Details Date Type Department Care Team Description 08/03/2004 Hospital Encounter [facility]X [facility] Nikunj Longo M.D. [address] [place] [address] (Wo rk) Social History Tobacco Use Types Packs/Day Years Used Date Smoking Tobacco: Never Assessed Sex Assigned at Date Recorded Not on file documented as of this encounter Progress Notes Conversion, Historical Provider Ser - 08/03/2004 8:15 AM CDT [id number] Addended by: SHY GARNETT on: 08/05/2004,10:53 AM [...] 08/05/2004CC: Dr. Villasenor per Dr. Antoine. [facility] Document Id: [id number] documented in this encounter Plan of Treatment Not on filedocumented as of this encounter Visit Diagnoses Not on filedocumented in this encounter
--- OUTSIDE RECORDS SUMMARY | 2022-09-06 13:39 | XMS_ITS | Encounter Summary ---
:1950 Author Organization [facility] Address [address] [place] [address] Care Team Providers Name Role Phone Unavailable Primary Care Provider Unavailable Encounter Details Date Type Department Care Team Description 01/15/2003 Hospital [facility] Jeremy Garcia M.D. [address] [place], [place] [phone] (Wo rk) Social History Tobacco Use Types Packs/Day Years Used Date Smoking Tobacco: Never Assessed Sex Assigned at Date Recorded Not on file documented as of this encounter Progress Notes Conversion, Historical Provider Ser - 01/15/2003 9:00 AM CST [id number] Addended by: ARELY HAMILTON on: 01/16/2003,12:47 PM Comment: Colon Therapist.Modules accepted: Progr ess NotesPain Questionnaire: Is your [...] time. Delmar Andrew M.D./bbD: 01/15/2003T: 01/16/2003 [facility] Document Id: [id number] documented in this encounter Plan of Treatment Not on filedocumented as of this encounter Visit Diagnoses Not on filedocumented in this encounter
--- OUTSIDE RECORDS SUMMARY | 2022-09-06 13:39 | XMS_ITS | Encounter Summary ---
:1950 Author Organization [facility] Address [address] [place] [address] Care Team Providers Name Role Phone Unavailable Primary Care Provider Unavailable Encounter Details Date Type Department Care Team Description 03/05/[address] [facility] Jeremy Garcia M.D. [address] [place], [place] [phone] (Wo rk) Social History Tobacco Use Types Packs/Day Years Used Date Smoking Tobacco: Never Assessed Sex Assigned at Date Recorded Not on file documented as of this encounter Progress Notes Conversion, Historical Provider Ser - 03/05/2003 10:10 AM CDT [id number] Addended by: ARELY HAMILTON on: 03/13/2003,12:47 PM Comment: Chemists.Modules accepted: Progr ess NotesPain Questionnaire: Is your visit today because of Pain? NOSUBJECTIVE:Heidi Green normancheri is a 52 year old female who presents for recheck iritis. History of Present Illness:Patient sta douglas her vision has improved. She did have soem pain the other day and that has subsided. she is usin g the prednisolone bid. Santa [place]arden 03/05/2003There is no problem list on file for this patient. PAST MEDICAL HISTORY: There is no previous medical history on file.MEDICATIONS:Current prescript ions:PRED FORTE 1 % OP SUSP 1 gtt OD qidATROPINE SULFATE 1 % OP SOLN 1 gtt OD bidALLERGIES:No K nown AllergiesFAMILY HISTORY:Review of patient's family history indicates: Eye Mother Comment: cataractsREVIEW OF SYSTEMS:Respiratory: negative. Cardiovascular: negative.Neurologic: negative.PSYCH: No apparent anxiety or depression. Pleasa nt affect.* * *SLIT LAMP EXAMINATION: OD - Conjunctiva/sclera quiet. Cornea clear. Chamber deep w ith no cell or flare. Iris shows no nodules. There are a few residual iridolenticular adhesions at four and six o'clock. 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 PLAN: 1. Slow taper of Pred Forte over the next three weeks.2. Return to clinic if iritis symptoms recur. Delmar Andrew M.D./bbD: 03/08/2003T: 02/28 Source: [facility] RWHXTRANSXSYS Document Id: [id number] documented in this encounter Plan of Treatment Not on filedocumented as of this encounter Visit Diagnoses Not on filedocumented in this encounter
--- OUTSIDE RECORDS SUMMARY | 2022-09-06 13:39 | XMS_ITS | Encounter Summary ---
:1950 Author Organization [facility] Address [address] [place] [address] Care Team Providers Name Role Phone Unavailable Primary Care Provider Unavailable Encounter Details Date Type Department Care Team Description 04/08/2004 Hospital Encounter [facility]X [facility] Jeremy Garcia M.D. [address] [place], [place] [phone] (Wo rk) Social History Tobacco Use Types Packs/Day Years Used Date Smoking Tobacco: Never Assessed Sex Assigned at Date Recorded Not on file documented as of this encounter Progress Notes Conversion, Historical Provider Ser - 04/08/2004 11:15 AM CDT [id number] Pain Questionnaire: Is your visit today because of Pain? NOSUBJECTIVE:Heidi Huerta is a 53 year old female who presents for possible iritis flare up in right eye. History of Present Illness :Patient states that her right eye has been rather sore for the past few months with a feeling of pr essure recently. Today for the first time, the vision seems a little blurry in the right eye. Pt has had history of iritis in the right eyeBill ADALBERTO John: 20/ 25-1 20/25-1+1 with no correctiv e lens.There is no problem list on file for this patient.PAST MEDICAL HISTORY: Review of patie nt's past medical history indicates: NO ACTIVE PROBLEMS ME DICATIONS:Current prescriptions:NO ACTIVE MEDICATIONS per ptALLERGIES:No Known AllergiesFAMIL Y HISTORY:Review of patient's family history indicates: Eye Mother Comment: cataractsREVIEW OF SYSTEMS:Respiratory: negative.Cardiovascular: neg ative.Neurologic: negative.PSYCH: No apparent anxiety or depression. Pleasant affect.SLIT BOLANOS P EXAMINATION: Right eye--conjunctiva/sclera quiet. Cornea shows a few very fine KP. The chamber is d eep with an occasional cell. There is pigment on anterior lens capsule. No iridocorneal adhesions. IO P measures 14.IMPRESSION: Mild recurrence of iritis, right eye.PLAN: 1. Pred Forte 1% 1 drop, r ight eye four times a day for one week and then twice a day for two weeks and then discontinue. 2. R echeck iritis symptoms if they persist or recur. Delmar Andrew MD/jenniferD: 004T: 04/14/2004 Source: [facility] RWHXTRANSXSYS Document Id: [id number] documented in this encounter Plan of Treatment Not on filedocumented as of this encounter Visit Diagnoses Not on filedocumented in this encounter
--- OUTSIDE RECORDS SUMMARY | 2022-09-06 13:39 | XMS_ITS | Encounter Summary ---
:1950 Author Organization [facility] Address [address] [place] [address] Care Team Providers Name Role Phone Unavailable Primary Care Provider Unavailable Encounter Details Date Type Department Care Team Description 04/13/2004 Hospital Encounter [facility] Nikunj Longo M.D. [address] [place] [address] (Wo rk) Social History Tobacco Use Types Packs/Day Years Used Date Smoking Tobacco: Never Assessed Sex Assigned at Date Recorded Not on file documented as of this encounter Progress Notes Conversion, Historical Provider Ser - 04/13/2004 10:30 AM CDT [id number] Addended by: SHY GARNETT on: 05/04/2004,7:26 AM Comment: Ironer Sock--correcting 10-day course to [id number] accepted: Progress NotesAddended by: SHY GARNETT on: [...] 60/day. Chang Antoine M.D./shyD: 04/13/2004T: 04/17/2004 Source: [facility] RWHXTRANSXSYS Document Id: [id number] documented in this encounter Plan of Treatment Not on filedocumented as of this encounter Visit Diagnoses Not on filedocumented in this encounter
--- OUTSIDE RECORDS SUMMARY | 2022-09-06 13:39 | XMS_ITS | Encounter Summary ---
:1950 Author Organization [facility] Address [address] [place] [address] Care Team Providers Name Role Phone Unavailable Primary Care Provider Unavailable Encounter Details Date Type Department Care Team Description 04/13/2004 Hospital Encounter HX [facility] Nikunj Longo M.D. [address] [place] [phone] (Wo rk) Social History Tobacco Use Types Packs/Day Years Used Date Smoking Tobacco: Never Assessed Sex Assigned at Date Recorded Not on file documented as of this encounter Miscellaneous Notes Telephone Encounter - Conversion, Historical Provider Ser - 04/13/2004 12:00 AM CDT [id number] >> JAM FILAMENT MAKER TueApr 17, 2004 11:12 AM >> CALL RECEIVED. Contact: Ms. Huerta had her condition discussed. 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 It could be a mass. She needed neural imaging which she will follow up on and also her IV steroid course. Chang Antoine M.D./jennifer [facility] Document Id: [id number] documented in this encounter Plan of Treatment Not on filedocumented as of this encounter Visit Diagnoses Not on filedocumented in this encounter
--- OUTSIDE RECORDS SUMMARY | 2022-09-06 13:39 | XMS_ITS | Encounter Summary ---
:1950 Author Organization [facility] Address [address] [place] [address] Care Team Providers Name Role Phone Unavailable Primary Care Provider Unavailable Encounter Details Date Type Department Care Team Description 02/05/2003 Hospital Encounter [facility] Jeremy Garcia M.D. [address] [place], [place] [phone] (Wo rk) Social History Tobacco Use Types Packs/Day Years Used Date Smoking Tobacco: Never Assessed Sex Assigned at Date Recorded Not on file documented as of this encounter Progress Notes Conversion, Historical Provider Ser - 02/05/2003 9:10 AM CDT [id number] Addended by: MERRY VINCENT on: 02/11/2003,11:20 AM [...] month. Delmar Andrew MD/jenniferD: 02/07/2003T: 2002 Source: [facility] RWHXTRANSXSYS Document Id: [id number] documented in this encounter Plan of Treatment Not on filedocumented as of this encounter Visit Diagnoses Not on filedocumented in this encounter
--- OUTSIDE RECORDS SUMMARY | 2022-09-06 13:39 | XMS_ITS | Encounter Summary ---
:1950 Author Organization [facility] Address [address] [place] [address] Care Team Providers Name Role Phone Unavailable Primary Care Provider Unavailable Encounter Details Date Type Department Care Team Description 04/14/2004 Hospital Encounter HX [facility] Jeremy Garcia M.D. [address] [place] [phone] (Wo rk) Social History Tobacco Use Types Packs/Day Years Used Date Smoking Tobacco: Never Assessed Sex Assigned at Date Recorded Not on file documented as of this encounter Miscellaneous Notes Miscellaneous - Conversion, Historical Provider Ser - 04/14/2004 12:00 AM CDT [id number] Heidi Huerta [id number] [address] April 14, 2004 Dear Heidi Huerta: We have scheduled you for a RECHECK APPOINTMENT with DR. ANDREW for Thursday, April 22, 2004 at 11:15 A.M. Please call us if this is an inconvenience. Our telephone number for scheduling is [phone]. We look forward to seeing you. Sincerely, Delmar Andrew M.D./cari Ophthamology Department [facility] Document Id: [id number] documented in this encounter Plan of Treatment Not on filedocumented as of this encounter Visit Diagnoses Not on filedocumented in this encounter
--- OUTSIDE RECORDS SUMMARY | 2022-09-06 13:39 | XMS_ITS | Encounter Summary ---
:1950 Author Organization [facility] Address [address] [place] [address] Care Team Providers Name Role Phone Unavailable Primary Care Provider Unavailable Encounter Details Date Type Department Care Team Description 04/27/2004 Hospital Encounter [facility] Nikunj Longo M.D. [address] [place] [address] (Wo rk) Social History Tobacco Use Types Packs/Day Years Used Date Smoking Tobacco: Never Assessed Sex Assigned at Date Recorded Not on file documented as of this encounter Progress Notes Conversion, Historical Provider Ser - 04/27/2004 8:45 AM CDT [id number] Addended by: SHY GARNETT on: 05/01/2004,10:21 AM [...] ot her lab work up in the [facility] area. EXAM:CONFRONTATION SERRANO: Constricted right eye.PROCESSOR HELPER AL: Without lesions.MOTILITY: Full.PUPILS: 3+ afferent defect on the right.SLIT LAMP EXAM: Con junctivae/sclerae quiet. Corneas clear. Lenses clear.FUNDUS: Shows normal appearing nerves.ASSES SMENT: Retrobulbar opticneuritis right eye resolving.PLAN: I recommend following up with neurolog ist and rechecking with a field test in about six weeks time. Otherwise Dr. Villasenor will follow up on t he lab work.Chang Antoine M.D./shyD: 04/27/2004T: 05/01/2004 Source: [facility] RWHXTRANSXSYS Document Id: [id number] documented in this encounter Plan of Treatment Not on filedocumented as of this encounter Visit Diagnoses Not on filedocumented in this encounter
--- OUTSIDE RECORDS SUMMARY | 2022-09-06 13:39 | XMS_ITS | Encounter Summary ---
:1950 Author Organization [facility] Address [address] [place] [address] Care Team Providers Name Role Phone Unavailable Primary Care Provider Unavailable Encounter Details Date Type Department Care Team Description 06/04/2004 Hospital Encounter [facility] Nikunj Longo M.D. [address] [place] [address] (Wo rk) Social History Tobacco Use Types Packs/Day Years Used Date Smoking Tobacco: Never Assessed Sex Assigned at Date Recorded Not on file documented as of this encounter Progress Notes Conversion, Historical Provider Ser - 06/04/2004 9:45 AM CDT [id number] Addended by: LORENA GARNETT on: 06/09/2004,3:53 PM Comment: Gas Engine Operator.Modules accepted: Progress NotesPain Questionnaire: Is your visit [...] test. Chang Antoine M.D./Sara: 06/04/2004T: 06/09/2004 Source: [facility] RWHXTRANSXSYS Document Id: [id number] documented in this encounter Plan of Treatment Not on filedocumented as of this encounter Visit Diagnoses Not on filedocumented in this encounter
--- OUTSIDE RECORDS SUMMARY | 2022-09-06 13:39 | XMS_ITS | Encounter Summary ---
:1950 Author Organization [facility] Address [address] [place] [address] Care Team Providers Name Role Phone Unavailable Primary Care Provider Unavailable Encounter Details Date Type Department Care Team Description 04/20/2004 Hospital Encounter HX [facility] Nikunj Longo M.D. [address] [place] [address] (Wo rk) Social History Tobacco Use Types Packs/Day Years Used Date Smoking Tobacco: Never Assessed Sex Assigned at Date Recorded Not on file documented as of this encounter Miscellaneous Notes Telephone Encounter - Conversion, Historical Provider Ser - 04/20/2004 12:00 AM CDT [id number] >> JIR GROUND INSTRUCTOR BASIC TueApr 23, 2004 9:11 AM >> CALL [...] in 24 hours. Chang Antoine M.D./sakina [facility] Document Id: [id number] documented in this encounter Plan of Treatment Not on filedocumented as of this encounter Visit Diagnoses Not on filedocumented in this encounter
--- OUTSIDE RECORDS SUMMARY | 2022-09-06 13:39 | XMS_ITS | Encounter Summary ---
:1950 Author Organization [facility] Address [address] [place] [address] Care Team Providers Name Role Phone Unavailable Primary Care Provider Unavailable Encounter Details Date Type Department Care Team Description 04/24/2004 Hospital Encounter HX [facility] Jeremy Garcia M.D. [address] [place] [phone] (Wo rk) Social History Tobacco Use Types Packs/Day Years Used Date Smoking Tobacco: Never Assessed Sex Assigned at Date Recorded Not on file documented as of this encounter Miscellaneous Notes Miscellaneous - Conversion, Historical Provider Ser - 04/24/2004 12:00 AM CDT [id number] Heidi Huerta [id number] [address] April 24, 2004 Dear Heidi Huerta: Our records indicate that you are due for the following appointment: EYE EXAM Please call us to make an appointment at your convenience. Our telephone number for scheduling an appointments is [phone]. If you have already made an appointment for this or have had the procedure done, please disregard this notice. We look forward to seeing you soon. Sincerely, Delmar Andrew M.D./[facility] Ophthamology Department [facility] Source: [facility] Document Id: [id number] documented in this encounter Plan of Treatment Not on filedocumented as of this encounter Visit Diagnoses Not on filedocumented in this encounter
--- OUTSIDE RECORDS SUMMARY | 2022-09-06 13:39 | XMS_ITS | Encounter Summary ---
:1950 Author Organization [facility] Address [address] [place] [address] Care Team Providers Name Role Phone Unavailable Primary Care Provider Unavailable Encounter Details Date Type Department Care Team Description 04/23/2003 Hospital Encounter [facility] Jeremy Garcia M.D. [address] [place], [place] [phone] (Wo rk) Social History Tobacco Use Types Packs/Day Years Used Date Smoking Tobacco: Never Assessed Sex Assigned at Date Recorded Not on file documented as of this encounter Progress Notes Conversion, Historical Provider Ser - 04/23/2003 10:15 AM CDT [id number] Addended by: ARELY HAMILTON on: 04/24/2003,1:15 PM Comment: Sales Promotion Coordinator.Modules accepted: Margot ss NotesPain Questionnaire: Is your visit today because of Pain? NOSUBJECTIVE:Heidi naik is a 52 year old female who presents for a re check iritis OD. History of Present Illness:Patien t states the blurriness has improved. Discomfort is gone and she is no longer using any gtts in [facility] eye. Natalie Hall LPNVisual Acuity CC DistanceOD: [...] the right eye. Delmar Andrew M.D./bbD: Source: [facility] RWHXTRANSXSYS Document Id: [id number] documented in this encounter Plan of Treatment Not on filedocumented as of this encounter Visit Diagnoses Not on filedocumented in this encounter
--- OUTSIDE RECORDS SUMMARY | 2022-09-06 13:39 | XMS_ITS | Encounter Summary ---
:1950 Author Organization [facility] Address [address] [place] [address] Care Team Providers Name Role Phone Unavailable Primary Care Provider Unavailable Encounter Details Date Type Department Care Team Description 04/14/2004 Hospital Encounter HX NO MAPPING Brandie Antoine M.D. [address] [place] [address] (Wo rk) Social History Tobacco Use Types Packs/Day Years Used Date Smoking Tobacco: Never Assessed Sex Assigned at Date Recorded Not on file documented as of this encounter Plan of Treatment Not on filedocumented as of this encounter Visit Diagnoses Not on filedocumented in this encounter
--- OUTSIDE RECORDS SUMMARY | 2022-09-06 13:39 | XMS_ITS | Encounter Summary ---
:1950 Author Organization [facility] Address [address] [place] [address] Care Team Providers Name Role Phone Unavailable [...]
== END 2022-09-06 13:10 | disposition home or self-care (01) ==
PROVIDERS: PCP Nurse Practitioner Family; Visit Provider Surgery
DX: K21.9 Gastro-esophageal reflux disease without esophagitis (principal); K31.7 Polyp of stomach and duodenum
CPT/HCPCS: 43239; 43251; 88305; J2250; J3010

== ENCOUNTER 2024-03-30 10:39 | Outpatient (CLI) | payer MEDICARE, OTHER, SELFPAY ==
--- OUTSIDE RECORDS SUMMARY | 2024-03-30 10:44 | XMS_ITS | Clinical Summary ---
Author Organization [facility] Address [address] [place] [address] Care Team Providers Care Manager Call Name Role Phone Jyoti Carnes APRN, CLOCK MAKER Primary Care Provi renu Allergies Active Allergy Reactions Criticality Noted Date Comments Oxycodone-Acetaminophen 02/26/2019 Medications No known medications Active Problems Problem Noted Date Diagnosed Date History of repair of rotator cuff 11/10/2022 Shoulder pain 11/10/2022 Primary osteoarthritis of both knees 08/25/2020 Abdominal wall hernia 08/25/2020 Bilateral hearing loss 08/25/2020 Class 3 severe obesity due t o excess calories without serious comorbidity with body mass index (BMI) of 40.0 to 44.9 in adult 08/25/2020 Gastroesophageal reflux disease without esophagi tis 08/25/2020 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 Provider to review Immunizations Name Administration Dates Next Due Flu Vaccine High Dose 65yrs and Older IM 019,08/18/2018 Pneumococcal Conjugate 13-Valent 11/28/2015 Pneumococcal Polysaccharide 04/30/2016 Tdap 11/28/2015 Zoster 04/07/2012 Zoster Recombinant 11/08/2019,09/01/2019 Family History Medical History Relation Comments Cancer Father STOMACH Stroke Mother Relation Status Comments Brother Alive Daughter 1 Alive Daughter 2 Alive Father Mother Sister Alive Son Alive Social History Tobacco Use Types Packs/Day Years Used Date Smoking Tobacco: Never Smokeless Tobacco: Never Tobacco Cessation:Counseling Given: Not Answered Alcohol Use Standard Drinks/Week Comments Never 0 (1 standard drink = 0.6 oz pur e alcohol) Humiliation, Afraid, Rape, and Kick questionnair e Answer Date Recorded Fear of Current or Ex-Partner No Emotionally Abused No 08/02/2019 Physically Abused No 08/02/2019 Sexually Abused No 08/02/2019 Social Connection and Isolat ion Panel [NHANES] Answer Date Recorded Frequency of Communication w ith Friends and Family Three times a week 08/02/2019 Frequency of Social Gatherin gs with Friends and Family Three times a week 08/02/2019 Attends Shinto Services More than 4 times per year 08/02/2019 Active Member of Clubs or Organizations Yes 08/02/2019 Attends Club or Organization Meetings More than 4 times per year 08/02/2019 Marital Status 08/02/2019 AUDIT-C Answer Date Recorded Frequency of Alcohol Consumption Never 02/26/2019 Average Number of Drinks Not on file 019 Frequency of Binge Drinking Not on file 01/30 Overall Financial Resource Strain (CARDIA) Answe r Date Recorded Difficulty of Paying Living Expenses Not hard at all 08/02/2019 PHQ-2 Answer Date Recorded PHQ-9 Total Score 0 05/10/2023 [facility] - Occupational Stress Questionnaire Answer Date Recorded Feeling of Stress Rather much 08/02/2019 Exercise Vital Sign Answer Date Recorde d Days of Exercise per Week 0 days 2018 Minutes of Exercise per Session 0 min 08/02/2019 Hunger Vital Sign Answer Date Recorded Worried About Running Out of Food in the Last Ye ar Never true 08/02/2019 Ran Out of Food in the Last Year Never true 08/02/2019 PRAPARE - Transportation Answer Date Re corded Lack of Transportation (Medical) No 08/02/2019 Lack of Transportation (Non-Medical) No 08/02/2019 Sex and Gender Information Value Date Recorded Sex Assigned at Not on file Gender Identity Not on file Sexual Orientation Not on file Last Filed Vital Signs Vital Sign Reading Time Taken Comments Blood Pressure 122/63 05/10/2023 3:52 PM CDT Pulse 75 05/10/2023 3:52 PM CDT Temperature 36.9 ??C (98.4 ??F) 05/10/2023 3:52 PM CD T Respiratory Rate 16 05/10/2023 3:52 PM CDT Oxygen Saturation 97% 05/10/2023 3:52 PM CDT Inhaled Oxygen Concentration - - Weight 85 kg (187 lb 6.4 oz) 05/10/2023 3:52 PM CDT Height 160 cm (5' 2.99) 05/10/2023 3:52 PM CDT Body Mass Index 33.2 05/10/2023 3:52 PM CDT Plan of Treatment Health Maintenance Due Date Last Done Comments Bone Density Scan 1950 CT Colonography 1950 Colonoscopy 1950 Colorectal Cancer Screening 1950 FIT-DNA 1950 Mammogram 1950 Sigmoidoscopy 1950 iFOBT 1950 Fall Risk Performed 1967 Medicare Annual Wellness Vis it (AWV) 08/02/2020 08/02/2019 COVID-19 Vaccine ( - 2022-2 4 season) 2023 Influenza Vaccine (Season Ended) 2024 09/01/2019, 08/18/2018 DTaP,Tdap,and Td Vaccines (2 - Td or Tdap) 11/28/2025 11/28/2015 Pneumococcal Vaccine: 65+ Years Completed 04/30/2016, 11/28/2015 Zoster Vaccines Completed 11/08/2019, 09/01/2019, 04/07/2012 HPV Vaccines Aged Out No longer eligi ble based on patient's age to complete this topic Care Teams Manager Call Relationship Specialty Start Date End Date Jyoti Carnes, CASING MACHINE OPERATOR, CLOCK MAKER [address] [facility] [place] [address] PCP - General Family Medicine 09/07/22
[2024-03-30 15:53] LABS: Strep A DNA Probe* NOT DETECTED (Not Detectd)
== END 2024-03-30 10:40 | disposition home or self-care (01) ==
PROVIDERS: PCP Nurse Practitioner Family; Visit Provider Nurse Practitioner Family
DX: J02.9 Acute pharyngitis, unspecified (principal)
CPT/HCPCS: 85025; 87651

== ENCOUNTER 2024-12-08 17:47 | Emergency (ER) | payer MEDICARE, OTHER, SELFPAY ==
--- OUTSIDE RECORDS SUMMARY | 2024-12-08 17:49 | XMS_ITS | Encounter Summary ---
Author Organization [facility] er Address [address] [place] [address] Care Team Providers Care Him Coder Name Role Phone Jyoti Carnes APRN, EMPLOYEE SERVICES MANAGER Primary Care Provi renu Encounter Details Date Type Department Care Team (Late st Contact Info) Description 11/30/2024 10:15 AM PORTAINER OPERATOR Lab [facility] [address] [place], [place] [phone] Need for hepatitis C screening test; Screening for diabetes mellitus; Screening for cardiovascular condition Social History Tobacco Use Types Packs/Day Years Used Date Smoking Tobacco: Never Smokeless Tobacco: Never Alcohol Use Standard Drinks/Week Comments Never 0 (1 standard drink = 0.6 oz pur e alcohol) B1300 Health Literacy Answer Date Recor ded How often do you need to hav e someone help you when you read instructions, pamphlets, or other written material from your doctor or pharmacy? Never 11/30/2024 [facility] Utilities Answer Date Recorded In the past 12 months has e [employer], gas, oil, or water [employer] threatened to shut off services in your home? No 11/30/2024 Humiliation, Afraid, Rape, and Kick questionnair e Answer Date Recorded Within the last year, have y ou been afraid of your partner or ex-partner? No 11/30/2024 Within the last year, have y ou been humiliated or emotionally abused in other ways by your partner or ex-partner? No Within the last year, have y ou been kicked, hit, slapped, or otherwise physically hurt by your partner or ex-partner? No 11/30/2024 Within the last year, have y ou been raped or forced to have any kind of sexual activity by your partner or ex-partner? No 11/30/2024 Social Connection and Isolat ion Panel [NHANES] Answer Date Recorded In a typical week, how many times do you talk on the phone with family, friends, or neighbors? More than three times a week 11/30/2024 How often do you get togethe r with friends or relatives? More than three times a week 11/30/2024 How often do you attend chur or congregational services? Patient declined 11/30/2024 Do you belong to any clubs o r organizations such as gnosticism groups, unions, fraternal or athletic groups, or school groups? No 11/30/2024 How often do you attend meet ings of the clubs or organizations you belong to? Patient declined 11/30/2024 Are you , , di vorced, , never , or living with a partner? 11/30/2024 AUDIT-C Answer Date Recorded Q1: How often do you have a drink containing alc ohol? Patient declined 11/30/2024 Q2: How many drinks containi ng alcohol do you have on a typical day when you are drinking? Patient declined 11/30/2024 Q3: How often do you have si x or more drinks on one occasion? Patient declined 11/30/2024 Overall Financial Resource Strain (CARDIA) Answe r Date Recorded How hard is it for you to pa y for the very basics like food, housing, medical care, and heating? Not hard at all 11/30/2024 PHQ-2 Answer Date Recorded PHQ-9 Total Score 0 11/30/2024 [facility] - Occupational Stress Questionnaire Answer Date Recorded Do you feel stress - tense, restless, nervous, or anxious, or unable to sleep at night because your mind is troubled all the time - these days? Patient declined 11/30/2024 Exercise Vital Sign Answer Date Recorde d On average, how many days pe r week do you engage in moderate to strenuous exercise (like a brisk walk)? Patient declined On average, how many minutes do you engage in exercise at this level? Patient declined 11/30/2024 Hunger Vital Sign Answer Date Recorded Within the past 12 months, y ou worried that your food would run out before you got the money to buy more. Never true 11/30/19 25 Within the past 12 months, t he food you bought just didn't last and you didn't have money to get more. Never true 11/30/2024 PRAPARE - Transportation Answer Date Re corded In the past 12 months, has l ack of transportation kept you from medical appointments or from getting medications? No 11/02 In the past 12 months, has l ack of transportation kept you from meetings, work, or from getting things needed for daily living? No 11/30/2024 Housing Stability Vital Sign Answer Jarrett e Recorded In the last 12 months, was t here a time when you were not able to pay the mortgage or rent on time? No 11/30/2024 In the past 12 months, how m any times have you moved where you were living? 0 11/30/2024 At any time in the past 12 m [facility], were you homeless or living in a fci (including now)? No 11/30/2024 Interpersonal Safety Questionnaire Answer Date Recorded How often does anyone, tammy alvarez family and friends, physically hurt you? Never 11/30/2024 How often does anyone, tammy alvarez family and friends, insult or talk down to you? Never 11/30/2024 How often does anyone, tammy alvarez family and friends, threaten you with harm? Never 11/30/2024 How often does anyone, tammy alvarez family and friends, threaten you with harm? Never 11/30/2024 Comments No Sex and Gender Information Value Date Recorded Sex Assigned at Not on file Legal Sex Female 8:58 PM CDT Gender Identity Not on file Sexual Orientation Not on file Occupation Industry Job Start Date Job End Date Retired Not on file Not on file Not on file documented as of this encounter Miscellaneous Notes * Result Encounter Note - Huber Miranda MD - 11/30/2024 10:15 AM PORTAINER OPERATOR Dear Heidi, Your cholesterol shows that you are at increased risk of heart disease and I would recommend we start a statin such as rosuvastatin. Otherwise continue to try and exercise and eat well. Your diabetes screen was normal as was your hepatitis C screen. Thank you AINER OPERATOR documented in this encounter Plan of Treatment Upcoming Encounters Date Type Department Care Team (Late st Contact Info) Description 01/25/2025 8:20 AM CDT Office Visit [facility] [address] [address] Huber Miranda MD [address] [place] [phone] documented as of this encounter Procedures Procedure Name Priority Date/Time Associated Diagnosis Comments HEPATITIS C ANTIBODY Routine 11/30/2024 10:17 AM PORTAINER OPERATOR Need for hepatitis C screening test HEMOGLOBIN A1C Routine 11/30/2024 10:17 AM PORTAINER OPERATOR Screening for diabetes mellitus LIPID PANEL Routine 11/30/2024 10:17 AM PORTAINER OPERATOR Screening for cardiovascular condition documented in this encounter Results * (ABNORMAL) Lipid panel (non-fasting) (11/30/2024 10:17 AM PORTAINER OPERATOR) Cholesterol 195 0 - 199 mg/dL 11/30/2024 5:58 PM [facility] Comment: Recommended by National Cholesterol Education Program (ATP III) -------- Cholesterol Ranges -------- <200 Desirable 200-239 Borderline high >=240 High Triglycerides 128 0 - 149 mg/dL 11/30/2024 5:[address] [facility] Comment: -------- TRIG Ranges -------- <150 Normal 150-199 Borderline high 200-499 High >=500 Very high HDL 48 40 - 250 mg/dL 11/30/2024 5:58 PM [facility] Comment: -------- HDL Ranges -------- <40 Low 40-59 Normal >=60 Optimal LDL Calculated 121(H) 0 - 99 mg/dL 11/30/2024 5:58 PM [facility] Comment: -------- LDL Ranges -------- <100 Optimal 100-129 Near optimal/above optimal 130-159 Borderline high 160-189 High >=190 Very high Fasting? No 11/30/2024 10:17 AM [facility] Blood (Blood, Venous) 11/30/2024 10:17 AM PORTAINER OPERATOR 11/30/2024 4:53 PM PORTAINER OPERATOR Huber Miranda MD LAB BLOOD ORDERABLES Final Result Performing Organization Address [facility] de Phone Number [facility] [address] [place] [phone] * Hemoglobin A1c (11/30/2024 10:17 AM [facility]) Pathologist [facility] Hemoglobin A1C 5.1 4.0 - 5.6 % A1C 11/30/2024 11:[address] [facility] Comment: Reference Range 4.0-5.6% is for non- adults >=18 yrs <5.6% Non-Diabetic 5.7-6.4% Increased risk of Diabetes >=6.5% Indicative of Diabetes <7.0% ADA goal for glycemic control Methodology may not detect all hemoglobin variants which can affect A1c results. Method certified by National Glycohemoglobin Standardization Program. Blood (Blood, Venous) 11/30/2024 10:17 AM PORTAINER OPERATOR 11/30/2024 4:53 PM PORTAINER OPERATOR Huber Miranda MD LAB BLOOD ORDERABLES Final Result Performing Organization Address [facility] Phone Number [facility] [address] [place] [phone] * Hepatitis C antibody (11/30/2024 10:17 AM [facility]) Pathologist [facility] Hepatitis C Antibody NON-REACT PIA Non-React pia 11/30/2024 6:33 PM [facility] Comment: The results from this or any other diagnostic test should be used and interpreted only in the context of the overall clinical picture. Heterophilic antibodies in serum or plasma samples may cause interference in immunoassays. Exposure to animal antigens, either in the environment or as part of treatment or imaging procedures, may have circulating anti-animal antibodies present. These antibodies may interfere with the assay reagents to produce unreliable results. Results which are inconsistent with clinical observations indicate the need for additional testing. Blood (Blood, Venous) 11/30/2024 10:17 AM PORTAINER OPERATOR 11/30/2024 4:53 PM PORTAINER OPERATOR us Huber Miranda MD LAB BLOOD ORDERABLES Final Result [facility] [address] [place] [address] documented in this encounter Visit Diagnoses Diagnosis Need for hepatitis C screening test Special screening examination for other specified viral diseases Screening for diabetes mellitus Screening for cardiovascular condition Screening for other and unspecified cardiovascular conditions documented in this encounter Care Teams Him Coder Relationship Specialty Start Date End Date Jyoti Carnes, [employer] SORTER, EMPLOYEE SERVICES MANAGER [address] [place] [address] PCP - General Family Medicine 09/07/22 documented as of this encounter
--- OUTSIDE RECORDS SUMMARY | 2024-12-08 17:49 | XMS_ITS | Clinical Summary ---
Author Organization [facility] er Address [address] [place] [address] Care Team Providers Care Director Energy Name Role Phone Jyoti Carnes APRN, MOTOR MAN Primary Care Provi renu Allergies Active Allergy Reactions Criticality Noted Date Comments Oxycodone-Acetaminophen 02/26/2019 Medications Collagen-Vitamin C-Biotin (COLLAGEN PO) Take by mouth Active Lactobacillus (Acidophilus Probiotic) tablet Take by mouth Active meloxicam (Mobic) 7.5 MG tabletIndication s:Acute low back pain with radicular symptoms, duration less than 6 weeks Take 1 tablet (7.5 mg total) by mouth 1 (one) time each day 30 tablet 11 11/30/2024 Active cyclobenzaprine (FLEXERIL) 10 MG tabletIndication s:Acute low back pain with radicular symptoms, duration less than 6 weeks Take 1 tablet (10 mg total) by mouth 3 (three) times a day if needed for muscle spasms 30 tablet 11/30/2024 Active Hospital, Clinic, or Other Facility Administered Medication Ordered Dose Route Frequency Start Date End Date Status ketorolac (TORADOL) injection 30 mgIndications:Acute low back pain with radicular symptoms, duration less than 6 weeks 30 mg IV Once 11/30/2024 11/30/2025 Active ketorolac (TORADOL) injection 30 mgIndications:Acute low back pain with radicular symptoms, duration less than 6 weeks 30 mg IM Once 11/30/2024 11/30/2024 Ended Active Problems Problem Noted Date Diagnosed Date [...] tis 08/25/2020 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 Provider to review Encounters Date Type Department Care Team Description 11/30/2024 10:15 AM EXECUTIVE OFFICER [employer]ARFARE TEAM Lab [address] [place] [address] Need for hepatitis C screening test; Screening for diabetes mellitus; Screening for cardiovascular condition 11/30/2024 9:20 AM EXECUTIVE OFFICER [employer]ARF[employer] TEAM Office Visit [address] [address] Huber Miranda MD Medicare annual wellness visit, subsequent (Primary Dx); Acute low back pain with radicular symptoms, duration less than 6 weeks; Screening for diabetes mellitus; Screening for cardiovascular condition; Screening for colon cancer; Need for hepatitis C screening test 11/30/[address] [address] Huber Miranda MD referrals from Last 3 Months Immunizations Name Administration Dates Next Due Flu Vaccine High Dose 65yrs and Older IM 019,08/18/2018 Influenza, High-Dose, Trivalent, PF, 65 yrs and Older 09/01/2019,08/18/2018 Pneumococcal Conjugate 13-Valent 11/28/2015 Pneumococcal Polysaccharide 04/30/2016 [...] from your doctor or pharmacy? Never 11/30/2024 [facility] Utilities Answer Date Recorded In the past 12 months has th e electric, gas, oil, or water company threatened to shut off services in your [...] How often do you attend chur or samaritan services? Patient declined 11/30/2024 Do you belong to any clubs o r organizations such as jew groups, unions, fraternal or athletic groups, or [...] Date Recorded PHQ-9 Total Score 0 11/30/2024 [facility] of Occupat ional [facility] - Occupational Stress Questionnaire Answer Date Recorded [...] any time in the past [address] [facility], were you homeless or living in a group home (including now)? No 11/30/2024 Interpersonal Safety Questionnaire [...] file Not on file Not on file Last Filed Vital Signs Vital Sign Reading Time Taken Comments Blood Pressure 149/76 11/30/2024 9:21 AM EXECUTIVE OFFICER [employer]ARF[employer] TEAM Pulse 73 11/30/2024 9:21 AM EXECUTIVE OFFICER [employer] TEAM Temperature 36.6 C (97.8 F) 11/30/2024 9:21 AM EXECUTIVE OFFICER [employer]ARF[employer] TEAM Respiratory Rate 12 11/30/2024 9:21 AM EXECUTIVE OFFICER [employer]ARF[employer] TEAM Oxygen Saturation 99% 11/30/2024 9:21 AM EXECUTIVE OFFICER [employer] TEAM Inhaled Oxygen Concentration - - Weight 99.8 kg (220 lb 1.6 oz) 11/30/2024 9:21 A M EXECUTIVE OFFICER SPECIAL WARFARE TEAM Height 160.9 cm (5' 3.35) 11/30/2024 9:21 AM CS T Body Mass Index 38.56 11/30/2024 9:21 AM EXECUTIVE OFFICER [employer]ARF[employer] TEAM Plan of Treatment Upcoming Encounters Date Type Department Care Team (Late st Contact Info) Description 01/25/2025 8:20 AM CDT Office Visit [address] [address] Huber Miranda MD [address] [place] [phone] Health Maintenance Due Date Last Done Comments Bone Density Scan 1949 CT Colonography 1949 Colonoscopy 1949 Colorectal Cancer Screening 1950 FIT-DNA 1950 Mammogram 1949 Sigmoidoscopy 1949 iFOBT 1949 COVID-19 Vaccine ( season) 2024 Influenza Vaccine (#1) 2024 9, 09/01/2019, 08/18/2018, Additional history exists DTaP,Tdap,and Td Vaccines (2 - Td or Tdap) 11/28/2025 11/28/2015 Fall Risk Performed 11/30/2025 11/30/2024 Medicare Annual Wellness Visit (AWV) 11/30/2025 11/30/2024, 08/02/2019 Pneumococcal Vaccine: 50+ Years Completed 04/30/2016, 11/28/2015 Zoster Vaccines Completed 11/08/2019, 11/0 12/2018, 04/07/2012 HPV Vaccines Aged Out No longer eligi ble based on patient's age to complete this topic Procedures Procedure Name Priority Date/Time Associated Diagnosis Comments LIPID PANEL Routine 11/30/2024 10:17 AM EXECUTIVE OFFICER [employer] TEAM Screening for cardiovascular condition HEMOGLOBIN A1C Routine 11/30/2024 10:17 AM EXECUTIVE OFFICER [employer] TEAM Screening for diabetes mellitus HEPATITIS C ANTIBODY Routine 11/30/2024 10:17 AM EXECUTIVE OFFICER [employer]ARF[employer] TEAM Need for hepatitis C screening test from Last 3 Months Results * Hepatitis C antibody (11/30/2024 10:17 AM EXECUTIVE OFFICER SPECIAL WARFARE TEAM) Hepatitis C Antibody NON-REACT PIA Non-React pia 11/30/2024 6:33 PM EXECUTIVE OFFICER SPECIAL WARFARE TEAM [facility] Comment: The results from this or [...] testing. Blood (Blood, Venous) 11/30/2024 10:17 AM EXECUTIVE OFFICER SPECIAL WARFARE TEAM 11/30/2024 4:53 PM EXECUTIVE OFFICER [employer] WARFARE TEAM us Huber Miranda MD LAB BLOOD ORDERABLES Final Result [facility] [address] [place] [address] * Hemoglobin A1c (11/30/2024 10:17 AM EXECUTIVE OFFICER [employer] WARFARE TEAM) Hemoglobin A1C 5.1 4.0 - 5.6 % A1C 11/30/2024 11:01 PM EXECUTIVE OFFICER [employer] WARFARE TEAM [facility] Comment: Reference Range 4.0-5.6% is for non- adults >=18 yrs <5.6% Non-Diabetic 5.7-6.4% Increased risk of Diabetes >=6.5% Indicative of Diabetes <7.0% ADA goal for glycemic control Methodology may not detect all hemoglobin variants which can affect A1c results. Method certified by National Glycohemoglobin Standardization Program. Blood (Blood, Venous) 11/30/2024 10:17 AM EXECUTIVE OFFICER [employer] WARFARE TEAM 11/30/2024 4:53 PM EXECUTIVE OFFICER [employer] WARF[employer] TEAM us Huber Miranda MD LAB BLOOD ORDERABLES Final Result [facility] [address] [place] [address] * (ABNORMAL) Lipid panel (non-fasting) (11/30/2024 10:17 AM [facility]) Cholesterol 195 0 - 199 mg/dL 11/30/2024 5:58 PM [facility] Comment: Recommended by National Cholesterol Education Program (ATP III) -------- Cholesterol Ranges -------- <200 Desirable 200-239 Borderline high >=240 High Triglycerides 128 0 - 149 mg/dL 11/30/2024 5:58 PM [facility] Comment: -------- TRIG Ranges -------- <150 Normal 150-199 Borderline high 200-499 High >=500 Very high HDL 48 40 - 250 mg/dL 11/30/2024 5:58 PM [facility] Comment: -------- HDL Ranges -------- <40 Low 40-59 Normal >=60 Optimal LDL Calculated 121(H) 0 - 99 mg/dL 11/30/2024 5:58 PM [facility] Comment: -------- LDL Ranges -------- <100 Optimal 100-129 Near optimal/above optimal 130-159 Borderline high 160-189 High >=190 Very high Fasting? No 11/30/2024 10:17 AM EXECUTIVE OFFICER [employer]ARF[employer] TEAM [facility] Blood (Blood, Venous) 11/30/2024 10:17 AM EXECUTIVE OFFICER SPECIAL WARFARE TEAM 11/30/2024 4:53 PM EXECUTIVE OFFICER [employer] WARFARE TEAM us Huber Miranda MD LAB BLOOD ORDERABLES Final Result [facility] [address] [place] [address] from Last 3 Months Insurance MEDICARE [employer] Care Teams Director Energy Relationship Specialty Start Date End Date Jyoti Carnes, SHAKE LOADER, MOTOR MAN [address] [place] [address] PCP - General Family Medicine 09/07/22
--- OUTSIDE RECORDS SUMMARY | 2024-12-08 17:49 | XMS_ITS | Encounter Summary ---
Author Organization [facility] er Address [address] [place] [address] Care Team Providers Care Track Broom Operator Name Role Phone Jyoti Carnes APRN, FREIGHT DELIVERY DRIVER Primary Care Provi renu Reason for Referral * Consultation (Routine) - Authorized Specialty Diagnoses / Procedures Referred By Contac t Referred To Contact Diagnoses Acute low back pain with radicular symptoms, duration less than 6 weeks Huber Miranda MD [address] [address] Phone: tel: fax: [address] [address] Phone: tel: Referral ID Status Reason Start Date Expiration Date V isits Requested Visits Authorized [id number] Authorized 11/30/2024 12/01/2025 1 1 CTURAL IRON ERECTOR * Consultation (Routine) - Authorized Specialty Diagnoses / Procedures Referred By Contac t Referred To Contact Diagnoses Acute low back pain with radicular symptoms, duration less than 6 weeks Huber Miranda MD 1705 [facility] [address] [place] [address] Phone: tel: fax: [address] Phone: tel: fax: Referral ID Status Reason Start Date Expiration Date V isits Requested Visits Authorized [id number] Authorized 11/30/2024 12/01/2025 1 1 CTURAL IRON ERECTOR Reason for Visit * Reason Comments Back Pain Was bending over for long period of time 1.5 weeks ago and started having back pain that night. Encounter Details Date Type Department Care Team (Latest Contact Info) Description 11/30/2024 9:20 AM STRUCTURAL IRON ERECTOR Office Visit Anam Goncalves [address] [place] [address] Huber Miranda MD [address] [place] [address] [address] [place] [address] Medicare annual wellness visit, subsequent (Primary Dx); Acute low back pain with radicular symptoms, duration less than 6 weeks; Screening for diabetes mellitus; Screening for cardiovascular condition; Screening for colon cancer; Need for hepatitis C screening test Social History Tobacco Use Types Packs/Day Years [...] from your doctor or pharmacy? Never 11/30/2024 [facility] Utilities Answer Date Recorded In the past 12 months has e [employer], gas, oil, or water [employer] threatened to shut off services in your [...] 11/30/2024 How often do you attend chur ch or presybeterian services? Patient declined 11/30/2024 Do you belong to any clubs o r organizations such as mormon groups, unions, fraternal or athletic groups, or [...] Date Recorded PHQ-9 Total Score 0 11/30/2024 [facility] - Occupational Stress Questionnaire Answer Date [...] any time in the past 12 m [facility], were you homeless or living in a [facility] (including now)? No 11/30/2024 Interpersonal Safety Questionnaire [...] Comments Blood Pressure 149/76 11/30/2024 9:21 AM STRUCTURAL IRON ERECTOR Pulse 73 11/30/2024 9:21 AM STRUCTURAL IRON ERECTOR Temperature 36.6 C (97.8 F) 11/30/2024 9:21 AM STRUCTURAL IRON ERECTOR Respiratory Rate 12 11/30/2024 9:21 AM STRUCTURAL IRON ERECTOR Oxygen Saturation 99% 11/30/2024 9:21 AM STRUCTURAL IRON ERECTOR Inhaled Oxygen Concentration - - Weight 99.8 kg (220 lb 1.6 oz) 11/30/2024 9:21 A M STRUCTURAL IRON ERECTOR Height 160.9 cm (5' 3.35) 11/30/2024 9:21 AM CS T Body Mass Index 38.56 11/30/2024 9:21 AM STRUCTURAL IRON ERECTOR documented in this encounter Patient Instructions * Patient Instructions* Huber Miranda MD - 11/30/2024 9:20 AM STRUCTURAL IRON ERECTOR 1. I will let you know the results of today's blood work 2. you will receive the Cologuard kit in the mail 3. Someone should reach out to you regarding the x-ray at [facility] 4. Someone will contact you regarding the physical therapy at [facility] 5. I sent in a prescription for meloxicam and cyclobenzaprine to help your back pain CTURAL IRON ERECTOR CTURAL IRON ERECTOR CTURAL IRON ERECTOR CTURAL IRON ERECTOR CTURAL IRON ERECTOR * Attachments The following attachments cannot be sent through Care Everywhere. * Radicular Pain (Nepali) documented in this encounter Progress Notes * Huber Miranda MD - 11/30/2024 9:20 AM CST Annual Wellness Visit Patient's had 1-1/2 weeks of lower back pain around both SI joints with occasional radiation anteriorly above the knees denies any falls denies any foot drop any urinary changes any fevers or chills. The following portions of the patient's chart were reviewed in this encounter and updated as appropriate: Tobacco Allergies Meds Med Hx Surg Hx Fam Hx Soc Hx Visit Vitals BP (!) 149/76 (BP Location: Right arm, Patient Position: Standing, BP Cuff Size: Large adult) Pulse 73 Temp 36.6 ??C (97.8 ??F) (Temporal) Resp 12 Ht 1.609 m (5' 3.35) Wt 99.8 kg (220 lb 1.6 oz) SpO2 99% BMI 38.56 kg/m?? OB Status Postmenopausal Smoking Status Never BSA 2.11 m?? Pain Assessment Scored: 9 and location: Back (lower back) BMI/weight management reviewed: BMI: Body mass index is 38.56 kg/m??. Fall Risk Assessment performed. Scored: (Patient-Rptd) 0/14 Tug time: PHQ-9 mental health screening performed. Scored:(Patient-Rptd) 0 (11/30/2024 9:08 AM)/27 NIRAV-7 anxiety screening performed. Scored:(Patient-Rptd) 0 (11/30/2024 9:12 AM)/21 Mini-Cog test performed. Scored: 4/5 CAGE-AID test performed. Advanced Care Planning: Advance Directive: Patient has advance directive, copy not in chart Advance Directive not in Chart: Copy requested from patient Would you like to review your Advance Directive?: Not applicable Information Provided on Healthcare Directives: No The following healthcare items are recommended to you based on your age, sex, personal and family history: Health Maintenance Topic Date Due Mammogram Never done Bone Density Scan Never done Colorectal Cancer Screening Never done Medicare Annual Wellness Visit (AWV) 08/02/2020 COVID-19 Vaccine ( - 2023- season) Never done Influenza Vaccine (1) 07/01/2024 DTaP,Tdap,and Td Vaccines (2 - Td or Tdap) 11/28/2025 Fall Risk Performed 11/30/2025 Pneumococcal Vaccine: 50+ Years Completed Zoster Vaccines Completed HPV Vaccines Aged Out ASCVD Risk Score: The ASCVD Risk score (Linette GAYTAN, et al., 2019) failed to calculate for the following reasons: Cannot find a previous HDL lab Cannot find a previous total cholesterol lab Prostate Cancer Screening: (Male patients only) No results found for: PSA, PSAD Hepatitis C Screening: Recommended for those born between [id number], receiving blood transfusion before 1991, illicit injection drug use No results found for: HEPCAB Glaucoma Screening: Recommended annually if you have diabetes, family history of glaucoma, and over 50 or and over 65. AAA Screening: Screening recommended if not previously done if you have a family history of abdominal aortic aneurysm, or are male age 65-75 and have smoked at least 100 cigarettes in your lifetime Lung Cancer Screening: Recommended annually if age 50-77, asymptomatic, current smoker or quit in last 15 years and have at least a 20 year ???pack year?? history. Social Drivers of Health with Concerns Alcohol Use: Patient Declined (11/30/2024) Physical Activity: Patient Declined (11/30/2024) Stress: Patient Declined (11/30/2024) Social Connections: Unknown (11/30/2024) An Annual Wellness Visit was completed today with your healthcare team. This visit allows us to review your health history and identify current or potential risks. Referrals, immunizations, and/or testing may be available to you based on these findings. Please let your healthcare team know if you would like any of these services offered today or at any time in the future. Materials for review regarding available services and resources will be provided. Don't hesitate to reach out to your healthcare team with any questions or concerns. Physical exam: General no acute distress HEENT: Normocephalic atraumatic Lungs: Clear to auscultation no wheezes rhonchi rales Cardiac: Regular rate murmurs rubs or gallops Musculoskeletal: She had tenderness over both SI joints no step-off fractures warmth or erythema over the spine Assessment and plan For her back pain we will get her enrolled in physical therapy we will still get some x-rays she iscertainly at risk from some osteoporotic process. Will also treat her with meloxicam and cyclobenzaprine I will have her follow-up in 6 weeks time to see how she is progressing CTURAL IRON ERECTOR * Caryn Tamayo - 11/30/2024 9:20 AM CST Referrals faxed to [facility] and [facility]; fax [phone]. CTURAL IRON ERECTOR documented in this encounter Plan of Treatment Upcoming Encounters Date Type Department Care Team (Late st Contact Info) Description 01/25/2025 8:20 AM CDT Office Visit [address] [address] Huber Miranda MD [address] [place] [phone] Scheduled Orders Name Type Priority Associated Diagnoses Orde r Schedule Cologuard Lab Routine Screening for colon cancer 1 Occurrences starting 11/30/2024 until 11/30/2025 Scheduled Referrals Name Type Priority Associated Diagnoses Order Schedule Ambulatory External [facility]; Radiology Outpatient Referral Routine Acute low back pain with radicular symptoms, duration less than 6 weeks Ordered: 11/30/2024 Ambulatory External Referral [facility] [place]; Rehab Therapy Outpatient Referral Routine Acute low back pain with radicular symptoms, duration less than 6 weeks Ordered: 11/30/2024 documented as of this encounter Results * Hepatitis C antibody (11/30/2024 10:17 AM STRUCTURAL IRON ERECTOR) Pathologist [facility] Hepatitis C Antibody NON-REACT PIA Non-React pia 11/30/2024 6:33 PM STRUCTURAL IRON ERECTOR [facility] Comment: The results from this [...] testing. Blood (Blood, Venous) 11/30/2024 10:17 AM STRUCTURAL IRON ERECTOR 11/30/2024 4:53 PM STRUCTURAL IRON ERECTOR us Huber Miranda MD LAB BLOOD ORDERABLES Final Result [facility] [address] [place] [address] * Hemoglobin A1c (11/30/2024 10:17 AM STRUCTURAL IRON ERECTOR) Pathologist [facility] Hemoglobin A1C 5.1 4.0 - 5.6 % A1C 11/30/2024 11:01 PM STRUCTURAL IRON ERECTOR [facility] Comment: Reference Range 4.0-5.6% is for non- adults >=18 yrs <5.6% Non-Diabetic 5.7-6.4% Increased risk of Diabetes >=6.5% Indicative of Diabetes <7.0% ADA goal for glycemic control Methodology may not detect all hemoglobin variants which can affect A1c results. Method certified by National Glycohemoglobin Standardization Program. Blood (Blood, Venous) 11/30/2024 10:17 AM STRUCTURAL IRON ERECTOR 11/30/2024 4:53 PM STRUCTURAL IRON ERECTOR us Huber Miranda MD LAB BLOOD ORDERABLES Final Result [facility] [address] [place] [address] * (ABNORMAL) Lipid panel (non-fasting) (11/30/2024 10:17 AM STRUCTURAL IRON ERECTOR) Cholesterol 195 0 - 199 mg/dL 11/30/2024 5:58 PM [facility] Comment: Recommended by National Cholesterol Education Program (ATP III) -------- Cholesterol Ranges -------- <200 Desirable 200-239 Borderline high >=240 High Triglycerides 128 0 - 149 mg/dL 11/30/2024 5:58 PM [facility] Comment: -------- TRIG Ranges -------- <150 Normal 150-199 Borderline high 200-499 High >=500 Very high HDL 48 40 - 250 mg/dL 11/30/2024 5:58 PM [facility] Comment: -------- HDL Ranges -------- <40 Low 40-59 Normal >=60 Optimal LDL Calculated 121(H) 0 - 99 mg/dL 11/30/2024 5:58 PM [facility] Comment: -------- LDL Ranges -------- <100 Optimal 100-129 Near optimal/above optimal 130-159 Borderline high 160-189 High >=190 Very high Fasting? No 11/30/2024 10:17 AM [facility] Blood (Blood, Venous) 11/30/2024 10:17 AM STRUCTURAL IRON ERECTOR 11/30/2024 4:53 PM STRUCTURAL IRON ERECTOR us Huber Miranda MD LAB BLOOD ORDERABLES Final Result [facility] [address] [place] [address] documented in this encounter Visit Diagnoses Diagnosis Medicare annual wellness visit, subsequent- Primary Acute low back pain with radicular symptoms, duration less than 6 weeks Screening for diabetes mellitus Screening for cardiovascular condition Screening for other and unspecified cardiovascular conditions Screening for colon cancer Special screening for malignant neoplasms, colon Need for hepatitis C screening test Special screening examination for other specified viral diseases documented in this encounter Administered Medications Inactive Administered Medications - up to 3 most recent administrations Medication Order MAR Action Action Date Dose Rate Site ketorolac (TORADOL) injection 30 mg 30 mg, Intramuscular, Once, On Tue11/30/24 at 1030, For 1 dose, 3rd Line. If inadequate response within 60 minutes, proceed to next-line agent for same PRN reason or contact provider if no further options ordered.Indications:Acute low back pain with radicular symptoms, duration less than 6 weeks Given 11/30/2024 9:43 AM STRUCTURAL IRON ERECTOR 30 mg Right Gluteal documented in this encounter Care Teams Track Broom Operator Relationship Specialty Start Date End Date Jyoti Carnes, ADJUNCT COMMUNICATIONS FACULTY MEMBER, FREIGHT DELIVERY DRIVER [address] [place] [phone] PCP - General Family Medicine 09/07/22 documented as of this encounter
--- OUTSIDE RECORDS SUMMARY | 2024-12-08 17:49 | XMS_ITS | Encounter Summary ---
Author Organization [facility] er Address [address] [place] [address] Care Team Providers Care Maintenance Groundskeeper Name Role Phone Jyoti Carnes APRN, DEBURRING TECHNICIAN Primary Care Provi renu Reason for Visit * Reason Onset Date Comments referrals 11/30/2024 Encounter Details Date Type Department Care Team (Late st Contact Info) Description 11/30/2024 Telephone [place] [address] [place] [phone] Huber Miranda MD 1705 [facility] [address] [place] [address] referrals Social History Tobacco Use Types Packs/Day Years [...] from your doctor or pharmacy? Never 11/30/2024 [facility] Utilities Answer Date Recorded In the past 12 months has e [employer], gas, oil, or water [employer] threatened to shut off services in your [...] How often do you attend chur or roman catholic services? Patient declined 11/30/2024 Do you belong to any clubs o r organizations such as pentecostal groups, unions, fraternal or athletic groups, or [...] Date Recorded PHQ-9 Total Score 0 11/30/2024 [facility] - Occupational Stress [...] any time in the past 12 m [facility], were you homeless or living in a fpc (including now)? No 11/30/2024 Interpersonal Safety Questionnaire [...] as of this encounter Miscellaneous Notes * Telephone Encounter - Caryn Tamayo - 11/30/2024 10:25 AM CST Referrals faxed to [facility]; fax [phone]. GED SERVICES CONSULTANT * Telephone Encounter - Leela Bernal RN - 11/30/2024 10:11 AM CST Please fax PT referral to [facility] & Radiology referral to [facility]. GED SERVICES CONSULTANT documented in this encounter Plan of Treatment Upcoming Encounters Date Type Department Care Team (Late st Contact Info) Description 01/25/2025 8:20 AM CDT Office Visit [address] [address] Huber Miranda MD [address] [place] [phone] documented as of this encounter Visit Diagnoses Not on filedocumented in this encounter Care Teams Maintenance Groundskeeper Relationship Specialty Start Date End Date Jyoti Carnes, TELE GROUT SEWER LINE REPAIRER, DEBURRING TECHNICIAN [address] [place] [phone] PCP - General Family Medicine 09/07/22 documented as of this encounter
[2024-12-08 17:56] VITALS: BP 137/58; PULSE 79; RESP 18; TEMP 36.6; O2SAT 99; BMI 39.0
--- NOTE | 2024-12-08 18:13 | ED_ITS ---
HPI - Back Pain/Injury General Chief Complaint: Back Injury/Pain Stated Complaint: back pain, legs going numb, pinched nerves Time Seen by Provider: 12/08/24 17:49 History of Present Illness HPI Narrative: Patient is a 74-year-old woman who has been having worsening back pain. She recently had an MRI she has severe to lumbar disc disease. She set up with the surgeon next week but her pain which is her lumbar spine with radiation down both legs is becoming progressively severe. She has no bowel or bladder symptoms no fever chills no recent injuries. She does take cyclobenzaprine as well as Tylenol but is unable to keep up with the pain. No other concerns are noted. Related Data Previous Rx's ?Medication ?Instructions ?Recorded codeine 10 mg-guaifenesin 100 mg/5 10 ml PO Q4-6H PRN cough #200 mL 03/30/ mL oral liquid Allergies Allergy/AdvReac Type Severity Reaction Status Date / Time No Known Drug Allergies Allergy Verified 12/08/24 17:53 Review of Systems Status of ROS: Reports: 10 or more systems reviewed and unremarkable except as noted in History and below PFSH [facility] Medical History Osteoarthritis ?M19.90 - Unspecified osteoarthritis, unspecified site (ICD-10) Surgical History History of knee replacement ?Z96.659 - Presence of unspecified artificial knee joint (ICD-10) Family History Father Stomach cancer Mother Stroke Social History (Updated 08/12/22 @ 08:15 by Jyoti Carnes APRN, PARK RANGER) Narrative: . 3 children. No formal exercise. Non-smoker. No illicit drug use. Alcohol, 1-2 servings per week. Smoking Status: Never smoker Do you use any of these nicotine containing products: None Second hand tobacco smoke exposure: No How often do you have a drink containing alcohol: 2-4 times a month How many standard drinks containing alcohol do you have on a typical day: 1 or 2 How often do you have six or more drinks on one occasion: Never AUDIT-C Alcohol total score: 2 Non-prescribed substance use: denies use service: No Exam Narrative: Exam Narrative: EXAM GENERAL: Patient appears comfortable and well. EYES: No scleral icterus. LYMPH: No supraclavicular or cervical lymphadenopathy. SKIN: Visible skin seen during exam normal or with benign process only. EXT: No dependent lower extremity pedal edema. HEART: Regular rate and rhythm with no murmurs, rubs, or gallops. LUNGS: Clear to auscultation bilaterally with no crackles or wheezes. ABD: Soft, non tender, non distended. PSYCH: Good eye contact, speech is not pressured. Neurologic cranial nerves 2-12 grossly intact no focal defects. Const: Vital Signs, click to edit/add: Vital Signs - 24 hr 12/08/24 17:56 Temperature 97.9 F Pulse Rate [Pulse Oximeter] 79 Respiratory Rate 18 Blood Pressure [Ri ght Upper Arm] 137/58 L Pulse Oximetry 99 Oxygen Delivery Me thod Room Air Course Course ED Course: Patient seen and examined. Vital Signs Vital signs: Initial Vital Signs Temperature 97.9 F 12/08/24 17:56 Temperature Source Temporal Artery Scan 12/08/24 17:56 Pulse Rate 79 12/08/24 17:56 Pulse Rhythm Regular 12/08/24 17:56 Respiratory Rate 18 12/08/24 17:56 Blood Pressure 137/58 L 12/08/24 17:56 Blood Pressure Mean 84 12/08/24 17:56 Blood Pressure Position Semi-Fowlers 12/08/24 17:56 Pulse Oximetry 99 12/08/24 17:56 Oxygen Delivery Method Room Air 12/08/24 17:56 Vital Signs Temperature 97.9 F 12/08/24 17:56 Pulse Rate 79 12/08/24 17:56 Respiratory Rate 18 12/08/24 17:56 Blood Pressure 137/58 L 12/08/24 17:56 Pulse Oximetry 99 12/08/24 17:56 Oxygen Delivery Method Room Air 12/08/24 17:56 Temperature 97.9 F 12/08/24 17:56 Pulse Rate 79 12/08/24 17:56 Respiratory Rate 18 12/08/24 17:56 Blood Pressure 137/58 L 12/08/24 17:56 Pulse Oximetry 99 12/08/24 17:56 Oxygen Delivery Method Room Air 12/08/24 17:56 MDM - Back Pain/Injury MDM Narrative Medical decision making narrative: Patient presents with acute on chronic low back pain with a plan in place. She is having difficult time making through the weekend would like higher pain control. She does not tolerate oxycodone by did make arrangements for have Vicodin over the weekend 1-2 every 4-6 as needed. Plan rest and plenty of fluids. No driving. She can continue the limited cyclobenzaprine. Again she has surgical consultations coming week. Discharge Plan Discharge Clinical Impression: Back pain Patient Disposition: Home, Self-Care Condition: Stable Instructions: Back Pain (ED) Additional Instructions: [place] as directed Rest Ice Follow-up with her surgeon next week. Activity Level: No Restrictions Discharge Diet: Regular Prescriptions: No Action codeine-guaifenesin 10-100 mg/5 mL liquid 10 ml PO Q4-6H PRN (Reason: cough) Qty: 200 0RF Follow Up/Referrals: Jyoti Carnes, RUBBER CHEMIST, PARK RANGER [Primary Care Provider] - Stand Alone Forms: [employer] Info Instructions
--- OUTSIDE RECORDS SUMMARY | 2024-12-08 18:22 | XMS_ITS | Encounter Summary ---
Author Organization [facility] er Address [address] [place] [address] Care Team Providers Care Assembly Associate Name Role Phone Jyoti Carnes APRN, EXTENSION SERVICE SPECIALIST IN CHARGE Primary Care Provi renu Reason for Visit * Reason Onset Date Comments referrals 11/30/2024 Encounter Details Date Type Department Care Team (Late st Contact Info) Description 11/30/2024 Telephone [place] [address] [place] [phone] Huber Miranda MD 1705 [facility] [address] [place] [address] referrals Social History Tobacco Use Types Packs/Day [...] from your doctor or pharmacy? Never 11/30/2024 [facility] Utilities Answer Date Recorded In the past 12 months has e [employer], gas, oil, or water [employer] threatened to shut off services in your [...] How often do you attend chur or amish services? Patient declined 11/30/2024 Do you belong to any clubs o r organizations such as orthodox groups, unions, fraternal or athletic groups, or [...] Date Recorded PHQ-9 Total Score 0 11/30/2024 [facility] - [...] any time in the past 12 m [facility], were you homeless or living in a prison (including now)? No 11/30/2024 Interpersonal Safety Questionnaire [...] 11/30/2024 10:25 AM CST Referrals faxed to [facility] and [facility]; fax [phone]. GATE KEEPER * Telephone Encounter - Leela Bernal RN - 11/30/2024 10:11 AM CST Please fax PT referral to [facility] & Radiology referral to [facility]. GATE KEEPER documented in this encounter Plan of Treatment Upcoming Encounters Date Type Department Care Team (Late st Contact Info) Description 01/25/2025 8:20 AM CDT Office Visit [address] [address] Huber Miranda MD [address] [place] [phone] documented as of this encounter Visit Diagnoses Not on filedocumented in this encounter Care Teams Assembly Associate Relationship Specialty Start Date End Date Jyoti Carnes, MARINE ENGINE MECHANIC, EXTENSION SERVICE SPECIALIST IN CHARGE [address] [place] [phone] PCP - General Family Medicine 09/07/22 documented as of this encounter
--- OUTSIDE RECORDS SUMMARY | 2024-12-08 18:22 | XMS_ITS | Clinical Summary ---
Author Organization [facility] er Address [address] [place] [address] Care Team Providers Care General Intern Name Role Phone Jyoti Carnes APRN, SALES SUPPORT SPECIALIST Primary Care Provi renu Allergies Active Allergy [...] Department Care Team Description 11/30/2024 10:15 AM CONSTRUCTION QUALITY CONTROL MANAGER Lab [address] [place] [address] Need for hepatitis C screening test; Screening for diabetes mellitus; Screening for cardiovascular condition 11/30/2024 9:20 AM CONSTRUCTION QUALITY CONTROL MANAGER Office Visit [address] [address] Huber Miranda MD Medicare annual wellness visit, subsequent (Primary Dx); Acute low back pain with radicular symptoms, duration less than 6 weeks; Screening for diabetes mellitus; Screening for cardiovascular condition; Screening for colon cancer; Need for hepatitis C screening test 11/30/[address] [address] Huber Miranda MD referrals from Last 3 [...] from your doctor or pharmacy? Never 11/30/2024 [facility] Utilities Answer Date Recorded In the [...] any clubs o r organizations such as hoahaoism groups, unions, fraternal or athletic groups, or [...] Date Recorded PHQ-9 Total Score 0 11/30/2024 [facility] of Occupat ional [facility] - Occupational Stress Questionnaire Answer Date Recorded [...] any time in the past 12 m [facility], were you homeless or living in a residential (including now)? No 11/30/2024 Interpersonal Safety Questionnaire [...] Comments Blood Pressure 149/76 11/30/2024 9:21 AM CONSTRUCTION QUALITY CONTROL MANAGER Pulse 73 11/30/2024 9:21 AM CONSTRUCTION QUALITY CONTROL MANAGER Temperature 36.6 C (97.8 F) 11/30/2024 9:21 AM CONSTRUCTION QUALITY CONTROL MANAGER Respiratory Rate 12 11/30/2024 9:21 AM CONSTRUCTION QUALITY CONTROL MANAGER Oxygen Saturation 99% 11/30/2024 9:21 AM CONSTRUCTION QUALITY CONTROL MANAGER Inhaled Oxygen Concentration - - Weight 99.8 kg (220 lb 1.6 oz) 11/30/2024 9:21 A M CONSTRUCTION QUALITY CONTROL MANAGER Height 160.9 cm (5' 3.35) 11/30/2024 9:21 AM CS T Body Mass Index 38.56 11/30/2024 9:21 AM CONSTRUCTION QUALITY CONTROL MANAGER Plan of Treatment Upcoming Encounters Date Type Department Care Team (Late st Contact Info) Description 01/25/2025 8:20 AM CDT Office Visit [address] [address] Huber Miranda MD [address] [place] [phone] Health Maintenance Due Date Last Done Comments [...] Comments LIPID PANEL Routine 11/30/2024 10:17 AM CONSTRUCTION QUALITY CONTROL MANAGER Screening for cardiovascular condition HEMOGLOBIN A1C Routine 11/30/2024 10:17 AM CONSTRUCTION QUALITY CONTROL MANAGER Screening for diabetes mellitus HEPATITIS C ANTIBODY Routine 11/30/2024 10:17 AM CONSTRUCTION QUALITY CONTROL MANAGER Need for hepatitis C screening test from Last 3 Months Results * Hepatitis C antibody (11/30/2024 10:17 AM CONSTRUCTION QUALITY CONTROL MANAGER) Hepatitis C Antibody NON-REACT PIA Non-React pia 11/30/2024 6:33 PM CONSTRUCTION QUALITY CONTROL MANAGER [facility] Comment: The results from this [...] testing. Blood (Blood, Venous) 11/30/2024 10:17 AM CONSTRUCTION QUALITY CONTROL MANAGER 11/30/2024 4:53 PM CONSTRUCTION QUALITY CONTROL MANAGER us Huber Miranda MD LAB BLOOD ORDERABLES Final Result [facility] [address] [place] [address] * Hemoglobin A1c (11/30/2024 10:17 AM CONSTRUCTION QUALITY CONTROL MANAGER) Hemoglobin A1C 5.1 4.0 - 5.6 % A1C 11/30/2024 11:01 PM CONSTRUCTION QUALITY CONTROL MANAGER [facility] Comment: Reference Range 4.0-5.6% is for non- adults >=18 yrs <5.6% Non-Diabetic 5.7-6.4% Increased risk of Diabetes >=6.5% Indicative of Diabetes <7.0% ADA goal for glycemic control Methodology may not detect all hemoglobin variants which can affect A1c results. Method certified by National Glycohemoglobin Standardization Program. Blood (Blood, Venous) 11/30/2024 10:17 AM CONSTRUCTION QUALITY CONTROL MANAGER 11/30/2024 4:53 PM CONSTRUCTION QUALITY CONTROL MANAGER us Huber Miranda MD LAB BLOOD ORDERABLES Final Result [facility] [address] [place] [address] * (ABNORMAL) Lipid panel (non-fasting) (11/30/2024 10:17 AM [facility] Cholesterol 195 0 - 199 mg/dL 11/30/2024 5:58 PM [facility] Comment: Recommended by National Cholesterol Education Program (ATP III) -------- Cholesterol Ranges -------- <200 Desirable 200-239 Borderline high >=240 High Triglycerides 128 0 - 149 mg/dL 11/30/2024 5:58 PM [facility] Comment: -------- TRIG Ranges -------- <150 Normal 150-199 Borderline high 200-499 High >=500 Very high HDL 48 40 - 250 mg/dL 11/30/2024 5:58 PM [facility] Comment: -------- HDL Ranges -------- <40 Low 40-59 Normal >=60 Optimal LDL Calculated 121(H) 0 - 99 mg/dL 11/30/2024 5:58 PM [facility] Comment: -------- LDL Ranges -------- <100 Optimal 100-129 Near optimal/above optimal 130-159 Borderline high 160-189 High >=190 Very high Fasting? No 11/30/2024 10:17 AM CONSTRUCTION QUALITY CONTROL MANAGER [facility] Blood (Blood, Venous) 11/30/2024 10:17 AM CONSTRUCTION QUALITY CONTROL MANAGER 11/30/2024 4:53 PM CONSTRUCTION QUALITY CONTROL MANAGER us Huber Miranda MD LAB BLOOD ORDERABLES Final Result [facility] [address] [place] [address] from Last 3 Months Insurance MEDICARE [facility] [employer] Care Teams General Intern Relationship Specialty Start Date End Date Jyoti Carnes, STEAM OVEN OPERATOR, SALES SUPPORT SPECIALIST [address] [place] [address] PCP - General Family Medicine 09/07/22
--- OUTSIDE RECORDS SUMMARY | 2024-12-08 18:22 | XMS_ITS | Encounter Summary ---
Author Organization [facility] er Address [address] [place] [address] Care Team Providers Care Film Librarian Name Role Phone Jyoti Carnes APRN, TUBE BUILDING MACHINE OPERATOR Primary Care Provi renu Reason for Referral * Consultation (Routine) - Authorized Specialty Diagnoses / Procedures Referred By Contac t Referred To Contact Diagnoses Acute low back pain with radicular symptoms, duration less than 6 weeks Huber Miranda MD [address] [address] Phone: tel: fax: [address] [address] Phone: tel: Referral ID Status Reason Start Date Expiration Date V isits Requested Visits Authorized [id number] Authorized 11/30/2024 12/01/2025 1 1 CTOR OF MEDICAL STAFF SERVICES * Consultation (Routine) - Authorized Specialty Diagnoses / Procedures Referred By Contac t Referred To Contact Diagnoses Acute low back pain with radicular symptoms, duration less than 6 weeks Huber Miranda MD [address] [facility] [address] [place] [address] Phone: tel: fax: [address] Phone: tel: fax: Referral ID Status Reason Start Date Expiration Date V isits Requested Visits Authorized [id number] Authorized 11/30/2024 12/01/2025 1 1 CTOR OF MEDICAL STAFF SERVICES Reason for Visit * Reason Comments Back Pain Was bending over for long period of time 1.5 weeks ago and started having back pain that night. Encounter Details Date Type Department Care Team (Latest Contact Info) Description 11/30/2024 9:20 AM DIRECTOR OF MEDICAL STAFF SERVICES Office Visit Anam Goncalves [address] [place] [address] Huber Miranda MD [address] [place] [address] [address] [place] [phone] Medicare annual wellness visit, subsequent (Primary Dx); [...] from your doctor or pharmacy? Never 11/30/2024 [facility] Utilities Answer Date Recorded In the past 12 months has e [employer], gas, oil, or water [employer] threatened to shut off services in your [...] often do you attend chur ch or tenriism services? Patient declined 11/30/2024 Do you belong to any clubs o r organizations such as rastafarian groups, unions, fraternal or athletic groups, or [...] Date Recorded PHQ-9 Total Score 0 11/30/2024 [facility] of Occupat ional [facility] - Occupational Stress Questionnaire Answer [...] [facility] time in the [facility] m [facility], were you homeless or living in [...] Comments Blood Pressure 149/76 11/30/2024 9:21 AM DIRECTOR OF MEDICAL STAFF SERVICES Pulse 73 11/30/2024 9:21 AM DIRECTOR OF MEDICAL STAFF SERVICES Temperature 36.6 C (97.8 F) 11/30/2024 9:21 AM DIRECTOR OF MEDICAL STAFF SERVICES Respiratory Rate 12 11/30/2024 9:21 AM DIRECTOR OF MEDICAL STAFF SERVICES Oxygen Saturation 99% 11/30/2024 9:21 AM DIRECTOR OF MEDICAL STAFF SERVICES Inhaled Oxygen Concentration - - Weight 99.8 kg (220 lb 1.6 oz) 11/30/2024 9:21 A M DIRECTOR OF MEDICAL STAFF SERVICES Height 160.9 cm (5' 3.35) 11/30/2024 9:21 AM CS T Body Mass Index 38.56 11/30/2024 9:21 AM DIRECTOR OF MEDICAL STAFF SERVICES documented in this encounter Patient Instructions * Patient Instructions* Huber Miranda MD - 11/30/2024 9:20 AM DIRECTOR OF MEDICAL STAFF SERVICES 1. I will let you know the results of today's blood work 2. you will receive the Cologuard kit in the mail 3. Someone should reach out to you regarding the x-ray at [facility] 4. Someone will contact you regarding the physical therapy at [facility] 5. I sent in a prescription for meloxicam and cyclobenzaprine to help your back pain CTOR OF MEDICAL STAFF SERVICES CTOR OF MEDICAL STAFF SERVICES CTOR OF MEDICAL STAFF SERVICES CTOR OF MEDICAL STAFF SERVICES CTOR OF MEDICAL STAFF SERVICES * Attachments The following attachments cannot be sent through Care Everywhere. * Radicular Pain (Greenlandic) documented in this encounter Progress Notes * [...] C Screening: Recommended for those born between [birth year]4515, receiving blood transfusion before 1991, illicit injection [...] time to see how she is progressing CTOR OF MEDICAL STAFF SERVICES * Caryn Tamayo - 11/30/2024 9:20 AM CST Referrals faxed to [facility] and [facility]; fax [phone]. CTOR OF MEDICAL STAFF SERVICES documented in this encounter Plan of Treatment Upcoming Encounters Date Type Department Care Team (Late st Contact Info) Description 01/25/2025 8:20 AM CDT Office Visit [address] [address] Huber Miranda MD [address] [place] [phone] Scheduled Orders Name Type Priority Associated Diagnoses Orde r Schedule Cologuard Lab Routine Screening for colon cancer 1 Occurrences starting 11/30/2024 until 11/30/2025 Scheduled Referrals Name Type Priority Associated Diagnoses Order Schedule Ambulatory External Referral [facility]; Radiology Outpatient Referral Routine Acute low back pain with radicular symptoms, duration less than 6 weeks Ordered: 11/30/2024 Ambulatory External Referral [facility] [place]; Rehab Therapy Outpatient Referral Routine Acute low back pain with radicular symptoms, duration less than 6 weeks Ordered: 11/30/2024 documented as of this encounter Results * Hepatitis C antibody (11/30/2024 10:17 AM DIRECTOR OF MEDICAL STAFF SERVICES) Pathologist [facility] Hepatitis C Antibody NON-REACT PIA Non-React pia 11/30/2024 6:33 PM DIRECTOR OF MEDICAL STAFF SERVICES [facility] Comment: The results from [...] testing. Blood (Blood, Venous) 11/30/2024 10:17 AM DIRECTOR OF MEDICAL STAFF SERVICES 11/30/2024 4:53 PM DIRECTOR OF MEDICAL STAFF SERVICES us Huber Miranda MD LAB BLOOD ORDERABLES Final Result [facility] [address] [place] [address] * Hemoglobin A1c (11/30/2024 10:17 AM DIRECTOR OF MEDICAL STAFF SERVICES) Pathologist [facility] Hemoglobin A1C 5.1 4.0 - 5.6 % A1C 11/30/2024 11:01 PM DIRECTOR OF MEDICAL STAFF SERVICES [facility] Comment: Reference Range 4.0-5.6% is for non- adults >=18 yrs <5.6% Non-Diabetic 5.7-6.4% Increased risk of Diabetes >=6.5% Indicative of Diabetes <7.0% ADA goal for glycemic control Methodology may not detect all hemoglobin variants which can affect A1c results. Method certified by National Glycohemoglobin Standardization Program. Blood (Blood, Venous) 11/30/2024 10:17 AM DIRECTOR OF MEDICAL STAFF SERVICES 11/30/2024 4:53 PM DIRECTOR OF MEDICAL STAFF SERVICES us Huber Miranda MD LAB BLOOD ORDERABLES Final Result [facility] [address] [place] [address] * (ABNORMAL) Lipid panel (non-fasting) (11/30/2024 10:17 AM DIRECTOR OF MEDICAL STAFF SERVICES) Cholesterol 195 0 - 199 mg/dL 11/30/2024 5:58 PM [facility] Comment: Recommended by National Cholesterol Education Program (ATP III) -------- Cholesterol Ranges -------- <200 Desirable 200-239 Borderline high >=240 High Triglycerides 128 0 - 149 mg/dL 11/30/2024 5:58 PM [facility] Comment: -------- TRIG Ranges -------- <150 Normal 150-199 Borderline high 200-499 High >=500 Very high HDL 48 40 - 250 mg/dL 11/30/2024 5:58 PM [facility] Comment: -------- HDL Ranges -------- <40 Low 40-59 Normal >=60 Optimal LDL Calculated 121(H) 0 - 99 mg/dL 11/30/2024 5:58 PM [facility] Comment: -------- LDL Ranges -------- <100 Optimal 100-129 Near optimal/above optimal 130-159 Borderline high 160-189 High >=190 Very high Fasting? No 11/30/2024 10:17 AM [facility] Blood (Blood, Venous) 11/30/2024 10:17 AM DIRECTOR OF MEDICAL STAFF SERVICES 11/30/2024 4:53 PM DIRECTOR OF MEDICAL STAFF SERVICES us Huber Miranda MD LAB BLOOD ORDERABLES Final Result [facility] [address] [place] [address] documented in this encounter Visit Diagnoses Diagnosis [...] than 6 weeks Given 11/30/2024 9:43 AM DIRECTOR OF MEDICAL STAFF SERVICES 30 mg Right Gluteal documented in this encounter Care Teams Film Librarian Relationship Specialty Start Date End Date Jyoti Carnes, SECOND LANGUAGE TUTOR, TUBE BUILDING MACHINE OPERATOR [address] [place] [phone] PCP - General Family Medicine 09/07/22 documented as of this encounter
--- OUTSIDE RECORDS SUMMARY | 2024-12-08 18:22 | XMS_ITS | Encounter Summary ---
Author Organization [facility] er Address [address] [place] [address] Care Team Providers Care Metal Bench Patternmaker Name Role Phone Jyoti Carnes APRN, APPRENTICE STYLIST Primary Care Provi renu Encounter Details Date Type Department Care Team (Late st Contact Info) Description 11/30/2024 10:15 AM DOCTOR OF AUDIOLOGY Lab [place] [address] [place], [place] [phone] Need for hepatitis C screening test; Screening [...] from your doctor or pharmacy? Never 11/30/2024 [facility] Utilities Answer Date Recorded In the past 12 months has e [employer], gas, oil, or water [employer] threatened to shut off services in your [...] How often do you attend chur or bahai services? Patient declined 11/30/2024 Do you belong to any clubs o r organizations such as spiritism groups, unions, fraternal or athletic groups, or [...] Date Recorded PHQ-9 Total Score 0 11/30/2024 [facility] of Occupat ional Health - Occupational [...] any time in the past 12 m [facility], were you homeless or living in a [...] Huber Miranda MD - 11/30/2024 10:15 AM DOCTOR OF AUDIOLOGY Dear Heidi, Your cholesterol shows that you are at increased risk of heart disease and I would recommend we start a statin such as rosuvastatin. Otherwise continue to try and exercise and eat well. Your diabetes screen was normal as was your hepatitis C screen. Thank you OR OF AUDIOLOGY documented in this encounter Plan of Treatment Upcoming Encounters Date Type Department Care Team (Late st Contact Info) Description 01/25/2025 8:20 AM CDT Office Visit [place] [address] [address] Huber Miranda MD [address] [place] [phone] documented as of this encounter Procedures Procedure Name Priority Date/Time Associated Diagnosis Comments HEPATITIS C ANTIBODY Routine 11/30/2024 10:17 AM DOCTOR OF AUDIOLOGY Need for hepatitis C screening test HEMOGLOBIN A1C Routine 11/30/2024 10:17 AM DOCTOR OF AUDIOLOGY Screening for diabetes mellitus LIPID PANEL Routine 11/30/2024 10:17 AM DOCTOR OF AUDIOLOGY Screening for cardiovascular condition documented in this encounter Results * (ABNORMAL) Lipid panel (non-fasting) (11/30/2024 10:17 AM DOCTOR OF AUDIOLOGY) Cholesterol 195 0 - 199 mg/dL 11/30/2024 5:58 PM [facility] Comment: Recommended by National Cholesterol Education Program (ATP III) -------- Cholesterol Ranges -------- <200 Desirable 200-239 Borderline high >=240 High Triglycerides 128 0 - 149 mg/dL 11/30/2024 5:58 PM DOCTOR OF AUDIOLOGY [facility] Comment: -------- TRIG Ranges -------- <150 Normal 150-199 Borderline high 200-499 High >=500 Very high HDL 48 40 - 250 mg/dL 11/30/2024 5:58 PM [facility] Comment: -------- HDL Ranges -------- <40 Low 40-59 Normal >=60 Optimal LDL Calculated 121(H) 0 - 99 mg/dL 11/30/2024 5:58 PM [facility] Comment: -------- LDL Ranges -------- <100 Optimal 100-129 Near optimal/above optimal 130-159 Borderline high 160-189 High >=190 Very high Fasting? No 11/30/2024 10:17 AM [facility] Blood (Blood, Venous) 11/30/2024 10:17 AM DOCTOR OF AUDIOLOGY 11/30/2024 4:53 PM DOCTOR OF AUDIOLOGY Huber Miranda MD LAB BLOOD ORDERABLES Final Result Performing Organization Address [facility] de Phone Number [facility] [address] [place] [phone] * Hemoglobin A1c (11/30/2024 10:17 AM [facility]) Pathologist [facility] Hemoglobin A1C 5.1 4.0 - 5.6 % A1C 11/30/2024 11:01 PM DOCTOR OF AUDIOLOGY [facility] Comment: Reference Range 4.0-5.6% is for non- adults >=18 yrs <5.6% Non-Diabetic 5.7-6.4% Increased risk of Diabetes >=6.5% Indicative of Diabetes <7.0% ADA goal for glycemic control Methodology may not detect all hemoglobin variants which can affect A1c results. Method certified by National Glycohemoglobin Standardization Program. Blood (Blood, Venous) 11/30/2024 10:17 AM DOCTOR OF AUDIOLOGY 11/30/2024 4:53 PM DOCTOR OF AUDIOLOGY Huber Miranda MD LAB BLOOD ORDERABLES Final Result Performing Organization Address [facility] Phone Number [facility] [address] [place] [phone] * Hepatitis C antibody (11/30/2024 10:17 AM [facility]) Pathologist [facility] Hepatitis C Antibody NON-REACT PIA Non-React pia 11/30/2024 6:33 PM [facility] Comment: The results from this [...] testing. Blood (Blood, Venous) 11/30/2024 10:17 AM DOCTOR OF AUDIOLOGY 11/30/2024 4:53 PM DOCTOR OF AUDIOLOGY us Huber Miranda MD LAB BLOOD ORDERABLES Final Result [facility] [address] [place] [address] documented in this encounter Visit Diagnoses Diagnosis Need for hepatitis C screening test Special screening examination for other specified viral diseases Screening for diabetes mellitus Screening for cardiovascular condition Screening for other and unspecified cardiovascular conditions documented in this encounter Care Teams Metal Bench Patternmaker Relationship Specialty Start Date End Date Jyoti Carnes, OPTICAL EFFECTS LINE UP PERSON, APPRENTICE STYLIST [address] [place] [address] PCP - General Family Medicine 09/07/22 documented as of this encounter
== END 2024-12-08 18:37 | disposition home or self-care (01) ==
LOC: ED 18:20
PROVIDERS: Emergency Provider Internal Medicine; PCP Nurse Practitioner Family
DX: M54.9 Dorsalgia, unspecified (principal)
CPT/HCPCS: 99283; 99284